=== PATIENT | female | born 1960 | race Caucasian/White ===

== ENCOUNTER 2016-09-20 06:52 | Emergency (ER) | payer BC ==
[2016-09-20] MEDS ORDERED: Sodium Chloride 0.9% 2.5 ML Syringe FLUSH PRN (07:12)
[2016-09-20] MEDS ORDERED: Sodium Chloride 0.9% 10 ML Syringe FLUSH PRN (07:12)
[2016-09-20] MEDS ORDERED: Diltiazem 25 MG/5 ML SDV IVPUSH ONE (07:13)
--- NOTE | 2016-09-20 07:20 | EDM.PDOC ---
ED HISTORY OF PRESENT ILLNESS - General Chief Complaint: Respiratory Problem Stated Complaint: AMBULANCE Time Seen by Provider: 09/20/16 07:10 Source of Information: Reports: Patient History Limitations: Reports: No limitations - History of Present Illness INITIAL COMMENTS - FREE TEXT/NARRATIVE: History of present illness: [] Patient has a history of atrial fibrillation and was changed from Eliquist to Pradaxa so last week. She started having shortness of breath and palpitations yesterday morning. It progressed throughout the night this morning she called the ambulance and she started feeling numbness around her face and cramping of her hands. Review of systems: As per history of present illness and below otherwise all systems reviewed and negative. Past medical history: As per history of present illness and as reviewed below otherwise noncontributory. Surgical history: As per history of present illness and as reviewed below otherwise noncontributory. Social history: No reported history of drug or alcohol abuse. Family history: As per history of present illness and as reviewed below otherwise noncontributory. Physical exam: General: Well developed, well nourished in NAD HEENT: Atraumatic, normocephalic, pupils reactive, negative for conjunctival pallor or scleral icterus, mucous membranes moist, throat clear, neck supple, nontender, trachea midline. Lungs: Clear to auscultation, breath sounds equal bilaterally no wheezing or rales, no respiratory distress, chest nontender. Heart: S1S2, irregular, tachycardic, negative for clicks, rubs, or JVD. Abdomen: Soft, nondistended, nontender. Negative for masses or hepatosplenomegaly. Negative for costovertebral tenderness. Pelvis: Stable nontender. Genitourinary: Deferred. Rectal: Deferred. Extremities: Atraumatic, negative for cords or calf pain. Neurovascular unremarkable. Neuro: Awake, alert, oriented. Cranial nerves II through XII unremarkable. Cerebellum unremarkable. Motor and sensory unremarkable throughout. Exam nonfocal. Diagnostics: [] EKG, Labs and chest x-ray show A. fib with RVR, mild hypokalemia and interstitial edema Therapeutics: [] Patient was given one dose of diltiazem with control of her rate in the 70s improved blood pressure and symptoms. Impression: [] A. fib with rapid ventricular rate Plan: [] Continue Current medications followup with PMD as needed Definitive disposition and diagnosis as appropriate pending reevaluation and review of above. - Related Data Allergies/ADRs: Allergies Allergy/AdvReac Type Severity Reaction Status Date / Time tetnus vaccination Allergy Hives Uncoded 09/20/16 06:57 Home Meds: Home Meds Dabigatran Etexilate Mesylate [Pradaxa] 150 mg PO DAILY 09/20/16 [History] Famotidine [Pepcid AC] 20 mg PO DAILY 09/20/16 [History] Levothyroxine 25 mcg PO DAILY 09/20/16 [History] Lisinopril 5 mg PO DAILY 09/20/16 [History] Metoprolol Succinate [Toprol XL] 150 mg PO DAILY 09/20/16 [History] Rosuvastatin [Crestor] 20 mg PO DAILY 09/20/16 [History] Past Medical History HEENT History: Reports: Impaired vision Cardiovascular History: Reports: Afib, High cholesterol, Hypertension Other Cardiovascular History: stroke 5 years ago Respiratory History: Reports: Other (see below) Other Respiratory History: lung polyps Gastrointestinal History: Reports: None Genitourinary History: Reports: None SPECIAL PROCEDURE TECH History: Reports: None Musculoskeletal History: Reports: Fracture Neurological History: Reports: Seizure Other Neuro History: last attack 4 years ago Psychiatric History: Reports: None Endocrine/Metabolic History: Reports: Other (see below) Other Endocrine/Metabolic History: "borderline diabetes" Hematologic History: Reports: None Oncologic (Cancer) History: Reports: None Dermatologic History: Reports: None - Infectious Disease History Infectious Disease History: Reports: Chicken pox, Influenza - Past Surgical History Head Surgeries/Procedures: Reports: None HEENT Surgical History: Reports: None Cardiovascular Surgical History: Reports: None Respiratory Surgical History: Reports: None Female Surgical History: Reports: None Endocrine Surgical History: Reports: None Neurological Surgical History: Reports: None Musculoskeletal Surgical History: Reports: None Social & Family History - Family History Family Medical History: Noncontributory HEENT: Reports: Impaired vision Cardiac: Reports: Bypass, Hypertension OBGYN: Reports: Oncologic: Reports: Breast - Tobacco Use Smoking Status *Q: Current Every Day Smoker Years of Tobacco use: 30 Packs/Tins Daily: 1.5 Used Tobacco, but Quit: No Second Hand Smoke Exposure: Yes - Caffeine Use Caffeine Use: Reports: Coffee - Alcohol Use Days Per Week of Alcohol Use: 2 Number of Drinks Per Day: 4 Total Drinks Per Week: 8 - Recreational Drug Use Recreational Drug Use: No Drug Use in Last 12 Months: No ED ROS GENERAL - Review of Systems Review Of Systems: See Below (See history of present illness) ED EXAM, GENERAL - Physical Exam Exam: See Below (See history of present illness) Course - Vital Signs Last Recorded V/S: Last Vital Signs Temp 36.5 C 09/20/16 06:57 Pulse 67 09/20/16 07:52 Resp 16 09/20/16 07:52 BP 114/80 09/20/16 07:52 Pulse Ox 97 09/20/16 07:52 - Orders/Labs/Meds Orders: Active Orders 24 hr Category Date Time Status EKG 12 Lead [EKG Documentation Completion] [RC] STAT Care 09/20/16 07:17 Active Chest 1V Frontal [CR] Stat Exams 09/20/16 07:11 Taken Sodium Chloride 0.9% [Saline Flush] Med 09/20/16 07:12 Active 10 ml FLUSH ASDIRECTED PRN Sodium Chloride 0.9% [Saline Flush] Med 09/20/16 07:12 Active 2.5 ml FLUSH ASDIRECTED PRN Peripheral IV Insertion Adult [OM.PC] Stat Oth 09/20/16 07:11 Ordered Medication Orders Sodium Chloride (Saline Flush) 10 ml FLUSH ASDIRECTED PRN PRN Reason: Keep Vein Open Last Admin: 09/20/16 07:33 Dose: 10 ml Sodium Chloride (Saline Flush) 2.5 ml FLUSH ASDIRECTED PRN PRN Reason: Keep Vein Open Last Admin: 09/20/16 07:33 Dose: 2.5 ml Labs: Laboratory Tests 09/20/16 09/20/16 09/20/16 Range/Units 07:20 07:20 07:20 WBC 6.87 (4.0-11.0) K/uL RBC 4.34 (4.30-5.90) M/uL Hgb 12.6 (12.0-16.0) g/dL Hct 39.2 (36.0-46.0) % MCV 90.3 (80.0-98.0) fL MCH 29.0 (27.0-32.0) pg MCHC 32.1 (31.0-37.0) g/dL RDW Std Deviation 55.2 (28.0-62.0) fl RDW Coeff of Cullen 17 H (11.0-15.0) % Plt Count 226 (150-400) K/uL MPV 10.60 (7.40-12.00) fL Neut % (Auto) 71.7 (48.0-80.0) % Lymph % (Auto) 18.8 (16.0-40.0) % [place] % (Auto) 7.9 (0.0-15.0) % Eos % (Auto) 1.2 (0.0-7.0) % Baso % (Auto) 0.4 (0.0-1.5) % Neut # (Auto) 4.9 (1.4-5.7) K/uL Lymph # (Auto) 1.3 (0.6-2.4) K/uL [place] # (Auto) 0.5 (0.0-0.8) K/uL Eos # (Auto) 0.1 (0.0-0.7) K/uL Baso # (Auto) 0.0 (0.0-0.1) K/uL Nucleated RBC % 0.0 /100WBC Nucleated RBCs # 0 K/uL Sodium 142 (136-146) mmol/L Potassium 3.1 L (3.5-5.1) mmol/L Chloride 106 (98-110) mmol/L Carbon Dioxide 20 L (21-31) mmol/L BUN 18 (6.0-23.0) mg/dL Creatinine 0.9 (0.6-1.5) mg/dL Est Cr Clr Drug Dosing 72.07 mL/min Estimated GFR (MDRD) > 60.0 ml/min Glucose 126 H (60-110) mg/dL Calcium 6.0 L (8.8-10.8) mg/dL Total Bilirubin 0.4 (0.1-1.5) mg/dL AST 16 (5-40) IU/L ALT 11 (8-54) IU/L Alkaline Phosphatase 71 (40-150) Troponin I < 0.10 (0.0-0.29) NG/ML B-Natriuretic Peptide (<100) PG/ML Total Protein 6.8 (6.0-8.0) g/dL Albumin 3.7 (3.5-5.0) g/dL Globulin 3.1 (2.0-3.5) g/dL Albumin/Globulin Ratio 1.2 L (1.3-2.8) 09/20/16 Range/Units 07:20 WBC (4.0-11.0) K/uL RBC (4.30-5.90) M/uL Hgb (12.0-16.0) g/dL Hct (36.0-46.0) % MCV (80.0-98.0) fL MCH (27.0-32.0) pg MCHC (31.0-37.0) g/dL RDW Std Deviation (28.0-62.0) fl RDW Coeff of Cullen (11.0-15.0) % Plt Count (150-400) K/uL MPV (7.40-12.00) fL Neut % (Auto) (48.0-80.0) % Lymph % (Auto) (16.0-40.0) % [place] % (Auto) (0.0-15.0) % Eos % (Auto) (0.0-7.0) % Baso % (Auto) (0.0-1.5) % Neut # (Auto) (1.4-5.7) K/uL Lymph # (Auto) (0.6-2.4) K/uL [place] # (Auto) (0.0-0.8) K/uL Eos # (Auto) (0.0-0.7) K/uL Baso # (Auto) (0.0-0.1) K/uL Nucleated RBC % /100WBC Nucleated RBCs # K/uL Sodium (136-146) mmol/L Potassium (3.5-5.1) mmol/L Chloride (98-110) mmol/L Carbon Dioxide (21-31) mmol/L BUN (6.0-23.0) mg/dL Creatinine (0.6-1.5) mg/dL Est Cr Clr Drug Dosing mL/min Estimated GFR (MDRD) ml/min Glucose (60-110) mg/dL Calcium (8.8-10.8) mg/dL Total Bilirubin (0.1-1.5) mg/dL AST (5-40) IU/L ALT (8-54) IU/L Alkaline Phosphatase (40-150) Troponin I (0.0-0.29) NG/ML B-Natriuretic Peptide 2840 H (<100) PG/ML Total Protein (6.0-8.0) g/dL Albumin (3.5-5.0) g/dL Globulin (2.0-3.5) g/dL Albumin/Globulin Ratio (1.3-2.8) Meds: Medications Generic Name Dose Route Start Last Admin Trade Name Freq PRN Reason Stop Dose Admin Sodium Chloride 10 ml 09/20/16 07:12 09/20/16 07:33 Saline Flush FLUSH 10 ml ASDIRECTED PRN Administration Keep Vein Open Sodium Chloride 2.5 ml 09/20/16 07:12 09/20/16 07:33 Saline Flush FLUSH 2.5 ml ASDIRECTED PRN Administration Keep Vein Open Discontinued Medications Generic Name Dose Route Start Last Admin Trade Name Freq PRN Reason Stop Dose Admin Diltiazem HCl 20 mg 09/20/16 07:13 09/20/16 07:33 Diltiazem IVPUSH 09/20/16 07:14 20 mg ONETIME ONE Administration Potassium Chloride 40 meq 09/20/16 08:05 09/20/16 08:12 Klor-Con M20 PO 09/20/16 08:06 40 meq ONETIME ONE Administration Departure - Departure Time of Disposition: 08:37 Disposition: Home, Self-Care 01 Condition: good Clinical Impression: Atrial fibrillation with rapid ventricular response Forms: ED Department Discharge Additional Instructions: The following information is given to patients seen in the emergency department who are being discharged to home. This information is to outline your options for follow-up care. We provide all patients seen in our emergency department with a follow-up referral. The need for follow-up, as well as the timing and circumstances, are variable depending upon the specifics of your emergency department visit. If you don't have a primary care physician on staff, we will provide you with a referral. We always advise you to contact your personal physician following an emergency department visit to inform them of the circumstance of the visit and for follow-up with them and/or the need for any referrals to a consulting specialist. The emergency department will also refer you to a specialist when appropriate. This referral assures that you have the opportunity for follow-up care with a specialist. All of these measure are taken in an effort to provide you with optimal care, which includes your follow-up. Under all circumstances we always encourage you to contact your private physician who remains a resource for coordinating your care. When calling for follow-up care, please make the office aware that this follow-up is from your recent emergency room visit. If for any reason you are refused follow-up, please contact the [facility] Emergency Department at and asked to speak to the emergency department charge nurse. Continue regular medications [facility] [address] [place] [address] - My Orders Last 24 Hours: My Active Orders 09/20/16 07:11 Chest 1V Frontal [CR] Stat Peripheral IV Insertion Adult [OM.PC] Stat 09/20/16 07:12 Sodium Chloride 0.9% [Saline Flush] 10 ml FLUSH ASDIRECTED PRN Sodium Chloride 0.9% [Saline Flush] 2.5 ml FLUSH ASDIRECTED PRN 09/20/16 07:17 EKG 12 Lead [EKG Documentation Completion] [RC] STAT - Assessment/Plan Last 24 Hours: My Active Orders 09/20/16 07:11 Chest 1V Frontal [CR] Stat Peripheral IV Insertion Adult [OM.PC] Stat 09/20/16 07:12 Sodium Chloride 0.9% [Saline Flush] 10 ml FLUSH ASDIRECTED PRN Sodium Chloride 0.9% [Saline Flush] 2.5 ml FLUSH ASDIRECTED PRN 09/20/16 07:17 EKG 12 Lead [EKG Documentation Completion] [RC] STAT
[2016-09-20 07:58] LABS: CHLORIDE,CL 106 mmol/L (98-110); SODIUM,NA 142 mmol/L (136-146)
[2016-09-20] MEDS ORDERED: Potassium Chloride 20 MEQ Tab.ER PO ONE (08:05)
[2016-09-20 09:06] VITALS: BP 116/85
--- NOTE | 2016-09-20 10:41 | CR ---
EXAM DATE: 09/20/16 PATIENT'S AGE: 56 Patient: [place] Facility: [place], [place] Site . Site : 1960 Study: XRay Chest [id number]/12/2017 7:40:40 AM Ordering Physician: Doctor Galan Final Report: INDICATION: Shortness of breath, and chest pain. COMPARISON: Portable chest dated 03/01/2016. TECHNIQUE: Portable AP erect chest performed at 7:33 a.m. FINDINGS: There is no evidence of pneumothorax. There is mild cardiac enlargement. Pulmonary vessels show mild central congestion and within the periphery of the right lung there are few septal lines which may indicate early interstitial edema. However I see no significant pleural fluid accumulation. There are no suspicious masses or focal infiltrate. IMPRESSION: Enlarging cardiac silhouette and pulmonary vascular changes suggesting early interstitial edema Dictated by Jani Starks MD @ Sep 20 2016 7:43AM (Electronic Signature) Report Signed by Proxy and Original Signed Document filed in the Medical Record. MTDD
== END 2016-09-20 09:07 | disposition home or self-care (01) ==
LOC: MW.ED 06:52
DX: I48.91 Unspecified atrial fibrillation (principal); E78.00 Pure hypercholesterolemia, unspecified; I10 Essential (primary) hypertension; F17.210 Nicotine dependence, cigarettes, uncomplicated; Z79.899 Other long term (current) drug therapy; Z88.7 Allergy status to serum and vaccine
CPT/HCPCS: 36415; 71010; 80053; 83880; 84484; 85025; 93005; 96374; 99285; A9270; 99284; J3490

== ENCOUNTER 2016-09-24 12:45 | Inpatient (IN) | payer BC ==
[~2016-09-24 12:45] MED LIST: Diltiazem 25 MG/5 ML SDV IVPUSH ONE; Sodium Chloride 0.9% 1,000 ML IV ONE; Sodium Chloride 0.9% 10 ML Syringe FLUSH PRN; Sodium Chloride 0.9% 2.5 ML Syringe FLUSH PRN
[2016-09-24] MEDS ORDERED: Diltiazem 100 MG AdvVial ONE (13:07)
--- NOTE | 2016-09-24 13:08 | EDM.PDOC ---
[id number]: AMBULANCE Time Seen by Provider: 09/24/16 12:55 Source of Information: Reports: Patient History Limitations: Reports: No limitations - History of Present Illness INITIAL COMMENTS - FREE TEXT/NARRATIVE: History of present illness: [] Patient has a history of A. fib treated with Pradaxa who has been having increasing intermittent episodes of shortness of breath. Patient denies feeling any chest pain she says at times chest is tight. She was seen in the ER last week for similar symptoms and was discharged home stable. She returns in A. fib with RVR on scene she had a low blood pressure of 80 systolic. On arrival she was hypertensive. Review of systems: As per history of present illness and below otherwise all systems reviewed and negative. Past medical history: As per history of present illness and as reviewed below otherwise noncontributory. Surgical history: As per history of present illness and as reviewed below otherwise noncontributory. Social history: No reported history of drug or alcohol abuse. Family history: As per history of present illness and as reviewed below otherwise noncontributory. Physical exam: General: Well developed, well nourished in NAD HEENT: Atraumatic, normocephalic, pupils reactive, negative for conjunctival pallor or scleral icterus, mucous membranes moist, throat clear, neck supple, nontender, trachea midline. Lungs: Clear to auscultation, breath sounds equal bilaterally, chest nontender. Heart: S1S2, regular, negative for clicks, rubs, or JVD. Abdomen: Soft, nondistended, nontender. Negative for masses or hepatosplenomegaly. Negative for costovertebral tenderness. Pelvis: Stable nontender. Genitourinary: Deferred. Rectal: Deferred. Extremities: Atraumatic, negative for cords or calf pain. Neurovascular unremarkable. Neuro: Awake, alert, oriented. Cranial nerves II through XII unremarkable. Cerebellum unremarkable. Motor and sensory unremarkable throughout. Exam nonfocal. Diagnostics: [] Labs and x-ray done Therapeutics: [] Patient was given diltiazem was and put on a diltiazem drip, electrolyte replacement was begun in the ED Impression: [] A. fib with RVR, hypokalemia, hypocalcemia Plan: [] Admit for further treatment and workup to Dr. Willett Definitive disposition and diagnosis as appropriate pending reevaluation and review of above. - Related Data Allergies/ADRs: Allergies Allergy/AdvReac Type Severity Reaction Status Date / Time tetnus vaccination Allergy Hives Uncoded 09/24/16 12:46 Home Meds: Home Meds Dabigatran Etexilate Mesylate [Pradaxa] 150 mg PO DAILY 09/20/16 [History] Famotidine [Pepcid AC] 20 mg PO DAILY 09/20/16 [History] Levothyroxine 25 mcg PO DAILY 09/20/16 [History] Lisinopril 5 mg PO DAILY 09/20/16 [History] Metoprolol Succinate [Toprol XL] 150 mg PO DAILY 09/20/16 [History] Rosuvastatin [Crestor] 20 mg PO DAILY 09/20/16 [History] Past Medical History HEENT History: Reports: Impaired vision Cardiovascular History: Reports: Afib, High cholesterol, Hypertension Other Cardiovascular History: stroke 5 years ago Respiratory History: Reports: Other (see below) Other Respiratory History: lung polyps Gastrointestinal History: Reports: None Genitourinary History: Reports: None 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 Musculoskeletal History: Reports: Fracture Neurological History: Reports: Seizure Other Neuro History: last attack 4 years ago Psychiatric History: Reports: None Endocrine/Metabolic History: Reports: Other (see below) Other Endocrine/Metabolic History: "borderline diabetes" Hematologic History: Reports: None Oncologic (Cancer) History: Reports: None Dermatologic History: Reports: None - Infectious Disease History Infectious Disease History: Reports: Chicken pox, Influenza - Past Surgical History Head Surgeries/Procedures: Reports: None HEENT Surgical History: Reports: None Cardiovascular Surgical History: Reports: None Respiratory Surgical History: Reports: None Female Surgical History: Reports: None Endocrine Surgical History: Reports: None Neurological Surgical History: Reports: None Musculoskeletal Surgical History: Reports: None Social & Family History - Family History Family Medical History: Noncontributory HEENT: Reports: Impaired vision Cardiac: Reports: Bypass, Hypertension OBGYN: Reports: Oncologic: Reports: Breast - Tobacco Use Smoking Status *Q: Current Every Day Smoker Years of Tobacco use: 30 Packs/Tins Daily: 0.5 Used Tobacco, but Quit: No Second Hand Smoke Exposure: Yes - Caffeine Use Caffeine Use: Reports: Coffee Caffeine Use Comment: 4 cups/day - Alcohol Use Days Per Week of Alcohol Use: 2 Number of Drinks Per Day: 4 Total Drinks Per Week: 8 - Recreational Drug Use Recreational Drug Use: No Drug Use in Last 12 Months: No ED ROS GENERAL - Review of Systems Review Of Systems: See Below (See history of present illness) ED EXAM, GENERAL - Physical Exam Exam: See Below (See history of present illness) Course - Vital Signs Last Recorded V/S: Last Vital Signs Temp 36.9 C 09/25/16 00:00 Pulse 130 H 09/25/16 07:00 Resp 27 H 09/25/16 07:00 BP 122/98 H 09/25/16 07:00 Pulse Ox 95 09/25/16 07:00 - Orders/Labs/Meds Orders: Active Orders 24 hr Category Date Time Status Chest 1V Frontal [CR] Stat Exams 09/24/16 12:39 Taken Diltiazem [Cardizem] 100 mg Med 09/24/16 13:15 Active Sodium Chloride 0.9% [Normal Saline] 100 ml IV TITRATE Sodium Chloride 0.9% [Saline Flush] Med 09/24/16 12:39 Active 10 ml FLUSH ASDIRECTED PRN Sodium Chloride 0.9% [Saline Flush] Med 09/24/16 12:39 Active 2.5 ml FLUSH ASDIRECTED PRN Peripheral IV Insertion Adult [OM.PC] Stat Oth 09/24/16 12:38 Ordered Medication Orders Acetaminophen (Tylenol) 650 mg PO Q4H PRN PRN Reason: Pain (Mild 1-3)/fever Dabigatran (Pradaxa) 150 mg PO BID BONITA Diltiazem HCl 100 mg/ Sodium (Chloride) 100 mls @ 5 mls/hr IV TITRATE BONITA; 5 MG /HR PRN Reason: Protocol Last Titration: 09/25/16 06:49 Dose: 10 mg/hr, 10 mls/hr Admin: 09/25/16 02:38 Dose: 5 mg/hr, 5 mls/hr Titration: 09/25/16 02:38 Dose: 5 mg/hr, 5 mls/hr Admin: 09/24/16 13:12 Dose: 5 mg/hr, 5 mls/hr Levothyroxine Sodium (Levothyroxine) 25 mcg PO DAILY BONITA Ondansetron HCl (Zofran) 4 mg IVPUSH Q4H PRN PRN Reason: Nausea Sodium Chloride (Saline Flush) 10 ml FLUSH ASDIRECTED PRN PRN Reason: Keep Vein Open Last Admin: 09/24/16 12:47 Dose: 10 ml Sodium Chloride (Saline Flush) 2.5 ml FLUSH ASDIRECTED PRN PRN Reason: Keep Vein Open Last Admin: 09/24/16 12:47 Dose: 2.5 ml Labs: Laboratory Tests 09/24/16 09/24/16 09/24/16 Range/Units 12:43 12:43 12:43 WBC 10.05 (4.0-11.0) K/uL RBC 4.57 (4.30-5.90) M/uL Hgb 13.6 (12.0-16.0) g/dL Hct 41.2 (36.0-46.0) % MCV 90.2 (80.0-98.0) fL MCH 29.8 (27.0-32.0) pg MCHC 33.0 (31.0-37.0) g/dL RDW Std Deviation 53.9 (28.0-62.0) fl RDW Coeff of Cullen 16 H (11.0-15.0) % Plt Count 280 (150-400) K/uL MPV 11.40 (7.40-12.00) fL Neut % (Auto) 74.3 (48.0-80.0) % Lymph % (Auto) 12.4 L (16.0-40.0) % [place] % (Auto) 12.7 (0.0-15.0) % Eos % (Auto) 0.3 (0.0-7.0) % Baso % (Auto) 0.3 (0.0-1.5) % Neut # (Auto) 7.5 H (1.4-5.7) K/uL Lymph # (Auto) 1.3 (0.6-2.4) K/uL [place] # (Auto) 1.3 H (0.0-0.8) K/uL Eos # (Auto) 0.0 (0.0-0.7) K/uL Baso # (Auto) 0.0 (0.0-0.1) K/uL Nucleated RBC % 0.0 /100WBC Nucleated RBCs # 0 K/uL INR (0.86-1.11) APTT (18.6-31.3) SEC Sodium 142 (136-146) mmol/L Potassium 3.1 L (3.5-5.1) mmol/L Chloride 104 (98-110) mmol/L Carbon Dioxide 17 L (21-31) mmol/L BUN 18 (6.0-23.0) mg/dL Creatinine 1.0 (0.6-1.5) mg/dL Est Cr Clr Drug Dosing 64.87 mL/min Estimated GFR (MDRD) 57.1 ml/min Glucose 113 H (60-110) mg/dL Calcium 5.7 L (8.8-10.8) mg/dL Magnesium (1.5-2.3) mEq/L Total Bilirubin 0.7 (0.1-1.5) mg/dL AST 16 (5-40) IU/L ALT 16 (8-54) IU/L Alkaline Phosphatase 72 (40-150) Troponin I < 0.10 (0.0-0.29) NG/ML B-Natriuretic Peptide (<100) PG/ML Total Protein 7.1 (6.0-8.0) g/dL Albumin 3.9 (3.5-5.0) g/dL Globulin 3.2 (2.0-3.5) g/dL Albumin/Globulin Ratio 1.2 L (1.3-2.8) 09/24/16 09/24/16 09/24/16 Range/Units 12:43 12:43 12:43 WBC (4.0-11.0) K/uL RBC (4.30-5.90) M/uL Hgb (12.0-16.0) g/dL Hct (36.0-46.0) % MCV (80.0-98.0) fL MCH (27.0-32.0) pg MCHC (31.0-37.0) g/dL RDW Std Deviation (28.0-62.0) fl RDW Coeff of Cullen (11.0-15.0) % Plt Count (150-400) K/uL MPV (7.40-12.00) fL Neut % (Auto) (48.0-80.0) % Lymph % (Auto) (16.0-40.0) % [place] % (Auto) (0.0-15.0) % Eos % (Auto) (0.0-7.0) % Baso % (Auto) (0.0-1.5) % Neut # (Auto) (1.4-5.7) K/uL Lymph # (Auto) (0.6-2.4) K/uL [place] # (Auto) (0.0-0.8) K/uL Eos # (Auto) (0.0-0.7) K/uL Baso # (Auto) (0.0-0.1) K/uL Nucleated RBC % /100WBC Nucleated RBCs # K/uL INR 1.63 H (0.86-1.11) APTT 50.7 H (18.6-31.3) SEC Sodium (136-146) mmol/L Potassium (3.5-5.1) mmol/L Chloride (98-110) mmol/L Carbon Dioxide (21-31) mmol/L BUN (6.0-23.0) mg/dL Creatinine (0.6-1.5) mg/dL Est Cr Clr Drug Dosing mL/min Estimated GFR (MDRD) ml/min Glucose (60-110) mg/dL Calcium (8.8-10.8) mg/dL Magnesium 0.6 L (1.5-2.3) mEq/L Total Bilirubin (0.1-1.5) mg/dL AST (5-40) IU/L ALT (8-54) IU/L Alkaline Phosphatase (40-150) Troponin I (0.0-0.29) NG/ML B-Natriuretic Peptide > 3306 H (<100) PG/ML Total Protein (6.0-8.0) g/dL Albumin (3.5-5.0) g/dL Globulin (2.0-3.5) g/dL Albumin/Globulin Ratio (1.3-2.8) Meds: Medications Generic Name Dose Route Start Last Admin Trade Name Freq PRN Reason Stop Dose Admin Acetaminophen 650 mg 09/24/16 13:52 Tylenol PO Q4H PRN Pain (Mild 1-3)/fever Dabigatran 150 mg 09/25/16 09:00 Pradaxa PO BID BONITA Diltiazem HCl 100 mg/ Sodium 100 mls @ 5 mls/hr 09/24/16 13:15 04/17/17 06:49 Chloride IV 10 mg/hr TITRATE BONITA 10 mls/hr Protocol Titration 5 MG/HR Levothyroxine Sodium 25 mcg 09/25/16 09:00 Levothyroxine PO DAILY BONITA Ondansetron HCl 4 mg 09/24/16 13:52 Zofran IVPUSH Q4H PRN Nausea Sodium Chloride 10 ml 09/24/16 12:39 09/24/16 12:47 Saline Flush FLUSH 10 ml ASDIRECTED PRN Administration Keep Vein Open Sodium Chloride 2.5 ml 09/24/16 12:39 09/24/16 12:47 Saline Flush FLUSH 2.5 ml ASDIRECTED PRN Administration Keep Vein Open Discontinued Medications Generic Name Dose Route Start Last Admin Trade Name Freq PRN Reason Stop Dose Admin Calcium Gluconate 1 gm 09/24/16 13:25 09/24/16 13:55 Calcium Gluconate IV 09/24/16 13:26 Not Given ONETIME ONE Calcium Gluconate 1 gm 09/24/16 13:49 09/24/16 14:17 Calcium Gluconate IVPUSH 09/24/16 13:50 Not Given ONETIME ONE Calcium Gluconate 1 gm 09/25/16 00:51 09/25/16 01:27 Calcium Gluconate IVPUSH 09/25/16 00:52 Not Given ONETIME ONE Diltiazem HCl 20 mg 09/24/16 12:39 09/24/16 12:46 Diltiazem IVPUSH 09/24/16 12:40 20 mg ONETIME ONE Administration Diltiazem HCl Confirm 09/24/16 13:07 09/24/16 13:30 Cardizem Administered 09/24/16 13:08 Not Given Dose 100 mg .ROUTE .STK-MED ONE Sodium Chloride 1,000 mls @ 999 mls/hr 09/24/16 12:39 09/24/16 12:46 Normal Saline IV 09/24/16 13:39 999 mls/hr .Bolus ONE Administration Sodium Chloride Confirm 09/24/16 13:09 09/24/16 13:31 Normal Saline Administered 09/24/16 13:10 Not Given Dose 100 mls @ as directed .ROUTE .STK-MED ONE Potassium Chloride/Sodium Chloride 1,000 mls @ 150 mls/hr 09/24/16 13:30 Normal Saline With 40 Meq Kcl IV 09/24/16 20:09 ASDIRECTED BONITA Calcium Gluconate 1 gm/ Sodium 60 mls @ 60 mls/hr 09/24/16 14:00 Chloride IV 09/24/16 14:59 ONETIME ONE Calcium Gluconate 2 gm/ Sodium 120 mls @ 60 mls/hr 09/24/16 14:00 09/24/16 14 :16 Chloride IV 09/24/16 15:59 60 mls/hr ONETIME ONE Administration Magnesium Sulfate 4 gm/ Premix 100 mls @ 50 mls/hr 09/24/16 14:39 09/24/16 15 :25 IV 09/24/16 16:38 50 mls/hr ONETIME ONE Administration Calcium Gluconate 1 gm/ Sodium 60 mls @ 60 mls/hr 09/24/16 17:45 09/24/16 17: 58 Chloride IV 09/24/16 18:44 60 mls/hr ONETIME ONE Administration Magnesium Sulfate 4 gm/ Premix 100 mls @ 50 mls/hr 09/25/16 00:47 09/25/16 02 :29 IV 09/25/16 02:46 50 mls/hr ONETIME ONE Administration Calcium Gluconate 1 gm/ Sodium 60 mls @ 60 mls/hr 09/25/16 01:30 09/25/16 01: 28 Chloride IV 09/25/16 02:29 60 mls/hr ONETIME ONE Administration Ondansetron HCl 4 mg 09/24/16 13:29 09/24/16 13:44 Zofran IVPUSH 09/24/16 13:30 4 mg ONETIME ONE Administration Potassium Chloride 40 meq 09/24/16 13:17 09/24/16 13:24 Klor-Con M20 PO 09/24/16 13:18 40 meq ONETIME ONE Administration Potassium Chloride 20 meq 09/24/16 13:21 09/24/16 13:45 Klor-Con M20 PO 09/24/16 13:22 20 meq ONETIME ONE Administration Potassium Chloride 60 meq 09/24/16 17:17 09/24/16 18:00 Klor-Con M20 PO 09/24/16 17:18 60 meq ONETIME ONE Administration Departure - Departure Time of Disposition: 08:18 Disposition: Admitted As Inpatient 65 Clinical Impression: Atrial fibrillation with rapid ventricular response - My Orders Last 24 Hours: My Active Orders 09/24/16 12:38 Peripheral IV Insertion Adult [OM.PC] Stat 09/24/16 12:39 Chest 1V Frontal [CR] Stat Sodium Chloride 0.9% [Saline Flush] 10 ml FLUSH ASDIRECTED PRN Sodium Chloride 0.9% [Saline Flush] 2.5 ml FLUSH ASDIRECTED PRN 09/24/16 13:15 Diltiazem [Cardizem] 100 mg Sodium Chloride 0.9% [Normal Saline] 100 ml IV TITRATE - Assessment/Plan Last 24 Hours: My Active Orders 09/24/16 12:38 Peripheral IV Insertion Adult [OM.PC] Stat 09/24/16 12:39 Chest 1V Frontal [CR] Stat Sodium Chloride 0.9% [Saline Flush] 10 ml FLUSH ASDIRECTED PRN Sodium Chloride 0.9% [Saline Flush] 2.5 ml FLUSH ASDIRECTED PRN 09/24/16 13:15 Diltiazem [Cardizem] 100 mg Sodium Chloride 0.9% [Normal Saline] 100 ml IV TITRATE
[2016-09-24] MEDS ORDERED: Sodium Chloride 0.9% 100 ML ONE (13:09)
[2016-09-24] MEDS: Diltiazem 100 MG in Sodium Chloride 0.9% 100 ML IV SCH (13:12)
[2016-09-24] MEDS ORDERED: Potassium Chloride 20 MEQ Tab.ER PO ONE ×3 (13:17→17:17)
[2016-09-24] MEDS ORDERED: Ondansetron 4 MG/2 ML SDV IVPUSH ONE (13:29)
[2016-09-24] MEDS ORDERED: Sodium Chloride 0.9% with KCl 1,000 ML IV SCH (13:30)
[2016-09-24] MEDS: Calcium Gluconate 10% 1 GM/10 ML SDV IV ONE ×2 (13:45→13:55)
[2016-09-24] MEDS ORDERED: Calcium Gluconate 10% 1 GM/10 ML SDV IVPUSH ONE (13:49)
[2016-09-24] MEDS ORDERED: Acetaminophen 325 MG Tab PO PRN (13:52)
[2016-09-24] MEDS ORDERED: Ondansetron 4 MG/2 ML SDV IVPUSH PRN (13:52)
[2016-09-24] MEDS ORDERED: Calcium Gluconate 2 GM in Sodium Chloride 0.9% 100 ML IV ONE (14:00)
--- NOTE | 2016-09-24 14:05 | PCM.HP ---
H&P History of Present Illness - History of Present Illness Initial Comments - Free Text/Narative: 56 yo female with pmh of atrial fibrillation, cardiomyopathy with EF of 20%, and hypocalcemia. She was admitted last february for atrial fibrillation with severe hypocalcemia, hypomagnesia. The plan was to follow up with endocrinology but she denies this every happening. She reports she has been compliant with her calcium supplementation. She presents today with one day history of shortness of breath and palpiations. She was seen in the ED and noted to be in atrial fibrillation with RVR and to have a heart rate of 150s. She was placed on a diltiazem drip which has lowered her heart rate and improved her dyspnea. She was noted to have a potassium of 3.1 and calcium of 5.7. - Related Data Allergies/Adverse Reactions: Allergies Allergy/AdvReac Type Severity Reaction Status Date / Time tetnus vaccination Allergy Hives Uncoded 09/24/16 12:46 Home Medications: Home Meds Dabigatran Etexilate Mesylate [Pradaxa] 150 mg PO BID 09/20/16 [History] Levothyroxine 25 mcg PO ACBREAKFAST 09/20/16 [History] Lisinopril 5 mg PO DAILY 09/20/16 [History] Metoprolol Succinate [Toprol XL] 100 mg PO QAM 09/20/16 [History] Rosuvastatin [Crestor] 20 mg PO DAILY 09/20/16 [History] Aspirin [Halfprin] 81 mg PO DAILY 09/25/16 [History] Calcium Carbonate/Vitamin D3 [Caltrate 600 Plus D3 Tablet] 600 mg PO BID [History] Magnesium Oxide 400 mg PO DAILY 09/25/16 [History] Metoprolol Succinate [Toprol XL] 50 mg PO BEDTIME 09/25/16 [History] Omeprazole 20 mg PO BID 09/25/16 [History] Past Medical History HEENT History: Reports: Impaired vision Cardiovascular History: Reports: Afib, High cholesterol, Hypertension Other Cardiovascular History: stroke 5 years ago Respiratory History: Reports: Other (see below) Other Respiratory History: lung polyps Gastrointestinal History: Reports: None Genitourinary History: Reports: None [employer]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 Musculoskeletal History: Reports: Fracture Neurological History: Reports: Seizure Other Neuro History: last attack 4 years ago Psychiatric History: Reports: None Endocrine/Metabolic History: Reports: Other (see below) Other Endocrine/Metabolic History: "borderline diabetes" Hematologic History: Reports: None Oncologic (Cancer) History: Reports: None Dermatologic History: Reports: None - Infectious Disease History Infectious Disease History: Reports: Chicken pox, Influenza - Past Surgical History Head Surgeries/Procedures: Reports: None HEENT Surgical History: Reports: None Cardiovascular Surgical History: Reports: None Respiratory Surgical History: Reports: None Female Surgical History: Reports: None Endocrine Surgical History: Reports: None Neurological Surgical History: Reports: None Musculoskeletal Surgical History: Reports: None Social & Family History - Family History Family Medical History: Noncontributory HEENT: Reports: Impaired vision Cardiac: Reports: Bypass, Hypertension OBGYN: Reports: Oncologic: Reports: Breast - Tobacco Use Smoking Status *Q: Current Every Day Smoker Years of Tobacco use: 30 Packs/Tins Daily: 0.5 Used Tobacco, but Quit: No Second Hand Smoke Exposure: Yes - Caffeine Use Caffeine Use: Reports: Coffee Caffeine Use Comment: 4 cups/day - Alcohol Use Days Per Week of Alcohol Use: 2 Number of Drinks Per Day: 4 Total Drinks Per Week: 8 - Recreational Drug Use Recreational Drug Use: No Drug Use in Last 12 Months: No H&P Review of Systems - Review of Systems: Review Of Systems: See Below General: Reports: no symptoms HEENT: Reports: no symptoms Pulmonary: Reports: No Symptoms Cardiovascular: Reports: palpitations, dyspnea on exertion. Denies: chest pain Gastrointestinal: Reports: No symptoms Genitourinary: Reports: no symptoms Musculoskeletal: Reports: no symptoms Skin: Reports: no symptoms Psychiatric: Reports: no symptoms Neurological: Reports: No Symptoms Hematologic/Lymphatic: Reports: no symptoms Immunologic: Reports: no symptoms Exam - Exam Exam: See Below - Vital Signs Vital Signs: Last Vital Signs Temp 37.2 C 09/24/16 12:46 Pulse 145 H 09/24/16 13:12 Resp 16 09/24/16 12:49 BP 126/91 H 09/24/16 13:12 Pulse Ox 99 09/24/16 12:49 Weight: 80.7 kg - Exam General: alert, oriented, 4 HEENT: Other (facial twitching) Lungs: Clear to auscultation, Normal respiratory effort Cardiovascular: irregular rhythm, tachycardia. No: systolic murmur, diastolic murmur Abdomen: normal bowel sounds, soft Extremities: normal inspection Skin: warm, dry, intact - Patient Data Result Diagrams: 09/25/16 05:10 09/25/16 05:10 *Q Meaningful Use (ADM) - VTE *Q VTE Criteria *Q: - Stroke *Q Stroke Criteria *Q: - AMI *Q AMI Criteria *Q: Problem List Initiated/Reviewed/Updated: Yes Orders Last 24hrs: Active Orders 24 hr Category Date Time Status Antiembolic Devices [RC] PER UNIT ROUTINE Care 09/24/16 13:54 Ordered EKG Documentation Completion [RC] ROUTINE Care 09/24/16 18:30 Active Intake and Output [RC] QSHIFT Care 09/24/16 13:53 Ordered Oxygen Therapy [RC] PRN Care 09/24/16 13:52 Ordered Up With Assistance [RC] ASDIRECTED Care 09/24/16 13:52 Ordered VTE/DVT Education [RC] PER UNIT ROUTINE Care 09/24/16 13:52 Ordered Vital Signs [RC] Q4H Care 09/24/16 13:52 Ordered Regular Diet [DIET] Diet 09/24/16 Breakfast Ordered BASIC METABOLIC PANEL,BMP [CHEM] AM Lab 09/25/16 05:11 Ordered BASIC METABOLIC PANEL,BMP [CHEM] AM Lab 09/26/16 05:11 Ordered BASIC METABOLIC PANEL,BMP [CHEM] AM Lab 09/27/16 05:11 Ordered BASIC METABOLIC PANEL,BMP [CHEM] Routine Lab 09/24/16 16:30 Ordered CBC WITH AUTO DIFF [HEME] AM Lab 09/25/16 05:11 Ordered TROPONIN I [CHEM] Routine Lab 09/24/16 16:30 Ordered TROPONIN I [CHEM] Routine Lab 09/24/16 18:30 Stop Req Acetaminophen [Tylenol] Med 09/24/16 13:52 Ordered 650 mg PO Q4H PRN Calcium Gluconate 2 gm Med 09/24/16 14:00 Active Sodium Chloride 0.9% [Normal Saline] 100 ml IV ONETIME Dabigatran [Pradaxa] Med 09/25/16 09:00 Ordered 150 mg PO DAILY Levothyroxine Med 09/25/16 09:00 Ordered 25 mcg PO DAILY Ondansetron [Zofran] Med 09/24/16 13:52 Ordered 4 mg IVPUSH Q4H PRN Sequential Compression Device [OM.PC] Per Unit Routine Oth 09/24/16 13:53 Ordered Resuscitation Status Routine Resus Stat 09/24/16 13:52 Ordered Medication Orders Acetaminophen (Tylenol) 650 mg PO Q4H PRN PRN Reason: Pain (Mild 1-3)/fever Dabigatran (Pradaxa) 150 mg PO DAILY BONITA Diltiazem HCl 100 mg/ Sodium (Chloride) 100 mls @ 5 mls/hr IV TITRATE BONITA; 5 MG /HR PRN Reason: Protocol Last Admin: 09/24/16 13:12 Dose: 5 mg/hr, 5 mls/hr Calcium Gluconate 2 gm/ Sodium (Chloride) 120 mls @ 60 mls/hr IV ONETIME ONE Stop: 09/24/16 15:59 Levothyroxine Sodium (Levothyroxine) 25 mcg PO DAILY BONITA Ondansetron HCl (Zofran) 4 mg IVPUSH Q4H PRN PRN Reason: Nausea Sodium Chloride (Saline Flush) 10 ml FLUSH ASDIRECTED PRN PRN Reason: Keep Vein Open Last Admin: 09/24/16 12:47 Dose: 10 ml Sodium Chloride (Saline Flush) 2.5 ml FLUSH ASDIRECTED PRN PRN Reason: Keep Vein Open Last Admin: 09/24/16 12:47 Dose: 2.5 ml Assessment/Plan Comment:: 56 yo female admitted with severe symptomatic hypocalcemia. Hypocalcemia: giving 2 grams of calcium gluconate and recheck. I spoke with eICU physician. Atrial fibrillation: continue diltiazem drip Hypokalemia: replacing Magnesium level pending.
[2016-09-24] MEDS ORDERED: Magnesium Sulfate/Water 4 GM in Premix Bag 1 BAG IV ONE (14:39)
[2016-09-24 16:57] LABS: CHLORIDE,CL 107 mmol/L (98-110); SODIUM,NA 141 mmol/L (136-146)
[2016-09-24 23:30] LABS: CHLORIDE,CL 107 mmol/L (98-110); SODIUM,NA 138 mmol/L (136-146)
[2016-09-25] MEDS ORDERED: Magnesium Sulfate/Water 4 GM in Premix Bag 1 BAG IV ONE (00:47)
[2016-09-25] MEDS ORDERED: Calcium Gluconate 10% 1 GM/10 ML SDV IVPUSH ONE ×2 (00:51→09:43)
[2016-09-25] MEDS: Diltiazem 100 MG in Sodium Chloride 0.9% 100 ML IV SCH ×3 (02:38→23:00)
[2016-09-25 06:06] LABS: CHLORIDE,CL 107 mmol/L (98-110); SODIUM,NA 139 mmol/L (136-146)
[2016-09-25] MEDS: Levothyroxine 25 MCG Tab PO SCH (08:20)
[2016-09-25] MEDS ORDERED: Potassium Chloride 20 MEQ Tab.ER PO ONE (09:43)
[2016-09-25] MEDS ORDERED: Calcium Gluconate 2 GM in Sodium Chloride 0.9% 100 ML IV ONE (10:15)
[2016-09-25] MEDS: Metoprolol Tartrate 25 MG Tab PO SCH ×2 (10:17→21:18)
[2016-09-25] MEDS: Magnesium Oxide 400 MG Tab PO SCH (10:17)
[2016-09-25] MEDS: Omeprazole 20 MG Cap.CR PO SCH ×2 (10:17→21:19)
[2016-09-25] MEDS: Cholecalciferol (Vitamin D3) 400 Unit Tab PO SCH (10:18)
--- NOTE | 2016-09-25 11:30 | CR ---
EXAM DATE: 09/24/16 PATIENT'S AGE: 56 Patient: [place] Facility: [place], [place] Site . Site : 1960 Study: XRay Chest [id number] 1:05:47 PM Ordering Physician: Michael Wilcox Final Report: INDICATION: Pain. Shortness breath. Chest tightness. Atrial fibrillation. Technique: AP portable chest x-ray. Comparison: Chest x-ray 09/20/2016. Findings: The adenopathy in the chest and pulmonary nodules noted on previous CT from the past cannot be identified on this study. The heart is globular in shape and moderately enlarged but stable. Small amount of patchy opacity in the right mid and lower lung may be inflammatory or related atelectasis and is fairly stable. Left lung is clear except for a small amount of nodular atelectasis in the left lung base laterally. Small nodular opacity or density in the right lower chest medially overlying the heart could be a bronchovascular marking on end or a vague nodule could be reassessed with a followup chest imaging. Chest otherwise unremarkable. Dictated by Tyrese Greer MD @ Sep 24 2016 1:09PM (Electronic Signature) Report Signed by Proxy and Original Signed Document filed in the Medical Record. MTDD
--- NOTE | 2016-09-25 11:30 | PCM.PN ---
- General Info Date of Service: 09/25/16 Admission Dx/Problem (Free Text): hypocalcemia, hypomagnesemia, a-fib with rvr Subjective Update: Patient reports that with better HR control that her breathing is improved since admission. She is still requiring supplemental O2 to maintain O2 >90% but her work of breathing is better. She has some cramping in her hand. She is tolerating oral intake, voiding appropriately. She denies any pain at this time. Functional Status: Reports: pain controlled, tolerating diet, ambulating, urinating - Review of Systems General: Reports: No Symptoms HEENT: Reports: no symptoms Pulmonary: Reports: shortness of breath (improving) Cardiovascular: Reports: No Symptoms Gastrointestinal: Reports: No symptoms Genitourinary: Reports: no symptoms Musculoskeletal: Reports: other (cramping in hands) Skin: Reports: no symptoms Neurological: Reports: No Symptoms Psychiatric: Reports: no symptoms - Patient Data Vitals - most recent: Last Vital Signs Temp 98 F 09/25/16 08:00 Pulse 120 H 09/25/16 10:17 Resp 17 09/25/16 10:00 BP 112/84 09/25/16 10:17 Pulse Ox 97 09/25/16 10:00 Weight - most recent: 177 lb 14.609 oz I&O - last 24 hours: Intake & Output 09/24/16 09/25/16 09/25/16 22:59 06:59 14:59 Intake Total 610 Output Total 800 Balance -190 Lab Results last 24 hrs: Laboratory Results - last 24 hr 09/24/16 09/24/16 09/24/16 Range/Units 16:31 16:31 23:05 WBC (4.0-11.0) K/uL RBC (4.30-5.90) M/uL Hgb (12.0-16.0) g/dL Hct (36.0-46.0) % MCV (80.0-98.0) fL MCH (27.0-32.0) pg MCHC (31.0-37.0) g/dL RDW Std Deviation (28.0-62.0) fl RDW Coeff of Cullen (11.0-15.0) % Plt Count (150-400) K/uL MPV (7.40-12.00) fL Neut % (Auto) (48.0-80.0) % Lymph % (Auto) (16.0-40.0) % Phillips % (Auto) (0.0-15.0) % Eos % (Auto) (0.0-7.0) % Baso % (Auto) (0.0-1.5) % Neut # (Auto) (1.4-5.7) K/uL Lymph # (Auto) (0.6-2.4) K/uL Phillips # (Auto) (0.0-0.8) K/uL Eos # (Auto) (0.0-0.7) K/uL Baso # (Auto) (0.0-0.1) K/uL Nucleated RBC % /100WBC Nucleated RBCs # K/uL Sodium 141 138 (136-146) mmol/L Potassium 2.9 L 3.9 (3.5-5.1) mmol/L Chloride 107 107 (98-110) mmol/L Carbon Dioxide 20 L 19 L (21-31) mmol/L BUN 17 20 (6.0-23.0) mg/dL Creatinine 0.9 0.9 (0.6-1.5) mg/dL Est Cr Clr Drug Dosing 72.07 72.07 mL/min Estimated GFR (MDRD) > 60.0 > 60.0 ml/min Glucose 101 107 (60-110) mg/dL Calcium 5.7 L 6.2 L (8.8-10.8) mg/dL Magnesium 1.0 L (1.5-2.3) mEq/L Troponin I 0.18 (0.0-0.29) NG/ML Free T4 (0.7-1.48) ng/dL TSH 3rd Generation (0.47-5.0) uIU/mL 09/25/16 09/25/16 09/25/16 Range/Units 05:10 05:10 05:10 WBC 7.47 (4.0-11.0) K/uL RBC 4.09 L (4.30-5.90) M/uL Hgb 12.0 (12.0-16.0) g/dL Hct 36.8 (36.0-46.0) % MCV 90.0 (80.0-98.0) fL MCH 29.3 (27.0-32.0) pg MCHC 32.6 (31.0-37.0) g/dL RDW Std Deviation 53.7 (28.0-62.0) fl RDW Coeff of Cullen 16 H (11.0-15.0) % Plt Count 224 (150-400) K/uL MPV 11.20 (7.40-12.00) fL Neut % (Auto) 68.8 (48.0-80.0) % Lymph % (Auto) 16.6 (16.0-40.0) % Phillips % (Auto) 13.8 (0.0-15.0) % Eos % (Auto) 0.7 (0.0-7.0) % Baso % (Auto) 0.1 (0.0-1.5) % Neut # (Auto) 5.1 (1.4-5.7) K/uL Lymph # (Auto) 1.2 (0.6-2.4) K/uL Phillips # (Auto) 1.0 H (0.0-0.8) K/uL Eos # (Auto) 0.1 (0.0-0.7) K/uL Baso # (Auto) 0.0 (0.0-0.1) K/uL Nucleated RBC % 0.0 /100WBC Nucleated RBCs # 0 K/uL Sodium 139 (136-146) mmol/L Potassium 3.7 (3.5-5.1) mmol/L Chloride 107 (98-110) mmol/L Carbon Dioxide 19 L (21-31) mmol/L BUN 18 (6.0-23.0) mg/dL Creatinine 0.8 (0.6-1.5) mg/dL Est Cr Clr Drug Dosing 80.79 mL/min Estimated GFR (MDRD) > 60.0 ml/min Glucose 102 (60-110) mg/dL Calcium 6.5 L (8.8-10.8) mg/dL Magnesium 2.3 (1.5-2.3) mEq/L Troponin I (0.0-0.29) NG/ML Free T4 (0.7-1.48) ng/dL TSH 3rd Generation (0.47-5.0) uIU/mL 09/25/16 Range/Units 05:10 WBC (4.0-11.0) K/uL RBC (4.30-5.90) M/uL Hgb (12.0-16.0) g/dL Hct (36.0-46.0) % MCV (80.0-98.0) fL MCH (27.0-32.0) pg MCHC (31.0-37.0) g/dL RDW Std Deviation (28.0-62.0) fl RDW Coeff of Cullen (11.0-15.0) % Plt Count (150-400) K/uL MPV (7.40-12.00) fL Neut % (Auto) (48.0-80.0) % Lymph % (Auto) (16.0-40.0) % Phillips % (Auto) (0.0-15.0) % Eos % (Auto) (0.0-7.0) % Baso % (Auto) (0.0-1.5) % Neut # (Auto) (1.4-5.7) K/uL Lymph # (Auto) (0.6-2.4) K/uL Phillips # (Auto) (0.0-0.8) K/uL Eos # (Auto) (0.0-0.7) K/uL Baso # (Auto) (0.0-0.1) K/uL Nucleated RBC % /100WBC Nucleated RBCs # K/uL Sodium (136-146) mmol/L Potassium (3.5-5.1) mmol/L Chloride (98-110) mmol/L Carbon Dioxide (21-31) mmol/L BUN (6.0-23.0) mg/dL Creatinine (0.6-1.5) mg/dL Est Cr Clr Drug Dosing mL/min Estimated GFR (MDRD) ml/min Glucose (60-110) mg/dL Calcium (8.8-10.8) mg/dL Magnesium (1.5-2.3) mEq/L Troponin I (0.0-0.29) NG/ML Free T4 1.28 (0.7-1.48) ng/dL TSH 3rd Generation 0.70 (0.47-5.0) uIU/mL Med Orders - Current: Current Medications Acetaminophen (Tylenol) 650 mg PO Q4H PRN PRN Reason: Pain (Mild 1-3)/fever Calcium Citrate (Calcitrate) 950 mg PO BID [facility] Cholecalciferol (Vitamin D3) 400 units PO DAILY [facility] Last Admin: 09/25/16 10:18 Dose: 400 units Dabigatran (Pradaxa) 150 mg PO BID [facility] Last Admin: 09/25/16 08:20 Dose: 150 mg Diltiazem HCl 100 mg/ Sodium (Chloride) 100 mls @ 5 mls/hr IV TITRATE BONITA; 5 MG /HR PRN Reason: Protocol Last Titration: 09/25/16 08:25 Dose: 15 mg/hr, 15 mls/hr Calcium Gluconate 2 gm/ Sodium (Chloride) 120 mls @ 60 mls/hr IV ONETIME ONE Stop: 09/25/16 12:14 Last Admin: 09/25/16 10:31 Dose: 60 mls/hr Levothyroxine Sodium (Levothyroxine) 25 mcg PO DAILY [facility] Last Admin: 09/25/16 08:20 Dose: 25 mcg Magnesium Oxide (Magnesium Oxide) 400 mg PO DAILY [facility] Last Admin: 09/25/16 10:17 Dose: 400 mg Metoprolol Tartrate (Lopressor) 25 mg PO Q12HR [facility] Last Admin: 09/25/16 10:17 Dose: 25 mg Omeprazole (Omeprazole) 20 mg PO BID [facility] Last Admin: 09/25/16 10:17 Dose: 20 mg Ondansetron HCl (Zofran) 4 mg IVPUSH Q4H PRN PRN Reason: Nausea Sodium Chloride (Saline Flush) 10 ml FLUSH ASDIRECTED PRN PRN Reason: Keep Vein Open Last Admin: 09/24/16 12:47 Dose: 10 ml Sodium Chloride (Saline Flush) 2.5 ml FLUSH ASDIRECTED PRN PRN Reason: Keep Vein Open Last Admin: 09/24/16 12:47 Dose: 2.5 ml Discontinued Medications Calcium Gluconate (Calcium Gluconate) 1 gm IV ONETIME ONE Stop: 09/24/16 13:26 Last Admin: 09/24/16 13:55 Dose: Not Given Calcium Gluconate (Calcium Gluconate) 1 gm IVPUSH ONETIME ONE Stop: 09/24/16 13:50 Last Admin: 09/24/16 14:17 Dose: Not Given Calcium Gluconate (Calcium Gluconate) 1 gm IVPUSH ONETIME ONE Stop: 09/25/16 00:52 Last Admin: 09/25/16 01:27 Dose: Not Given Calcium Gluconate (Calcium Gluconate) 2 gm IVPUSH ONETIME ONE Stop: 09/25/16 09:44 Last Admin: 09/25/16 10:33 Dose: Not Given Diltiazem HCl (Diltiazem) 20 mg IVPUSH ONETIME ONE Stop: 09/24/16 12:40 Last Admin: 09/24/16 12:46 Dose: 20 mg Diltiazem HCl (Cardizem) Confirm Administered Dose 100 mg .ROUTE .STK-MED ONE Stop: 09/24/16 13:08 Last Admin: 09/24/16 13:30 Dose: Not Given Sodium Chloride (Normal Saline) 1,000 mls @ 999 mls/hr IV .Bolus ONE Stop: 09/24/16 13:39 Last Admin: 09/24/16 12:46 Dose: 999 mls/hr Sodium Chloride (Normal Saline) Confirm Administered Dose 100 mls @ as directed .ROUTE .STK-MED ONE Stop: 09/24/16 13:10 Last Admin: 09/24/16 13:31 Dose: Not Given Potassium Chloride/Sodium Chloride (Normal Saline With 40 Meq Kcl) 1,000 mls @ 150 mls/hr IV ASDIRECTED [facility]ONITA Stop: 09/24/16 20:09 Calcium Gluconate 1 gm/ Sodium (Chloride) 60 mls @ 60 mls/hr IV ONETIME ONE Stop: 09/24/16 14:59 Calcium Gluconate 2 gm/ Sodium (Chloride) 120 mls @ 60 mls/hr IV ONETIME ONE Stop: 09/24/16 15:59 Last Admin: 09/24/16 14:16 Dose: 60 mls/hr Magnesium Sulfate 4 gm/ Premix 100 mls @ 50 mls/hr IV ONETIME ONE Stop: 09/24/16 16:38 Last Admin: 09/24/16 15:25 Dose: 50 mls/hr Calcium Gluconate 1 gm/ Sodium (Chloride) 60 mls @ 60 mls/hr IV ONETIME ONE Stop: 09/24/16 18:44 Last Admin: 09/24/16 17:58 Dose: 60 mls/hr Magnesium Sulfate 4 gm/ Premix 100 mls @ 50 mls/hr IV ONETIME ONE Stop: 09/25/16 02:46 Last Admin: 09/25/16 02:29 Dose: 50 mls/hr Calcium Gluconate 1 gm/ Sodium (Chloride) 60 mls @ 60 mls/hr IV ONETIME ONE Stop: 09/25/16 02:29 Last Admin: 09/25/16 01:28 Dose: 60 mls/hr Ondansetron HCl (Zofran) 4 mg IVPUSH ONETIME ONE Stop: 09/24/16 13:30 Last Admin: 09/24/16 13:44 Dose: 4 mg Potassium Chloride (Klor-Con M20) 40 meq PO ONETIME ONE Stop: 09/24/16 13:18 Last Admin: 09/24/16 13:24 Dose: 40 meq Potassium Chloride (Klor-Con M20) 20 meq PO ONETIME ONE Stop: 09/24/16 13:22 Last Admin: 09/24/16 13:45 Dose: 20 meq Potassium Chloride (Klor-Con M20) 60 meq PO ONETIME ONE Stop: 09/24/16 17:18 Last Admin: 09/24/16 18:00 Dose: 60 meq Potassium Chloride (Klor-Con M20) 40 meq PO ONETIME ONE Stop: 09/25/16 09:44 Last Admin: 09/25/16 10:17 Dose: 40 meq - Exam Quality Assessment: supplemental oxygen (2L NC), DVT prophylaxis (SCD's) General: alert, oriented, cooperative, no acute distress Neck: supple Lungs: Clear to auscultation, Normal respiratory effort Cardiovascular: Irregular Rhythm, Tachycardia (111) Abdomen: bowel sounds present, soft, no tenderness, no distension Extremities: no edema, no calf tenderness Peripheral Pulses: 2+: radial (L), radial (R) Skin: warm, dry, intact Neurological: no new focal deficit Psy/Mental Status: alert, normal affect, normal mood - Problem List & Annotations (1) Atrial fibrillation with RVR SNOMED Code(s): 150791631105790 Code(s): I48.91 - UNSPECIFIED ATRIAL FIBRILLATION Status: Acute Current Visit: No (2) Electrolyte abnormality SNOMED Code(s): 668664538 Code(s): E87.8 - OTH DISORDERS OF ELECTROLYTE AND FLUID BALANCE, NEC Status : Acute Current Visit: No (3) Hypocalcemia SNOMED Code(s): 7765223 Code(s): E83.51 - HYPOCALCEMIA Status: Acute Current Visit: No - Problem List Review Problem List Initiated/Reviewed/Updated: Yes - Plan Plan:: 56 yo female admitted with severe symptomatic hypocalcemia. 1. Hypocalcemia: calcium this am was 6.5. Continues to improve. Given 2gm IV Calcium gluconate this morning. Started on Calcium citrate 950mg BID. Continue to follow with daily BMP. 2. Atrial fibrillation: continue diltiazem drip. Restarted on home medication of metoprolol 25mg BID. Will titrate dose as necessary. HR is 110's 3. Hypokalemia: replaced with 40mEq OF KCl this morning. Will continue to follow with daily BMP. 4. Hypomagnesium: Magnesium this am was 2.3. Will monitor with daily magnesium levels. Restarted on home med of Magnesium oxide 400mg daily. Given patients multiple electrolyte abnormalities, I have contacted Dr. Curtis, [facility], in [facility] to get recommendations of more work up that can be done. TSH and T4 ordered this morning are WNL. Patient had a PTH drawn in February 2016 which was 88, which is the higher end of normal. Will wait for him recommendations. Disposition: 1-2 days pending improvement.
[2016-09-25] MEDS: Calcium Citrate 950 MG Tab PO SCH (21:38)
[2016-09-26 04:53] LABS: CHLORIDE,CL 107 mmol/L (98-110); SODIUM,NA 139 mmol/L (136-146)
[2016-09-26] MEDS ORDERED: Magnesium Sulfate/Water 2 GM in Premix Bag 1 BAG IV ONE ×2 (07:01→08:15)
[2016-09-26] MEDS ORDERED: Calcium Gluconate 10% 1 GM/10 ML SDV IVPUSH ONE (07:01)
[2016-09-26] MEDS: Levothyroxine 25 MCG Tab PO SCH (08:39)
[2016-09-26] MEDS: Metoprolol Tartrate 25 MG Tab PO SCH (08:40)
[2016-09-26] MEDS: Omeprazole 20 MG Cap.CR PO SCH ×2 (08:41→20:10)
[2016-09-26] MEDS: Magnesium Oxide 400 MG Tab PO SCH (08:41)
[2016-09-26] MEDS: Cholecalciferol (Vitamin D3) 400 Unit Tab PO SCH (08:41)
[2016-09-26] MEDS: Metoprolol Succinate 100 MG Tab.ER PO SCH (08:47)
[2016-09-26] MEDS: Calcium Citrate 950 MG Tab PO SCH ×2 (08:53→20:12)
--- NOTE | 2016-09-26 09:39 | PCM.PN ---
- General Info Date of Service: 09/26/16 Admission Dx/Problem (Free Text): hypocalcemia, hypomagnesemia, a-fib with rvr Subjective Update: No concerns this morning. She is tolerating oral intake and voiding appropriately. No respiratory distress. HR is mid 70's this am. Functional Status: Reports: tolerating diet, ambulating, urinating - Review of Systems General: Reports: No Symptoms HEENT: Reports: no symptoms Pulmonary: Reports: no symptoms Cardiovascular: Reports: No Symptoms Gastrointestinal: Reports: No symptoms Genitourinary: Reports: no symptoms Musculoskeletal: Reports: no symptoms Skin: Reports: no symptoms Neurological: Reports: No Symptoms Psychiatric: Reports: no symptoms - Patient Data Vitals - most recent: Last Vital Signs Temp 97.1 F 09/26/16 04:00 Pulse 82 09/26/16 08:47 Resp 20 09/26/16 06:00 BP 103/77 09/26/16 08:47 Pulse Ox 93 L 09/26/16 06:00 Weight - most recent: 177 lb 7.554 oz I&O - last 24 hours: Intake & Output 09/25/16 09/26/16 09/26/16 22:59 06:59 14:59 Intake Total 800 450 Output Total 600 550 Balance 200 -100 Lab Results last 24 hrs: Laboratory Results - last 24 hr 09/25/16 09/26/16 09/26/16 Range/Units 05:10 04:14 04:14 WBC 8.10 (4.0-11.0) K/uL RBC 3.83 L (4.30-5.90) M/uL Hgb 11.4 L (12.0-16.0) g/dL Hct 35.1 L (36.0-46.0) % MCV 91.6 (80.0-98.0) fL MCH 29.8 (27.0-32.0) pg MCHC 32.5 (31.0-37.0) g/dL RDW Std Deviation 53.8 (28.0-62.0) fl RDW Coeff of Cullen 16 H (11.0-15.0) % Plt Count 254 (150-400) K/uL MPV 11.30 (7.40-12.00) fL Neut % (Auto) 66.8 (48.0-80.0) % Lymph % (Auto) 20.1 (16.0-40.0) % Canadian % (Auto) 11.6 (0.0-15.0) % Eos % (Auto) 1.1 (0.0-7.0) % Baso % (Auto) 0.4 (0.0-1.5) % Neut # (Auto) 5.4 (1.4-5.7) K/uL Lymph # (Auto) 1.6 (0.6-2.4) K/uL [place] # (Auto) 0.9 H (0.0-0.8) K/uL Eos # (Auto) 0.1 (0.0-0.7) K/uL Baso # (Auto) 0.0 (0.0-0.1) K/uL Nucleated RBC % 0.0 /100WBC Nucleated RBCs # 0 K/uL Sodium 139 (136-146) mmol/L Potassium 4.4 (3.5-5.1) mmol/L Chloride 107 (98-110) mmol/L Carbon Dioxide 22 (21-31) mmol/L BUN 18 (6.0-23.0) mg/dL Creatinine 0.8 (0.6-1.5) mg/dL Est Cr Clr Drug Dosing 80.79 mL/min Estimated GFR (MDRD) > 60.0 ml/min Glucose 109 (60-110) mg/dL Calcium 7.0 L (8.8-10.8) mg/dL Magnesium 1.7 (1.5-2.3) mEq/L Free T4 1.28 (0.7-1.48) ng/dL TSH 3rd Generation 0.70 (0.47-5.0) uIU/mL Med Orders - Current: Current Medications Acetaminophen (Tylenol) 650 mg PO Q4H PRN PRN Reason: Pain (Mild 1-3)/fever Calcium Citrate (Calcitrate) 950 mg PO BID [facility] Last Admin: 09/26/16 08:53 Dose: 950 mg Cholecalciferol (Vitamin D3) 400 units PO DAILY [facility] Last Admin: 09/26/16 08:41 Dose: 400 units Dabigatran (Pradaxa) 150 mg PO BID [facility] Last Admin: 09/26/16 08:39 Dose: 150 mg Levothyroxine Sodium (Levothyroxine) 25 mcg PO DAILY [facility] Last Admin: 09/26/16 08:39 Dose: 25 mcg Magnesium Oxide (Magnesium Oxide) 400 mg PO DAILY [facility] Last Admin: 09/26/16 08:41 Dose: 400 mg Metoprolol Succinate (Toprol Xl) 50 mg PO BEDTIME [facility] Metoprolol Succinate (Toprol Xl) 100 mg PO QAM [facility] Last Admin: 09/26/16 08:47 Dose: 100 mg Omeprazole (Omeprazole) 20 mg PO BID [facility] Last Admin: 09/26/16 08:41 Dose: 20 mg Ondansetron HCl (Zofran) 4 mg IVPUSH Q4H PRN PRN Reason: Nausea Sodium Chloride (Saline Flush) 10 ml FLUSH ASDIRECTED PRN PRN Reason: Keep Vein Open Last Admin: 09/24/16 12:47 Dose: 10 ml Sodium Chloride (Saline Flush) 2.5 ml FLUSH ASDIRECTED PRN PRN Reason: Keep Vein Open Last Admin: 09/24/16 12:47 Dose: 2.5 ml Discontinued Medications Calcium Gluconate (Calcium Gluconate) 1 gm IV ONETIME ONE Stop: 09/24/16 13:26 Last Admin: 09/24/16 13:55 Dose: Not Given Calcium Gluconate (Calcium Gluconate) 1 gm IVPUSH ONETIME ONE Stop: 09/24/16 13:50 Last Admin: 09/24/16 14:17 Dose: Not Given Calcium Gluconate (Calcium Gluconate) 1 gm IVPUSH ONETIME ONE Stop: 09/25/16 00:52 Last Admin: 09/25/16 01:27 Dose: Not Given Calcium Gluconate (Calcium Gluconate) 2 gm IVPUSH ONETIME ONE Stop: 09/25/16 09:44 Last Admin: 09/25/16 10:33 Dose: Not Given Calcium Gluconate (Calcium Gluconate) 2 gm IVPUSH ONETIME ONE Stop: 09/26/16 07:02 Last Admin: 09/26/16 07:40 Dose: 2 gm Diltiazem HCl (Diltiazem) 20 mg IVPUSH ONETIME ONE Stop: 09/24/16 12:40 Last Admin: 09/24/16 12:46 Dose: 20 mg Diltiazem HCl (Cardizem) Confirm Administered Dose 100 mg .ROUTE .STK-MED ONE Stop: 09/24/16 13:08 Last Admin: 09/24/16 13:30 Dose: Not Given Sodium Chloride (Normal Saline) 1,000 mls @ 999 mls/hr IV .Bolus ONE Stop: 09/24/16 13:39 Last Admin: 09/24/16 12:46 Dose: 999 mls/hr Diltiazem HCl 100 mg/ Sodium (Chloride) 100 mls @ 5 mls/hr IV TITRATE BONITA; 5 MG /HR PRN Reason: Protocol Last Admin: 09/25/16 23:00 Dose: 10 mg/hr, 10 mls/hr Sodium Chloride (Normal Saline) Confirm Administered Dose 100 mls @ as directed .ROUTE .STK-MED ONE Stop: 09/24/16 13:10 Last Admin: 09/24/16 13:31 Dose: Not Given Potassium Chloride/Sodium Chloride (Normal Saline With 40 Meq Kcl) 1,000 mls @ 150 mls/hr IV ASDIRECTED BONITA Stop: 09/24/16 20:09 Calcium Gluconate 1 gm/ Sodium (Chloride) 60 mls @ 60 mls/hr IV ONETIME ONE Stop: 09/24/16 14:59 Calcium Gluconate 2 gm/ Sodium (Chloride) 120 mls @ 60 mls/hr IV ONETIME ONE Stop: 09/24/16 15:59 Last Admin: 09/24/16 14:16 Dose: 60 mls/hr Magnesium Sulfate 4 gm/ Premix 100 mls @ 50 mls/hr IV ONETIME ONE Stop: 09/24/16 16:38 Last Admin: 09/24/16 15:25 Dose: 50 mls/hr Calcium Gluconate 1 gm/ Sodium (Chloride) 60 mls @ 60 mls/hr IV ONETIME ONE Stop: 09/24/16 18:44 Last Admin: 09/24/16 17:58 Dose: 60 mls/hr Magnesium Sulfate 4 gm/ Premix 100 mls @ 50 mls/hr IV ONETIME ONE Stop: 09/25/16 02:46 Last Admin: 09/25/16 02:29 Dose: 50 mls/hr Calcium Gluconate 1 gm/ Sodium (Chloride) 60 mls @ 60 mls/hr IV ONETIME ONE Stop: 09/25/16 02:29 Last Admin: 09/25/16 01:28 Dose: 60 mls/hr Calcium Gluconate 2 gm/ Sodium (Chloride) 120 mls @ 60 mls/hr IV ONETIME ONE Stop: 09/25/16 12:14 Last Admin: 09/25/16 10:31 Dose: 60 mls/hr Magnesium Sulfate 2 gm/ Premix 50 mls @ 25 mls/hr IV ONETIME ONE Stop: 09/26/16 09:00 Last Admin: 09/26/16 08:31 Dose: Not Given Magnesium Sulfate 2 gm/ Premix 50 mls @ 50 mls/hr IV ONETIME ONE Stop: 09/26/16 09:14 Last Admin: 09/26/16 08:37 Dose: 50 mls/hr Metoprolol Tartrate (Lopressor) 25 mg PO Q12HR [facility] Last Admin: 09/25/16 21:18 Dose: 25 mg Ondansetron HCl (Zofran) 4 mg IVPUSH ONETIME ONE Stop: 09/24/16 13:30 Last Admin: 09/24/16 13:44 Dose: 4 mg Potassium Chloride (Klor-Con M20) 40 meq PO ONETIME ONE Stop: 09/24/16 13:18 Last Admin: 09/24/16 13:24 Dose: 40 meq Potassium Chloride (Klor-Con M20) 20 meq PO ONETIME ONE Stop: 09/24/16 13:22 Last Admin: 09/24/16 13:45 Dose: 20 meq Potassium Chloride (Klor-Con M20) 60 meq PO ONETIME ONE Stop: 09/24/16 17:18 Last Admin: 09/24/16 18:00 Dose: 60 meq Potassium Chloride (Klor-Con M20) 40 meq PO ONETIME ONE Stop: 09/25/16 09:44 Last Admin: 09/25/16 10:17 Dose: 40 meq - Exam Quality Assessment: DVT prophylaxis (SCD's) General: alert, oriented, cooperative, no acute distress Neck: supple Lungs: Clear to auscultation, Normal respiratory effort Cardiovascular: Regular Rate, Irregular Rhythm Abdomen: bowel sounds present, soft, no tenderness, no distension Extremities: no edema, no calf tenderness Peripheral Pulses: 2+: radial (L), radial (R) Skin: warm, dry, intact Neurological: no new focal deficit Psy/Mental Status: alert, normal affect, normal mood - Problem List & Annotations (1) Atrial fibrillation with RVR SNOMED Code(s): 960068578692979 Code(s): I48.91 - UNSPECIFIED ATRIAL FIBRILLATION Status: Acute Current Visit: No (2) Electrolyte abnormality SNOMED Code(s): 772533404 Code(s): E87.8 - OTH DISORDERS OF ELECTROLYTE AND FLUID BALANCE, NEC Status : Acute Current Visit: No (3) Hypocalcemia SNOMED Code(s): 2672913 Code(s): E83.51 - HYPOCALCEMIA Status: Acute Current Visit: No - Problem List Review Problem List Initiated/Reviewed/Updated: Yes - My Orders Last 24 Hours: My Active Orders 09/27/16 05:11 CBC WITH AUTO DIFF [HEME] AM MAGNESIUM [CHEM] AM - Plan Plan:: 56 yo female admitted with severe symptomatic hypocalcemia. 1. Hypocalcemia: calcium this am was 7. Continues to improve. Given 2gm IV Calcium gluconate this morning. Continue Calcium citrate 950mg BID. Continue to follow with daily BMP. 2. Atrial fibrillation: d/c diltiazem drip and restarted on home medication of metoprolol. will monitor HR with transition from drip to PO med. 3. Hypokalemia: WNL. 4. Hypomagnesium: Magnesium this am was 1.7. Will monitor with daily magnesium levels. Restarted on home med of Magnesium oxide 400mg daily. Given 2gm IV Magnesium. Patient has an appointment setup with Dr. Curtis, [employer], on October 09, 2016. Disposition: 1-2 days pending improvement.
[2016-09-26] MEDS ORDERED: Bisacodyl 5 MG Tab PO ONE (15:12)
[2016-09-26] MEDS ORDERED: Metoprolol Succinate 50 MG Tab.ER PO SCH (21:00)
[2016-09-27 05:11] LABS: CHLORIDE,CL 105 mmol/L (98-110); SODIUM,NA 137 mmol/L (136-146)
[2016-09-27] MEDS ORDERED: Metoprolol Succinate 50 MG Tab.ER PO SCH ×2 (07:00→21:00)
[2016-09-27] MEDS ORDERED: Magnesium Sulfate/Water 2 GM in Premix Bag 1 BAG IV ONE (07:02)
[2016-09-27] MEDS: Metoprolol Succinate 100 MG Tab.ER PO SCH (08:11)
[2016-09-27] MEDS: Omeprazole 20 MG Cap.CR PO SCH (08:12)
[2016-09-27] MEDS: Levothyroxine 25 MCG Tab PO SCH (08:12)
[2016-09-27] MEDS: Cholecalciferol (Vitamin D3) 400 Unit Tab PO SCH (08:12)
[2016-09-27] MEDS ORDERED: Magnesium Oxide 400 MG Tab PO SCH (09:00)
[2016-09-27] MEDS: Calcium Citrate 950 MG Tab PO SCH (09:31)
[2016-09-27 11:50] VITALS: BP 109/81
--- NOTE | 2016-09-29 14:11 | PCM.DCSUM1 ---
Discharge Summary - Hospital Course Free Text/Narrative:: Admission diagnosis: #1. Atrial fibrillation with RVR #2. Shortness of breath #3. Electrolyte abnormalities (potassium, calcium, magnesium) Discharge diagnoses: #1. Atrial fibrillation with RVR, improved #2. Shortness of breath, improved next a #3. Electrolyte abnormalities (potassium, calcium, magnesium), improved 56-year-old female that was admitted with atrial fibrillation with rapid ventricular rate with subsequent shortness of breath. While in the emergency room the patient was started on a diltiazem drip and throughout admission was transitioned from the drip back to her home medications of metoprolol succinate 100 mg in the morning and 50 mg in the evening. With returning back to her home medications, her heart rate returned to the 110's so she was subsequently given a dose of diltiazem 120 mg one time. Her heart rate dropped to the mid-40s but the patient was asymptomatic while being bradycardic. She was initially prescribed 240 mg of diltiazem at discharge but secondary to her low heart rate with only 120 mg prior to discharge, she was told not to warehouse picker the prescription for diltiazem. Secondary to her shortness of breath, chest x-ray was done which was stable from previous chest x-rays. No acute processes were seen. She had multiple electrolyte abnormalities including potassium, calcium and magnesium. These electrolytes were replaced and were within normal limits at time of discharge. At the time of discharge the patient was saturating above 90% on room air, tolerating oral intake, voiding appropriately and had no complaints of pain. - Discharge Data Discharge Date: 09/27/16 Discharge Disposition: Home, Self-Care 01 Condition: Good - Discharge Diagnosis/Problem(s) (1) Atrial fibrillation with RVR SNOMED Code(s): 123197324615730 ICD Code: I48.91 - UNSPECIFIED ATRIAL FIBRILLATION Status: Acute (2) Electrolyte abnormality SNOMED Code(s): 426216600 ICD Code: E87.8 - OTH DISORDERS OF ELECTROLYTE AND FLUID BALANCE, NEC Status: Acute (3) Hypocalcemia SNOMED Code(s): 8930031 ICD Code: E83.51 - HYPOCALCEMIA Status: Acute - Patient Instructions Diet: Heart Healthy Diet Activity: As Tolerated Driving: May Drive Today Showering/Bathing: May Shower Notify Provider of: Fever, Increased Pain, Nausea and/or Vomiting - Discharge Plan Prescriptions/Med Rec: Calcium Citrate [Calcitrate (190 MG Calcium)] 950 mg PO BID #60 tablet Cholecalciferol (Vitamin D3) [Vitamin D3] 400 units PO DAILY #30 tablet Diltiazem HCl [Cardizem] 120 mg PO BID #60 tablet Magnesium Oxide 400 mg PO BID #60 tablet Potassium Chloride 20 meq PO DAILY #30 tab Home Medications: Home Meds Dabigatran Etexilate Mesylate [Pradaxa] 150 mg PO BID 09/20/16 [History] Levothyroxine 25 mcg PO ACBREAKFAST 09/20/16 [History] Lisinopril 5 mg PO DAILY 09/20/16 [History] Metoprolol Succinate [Toprol XL] 100 mg PO QAM 09/20/16 [History] Rosuvastatin [Crestor] 20 mg PO DAILY 09/20/16 [History] Aspirin [Halfprin] 81 mg PO DAILY 09/25/16 [History] Metoprolol Succinate [Toprol XL] 50 mg PO BEDTIME 09/25/16 [History] Omeprazole 20 mg PO BID 09/25/16 [History] Calcium Citrate [Calcitrate (190 MG Calcium)] 950 mg PO BID #60 tablet 09/27/16 [Rx] Cholecalciferol (Vitamin D3) [Vitamin D3] 400 units PO DAILY #30 tablet [Rx] Diltiazem HCl [Cardizem] 120 mg PO BID #60 tablet 09/27/16 [Rx] Magnesium Oxide 400 mg PO BID #60 tablet 09/27/16 [Rx] Potassium Chloride 20 meq PO DAILY #30 tab 09/27/16 [Rx] Patient Handouts: Hypomagnesemia, Hypokalemia, Hypocalcemia, Adult Referrals: Bharat Swift MD [Physician] - Sundar Curtis MD [Ordering Only Provider] - 10/09/16 9:15 am - Discharge Summary/Plan Comment DC Time >30 min.: No Discharge Summary/Plan Comment: Admission diagnosis: #1. Atrial fibrillation with RVR #2. Shortness of breath #3. Electrolyte abnormalities (potassium, calcium, magnesium) Discharge diagnoses: #1. Atrial fibrillation with RVR, improved #2. Shortness of breath, improved next a #3. Electrolyte abnormalities (potassium, calcium, magnesium), improved 56-year-old female that was admitted with atrial fibrillation with rapid ventricular rate with subsequent shortness of breath. While in the emergency room the patient was started on a diltiazem drip and throughout admission was transitioned from the drip back to her home medications of metoprolol succinate 100 mg in the morning and 50 mg in the evening. With returning back to her home medications, her heart rate returned to the 110's so she was subsequently given a dose of diltiazem 120 mg one time. Her heart rate dropped to the mid-40s but the patient was asymptomatic while being bradycardic. She was initially prescribed 240 mg of diltiazem at discharge but secondary to her low heart rate with only 120 mg prior to discharge, she was told not to warehouse picker the prescription for diltiazem. Secondary to her shortness of breath, chest x-ray was done which was stable from previous chest x-rays. No acute processes were seen. She had multiple electrolyte abnormalities including potassium, calcium and magnesium. These electrolytes were replaced and were within normal limits at time of discharge. TSH and T4 within normal limits. Patient did have a PTH drawn in February 2016 which was 88 which is the higher end of normal. I did try to contact Dr. Curtis, paste worker, in [place], [place] but was unable to reach him. At the time of discharge the patient was saturating above 90% on room air, tolerating oral intake, voiding appropriately and had no complaints of pain. Discharge plan: #1. Patient was initially prescribed 240 mg of diltiazem at discharge but the patient was told not to warehouse picker his prescription as she became bradycardic with only 120 mg of diltiazem prior to discharge. Her PCP will manage her atrial fibrillation medications. #2. Prescribe calcium citrate 950 mg twice a day, vitamin D 3 400 units daily, magnesium oxide 400 mg twice a day and potassium chloride 20 mEq daily. #3. Patient will followup with her primary care provider, Dr. Swift, on Thursday, September 29, 2016. #4. Patient does have an appointment with paste worker, Dr. Curtis on October 09, 2016. #5. All of the patient's home medications were resumed with medication changes noted as above. - Patient Data Vitals - Most Recent: Last Vital Signs Temp 98.1 F 09/27/16 08:00 Pulse 99 09/27/16 08:11 Resp 20 09/27/16 11:00 BP 109/81 09/27/16 11:00 Pulse Ox 100 09/27/16 09:00 Weight - Most Recent: 176 lb 5.917 oz Med Orders - Current: Current Medications Discontinued Medications Acetaminophen (Tylenol) 650 mg PO Q4H PRN PRN Reason: Pain (Mild 1-3)/fever Bisacodyl (Dulcolax) 10 mg PO ONETIME ONE Stop: 09/26/16 15:13 Last Admin: 09/26/16 15:21 Dose: 10 mg Calcium Citrate (Calcitrate) 950 mg PO BID [facility] Last Admin: 09/27/16 09:31 Dose: 950 mg Calcium Gluconate (Calcium Gluconate) 1 gm IV ONETIME ONE Stop: 09/24/16 13:26 Last Admin: 09/24/16 13:55 Dose: Not Given Calcium Gluconate (Calcium Gluconate) 1 gm IVPUSH ONETIME ONE Stop: 09/24/16 13:50 Last Admin: 09/24/16 14:17 Dose: Not Given Calcium Gluconate (Calcium Gluconate) 1 gm IVPUSH ONETIME ONE Stop: 09/25/16 00:52 Last Admin: 09/25/16 01:27 Dose: Not Given Calcium Gluconate (Calcium Gluconate) 2 gm IVPUSH ONETIME ONE Stop: 09/25/16 09:44 Last Admin: 09/25/16 10:33 Dose: Not Given Calcium Gluconate (Calcium Gluconate) 2 gm IVPUSH ONETIME ONE Stop: 09/26/16 07:02 Last Admin: 09/26/16 07:40 Dose: 2 gm Cholecalciferol (Vitamin D3) 400 units PO DAILY [facility] Last Admin: 09/27/16 08:12 Dose: 400 units Dabigatran (Pradaxa) 150 mg PO BID [facility] Last Admin: 09/27/16 08:11 Dose: 150 mg Diltiazem HCl (Diltiazem) 20 mg IVPUSH ONETIME ONE Stop: 09/24/16 12:40 Last Admin: 09/24/16 12:46 Dose: 20 mg Diltiazem HCl (Cardizem) Confirm Administered Dose 100 mg .ROUTE .STK-MED ONE Stop: 09/24/16 13:08 Last Admin: 09/24/16 13:30 Dose: Not Given Diltiazem HCl (Cardizem) 120 mg PO ONETIME ONE Stop: 09/27/16 08:46 Last Admin: 09/27/16 09:22 Dose: 120 mg Sodium Chloride (Normal Saline) 1,000 mls @ 999 mls/hr IV .Bolus ONE Stop: 09/24/16 13:39 Last Admin: 09/24/16 12:46 Dose: 999 mls/hr Diltiazem HCl 100 mg/ Sodium (Chloride) 100 mls @ 5 mls/hr IV TITRATE BONITA; 5 MG /HR PRN Reason: Protocol Last Admin: 09/25/16 23:00 Dose: 10 mg/hr, 10 mls/hr Sodium Chloride (Normal Saline) Confirm Administered Dose 100 mls @ as directed .ROUTE .STK-MED ONE Stop: 09/24/16 13:10 Last Admin: 09/24/16 13:31 Dose: Not Given Potassium Chloride/Sodium Chloride (Normal Saline With 40 Meq Kcl) 1,000 mls @ 150 mls/hr IV ASDIRECTED BONITA Stop: 09/24/16 20:09 Calcium Gluconate 1 gm/ Sodium (Chloride) 60 mls @ 60 mls/hr IV ONETIME ONE Stop: 09/24/16 14:59 Calcium Gluconate 2 gm/ Sodium (Chloride) 120 mls @ 60 mls/hr IV ONETIME ONE Stop: 09/24/16 15:59 Last Admin: 09/24/16 14:16 Dose: 60 mls/hr Magnesium Sulfate 4 gm/ Premix 100 mls @ 50 mls/hr IV ONETIME ONE Stop: 09/24/16 16:38 Last Admin: 09/24/16 15:25 Dose: 50 mls/hr Calcium Gluconate 1 gm/ Sodium (Chloride) 60 mls @ 60 mls/hr IV ONETIME ONE Stop: 09/24/16 18:44 Last Admin: 09/24/16 17:58 Dose: 60 mls/hr Magnesium Sulfate 4 gm/ Premix 100 mls @ 50 mls/hr IV ONETIME ONE Stop: 09/25/16 02:46 Last Admin: 09/25/16 02:29 Dose: 50 mls/hr Calcium Gluconate 1 gm/ Sodium (Chloride) 60 mls @ 60 mls/hr IV ONETIME ONE Stop: 09/25/16 02:29 Last Admin: 09/25/16 01:28 Dose: 60 mls/hr Calcium Gluconate 2 gm/ Sodium (Chloride) 120 mls @ 60 mls/hr IV ONETIME ONE Stop: 09/25/16 12:14 Last Admin: 09/25/16 10:31 Dose: 60 mls/hr Magnesium Sulfate 2 gm/ Premix 50 mls @ 25 mls/hr IV ONETIME ONE Stop: 09/26/16 09:00 Last Admin: 09/26/16 08:31 Dose: Not Given Magnesium Sulfate 2 gm/ Premix 50 mls @ 50 mls/hr IV ONETIME ONE Stop: 09/26/16 09:14 Last Admin: 09/26/16 08:37 Dose: 50 mls/hr Magnesium Sulfate 2 gm/ Premix 50 mls @ 50 mls/hr IV ONETIME ONE Stop: 09/27/16 08:01 Last Admin: 09/27/16 08:11 Dose: 50 mls/hr Levothyroxine Sodium (Levothyroxine) 25 mcg PO DAILY [facility] Last Admin: 09/27/16 08:12 Dose: 25 mcg Magnesium Oxide (Magnesium Oxide) 400 mg PO DAILY [facility] Last Admin: 09/26/16 08:41 Dose: 400 mg Magnesium Oxide (Magnesium Oxide) 400 mg PO BID [facility] Last Admin: 09/27/16 08:11 Dose: 400 mg Metoprolol Succinate (Toprol Xl) 50 mg PO BEDTIME [facility] Last Admin: 09/26/16 20:10 Dose: 50 mg Metoprolol Succinate (Toprol Xl) 100 mg PO QAM [facility] Last Admin: 09/27/16 08:11 Dose: 100 mg Metoprolol Succinate (Toprol Xl) 100 mg PO BEDTIME [facility] Metoprolol Succinate (Toprol Xl) 50 mg PO BEDTIME [facility] Metoprolol Tartrate (Lopressor) 25 mg PO Q12HR [facility] Last Admin: 09/25/16 21:18 Dose: 25 mg Omeprazole (Omeprazole) 20 mg PO BID [facility] Last Admin: 09/27/16 08:12 Dose: 20 mg Ondansetron HCl (Zofran) 4 mg IVPUSH ONETIME ONE Stop: 09/24/16 13:30 Last Admin: 09/24/16 13:44 Dose: 4 mg Ondansetron HCl (Zofran) 4 mg IVPUSH Q4H PRN PRN Reason: Nausea Potassium Chloride (Klor-Con M20) 40 meq PO ONETIME ONE Stop: 09/24/16 13:18 Last Admin: 09/24/16 13:24 Dose: 40 meq Potassium Chloride (Klor-Con M20) 20 meq PO ONETIME ONE Stop: 09/24/16 13:22 Last Admin: 09/24/16 13:45 Dose: 20 meq Potassium Chloride (Klor-Con M20) 60 meq PO ONETIME ONE Stop: 09/24/16 17:18 Last Admin: 09/24/16 18:00 Dose: 60 meq Potassium Chloride (Klor-Con M20) 40 meq PO ONETIME ONE Stop: 09/25/16 09:44 Last Admin: 09/25/16 10:17 Dose: 40 meq Sodium Chloride (Saline Flush) 10 ml FLUSH ASDIRECTED PRN PRN Reason: Keep Vein Open Last Admin: 09/24/16 12:47 Dose: 10 ml Sodium Chloride (Saline Flush) 2.5 ml FLUSH ASDIRECTED PRN PRN Reason: Keep Vein Open Last Admin: 09/24/16 12:47 Dose: 2.5 ml *Q Meaningful Use (DIS) - VTE *Q VTE Criteria *Q: - Stroke *Q Stroke Criteria *Q: - AMI *Q AMI Criteria *Q:
== END 2016-09-27 12:58 | disposition home or self-care (01) | DRG 425 ==
LOC: MW.ED 12:45 → MW.ICU 13:34
PROVIDERS: ADMIT Internal Medicine; ATTEND Internal Medicine
DX: E83.51 Hypocalcemia (principal); I48.91 Unspecified atrial fibrillation; Z79.01 Long term (current) use of anticoagulants; I10 Essential (primary) hypertension; E87.6 Hypokalemia; Z86.73 Personal history of transient ischemic attack (TIA), and cerebral infarction without residual deficits; F17.210 Nicotine dependence, cigarettes, uncomplicated; E78.00 Pure hypercholesterolemia, unspecified; E87.8 Other disorders of electrolyte and fluid balance, not elsewhere classified; E83.42 Hypomagnesemia; I42.9 Cardiomyopathy, unspecified; Z88.7 Allergy status to serum and vaccine
CPT/HCPCS: 36415; 71010; 71010-26; 80048; 80053; 83735; 83880; 84439; 84443; 84484; 85025; 85610; 85730; 93005; 96365; 96375; 99285; 99285-25; A9270-GY; J0610; J2405; J3475; J3490; J7030; J7040; J7050

== ENCOUNTER 2016-10-05 21:08 | Observation (INO) | payer BC ==
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
[2016-10-05] MEDS ORDERED: Metoprolol Tartrate 5 MG/5 ML SDV IVPUSH ONE ×2 (21:23→21:40)
[2016-10-05] MEDS ORDERED: Metoprolol Tartrate 5 MG/5 ML SDV ONE ×2 (21:25→21:35)
[2016-10-05] MEDS ORDERED: Sodium Chloride 0.9% 10 ML Syringe FLUSH PRN (21:30)
[2016-10-05] MEDS ORDERED: Sodium Chloride 0.9% 2.5 ML Syringe FLUSH PRN (21:30)
[2016-10-05] MEDS ORDERED: Nitroglycerin 2% Oint 1 GM UD Packet TOP PRN (23:53)
[2016-10-05] MEDS ORDERED: Benzonatate 100 MG Cap PO PRN (23:54)
[2016-10-06] MEDS ORDERED: Temazepam 15 MG Cap PO PRN (08:04)
[2016-10-06] MEDS ORDERED: Morphine 2 MG/ML Syringe IVPUSH PRN (08:04)
[2016-10-06] MEDS ORDERED: Ondansetron 4 MG Tab.DIS PO PRN (08:04)
[2016-10-06] MEDS ORDERED: oxyCODONE 5 MG Tab PO PRN (08:04)
[2016-10-06] MEDS ORDERED: Sodium Chloride 0.9% 10 ML Syringe FLUSH PRN (08:04)
[2016-10-06] MEDS ORDERED: Sodium Chloride 0.9% 2.5 ML Syringe FLUSH PRN (08:04)
[2016-10-06] MEDS ORDERED: Acetaminophen 325 MG Tab PO PRN (08:04)
[2016-10-06] MEDS ORDERED: Albuterol/Ipratropium 3.0-0.5 MG/3 ML Neb Soln NEB PRN (08:04)
[2016-10-06] MEDS: Azithromycin 500 MG in Sodium Chloride 0.9% 250 ML IV SCH (08:32)
[2016-10-06] MEDS: Omeprazole 20 MG Cap.CR PO SCH ×2 (08:34→20:46)
[2016-10-06] MEDS: Magnesium Oxide 400 MG Tab PO SCH ×2 (08:36→20:47)
[2016-10-06] MEDS: Lisinopril 5 MG Tab PO SCH (08:36)
[2016-10-06] MEDS: Calcium Citrate 950 MG Tab PO SCH ×2 (08:36→20:46)
[2016-10-06] MEDS: Cholecalciferol (Vitamin D3) 400 Unit Tab PO SCH (08:36)
[2016-10-06] MEDS: Aspirin 81 MG Tab.EC PO SCH (08:36)
[2016-10-06] MEDS ORDERED: Metoprolol Succinate 100 MG Tab.ER PO SCH (09:00)
[2016-10-06] MEDS: Furosemide 40 MG Tab PO SCH (09:40)
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
[2016-10-06] MEDS ORDERED: Metoprolol Succinate 50 MG Tab.ER PO ONE (12:45)
[2016-10-06] MEDS: methylPREDNISolone Sodium Succinate 125 MG/2 ML SDV IV SCH ×2 (13:12→21:03)
[2016-10-06] MEDS ORDERED: Metoprolol Succinate 50 MG Tab.ER PO SCH (21:00)
[2016-10-06] MEDS ORDERED: Rosuvastatin 10 MG Tab PO SCH (21:00)
[2016-10-07] MEDS: methylPREDNISolone Sodium Succinate 125 MG/2 ML SDV IV SCH ×2 (06:28→15:03)
[2016-10-07] MEDS ORDERED: Levothyroxine 25 MCG Tab PO SCH (07:30)
[2016-10-07] MEDS: Azithromycin 500 MG in Sodium Chloride 0.9% 250 ML IV SCH (09:15)
[2016-10-07] MEDS: Cholecalciferol (Vitamin D3) 400 Unit Tab PO SCH (09:22)
[2016-10-07] MEDS: Magnesium Oxide 400 MG Tab PO SCH (09:28)
[2016-10-07] MEDS: Lisinopril 5 MG Tab PO SCH (09:29)
[2016-10-07] MEDS: Omeprazole 20 MG Cap.CR PO SCH (09:29)
[2016-10-07] MEDS: Aspirin 81 MG Tab.EC PO SCH (09:29)
[2016-10-07] MEDS: Furosemide 40 MG Tab PO SCH (09:29)
[2016-10-07] MEDS: Calcium Citrate 950 MG Tab PO SCH (09:36)
[2016-10-07] MEDS ORDERED: Magnesium Sulfate/Water 2 GM in Premix Bag 1 BAG IV ONE (10:45)
--- NOTE | 2016-10-07 12:07 | PCM.DCSUM1 ---
Discharge Summary - Discharge Data Discharge Date: 10/07/16 Discharge Disposition: DC/Tfer to Hospice - Home 49 Condition: Good - Discharge Diagnosis/Problem(s) (1) COPD exacerbation SNOMED Code(s): 162721152, 787131940 ICD Code: J44.1 - CHRONIC OBSTRUCTIVE PULMONARY DISEASE W (ACUTE) EXACERBATION Status: Chronic Priority: High Current Visit: Yes (2) Atrial fibrillation with rapid ventricular response SNOMED Code(s): 702550234120432 ICD Code: I48.91 - UNSPECIFIED ATRIAL FIBRILLATION Status: Acute Priority : High Current Visit: Yes (3) Chest pain SNOMED Code(s): 14050426 ICD Code: R07.9 - CHEST PAIN, UNSPECIFIED Status: Acute Current Visit: Yes Qualifiers: Chest pain type: chest pain on breathing Qualified Code(s): R07.1 - Chest pain on breathing (4) Electrolyte abnormality SNOMED Code(s): 693989160 ICD Code: E87.8 - OTH DISORDERS OF ELECTROLYTE AND FLUID BALANCE, NEC Status: Chronic Priority: High Current Visit: Yes (5) Hypocalcemia SNOMED Code(s): 9819617 ICD Code: E83.51 - HYPOCALCEMIA Status: Chronic Priority: High Current Visit: No (6) Smoker SNOMED Code(s): 07739003 ICD Code: F17.200 - NICOTINE DEPENDENCE, UNSPECIFIED, UNCOMPLICATED Status : Chronic Priority: Medium Current Visit: Yes - Patient Summary/Data Hospital Course: The patient is a 56-year-old lady who had been admitted through the emergency department for chest pain and discomfort. Patient also had shortness of breath to accompany this as well as atrial fibrillation with RVR. The patient reports that she does have a chronic history of low calcium and low magnesium. The patient was admitted for workup secondary to her chest pain and testing thus far has been negative. Patient does have a primary care doctor that she follows up with on a normal basis. The patient also had been given 2 g of magnesium sulfate IV x1 dose secondary to her magnesium being low at 0.7 mmol per liter. The patient has been provided information with regards to hypoparathyroidism which shows a symptomology hypocalcemia and hypomagnesemia. The patient has been recommended to continue with her current medications as prescribed. She is also to followup with her primary care physician. The patient will also have activity as tolerated. - Patient Instructions Diet: Heart Healthy Diet Notify Provider of: Fever, Increased Pain, Nausea and/or Vomiting - Discharge Plan Home Medications: Home Meds Dabigatran Etexilate Mesylate [Pradaxa] 150 mg PO BID 09/20/16 [History] Levothyroxine 25 mcg PO ACBREAKFAST 09/20/16 [History] Lisinopril 5 mg PO DAILY 09/20/16 [History] Metoprolol Succinate [Toprol XL] 150 mg PO DAILY 09/20/16 [History] Rosuvastatin [Crestor] 20 mg PO BEDTIME 09/20/16 [History] Aspirin [Halfprin] 81 mg PO DAILY 09/25/16 [History] Omeprazole 20 mg PO BID 09/25/16 [History] Calcium Citrate [Calcitrate (190 MG Calcium)] 950 mg PO BID #60 tablet 09/27/16 [Rx] Cholecalciferol (Vitamin D3) [Vitamin D3] 400 units PO DAILY #30 tablet [Rx] Diltiazem HCl [Cardizem] 120 mg PO BID #60 tablet 09/27/16 [Rx] Magnesium Oxide 400 mg PO BID #60 tablet 09/27/16 [Rx] Potassium Chloride 20 meq PO DAILY #30 tab 09/27/16 [Rx] Furosemide 40 mg PO DAILY 10/06/16 [History] Patient Handouts: Chronic Obstructive Pulmonary Disease Exacerbation, Easy-to- Read, Hypomagnesemia, Chest Wall Pain, [id number], Atrial Fibrillation, Easy- to-Read Referrals: [facility] [Outside] Bharat Swift MD [Physician] - 10/13/16 10:00 am - General Info Date of Service: 10/07/16 Admission Dx/Problem (Free Text: Admission Diagnosis/Problem Admission Diagnosis/Problem Chest pain, shortness of breath, a-fib with RVR Functional Status: Reports: pain controlled - Review of Systems General: Reports: Weakness HEENT: Reports: no symptoms Pulmonary: Reports: no symptoms Cardiovascular: Reports: No Symptoms Gastrointestinal: Reports: No symptoms Genitourinary: Reports: no symptoms Musculoskeletal: Reports: no symptoms Skin: Reports: no symptoms Neurological: Reports: No Symptoms Psychiatric: Reports: no symptoms - Patient Data Vitals - Most Recent: Last Vital Signs Temp 36.8 C 10/07/16 08:00 Pulse 73 10/07/16 09:27 Resp 16 10/07/16 08:00 BP 113/75 10/07/16 09:29 Pulse Ox 92 L 10/07/16 08:04 Weight - Most Recent: 71.169 kg I&O - Last 24 hours: Intake & Output 10/06/16 10/07/16 10/07/16 22:59 06:59 14:59 Intake Total 770 500 50 Output Total 800 500 Balance -30 0 50 Lab Results - Last 24 hrs: Laboratory Results - last 24 hr 10/07/16 10/07/16 Range/Units 05:15 05:15 WBC 3.54 L (4.0-11.0) K/uL RBC 4.47 (4.30-5.90) M/uL Hgb 13.1 (12.0-16.0) g/dL Hct 40.4 (36.0-46.0) % MCV 90.4 (80.0-98.0) fL MCH 29.3 (27.0-32.0) pg MCHC 32.4 (31.0-37.0) g/dL RDW Std Deviation 48.3 (28.0-62.0) fl RDW Coeff of Cullen 15 (11.0-15.0) % Plt Count 293 (150-400) K/uL MPV 10.70 (7.40-12.00) fL Neut % (Auto) 81.7 H (48.0-80.0) % Lymph % (Auto) 16.9 (16.0-40.0) % Dare % (Auto) 1.4 (0.0-15.0) % Eos % (Auto) 0.0 (0.0-7.0) % Baso % (Auto) 0.0 (0.0-1.5) % Neut # (Auto) 2.9 (1.4-5.7) K/uL Lymph # (Auto) 0.6 (0.6-2.4) K/uL Dare # (Auto) 0.1 (0.0-0.8) K/uL Eos # (Auto) 0.0 (0.0-0.7) K/uL Baso # (Auto) 0.0 (0.0-0.1) K/uL Nucleated RBC % 0.0 /100WBC Nucleated RBCs # 0 K/uL Sodium 135 L (136-146) mmol/L Potassium 4.0 (3.5-5.1) mmol/L Chloride 100 (98-110) mmol/L Carbon Dioxide 24 (21-31) mmol/L BUN 29 H (6.0-23.0) mg/dL Creatinine 1.0 (0.6-1.5) mg/dL Est Cr Clr Drug Dosing 64.87 mL/min Estimated GFR (MDRD) 57.1 ml/min Glucose 139 H (60-110) mg/dL Calcium 8.2 L (8.8-10.8) mg/dL Magnesium 0.7 L (1.5-2.3) mEq/L Total Bilirubin 0.4 (0.1-1.5) mg/dL AST 10 (5-40) IU/L ALT 10 (8-54) IU/L Alkaline Phosphatase 63 (40-150) Total Protein 6.8 (6.0-8.0) g/dL Albumin 3.6 (3.5-5.0) g/dL Globulin 3.2 (2.0-3.5) g/dL Albumin/Globulin Ratio 1.1 L (1.3-2.8) Med Orders - Current: Current Medications Acetaminophen (Tylenol) 650 mg PO Q4H PRN PRN Reason: Pain (Mild 1-3)/fever Albuterol/Ipratropium (Duoneb 3.0-0.5 Mg/3 Ml) 3 ml NEB Q4HRRT PRN PRN Reason: Shortness Of Breath/wheezing Aspirin (Halfprin) 81 mg PO DAILY [facility] Last Admin: 10/07/16 09:29 Dose: 81 mg Benzonatate (Tessalon Perles) 100 mg PO TID PRN PRN Reason: Cough Calcium Citrate (Calcitrate) 950 mg PO BID [facility] Last Admin: 10/07/16 09:36 Dose: 950 mg Cholecalciferol (Vitamin D3) 400 units PO DAILY [facility] Last Admin: 10/07/16 09:22 Dose: 400 units Dabigatran (Pradaxa) 150 mg PO BID [facility] Last Admin: 10/07/16 09:28 Dose: 150 mg Furosemide (Lasix) 40 mg PO DAILY [facility] Last Admin: 10/07/16 09:29 Dose: 40 mg Azithromycin 500 mg/ Sodium (Chloride) 250 mls @ 250 mls/hr IV Q24H [facility] Last Admin: 10/07/16 09:15 Dose: 250 mls/hr Levothyroxine Sodium (Levothyroxine) 25 mcg PO ACBREAKFAST [facility] Last Admin: 10/07/16 06:31 Dose: 25 mcg Lisinopril (Prinivil) 5 mg PO DAILY [facility] Last Admin: 10/07/16 09:29 Dose: 5 mg Magnesium Oxide (Magnesium Oxide) 400 mg PO BID [facility] Last Admin: 10/07/16 09:28 Dose: 400 mg Methylprednisolone Sodium Succinate (Solu-Medrol) 125 mg IV Q8HR [facility] Last Admin: 10/07/16 06:28 Dose: 125 mg Metoprolol Succinate 100 mg/ (Metoprolol Succinate 50 mg) 150 mg PO DAILY [facility] Last Admin: 10/07/16 09:27 Dose: 150 mg Nitroglycerin (Nitro-Bid 2%) 1 gm TOP Q6H PRN PRN Reason: Chest Pain Omeprazole (Omeprazole) 20 mg PO BID [facility] Last Admin: 10/07/16 09:29 Dose: 20 mg Ondansetron HCl (Zofran Odt) 4 mg PO Q4H PRN PRN Reason: nausea, able to take PO Last Admin: 10/06/16 09:40 Dose: 4 mg Oxycodone HCl (Oxycodone) 5 mg PO Q4H PRN PRN Reason: Pain (moderate 4-6) Rosuvastatin Calcium (Crestor) 20 mg PO BEDTIME [facility] Last Admin: 10/06/16 20:47 Dose: 20 mg Sodium Chloride (Saline Flush) 10 ml FLUSH ASDIRECTED PRN PRN Reason: Keep Vein Open Sodium Chloride (Saline Flush) 2.5 ml FLUSH ASDIRECTED PRN PRN Reason: Keep Vein Open Sodium Chloride (Saline Flush) 10 ml FLUSH ASDIRECTED PRN PRN Reason: Keep Vein Open Sodium Chloride (Saline Flush) 2.5 ml FLUSH ASDIRECTED PRN PRN Reason: Keep Vein Open Temazepam (Restoril) 15 mg PO BEDTIME PRN PRN Reason: Sleep Discontinued Medications Magnesium Sulfate 2 gm/ Premix 50 mls @ 50 mls/hr IV ONETIME ONE Stop: 10/07/16 11:44 Last Admin: 10/07/16 11:03 Dose: 50 mls/hr Metoprolol Succinate (Toprol Xl) 50 mg PO BEDTIME [facility] Metoprolol Succinate (Toprol Xl) 100 mg PO QAM [facility] Last Admin: 10/06/16 08:36 Dose: 100 mg Metoprolol Succinate (Toprol Xl) 50 mg PO ONETIME ONE Stop: 10/06/16 12:46 Last Admin: 10/06/16 13:13 Dose: 50 mg Metoprolol Tartrate (Lopressor) 5 mg IVPUSH ONETIME ONE Stop: 10/05/16 21:24 Last Admin: 10/05/16 21:26 Dose: 5 mg Metoprolol Tartrate (Lopressor) Confirm Administered Dose 5 mg .ROUTE .STK-MED ONE Stop: 10/05/16 21:26 Last Admin: 10/05/16 21:41 Dose: Not Given Metoprolol Tartrate (Lopressor) Confirm Administered Dose 5 mg .ROUTE .STK-MED ONE Stop: 10/05/16 21:36 Last Admin: 10/05/16 21:41 Dose: Not Given Metoprolol Tartrate (Lopressor) 5 mg IVPUSH ONETIME ONE Stop: 10/05/16 21:41 Last Admin: 10/05/16 21:38 Dose: 5 mg Morphine Sulfate (Morphine) 2 mg IVPUSH Q2H PRN PRN Reason: Pain (severe 7-10) Stop: 10/07/16 08:06 - Exam Quality Assessment: Denies: supplemental oxygen General: Reports: alert, oriented, cooperative HEENT: Reports: Pupils equal, Pupils reactive, EOMI. Denies: Scleral icterus Neck: Reports: supple, trachea midline Lungs: Reports: Clear to auscultation, Normal respiratory effort Cardiovascular: Reports: Irregular Rhythm Abdomen: Reports: bowel sounds present, soft, no tenderness Back Exam: Reports: normal inspection Extremities: Reports: no edema Skin: Reports: warm, dry, intact *Q Meaningful Use (DIS) - VTE *Q VTE Criteria *Q: VTE Pharmacological Contraindications *Q: High INR Value VTE Anticoagulation Contraindications: Med/tx not indicated/need - Stroke *Q Stroke Criteria *Q: - AMI *Q AMI Criteria *Q:
[2016-10-07 13:01] VITALS: BP 120/70
--- NOTE | 2016-10-08 15:46 | CR ---
EXAM DATE: 10/05/16 PATIENT'S AGE: 56 Patient: [place] Facility: [place], [place] Site . Site : 1960 Study: XRay Chest [id number]/27/2017 9:55:46 PM Ordering Physician: Vicki Gunter Final Report: Indication: Chest tightness and shortness of breath for 2-1/2 weeks Technique: Chest 1 view. Comparison: September 24, 2016 Findings: Cardiovascular and mediastinum: Heart size and vasculature are stable in caliber and appearance. Mediastinum is within normal limits. Lungs and pleural space: There is a vague focus of patchy opacity projecting over the right lower lung field. No sign of pleural effusion. No pneumothorax. Bones and soft tissues: No significant findings. Impression: Vague focus of patchy opacity projecting over the right lung field. This may represent a pulmonary nodular infiltrate. The chest CT would be useful for further evaluation. Dictated by Rowena Pearson MD @ Oct 05 2016 9:56PM (Electronic Signature) Report Signed by Proxy. ZACARIAS
== END 2016-10-07 14:30 | disposition home or self-care (01) ==
LOC: MW.ED 21:08 → MW.MS 22:44
PROVIDERS: ADMIT Internal Medicine; ATTEND Internal Medicine
DX: J44.1 Chronic obstructive pulmonary disease with (acute) exacerbation (principal); R07.9 Chest pain, unspecified; I48.91 Unspecified atrial fibrillation; E83.51 Hypocalcemia; E87.8 Other disorders of electrolyte and fluid balance, not elsewhere classified; I10 Essential (primary) hypertension; E78.00 Pure hypercholesterolemia, unspecified; Z86.73 Personal history of transient ischemic attack (TIA), and cerebral infarction without residual deficits; M19.90 Unspecified osteoarthritis, unspecified site; E03.9 Hypothyroidism, unspecified; R73.03 Prediabetes; Z79.82 Long term (current) use of aspirin; Z79.899 Other long term (current) drug therapy; F17.200 Nicotine dependence, unspecified, uncomplicated
CPT/HCPCS: 36415; 71010; 80048; 80053; 83735; 83880; 84100; 84484; 85025; 85610; 93005; 96374; 99285; A9270; J0456; J2930; J3475; J7050; 96365; 96366; 96367; 96375; 96376; G0378

== ENCOUNTER 2016-11-01 14:24 | Emergency (ER) | payer BC ==
[2016-11-01] MEDS ORDERED: Magnesium Sulfate/Water 4 GM in Premix Bag 1 BAG IV ONE (15:39)
[2016-11-01] MEDS ORDERED: Sodium Chloride 0.9% 250 ML IV SCH (16:15)
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
[2016-11-02 02:27] VITALS: BP 114/73
== END 2016-11-01 19:10 | disposition home or self-care (01) ==
LOC: MW.ED 14:24
DX: E83.42 Hypomagnesemia (principal); I10 Essential (primary) hypertension; I48.91 Unspecified atrial fibrillation; E78.00 Pure hypercholesterolemia, unspecified; Z79.02 Long term (current) use of antithrombotics/antiplatelets; Z79.82 Long term (current) use of aspirin; Z79.899 Other long term (current) drug therapy; Z88.8 Allergy status to other drugs, medicaments and biological substances
CPT/HCPCS: 36415; 83735; 93005; 96365; 96366; 99284; J3475; J7050; 99283

== ENCOUNTER 2017-02-02 07:34 | Emergency (ER) | payer BC ==
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
[2017-02-02] MEDS ORDERED: Sodium Chloride 0.9% 1,000 ML IV ONE (08:29)
[2017-02-02 10:30] VITALS: BP 112/69
== END 2017-02-02 10:15 | disposition home or self-care (01) ==
LOC: MW.ED 07:34
DX: E86.0 Dehydration (principal); I48.91 Unspecified atrial fibrillation; E78.00 Pure hypercholesterolemia, unspecified; I10 Essential (primary) hypertension; E03.9 Hypothyroidism, unspecified; M19.90 Unspecified osteoarthritis, unspecified site; Z79.899 Other long term (current) drug therapy; Z79.82 Long term (current) use of aspirin; Z88.8 Allergy status to other drugs, medicaments and biological substances
CPT/HCPCS: 36415; 80053; 83735; 84484; 85025; 93005; 96360; 99284; J7040; 99283

== ENCOUNTER 2017-03-12 06:23 | Inpatient (IN) | payer BC ==
[2017-03-12] MEDS ORDERED: Sodium Chloride 0.9% 2.5 ML Syringe FLUSH PRN (06:32)
[2017-03-12] MEDS ORDERED: Sodium Chloride 0.9% 10 ML Syringe FLUSH PRN (06:32)
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
[2017-03-12] MEDS ORDERED: Lidocaine 1% 20 ML MDV ONE (06:37)
[2017-03-12] MEDS ORDERED: Lidocaine 1% 20 ML MDV INJECT ONE (06:44)
[2017-03-12] MEDS ORDERED: Diltiazem 25 MG/5 ML SDV IVPUSH ONE (06:49)
[2017-03-12] MEDS ORDERED: Diltiazem 25 MG/5 ML SDV ONE (06:50)
[2017-03-12] MEDS ORDERED: Clindamycin Phosphate in D5W 50 ML IV ONE (06:57)
[2017-03-12] MEDS ORDERED: Sodium Chloride 0.9% 100 ML ONE (06:58)
[2017-03-12] MEDS ORDERED: Diltiazem 100 MG in Sodium Chloride 0.9% 100 ML IV SCH (07:00)
[2017-03-12] MEDS: Diltiazem 100 MG AdvVial ONE ×2 (07:02→07:07)
[2017-03-12 07:04] LABS: CHLORIDE,CL 104 mmol/L (98-110); SODIUM,NA 140 mmol/L (136-146)
[2017-03-12] MEDS ORDERED: Clindamycin Phosphate in D5W 900 MG in Premix Bag 1 BAG IV ONE ×2 (07:09)
[2017-03-12] MEDS ORDERED: Magnesium Sulfate/Water 2 GM in Premix Bag 1 BAG IV ONE ×2 (07:21→11:09)
[2017-03-12] MEDS ORDERED: Sodium Chloride 0.9% 1,000 ML IV ONE (07:39)
[2017-03-12] MEDS ORDERED: ceFAZolin 1,000 MG VIAL IVPUSH SCH (11:15)
[2017-03-12] MEDS: Metoprolol Succinate 100 MG Tab.ER PO SCH (11:34)
[2017-03-12] MEDS ORDERED: Calcium Carbonate 500 MG Tab.Chew PO ONE (11:45)
[2017-03-12] MEDS: ceFAZolin 1 GM in Premix Bag 1 BAG IV SCH ×2 (12:38→19:54)
--- NOTE | 2017-03-12 15:52 | CR ---
EXAM DATE: 03/12/17 PATIENT'S AGE: 57 Patient: [place] Facility: [place], [place] Site . Site : 1960 Study: XRay Chest [id number] 7:04:06 AM Ordering Physician: Doctor Galan Final Report: INDICATION: Chest pain. Technique: AP portable chest x-ray. Comparison: Chest x-ray 10/05/2016. Findings: Heart is mildly enlarged but stable. Asymmetric soft tissue prominence in the right hilar region may be related to prominence of the rete central right pulmonary artery or mild lymph node prominence. Patchy opacity in the right lung base which is slightly nodular but very vague persists. Lungs otherwise clear. Chest otherwise negative. Dictated by Tyrese Greer MD @ Mar 12 2017 7:04AM (Electronic Signature) Report Signed by Proxy. [email or web address]
--- NOTE | 2017-03-12 17:50 | PCM.HP ---
H&P History of Present Illness - General Admit Problem/Dx: Admission Diagnosis/Problem Admission Diagnosis/Problem Atrial fibrillation with rapid ventricular response - History of Present Illness Initial Comments - Free Text/Narative: 57 yo female with pmh of atrial fibrillation who presents with palpitations and shortness of breath. She was seen in the ED and noted to be in atrial fibrillation with heart ratin in the 120-150s. She was started on a diltiazem drip and transfered to the ICU where she was quickly weaned off the drip. She has a history of chronic hypomagnesia. Her magnesium was noted to be 0.6 today. She also was noted to have mild swelling and induration of her olecranon bursa with a small white head which was drain by ED physician. Left Elbow Pain Score (Numeric/FACES): 3 - Related Data Allergies/Adverse Reactions: Allergies Allergy/AdvReac Type Severity Reaction Status Date / Time apixaban [From Eliquis] Allergy Swelling Verified 03/12/17 06:40 atorvastatin [From Lipitor] Allergy Swelling Verified 03/12/17 06:40 Tetanus Vaccines and Toxoid Allergy Hives Verified 03/12/17 10:32 Home Medications: Home Meds Levothyroxine 25 mcg PO ACBREAKFAST 09/20/16 [History] Lisinopril 5 mg PO DAILY 09/20/16 [History] Metoprolol Succinate [Toprol XL] 100 mg PO QAM 09/20/16 [History] Rosuvastatin [Crestor] 20 mg PO BEDTIME 09/20/16 [History] Aspirin [Halfprin] 81 mg PO DAILY 09/25/16 [History] Acetaminophen 650 mg PO DAILY PRN 11/01/16 [History] Famotidine 20 mg PO DAILY 11/01/16 [History] Dabigatran [Pradaxa] 150 mg PO BID 02/02/17 [History] Magnesium Oxide 800 mg PO DAILY 02/02/17 [History] Cholecalciferol (Vitamin D3) [Vitamin D3] 03/12/17 [History] Metoprolol Succinate 50 mg PO BEDTIME 03/12/17 [History] Past Medical History - Past Health History Medical/Surgical History: Denies Medical/Surgical History HEENT History: Reports: Impaired Vision Cardiovascular History: Reports: Afib, High Cholesterol, Hypertension, Stents, Other (See Below) Other Cardiovascular History: TIA 5 years ago; stent placed in September 2016 Respiratory History: Reports: Other (See Below) Other Respiratory History: lung polyps Gastrointestinal History: Reports: Other (See Below) Other Gastrointestinal History: Heartburn Genitourinary History: Reports: None ACCOUNT SUPPORT MANAGER History: Reports: None Musculoskeletal History: Reports: Fracture, Osteoarthritis, Other (See Below) Other Musculoskeletal History: screws to the right wrist Neurological History: Reports: Seizure, TIA Other Neuro History: last seizure 1 year ago Psychiatric History: Reports: None Endocrine/Metabolic History: Reports: Hypothyroidism Other Endocrine/Metabolic History: "borderline diabetes" Hematologic History: Reports: None Oncologic (Cancer) History: Reports: None Dermatologic History: Reports: None - Infectious Disease History Infectious Disease History: Reports: Chicken Pox - Past Surgical History Head Surgeries/Procedures: Reports: None GI Surgical History: Reports: Colonoscopy, EGD Female Surgical History: Reports: None Endocrine Surgical History: Reports: None Neurological Surgical History: Reports: None Social & Family History - Family History Family Medical History: Unobtainable HEENT: Reports: Impaired Vision, Other (See Below) Other HEENT Family History: ear surgery Cardiac: Reports: Bypass, Hypertension OBGYN: Reports: , Other (See Below) Other OBGYN Family History: hysterectomy Endocrine/Metabolic: Reports: Other (See Below) Other Endocrine/Metabolic Family History: DM type unknown Oncologic: Reports: Breast - Tobacco Use Smoking Status *Q: Current Every Day Smoker Years of Tobacco use: 25 Packs/Tins Daily: 0.5 Used Tobacco, but Quit: No Second Hand Smoke Exposure: No - Caffeine Use Caffeine Use: Reports: Coffee, Soda Caffeine Use Comment: 4 cups/day - Alcohol Use Days Per Week of Alcohol Use: 2 Number of Drinks Per Day: 4 Total Drinks Per Week: 8 - Recreational Drug Use Recreational Drug Use: No Drug Use in Last 12 Months: No H&P Review of Systems - Review of Systems: Review Of Systems: ROS reveals no pertinent complaints other than HPI. Exam - Exam Exam: See Below - Vital Signs Vital Signs: Last Vital Signs Temp 36.9 C 03/12/17 11:00 Pulse 102 H 03/12/17 11:34 Resp 20 03/12/17 14:00 BP 97/71 03/12/17 14:00 Pulse Ox 95 03/12/17 14:00 Weight: 76.067 kg - Exam General: Alert, Oriented, 4 Lungs: Clear to Auscultation, Normal Respiratory Effort Cardiovascular: Regular Rate, Regular Rhythm GI/Abdominal Exam: Soft, Non-Tender, No Distention Extremities: Other (full range of motion of left elbow with mild induration of olecranon bursa, no effuion of elbow joint) Skin: Warm, Dry, Intact - Patient Data Lab Results Last 24 hrs: Laboratory Results - last 24 hr 03/12/17 Range/Units 14:24 Magnesium 1.4 L (1.5-2.3) mEq/L Result Diagrams: 03/12/17 06:30 03/12/17 06:30 *Q Meaningful Use (ADM) - VTE *Q VTE Criteria *Q: - Stroke *Q Stroke Criteria *Q: - AMI *Q AMI Criteria *Q: Problem List Initiated/Reviewed/Updated: Yes Orders Last 24hrs: Active Orders 24 hr Category Date Time Status Antiembolic Devices [RC] PER UNIT ROUTINE Care 03/12/17 11:23 Active Cardiac Monitoring [RC] Q8H Care 03/12/17 09:34 Active Intake and Output [RC] Q12H Care 03/12/17 11:23 Active Up ad Irene [RC] ASDIRECTED Care 03/12/17 11:18 Active VTE/DVT Education [RC] PER UNIT ROUTINE Care 03/12/17 11:18 Active Vital Signs [RC] Q4H Care 03/12/17 11:18 Active Regular Diet [DIET] Diet 03/12/17 Breakfast Active BASIC METABOLIC PANEL,BMP [CHEM] AM Lab 03/13/17 05:11 Ordered BASIC METABOLIC PANEL,BMP [CHEM] AM Lab 03/14/17 05:11 Ordered CBC WITH AUTO DIFF [HEME] AM Lab 03/13/17 05:11 Ordered CBC WITH AUTO DIFF [HEME] AM Lab 03/14/17 05:11 Ordered Dabigatran [Pradaxa] Med 03/12/17 21:00 Active 150 mg PO BID Levothyroxine Med 03/13/17 07:30 Active 25 mcg PO ACBREAKFAST Metoprolol Succinate [Toprol XL] Med 03/12/17 09:00 Active 100 mg PO QAM Metoprolol Succinate [Toprol XL] Med 03/12/17 21:00 Active 50 mg PO BEDTIME Rosuvastatin [Crestor] Med 03/12/17 21:00 Active 20 mg PO BEDTIME ceFAZolin [Ancef] 1 gm Med 03/12/17 12:00 Active Premix Bag 1 bag IV Q8H Sequential Compression Device [OM.PC] Routine Oth 03/12/17 11:18 Ordered Resuscitation Status Routine Resus Stat 03/12/17 11:18 Ordered Medication Orders Dabigatran (Pradaxa) 150 mg PO BID [facility] Diltiazem HCl 100 mg/ Sodium (Chloride) 100 mls @ 10 mls/hr IV TITRATE [facility]; 10 MG/HR PRN Reason: Protocol Last Titration: 03/12/17 09:55 Dose: 0 mg/hr, 0 mls/hr Titration: 03/12/17 08:45 Dose: 5 mg/hr, 5 mls/hr Admin: 03/12/17 07:06 Dose: 10 mg/hr, 10 mls/hr Cefazolin Sodium/Dextrose 1 gm (/ Premix) 50 mls @ 100 mls/hr IV Q8H [facility] Last Admin: 03/12/17 12:38 Dose: 100 mls/hr Levothyroxine Sodium (Levothyroxine) 25 mcg PO ACBREAKFAST [facility] Metoprolol Succinate (Toprol Xl) 100 mg PO QAM [facility] Last Admin: 03/12/17 11:34 Dose: 100 mg Metoprolol Succinate (Toprol Xl) 50 mg PO BEDTIME [facility] Rosuvastatin Calcium (Crestor) 20 mg PO BEDTIME [facility] Sodium Chloride (Saline Flush) 10 ml FLUSH ASDIRECTED PRN PRN Reason: Keep Vein Open Sodium Chloride (Saline Flush) 2.5 ml FLUSH ASDIRECTED PRN PRN Reason: Keep Vein Open Assessment/Plan Comment:: 57 yo female admitted with atrial fibrillation with RVR Afib with RVR: we have resumed home dose of metoprolol Hypomagnesia: replacing olecranon bursitis: on ancef, wound cultures pending
[2017-03-12] MEDS: Rosuvastatin 10 MG Tab PO SCH (19:59)
[2017-03-12] MEDS: Dabigatran 75 MG Cap PO SCH (19:59)
[2017-03-12] MEDS: Metoprolol Succinate 50 MG Tab.ER PO SCH (19:59)
[2017-03-12] MEDS: Famotidine 20 MG Tab PO SCH ×2 (20:03→20:43)
[2017-03-12] MEDS: Diltiazem 25 MG/5 ML SDV IVPUSH PRN (21:29)
[2017-03-13] MEDS: Diltiazem 25 MG/5 ML SDV IVPUSH PRN ×3 (00:36→06:45)
[2017-03-13] MEDS: ceFAZolin 1 GM in Premix Bag 1 BAG IV SCH ×3 (03:00→20:27)
[2017-03-13 05:41] LABS: CHLORIDE,CL 107 mmol/L (98-110); SODIUM,NA 140 mmol/L (136-146)
[2017-03-13] MEDS: Levothyroxine 25 MCG Tab PO SCH (06:45)
[2017-03-13] MEDS: Dabigatran 75 MG Cap PO SCH ×2 (08:20→20:28)
[2017-03-13] MEDS: Metoprolol Succinate 100 MG Tab.ER PO SCH (08:21)
[2017-03-13] MEDS ORDERED: Magnesium Sulfate/Water 4 GM in Premix Bag 1 BAG IV ONE (08:57)
[2017-03-13] MEDS ORDERED: Digoxin 500 MCG/2 ML Amp IVPUSH ONE (09:46)
[2017-03-13] MEDS ORDERED: Calcium Carbonate 500 MG Tab.Chew PO ONE (09:47)
[2017-03-13] MEDS ORDERED: Potassium Chloride 20 MEQ Tab.ER PO ONE (09:47)
--- NOTE | 2017-03-13 09:49 | PCM.PN ---
- General Info Date of Service: 03/13/17 Subjective Update: Patient still having palpitations and sob. Left elbow pain and swelling improving. - Review of Systems General: Reports: No Symptoms HEENT: Reports: No Symptoms Pulmonary: Reports: Shortness of Breath, Cough Cardiovascular: Reports: Palpitations, Dyspnea on Exertion Gastrointestinal: Reports: No Symptoms Genitourinary: Reports: No Symptoms Musculoskeletal: Reports: Other (left elbow pain and swelling ) Skin: Reports: No Symptoms Neurological: Reports: No Symptoms Psychiatric: Reports: No Symptoms - Patient Data Vitals - Most Recent: Last Vital Signs Temp 36.1 C 03/13/17 08:00 Pulse 124 H 03/13/17 08:21 Resp 22 H 03/13/17 09:00 BP 124/79 03/13/17 09:00 Pulse Ox 97 03/13/17 09:00 Weight - Most Recent: 76.158 kg I&O - Last 24 Hours: Intake & Output 03/12/17 03/13/17 03/13/17 22:59 06:59 14:59 Intake Total 590 350 Output Total 825 650 Balance -235 -300 Lab Results Last 24 Hours: Laboratory Results - last 24 hr 03/12/17 03/13/17 03/13/17 Range/Units 14:24 05:01 05:01 WBC 6.62 (4.0-11.0) K/uL RBC 3.43 L (4.30-5.90) M/uL Hgb 10.1 L (12.0-16.0) g/dL Hct 31.2 L (36.0-46.0) % MCV 91.0 (80.0-98.0) fL MCH 29.4 (27.0-32.0) pg MCHC 32.4 (31.0-37.0) g/dL RDW Std Deviation 49.2 (28.0-62.0) fl RDW Coeff of Cullen 15 (11.0-15.0) % Plt Count 286 (150-400) K/uL MPV 10.10 (7.40-12.00) fL Neut % (Auto) 68.1 (48.0-80.0) % Lymph % (Auto) 16.5 (16.0-40.0) % [place] % (Auto) 13.9 (0.0-15.0) % Eos % (Auto) 1.2 (0.0-7.0) % Baso % (Auto) 0.3 (0.0-1.5) % Neut # (Auto) 4.5 (1.4-5.7) K/uL Lymph # (Auto) 1.1 (0.6-2.4) K/uL [place] # (Auto) 0.9 H (0.0-0.8) K/uL Eos # (Auto) 0.1 (0.0-0.7) K/uL Baso # (Auto) 0.0 (0.0-0.1) K/uL Nucleated RBC % 0.0 /100WBC Nucleated RBCs # 0 K/uL Sodium 140 (136-146) mmol/L Potassium 3.6 (3.5-5.1) mmol/L Chloride 107 (98-110) mmol/L Carbon Dioxide 23 (21-31) mmol/L BUN 14 (6.0-23.0) mg/dL Creatinine 0.8 (0.6-1.5) mg/dL Est Cr Clr Drug Dosing 79.82 mL/min Estimated GFR (MDRD) > 60.0 ml/min Glucose 98 (60-110) mg/dL Calcium 7.5 L (8.8-10.8) mg/dL Magnesium 1.4 L 1.3 L (1.5-2.3) mEq/L Med Orders - Current: Current Medications Dabigatran (Pradaxa) 150 mg PO BID [facility] Last Admin: 03/13/17 08:20 Dose: 150 mg Diltiazem HCl (Diltiazem) 10 mg IVPUSH Q3H PRN PRN Reason: HR above 110 Last Admin: 03/13/17 06:45 Dose: 10 mg Diltiazem HCl (Cardizem) 30 mg PO Q6HR [facility] Famotidine (Pepcid) 20 mg PO BEDTIME [facility] Last Admin: 03/12/17 20:43 Dose: Not Given Diltiazem HCl 100 mg/ Sodium (Chloride) 100 mls @ 10 mls/hr IV TITRATE BONITA; 10 MG/HR PRN Reason: Protocol Last Titration: 03/12/17 09:55 Dose: 0 mg/hr, 0 mls/hr Cefazolin Sodium/Dextrose 1 gm (/ Premix) 50 mls @ 100 mls/hr IV Q8H [facility] Last Admin: 03/13/17 03:00 Dose: 100 mls/hr Magnesium Sulfate 4 gm/ Premix 100 mls @ 50 mls/hr IV ONETIME ONE Stop: 03/13/17 10:56 Levothyroxine Sodium (Levothyroxine) 25 mcg PO ACBREAKFAST [facility] Last Admin: 03/13/17 06:45 Dose: 25 mcg Metoprolol Succinate (Toprol Xl) 100 mg PO QAM [facility] Last Admin: 03/13/17 08:21 Dose: 100 mg Metoprolol Succinate (Toprol Xl) 50 mg PO BEDTIME [facility] Last Admin: 03/12/17 19:59 Dose: 50 mg Rosuvastatin Calcium (Crestor) 20 mg PO BEDTIME [facility] Last Admin: 03/12/17 19:59 Dose: 20 mg Sodium Chloride (Saline Flush) 10 ml FLUSH ASDIRECTED PRN PRN Reason: Keep Vein Open Sodium Chloride (Saline Flush) 2.5 ml FLUSH ASDIRECTED PRN PRN Reason: Keep Vein Open Discontinued Medications Calcium Carbonate/Glycine (Tums) 1,000 mg PO ONETIME ONE Stop: 03/12/17 11:46 Last Admin: 03/12/17 11:33 Dose: 1,000 mg Cefazolin Sodium (Ancef) 1,000 mg IVPUSH Q8H [facility] Last Admin: 03/12/17 11:57 Dose: Not Given Diltiazem HCl (Diltiazem) 10 mg IVPUSH ONETIME ONE Stop: 03/12/17 06:50 Last Admin: 03/12/17 06:51 Dose: 10 mg Diltiazem HCl (Diltiazem) Confirm Administered Dose 25 mg .ROUTE .STK-MED ONE Stop: 03/12/17 06:51 Last Admin: 03/12/17 06:56 Dose: Not Given Diltiazem HCl (Cardizem) Confirm Administered Dose 100 mg .ROUTE .STK-MED ONE Stop: 03/12/17 06:58 Last Admin: 03/12/17 07:07 Dose: Not Given Clindamycin Phosphate 900 mg/ (Sodium Chloride) 56 mls @ 100 mls/hr IV ONETIME ONE Stop: 03/12/17 07:23 Last Admin: 03/12/17 07:10 Dose: Not Given Clindamycin Phosphate (Cleocin In D5w) Confirm Administered Dose 50 mls @ as directed IV .STK-MED ONE Stop: 03/12/17 06:58 Last Admin: 03/12/17 07:07 Dose: Not Given Sodium Chloride (Normal Saline) Confirm Administered Dose 100 mls @ as directed .ROUTE .STK-MED ONE Stop: 03/12/17 06:59 Last Admin: 03/12/17 07:08 Dose: Not Given Clindamycin Phosphate 900 mg/ (Premix) 50 mls @ 100 mls/hr IV ONETIME ONE Stop: 03/12/17 07:38 Last Admin: 03/12/17 07:09 Dose: 100 mls/hr Magnesium Sulfate 2 gm/ Premix 50 mls @ 25 mls/hr IV ONETIME ONE Stop: 03/12/17 09:20 Last Admin: 03/12/17 07:40 Dose: 25 mls/hr Sodium Chloride (Normal Saline) 1,000 mls @ 999 mls/hr IV .Bolus ONE Stop: 03/12/17 08:39 Last Admin: 03/12/17 07:40 Dose: 999 mls/hr Magnesium Sulfate 2 gm/ Premix 50 mls @ 50 mls/hr IV ONETIME ONE Stop: 03/12/17 12:08 Last Admin: 03/12/17 11:33 Dose: 50 mls/hr Lidocaine HCl (Xylocaine 1%) Confirm Administered Dose 20 ml .ROUTE .STK-MED ONE Stop: 03/12/17 06:38 Last Admin: 03/12/17 06:45 Dose: Not Given Lidocaine HCl (Xylocaine 1%) 20 ml INJECT ONETIME ONE Stop: 03/12/17 06:45 Last Admin: 03/12/17 07:01 Dose: 20 ml - Exam General: Alert, Oriented, Cooperative, No Acute Distress HEENT: Pupils Equal, Pupils Reactive Neck: Supple Lungs: Decreased Breath Sounds, Crackles Cardiovascular: Irregular Rhythm, Tachycardia Extremities: Other (Left elbow: Decreased redness and induration. No active drainage. ) Neurological: No New Focal Deficit - Problem List Review Problem List Initiated/Reviewed/Updated: Yes - My Orders Last 24 Hours: My Active Orders 03/13/17 08:57 Magnesium Sulfate/Water [Magnesium Sulfate 4 GM in Water 100 ML] 4 gm Premix Bag 1 bag IV ONETIME 03/13/17 09:46 Digoxin [Lanoxin] 250 mcg IVPUSH ONETIME ONE 03/13/17 09:47 Calcium Carbonate [Tums] 1,000 mg PO ONETIME ONE Potassium Chloride [Klor-Con M20] 40 meq PO ONETIME ONE 03/13/17 12:00 Diltiazem [Cardizem] 30 mg PO Q6HR - Plan Plan:: 57 yo female admitted with atrial fibrillation with RVR. HR presently 100-120. Required Cardizem 10 mg [id number] x3 doses Afib with RVR: continue telemetry. we have resumed home dose of metoprolol. start Cardizem 30 mg PO [id number]. administer Digoxin 250 mcg single dose. Administer Potassium 40 meq PO to reach target K of 4.0 Hypomagnesia: Mg currently 1.3. give Mg 4 g IV. start Calcium supplementation. olecranon bursitis: on ancef, wound cultures pending
[2017-03-13] MEDS: Diltiazem IR 30 MG Tab PO SCH ×2 (11:24→17:49)
[2017-03-13] MEDS: Rosuvastatin 10 MG Tab PO SCH (20:28)
[2017-03-13] MEDS: Famotidine 20 MG Tab PO SCH (20:28)
[2017-03-13] MEDS: Metoprolol Succinate 50 MG Tab.ER PO SCH (20:29)
[2017-03-14] MEDS: Diltiazem IR 30 MG Tab PO SCH ×3 (00:05→11:25)
[2017-03-14] MEDS: ceFAZolin 1 GM in Premix Bag 1 BAG IV SCH ×2 (04:16→11:26)
[2017-03-14 05:27] LABS: CHLORIDE,CL 109 mmol/L (98-110); SODIUM,NA 139 mmol/L (136-146)
[2017-03-14] MEDS: Levothyroxine 25 MCG Tab PO SCH (06:39)
[2017-03-14] MEDS: Dabigatran 75 MG Cap PO SCH (08:40)
[2017-03-14] MEDS: Metoprolol Succinate 100 MG Tab.ER PO SCH (08:41)
--- NOTE | 2017-03-14 11:41 | PCM.DCSUM1 ---
<Clarice,Shayan - Last Filed: 03/14/17 11:57> Discharge Summary - Hospital Course Free Text/Narrative:: 57 yo fm with history of AF and chronic hypomagnasemia was admitted for palpitations, AF with RVR and left elbow olecranon bursitis. AF was treated initially with Cardizem drip then she was transitioned onto her home Metoprolol once HR became controlled. Her HR began to accelerate again. Cardizem 30 mg PO [id number] was added which helped decrease hr to 80-120. At discharge Cardizem CD 120 mg daily was added to her medications. Her Mg at discharge was 1.5. She was instructed to resume her home daily magnesium tabs. At admission she was found to hae left elbow Olecranon Bursitis. It was drained in the ED. She was treated with Ancef for 2 days. Cultures grew Staph Aureus sensitive to Augmentin. She was then discharged on Augmentin for 12 days to total 14 days of therapy. F/u appointments were arranged with director of catering sales. - Discharge Data Discharge Date: 03/14/17 Discharge Disposition: Home, Self-Care 01 Condition: Good - Patient Instructions Diet: Heart Healthy Diet Activity: As Tolerated Showering/Bathing: October Shower Notify Provider of: Fever, Increased Pain, Swelling and Redness, Drainage, Nausea and/or Vomiting - Discharge Plan Prescriptions/Med Rec: Amoxicillin/Potassium Clav [Augmentin 875-125 Tablet] 1 each PO BID 12 Days #24 tablet Diltiazem [Cardizem CD] 120 mg PO DAILY 30 Days #30 cap.cd Magnesium Oxide 800 mg PO DAILY 30 Days #30 tablet Home Medications: Home Meds Levothyroxine 25 mcg PO ACBREAKFAST 09/20/16 [History] Lisinopril 5 mg PO DAILY 09/20/16 [History] Metoprolol Succinate [Toprol XL] 100 mg PO QAM 09/20/16 [History] Rosuvastatin [Crestor] 20 mg PO BEDTIME 09/20/16 [History] Aspirin [Halfprin] 81 mg PO DAILY 09/25/16 [History] Acetaminophen 650 mg PO DAILY PRN 11/01/16 [History] Famotidine 20 mg PO DAILY 11/01/16 [History] Dabigatran [Pradaxa] 150 mg PO BID 02/02/17 [History] Cholecalciferol (Vitamin D3) [Vitamin D3] 03/12/17 [History] Metoprolol Succinate 50 mg PO BEDTIME 03/12/17 [History] Amoxicillin/Potassium Clav [Augmentin 875-125 Tablet] 1 each PO BID 12 Days #24 tablet 03/14/17 [Rx] Diltiazem [Cardizem CD] 120 mg PO DAILY 30 Days #30 cap.cd 03/14/17 [Rx] Magnesium Oxide 800 mg PO DAILY 30 Days #30 tablet 03/14/17 [Rx] Patient Handouts: Sodium picosulfate; Magnesium oxide; Anhydrous citric acid oral solution, Amoxicillin capsules or tablets, Diltiazem tablets, Atrial Fibrillation, [id number] Referrals: Erin Emery MD [Ordering Only Provider] - 04/05/17 9:30 am Bharat Swift MD [Physician] - 03/20/17 7:45 am - Discharge Summary/Plan Comment DC Time >30 min.: No - Patient Data Vitals - Most Recent: Last Vital Signs Temp 36.5 C 03/14/17 08:00 Pulse 93 03/14/17 08:41 Resp 20 03/14/17 08:00 BP 112/66 03/14/17 08:41 Pulse Ox 96 03/14/17 08:00 Weight - Most Recent: 75.977 kg I&O - Last 24 hours: Intake & Output 03/13/17 03/14/17 03/14/17 22:59 06:59 14:59 Intake Total 550 750 Output Total 800 900 Balance -250 -150 Lab Results - Last 24 hrs: Laboratory Results - last 24 hr 03/13/17 03/13/17 03/14/17 Range/Units 12:02 12:02 04:38 WBC 4.74 (4.0-11.0) K/uL RBC 3.37 L (4.30-5.90) M/uL Hgb 9.9 L (12.0-16.0) g/dL Hct 30.5 L (36.0-46.0) % MCV 90.5 (80.0-98.0) fL MCH 29.4 (27.0-32.0) pg MCHC 32.5 (31.0-37.0) g/dL RDW Std Deviation 48.6 (28.0-62.0) fl RDW Coeff of Cullen 15 (11.0-15.0) % Plt Count 291 (150-400) K/uL MPV 10.20 (7.40-12.00) fL Add Manual Diff YES Neutrophils % (Manual) 64 (48.0-80.0) % Lymphocytes % (Manual) 19 (16.0-40.0) % Monocytes % (Manual) 14 (0.0-15.0) % Eosinophils % (Manual) 3 (0.0-7.0) % Nucleated RBC % 0.0 /100WBC Absolute Seg Neuts 3.0 Lymphocytes # (Manual) 0.9 Monocytes # (Manual) 0.7 Eosinophils # (Manual) 0.1 Nucleated RBCs # 0 K/uL Sodium (136-146) mmol/L Potassium (3.5-5.1) mmol/L Chloride (98-110) mmol/L Carbon Dioxide (21-31) mmol/L BUN (6.0-23.0) mg/dL Creatinine (0.6-1.5) mg/dL Est Cr Clr Drug Dosing mL/min Estimated GFR (MDRD) ml/min Glucose (60-110) mg/dL Calcium (8.8-10.8) mg/dL Magnesium (1.5-2.3) mEq/L Troponin I < 0.10 (0.0-0.29) NG/ML Free T4 1.13 (0.7-1.48) ng/dL TSH 3rd Generation 1.93 (0.47-5.0) uIU/mL 03/14/17 Range/Units 04:38 WBC (4.0-11.0) K/uL RBC (4.30-5.90) M/uL Hgb (12.0-16.0) g/dL Hct (36.0-46.0) % MCV (80.0-98.0) fL MCH (27.0-32.0) pg MCHC (31.0-37.0) g/dL RDW Std Deviation (28.0-62.0) fl RDW Coeff of Cullen (11.0-15.0) % Plt Count (150-400) K/uL MPV (7.40-12.00) fL Add Manual Diff Neutrophils % (Manual) (48.0-80.0) % Lymphocytes % (Manual) (16.0-40.0) % Monocytes % (Manual) (0.0-15.0) % Eosinophils % (Manual) (0.0-7.0) % Nucleated RBC % /100WBC Absolute Seg Neuts Lymphocytes # (Manual) Monocytes # (Manual) Eosinophils # (Manual) Nucleated RBCs # K/uL Sodium 139 (136-146) mmol/L Potassium 4.5 (3.5-5.1) mmol/L Chloride 109 (98-110) mmol/L Carbon Dioxide 22 (21-31) mmol/L BUN 12 (6.0-23.0) mg/dL Creatinine 0.7 (0.6-1.5) mg/dL Est Cr Clr Drug Dosing 91.22 mL/min Estimated GFR (MDRD) > 60.0 ml/min Glucose 102 (60-110) mg/dL Calcium 8.4 L (8.8-10.8) mg/dL Magnesium 1.5 (1.5-2.3) mEq/L Troponin I (0.0-0.29) NG/ML Free T4 (0.7-1.48) ng/dL TSH 3rd Generation (0.47-5.0) uIU/mL Med Orders - Current: Current Medications Dabigatran (Pradaxa) 150 mg PO BID [facility] Last Admin: 03/14/17 08:40 Dose: 150 mg Diltiazem HCl (Diltiazem) 10 mg IVPUSH Q3H PRN PRN Reason: HR above 110 Last Admin: 03/13/17 06:45 Dose: 10 mg Diltiazem HCl (Cardizem) 30 mg PO Q6HR [facility] Last Admin: 03/14/17 11:25 Dose: 30 mg Famotidine (Pepcid) 20 mg PO BEDTIME [facility] Last Admin: 03/13/17 20:28 Dose: 20 mg Diltiazem HCl 100 mg/ Sodium (Chloride) 100 mls @ 10 mls/hr IV TITRATE [facility]; 10 MG/HR PRN Reason: Protocol Last Titration: 03/12/17 09:55 Dose: 0 mg/hr, 0 mls/hr Cefazolin Sodium/Dextrose 1 gm (/ Premix) 50 mls @ 100 mls/hr IV Q8H [facility] Last Admin: 03/14/17 11:26 Dose: 100 mls/hr Levothyroxine Sodium (Levothyroxine) 25 mcg PO ACBREAKFAST [facility] Last Admin: 03/14/17 06:39 Dose: 25 mcg Metoprolol Succinate (Toprol Xl) 100 mg PO QAM [facility] Last Admin: 03/14/17 08:41 Dose: 100 mg Metoprolol Succinate (Toprol Xl) 50 mg PO BEDTIME [facility] Last Admin: 03/13/17 20:29 Dose: 50 mg Rosuvastatin Calcium (Crestor) 20 mg PO BEDTIME [facility] Last Admin: 03/13/17 20:28 Dose: 20 mg Sodium Chloride (Saline Flush) 10 ml FLUSH ASDIRECTED PRN PRN Reason: Keep Vein Open Sodium Chloride (Saline Flush) 2.5 ml FLUSH ASDIRECTED PRN PRN Reason: Keep Vein Open Discontinued Medications Calcium Carbonate/Glycine (Tums) 1,000 mg PO ONETIME ONE Stop: 03/12/17 11:46 Last Admin: 03/12/17 11:33 Dose: 1,000 mg Calcium Carbonate/Glycine (Tums) 1,000 mg PO ONETIME ONE Stop: 03/13/17 09:48 Last Admin: 03/13/17 10:46 Dose: 1,000 mg Cefazolin Sodium (Ancef) 1,000 mg IVPUSH Q8H [facility] Last Admin: 03/12/17 11:57 Dose: Not Given Digoxin (Lanoxin) 250 mcg IVPUSH ONETIME ONE Stop: 03/13/17 09:47 Last Admin: 03/13/17 10:44 Dose: 250 mcg Diltiazem HCl (Diltiazem) 10 mg IVPUSH ONETIME ONE Stop: 03/12/17 06:50 Last Admin: 03/12/17 06:51 Dose: 10 mg Diltiazem HCl (Diltiazem) Confirm Administered Dose 25 mg .ROUTE .STK-MED ONE Stop: 03/12/17 06:51 Last Admin: 03/12/17 06:56 Dose: Not Given Diltiazem HCl (Cardizem) Confirm Administered Dose 100 mg .ROUTE .STK-MED ONE Stop: 03/12/17 06:58 Last Admin: 03/12/17 07:07 Dose: Not Given Clindamycin Phosphate 900 mg/ (Sodium Chloride) 56 mls @ 100 mls/hr IV ONETIME ONE Stop: 03/12/17 07:23 Last Admin: 03/12/17 07:10 Dose: Not Given Clindamycin Phosphate (Cleocin In D5w) Confirm Administered Dose 50 mls @ as directed IV .STK-MED ONE Stop: 03/12/17 06:58 Last Admin: 03/12/17 07:07 Dose: Not Given Sodium Chloride (Normal Saline) Confirm Administered Dose 100 mls @ as directed .ROUTE .STK-MED ONE Stop: 03/12/17 06:59 Last Admin: 03/12/17 07:08 Dose: Not Given Clindamycin Phosphate 900 mg/ (Premix) 50 mls @ 100 mls/hr IV ONETIME ONE Stop: 03/12/17 07:38 Last Admin: 03/12/17 07:09 Dose: 100 mls/hr Magnesium Sulfate 2 gm/ Premix 50 mls @ 25 mls/hr IV ONETIME ONE Stop: 03/12/17 09:20 Last Admin: 03/12/17 07:40 Dose: 25 mls/hr Sodium Chloride (Normal Saline) 1,000 mls @ 999 mls/hr IV .Bolus ONE Stop: 03/12/17 08:39 Last Admin: 03/12/17 07:40 Dose: 999 mls/hr Magnesium Sulfate 2 gm/ Premix 50 mls @ 50 mls/hr IV ONETIME ONE Stop: 03/12/17 12:08 Last Admin: 03/12/17 11:33 Dose: 50 mls/hr Magnesium Sulfate 4 gm/ Premix 100 mls @ 50 mls/hr IV ONETIME ONE Stop: 03/13/17 10:56 Last Admin: 03/13/17 10:38 Dose: 50 mls/hr Lidocaine HCl (Xylocaine 1%) Confirm Administered Dose 20 ml .ROUTE .STK-MED ONE Stop: 03/12/17 06:38 Last Admin: 03/12/17 06:45 Dose: Not Given Lidocaine HCl (Xylocaine 1%) 20 ml INJECT ONETIME ONE Stop: 03/12/17 06:45 Last Admin: 03/12/17 07:01 Dose: 20 ml Potassium Chloride (Klor-Con M20) 40 meq PO ONETIME ONE Stop: 03/13/17 09:48 Last Admin: 03/13/17 10:45 Dose: 40 meq *Q Meaningful Use (DIS) - VTE *Q VTE Criteria *Q: - Stroke *Q Stroke Criteria *Q: - AMI *Q AMI Criteria *Q: <Mitchell Willett - Last Filed: 03/14/17 15:40> - Patient Data Vitals - Most Recent: Last Vital Signs Temp 37.2 C 03/14/17 12:00 Pulse 88 03/14/17 12:00 Resp 16 03/14/17 12:00 BP 123/76 03/14/17 12:00 Pulse Ox 97 03/14/17 12:00 I&O - Last 24 hours: Intake & Output 03/14/17 03/14/17 03/14/17 06:59 14:59 22:59 Intake Total 750 750 Output Total 900 350 Balance -150 400 Lab Results - Last 24 hrs: Laboratory Results - last 24 hr 03/14/17 03/14/17 Range/Units 04:38 04:38 WBC 4.74 (4.0-11.0) K/uL RBC 3.37 L (4.30-5.90) M/uL Hgb 9.9 L (12.0-16.0) g/dL Hct 30.5 L (36.0-46.0) % MCV 90.5 (80.0-98.0) fL MCH 29.4 (27.0-32.0) pg MCHC 32.5 (31.0-37.0) g/dL RDW Std Deviation 48.6 (28.0-62.0) fl RDW Coeff of Cullen 15 (11.0-15.0) % Plt Count 291 (150-400) K/uL MPV 10.20 (7.40-12.00) fL Add Manual Diff YES Neutrophils % (Manual) 64 (48.0-80.0) % Lymphocytes % (Manual) 19 (16.0-40.0) % Monocytes % (Manual) 14 (0.0-15.0) % Eosinophils % (Manual) 3 (0.0-7.0) % Nucleated RBC % 0.0 /100WBC Absolute Seg Neuts 3.0 Lymphocytes # (Manual) 0.9 Monocytes # (Manual) 0.7 Eosinophils # (Manual) 0.1 Nucleated RBCs # 0 K/uL Sodium 139 (136-146) mmol/L Potassium 4.5 (3.5-5.1) mmol/L Chloride 109 (98-110) mmol/L Carbon Dioxide 22 (21-31) mmol/L BUN 12 (6.0-23.0) mg/dL Creatinine 0.7 (0.6-1.5) mg/dL Est Cr Clr Drug Dosing 91.22 mL/min Estimated GFR (MDRD) > 60.0 ml/min Glucose 102 (60-110) mg/dL Calcium 8.4 L (8.8-10.8) mg/dL Magnesium 1.5 (1.5-2.3) mEq/L Med Orders - Current: Current Medications Discontinued Medications Calcium Carbonate/Glycine (Tums) 1,000 mg PO ONETIME ONE Stop: 03/12/17 11:46 Last Admin: 03/12/17 11:33 Dose: 1,000 mg Calcium Carbonate/Glycine (Tums) 1,000 mg PO ONETIME ONE Stop: 03/13/17 09:48 Last Admin: 03/13/17 10:46 Dose: 1,000 mg Cefazolin Sodium (Ancef) 1,000 mg IVPUSH Q8H [facility] Last Admin: 03/12/17 11:57 Dose: Not Given Dabigatran (Pradaxa) 150 mg PO BID [facility] Last Admin: 03/14/17 08:40 Dose: 150 mg Digoxin (Lanoxin) 250 mcg IVPUSH ONETIME ONE Stop: 03/13/17 09:47 Last Admin: 03/13/17 10:44 Dose: 250 mcg Diltiazem HCl (Diltiazem) 10 mg IVPUSH ONETIME ONE Stop: 03/12/17 06:50 Last Admin: 03/12/17 06:51 Dose: 10 mg Diltiazem HCl (Diltiazem) Confirm Administered Dose 25 mg .ROUTE .STK-MED ONE Stop: 03/12/17 06:51 Last Admin: 03/12/17 06:56 Dose: Not Given Diltiazem HCl (Cardizem) Confirm Administered Dose 100 mg .ROUTE .STK-MED ONE Stop: 03/12/17 06:58 Last Admin: 03/12/17 07:07 Dose: Not Given Diltiazem HCl (Diltiazem) 10 mg IVPUSH Q3H PRN PRN Reason: HR above 110 Last Admin: 03/13/17 06:45 Dose: 10 mg Diltiazem HCl (Cardizem) 30 mg PO Q6HR [facility] Last Admin: 03/14/17 11:25 Dose: 30 mg Famotidine (Pepcid) 20 mg PO BEDTIME [facility] Last Admin: 03/13/17 20:28 Dose: 20 mg Diltiazem HCl 100 mg/ Sodium (Chloride) 100 mls @ 10 mls/hr IV TITRATE [facility]; 10 MG/HR PRN Reason: Protocol Last Titration: 03/12/17 09:55 Dose: 0 mg/hr, 0 mls/hr Clindamycin Phosphate 900 mg/ (Sodium Chloride) 56 mls @ 100 mls/hr IV ONETIME ONE Stop: 03/12/17 07:23 Last Admin: 03/12/17 07:10 Dose: Not Given Clindamycin Phosphate (Cleocin In D5w) Confirm Administered Dose 50 mls @ as directed IV .STK-MED ONE Stop: 03/12/17 06:58 Last Admin: 03/12/17 07:07 Dose: Not Given Sodium Chloride (Normal Saline) Confirm Administered Dose 100 mls @ as directed .ROUTE .STK-MED ONE Stop: 03/12/17 06:59 Last Admin: 03/12/17 07:08 Dose: Not Given Clindamycin Phosphate 900 mg/ (Premix) 50 mls @ 100 mls/hr IV ONETIME ONE Stop: 03/12/17 07:38 Last Admin: 03/12/17 07:09 Dose: 100 mls/hr Magnesium Sulfate 2 gm/ Premix 50 mls @ 25 mls/hr IV ONETIME ONE Stop: 03/12/17 09:20 Last Admin: 03/12/17 07:40 Dose: 25 mls/hr Sodium Chloride (Normal Saline) 1,000 mls @ 999 mls/hr IV .Bolus ONE Stop: 03/12/17 08:39 Last Admin: 03/12/17 07:40 Dose: 999 mls/hr Magnesium Sulfate 2 gm/ Premix 50 mls @ 50 mls/hr IV ONETIME ONE Stop: 03/12/17 12:08 Last Admin: 03/12/17 11:33 Dose: 50 mls/hr Cefazolin Sodium/Dextrose 1 gm (/ Premix) 50 mls @ 100 mls/hr IV Q8H [facility] Last Admin: 03/14/17 11:26 Dose: 100 mls/hr Magnesium Sulfate 4 gm/ Premix 100 mls @ 50 mls/hr IV ONETIME ONE Stop: 03/13/17 10:56 Last Admin: 03/13/17 10:38 Dose: 50 mls/hr Levothyroxine Sodium (Levothyroxine) 25 mcg PO ACBREAKFAST [facility] Last Admin: 03/14/17 06:39 Dose: 25 mcg Lidocaine HCl (Xylocaine 1%) Confirm Administered Dose 20 ml .ROUTE .STK-MED ONE Stop: 03/12/17 06:38 Last Admin: 03/12/17 06:45 Dose: Not Given Lidocaine HCl (Xylocaine 1%) 20 ml INJECT ONETIME ONE Stop: 03/12/17 06:45 Last Admin: 03/12/17 07:01 Dose: 20 ml Metoprolol Succinate (Toprol Xl) 100 mg PO QAM [facility] Last Admin: 03/14/17 08:41 Dose: 100 mg Metoprolol Succinate (Toprol Xl) 50 mg PO BEDTIME [facility] Last Admin: 03/13/17 20:29 Dose: 50 mg Potassium Chloride (Klor-Con M20) 40 meq PO ONETIME ONE Stop: 03/13/17 09:48 Last Admin: 03/13/17 10:45 Dose: 40 meq Rosuvastatin Calcium (Crestor) 20 mg PO BEDTIME [facility] Last Admin: 03/13/17 20:28 Dose: 20 mg Sodium Chloride (Saline Flush) 10 ml FLUSH ASDIRECTED PRN PRN Reason: Keep Vein Open Sodium Chloride (Saline Flush) 2.5 ml FLUSH ASDIRECTED PRN PRN Reason: Keep Vein Open *Q Meaningful Use (DIS) - VTE *Q VTE Criteria *Q: - Stroke *Q Stroke Criteria *Q: - AMI *Q AMI Criteria *Q: - Free Text/Narrative Note: I have examined the patient. I have discussed findings and treatment plan with resident. I agree with the assessment and plan outlined in the following resident's note.
[2017-03-14 12:47] VITALS: BP 123/76
--- NOTE | 2017-03-16 14:56 | ECHO ---
EXAM DATE: 03/12/17 PATIENT'S AGE: 57 The echocardiogram report can be seen in this patient's EMR (Electronic Medical Record) in the Reports section. The report has also been scanned into PACs. [email or web address]
== END 2017-03-14 13:55 | disposition home or self-care (01) | DRG 201 ==
LOC: MW.ED 06:23 → MW.ICU 07:05 → MW.MS 03-13 16:20 → UNDODISIN 03-14 13:55
PROVIDERS: ADMIT Internal Medicine; ATTEND Internal Medicine
DX: I48.91 Unspecified atrial fibrillation (principal); E83.42 Hypomagnesemia; M70.22 Olecranon bursitis, left elbow; E78.00 Pure hypercholesterolemia, unspecified; I10 Essential (primary) hypertension; E03.9 Hypothyroidism, unspecified; F17.200 Nicotine dependence, unspecified, uncomplicated; J44.9 Chronic obstructive pulmonary disease, unspecified; Z79.899 Other long term (current) drug therapy; Z88.8 Allergy status to other drugs, medicaments and biological substances; Z86.73 Personal history of transient ischemic attack (TIA), and cerebral infarction without residual deficits
CPT/HCPCS: 36415; 71010; 71010-26; 80048; 80053; 83735; 84439; 84443; 84484; 85025; 87070; 87077; 87186; 93005; 93306; 96365; 96368; 96376; 99284; 99285-25; A9270-GY; J0690; J1160; J3475; J3490; J7030; J7040

== ENCOUNTER 2019-03-02 01:33 | Emergency (ER) | payer BC ==
[2019-03-02] MEDS ORDERED: Ketorolac 30 MG/ML SDV IVPUSH ONE (01:51)
[2019-03-02] MEDS ORDERED: Ondansetron 4 MG/2 ML SDV IVPUSH ONE (01:51)
[2019-03-02] MEDS ORDERED: Sodium Chloride 0.9% 2.5 ML Syringe FLUSH PRN (01:51)
[2019-03-02] MEDS ORDERED: Sodium Chloride 0.9% 10 ML Syringe FLUSH PRN (01:51)
--- NOTE | 2019-03-02 01:56 | EDM.PDOC ---
ED HPI GENERAL MEDICAL PROBLEM - General Chief Complaint: Upper Extremity Injury/Pain Stated Complaint: RT SHOULDER HURTS Time Seen by Provider: 03/02/19 01:44 - History of Present Illness INITIAL COMMENTS - FREE TEXT/NARRATIVE: HISTORY AND PHYSICAL: History of present illness: The patient is a 59-year-old female with a history of A. fib who is currently taking Xarelto as anticoagulation, and also has a history of COPD hypertension hypercholesterolemia and hypothyroidism who presents with complaints to her right shoulder. She said that approximately 2 hours ago she went to throw her garbage out and had to lift her arm up and throw it into the dumpster and she felt pain at her shoulder without motion. She says she has never had issues with her right shoulder and she did not fall on it or have any direct trauma. She stated home trying to deal with the pain on her own and did take an old hydrocodone but nothing was helping so she came here. Prior to these events she was in her usual state of good health and had no systemic complaints. Currently she is not having chest pain shortness of breath neurosensory changes in her extremities and only complains of pain at her right shoulder but no specific elbow forearm wrist or hand pain. She has no chest wall pain and no midline back or neck pain. Review of systems: As per history of present illness and below otherwise all systems reviewed and negative. Past medical history: As per history of present illness and as reviewed below otherwise noncontributory. Surgical history: As per history of present illness and as reviewed below otherwise noncontributory. Social history: No reported history of drug or alcohol abuse. Family history: As per history of present illness and as reviewed below otherwise noncontributory. Physical exam: General: Well-developed well-nourished female who is nontoxic and looks a bit clammy and pale on arrival and she says she is in significant pain at her right shoulder. A sling was placed in triage. She is speaking clearly and easily in the ED HEENT: Atraumatic, normocephalic,, negative for conjunctival pallor or scleral icterus, mucous membranes moist, throat clear, neck supple, nontender, trachea midline. Lungs: Clear to auscultation with some diminished breath sounds in the bases, breath sounds equal bilaterally, chest nontender. Heart: S1S2, irregular rhythm consistent with her A. fib history and slightly tachycardic rate in the low 100s of my evaluation, no overt murmurs Abdomen: Soft, nondistended, nontender. Negative for masses or hepatosplenomegaly. Negative for costovertebral tenderness. Pelvis: Stable nontender. Genitourinary: Deferred. Rectal: Deferred. Extremities: Atraumatic and full range of motion of all extremities with the exception of the right shoulder. At the right shoulder the patient resists range of motion saying that there is exquisite tenderness and there is no palpable bony deformity at the clavicle humerus elbow forearm wrist or hand and no tenderness distally from the shoulder. There appears to not be an AC step- offs but there is specific trigger point/ bursa tenderness but there is no joint effusion, I can also passively range of motion the shoulder and touch the contralateral shoulder without deficits, legs are negative for cords or calf pain. Neurovascular unremarkable. Neuro: Awake, alert, oriented. Cranial nerves II through XII unremarkable. Cerebellum unremarkable. Motor and sensory unremarkable throughout. Exam nonfocal. Diagnostics: EKG, right shoulder x-ray Therapeutics: IV placement Toradol Zofran sling for comfort [place] 5/325 is aware that there is no fracture or dislocation but that she has injured this and it does need orthopedics follow-up. We will give her ortho referrals in our area and I have advised ice to the area anti-inflammatories and I will give her tramadol for home. Impression: Right shoulder injury Definitive disposition and diagnosis as appropriate pending reevaluation and review of above. right shoulder Pain Score (Numeric/FACES): 10 - Related Data Allergies Allergy/AdvReac Type Severity Reaction Status Date / Time apixaban [From Eliquis] Allergy Swelling Verified 03/02/19 01:50 atorvastatin [From Lipitor] Allergy Swelling Verified 03/02/19 01:50 Tetanus Vaccines and Toxoid Allergy Hives Verified 03/02/19 01:50 Home Meds: Home Meds Lisinopril 20 mg PO BID 09/20/16 [History] Rosuvastatin [Crestor] 20 mg PO BEDTIME 09/20/16 [History] Aspirin [Halfprin] 81 mg PO DAILY 09/25/16 [History] Diltiazem [Cardizem CD] 120 mg PO DAILY 30 Days #30 cap.cd 03/14/17 [Rx] Eplerenone [Inspra] 25 mg PO BID 03/02/19 [History] Esomeprazole Magnesium [Nexium] 0 g PO DAILY 03/02/19 [History] Magnesium Oxide 400 mg PO DAILY 03/02/19 [History] Metoprolol Tartrate 100 mg PO BID 03/02/19 [History] Rivaroxaban [Xarelto] 15 mg PO DAILY 03/02/19 [History] Past Medical History - Past Health History Medical/Surgical History: Denies Medical/Surgical History HEENT History: Reports: Impaired Vision Cardiovascular History: Reports: Afib, High Cholesterol, Hypertension, Stents, Other (See Below) Other Cardiovascular History: TIA 5 years ago; stent placed in September 2016 Respiratory History: Reports: Other (See Below) Other Respiratory History: lung polyps Gastrointestinal History: Reports: Other (See Below) Other Gastrointestinal History: Heartburn Genitourinary History: Reports: None 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 Musculoskeletal History: Reports: Fracture, Osteoarthritis, Other (See Below) Other Musculoskeletal History: screws to the right wrist Neurological History: Reports: Seizure, TIA Other Neuro History: last seizure 1 year ago Psychiatric History: Reports: None Endocrine/Metabolic History: Reports: Hypothyroidism Other Endocrine/Metabolic History: "borderline diabetes" Hematologic History: Reports: None Oncologic (Cancer) History: Reports: None Dermatologic History: Reports: None - Infectious Disease History Infectious Disease History: Reports: Chicken Pox - Past Surgical History Head Surgeries/Procedures: Reports: None GI Surgical History: Reports: Colonoscopy, EGD Female Surgical History: Reports: None Endocrine Surgical History: Reports: None Neurological Surgical History: Reports: None Social & Family History - Family History Family Medical History: Unobtainable HEENT: Reports: Impaired Vision, Other (See Below) Other HEENT Family History: ear surgery Cardiac: Reports: Bypass, Hypertension OBGYN: Reports: , Other (See Below) Other OBGYN Family History: hysterectomy Endocrine/Metabolic: Reports: Other (See Below) Other Endocrine/Metabolic Family History: DM type unknown Oncologic: Reports: Breast - Caffeine Use Caffeine Use: Reports: Coffee, Soda Caffeine Use Comment: 4 cups/day Review of Systems - Review of Systems Review Of Systems: ROS reveals no pertinent complaints other than HPI. ED EXAM, GENERAL - Physical Exam Exam: See Below (See dictation) Course - Vital Signs Last Recorded V/S: Last Vital Signs Temp 35.8 C 03/02/19 02:59 Pulse 84 03/02/19 02:24 Resp 21 H 03/02/19 02:24 BP 134/82 03/02/19 02:24 Pulse Ox 94 L 03/02/19 02:24 - Orders/Labs/Meds Orders: Active Orders 24 hr Category Date Time Status EKG Documentation Completion [RC] STAT Care 03/02/19 01:45 Active Sodium Chloride 0.9% [Saline Flush] Med 03/02/19 01:51 Active 10 ml FLUSH ASDIRECTED PRN Sodium Chloride 0.9% [Saline Flush] Med 03/02/19 01:51 Active 2.5 ml FLUSH ASDIRECTED PRN DME for Discharge [COMM] Stat Oth 03/02/19 03:07 Ordered Saline Lock Insert [OM.PC] Stat Oth 03/02/19 01:51 Ordered Medication Orders Sodium Chloride (Saline Flush) 10 ml FLUSH ASDIRECTED PRN PRN Reason: Keep Vein Open Sodium Chloride (Saline Flush) 2.5 ml FLUSH ASDIRECTED PRN PRN Reason: Keep Vein Open Meds: Medications Generic Name Dose Route Start Last Admin Trade Name Freq PRN Reason Stop Dose Admin Sodium Chloride 10 ml 03/02/19 01:51 Saline Flush FLUSH ASDIRECTED PRN Keep Vein Open Sodium Chloride 2.5 ml 03/02/19 01:51 Saline Flush FLUSH ASDIRECTED PRN Keep Vein Open Discontinued Medications Generic Name Dose Route Start Last Admin Trade Name Freq PRN Reason Stop Dose Admin Hydrocodone Bitart/Acetaminophen 1 tab 03/02/19 03:07 [place] 325-5 Mg PO 03/02/19 03:08 ONETIME ONE Ketorolac Tromethamine 30 mg 03/02/19 01:51 03/02/19 02:16 Toradol IVPUSH 03/02/19 01:52 30 mg ONETIME ONE Administration Ondansetron HCl 4 mg 03/02/19 01:51 03/02/19 02:15 Zofran IVPUSH 03/02/19 01:52 4 mg ONETIME ONE Administration Departure - Departure Time of Disposition: 03:09 Disposition: Home, Self-Care 01 Condition: Good Clinical Impression: Right shoulder injury Qualifiers: Encounter type: initial encounter Qualified Code(s): S49.91XA - Unspecified injury of right shoulder and upper arm, initial encounter - Discharge Information Referrals: PCP,None [Primary Care Provider] - Forms: ED Department Discharge Additional Instructions: The following information is given to patients seen in the emergency department who are being discharged to home. This information is to outline your options for follow-up care. We provide all patients seen in our emergency department with a follow-up referral. The need for follow-up, as well as the timing and circumstances, are variable depending upon the specifics of your emergency department visit. If you don't have a primary care physician on staff, we will provide you with a referral. We always advise you to contact your personal physician following an emergency department visit to inform them of the circumstance of the visit and for follow-up with them and/or the need for any referrals to a consulting specialist. The emergency department will also refer you to a specialist when appropriate. This referral assures that you have the opportunity for followup care with a specialist. All of these measure are taken in an effort to provide you with optimal care, which includes your followup. Under all circumstances we always encourage you to contact your private physician who remains a resource for coordinating your care. When calling for followup care, please make the office aware that this follow-up is from your recent emergency room visit. If for any reason you are refused follow-up, please contact the [facility] emergency department at and ask to speak to the emergency department charge nurse. Dr Carbajal, Orthopedist [facility] [address] [place] [address] Dr Mckoy - Dr Mosher - Dr Danielle [facility] [address] [place] [address] [facility] [address] [place] [address] Ice to area of swelling and discomfort and wear sling for the next 1-2 days but remove every couple of hours and passively move your arm with the left hand. Use [id number] medications for pain as you choose and add the tramadol you have been prescribed this evening but only take that at home. Please connect with one of our local orthopedic surgeons for follow-up care and further evaluation as you may need further imaging and/or physical therapy. We no longer have a orthopedics here so the resources and numbers have been given to above. Return to ER as needed and as discussed. You have been given tramadol/Ultram from [facility] - My Orders Last 24 Hours: My Active Orders 03/02/19 01:45 EKG Documentation Completion [RC] STAT 03/02/19 01:51 Sodium Chloride 0.9% [Saline Flush] 10 ml FLUSH ASDIRECTED PRN Sodium Chloride 0.9% [Saline Flush] 2.5 ml FLUSH ASDIRECTED PRN Saline Lock Insert [OM.PC] Stat 03/02/19 03:07 DME for Discharge [COMM] Stat - Assessment/Plan Last 24 Hours: My Active Orders 03/02/19 01:45 EKG Documentation Completion [RC] STAT 03/02/19 01:51 Sodium Chloride 0.9% [Saline Flush] 10 ml FLUSH ASDIRECTED PRN Sodium Chloride 0.9% [Saline Flush] 2.5 ml FLUSH ASDIRECTED PRN Saline Lock Insert [OM.PC] Stat 03/02/19 03:07 DME for Discharge [COMM] Stat
--- NOTE | 2019-03-02 03:03 | CR ---
INDICATION: pain RIGHT SHOULDER, TWO VIEWS No fracture, dislocation, or destructive lesion of bone is seen. No arthritic changes or soft tissue abnormalities are identified. IMPRESSION: Negative right shoulder radiographs. ROSEANN LOWRY MD [facility] Dictated by: Melvin Lowry MD @ 03/02/2019 03:01:47 (Electronically Signed)
[2019-03-02] MEDS ORDERED: Acetaminophen/HYDROcodone 325-5 MG Tab PO ONE (03:07)
[2019-03-02 03:16] VITALS: BP 138/99; PULSE 75
== END 2019-03-02 03:24 | disposition home or self-care (01) ==
LOC: MW.ED 01:33
DX: S49.91XA Unspecified injury of right shoulder and upper arm, initial encounter (principal); I10 Essential (primary) hypertension; M19.90 Unspecified osteoarthritis, unspecified site; E78.00 Pure hypercholesterolemia, unspecified; Z90.710 Acquired absence of both cervix and uterus; Z79.82 Long term (current) use of aspirin; Z88.8 Allergy status to other drugs, medicaments and biological substances; Z86.73 Personal history of transient ischemic attack (TIA), and cerebral infarction without residual deficits; Z79.899 Other long term (current) drug therapy; X58.XXXA Exposure to other specified factors, initial encounter
CPT/HCPCS: 73030; 93005; 96374; 96375; 99283; A9270; J1885; J2405

== ENCOUNTER 2019-03-13 17:24 | Observation (INO) | payer BC ==
[2019-03-13] MEDS ORDERED: Sodium Chloride 0.9% 10 ML Syringe FLUSH PRN (17:32)
[2019-03-13] MEDS ORDERED: Ondansetron 4 MG/2 ML SDV IVPUSH ONE (17:32)
[2019-03-13] MEDS ORDERED: Sodium Chloride 0.9% 1,000 ML IV ONE (17:32)
[2019-03-13] MEDS ORDERED: Sodium Chloride 0.9% 2.5 ML Syringe FLUSH PRN (17:32)
--- NOTE | 2019-03-13 17:33 | EDM.PDOC ---
ED HPI GENERAL MEDICAL PROBLEM - General Chief Complaint: Gastrointestinal Problem Stated Complaint: VOMITING Time Seen by Provider: 03/13/19 17:33 Source of Information: Reports: Patient History Limitations: Reports: No Limitations - History of Present Illness INITIAL COMMENTS - FREE TEXT/NARRATIVE: HISTORY AND PHYSICAL: History of present illness: Patient is a 59-year-old female presents to the ED with complaint of vomiting. She states she has been throwing up for the past 2 days. Denies abdominal pain, fevers, chills, chest pain, shortness of breath. She has history of atrial fibrillation. Review of systems: As per history of present illness and below otherwise all systems reviewed and negative. Past medical history: As per history of present illness and as reviewed below otherwise noncontributory. Surgical history: As per history of present illness and as reviewed below otherwise noncontributory. Social history: No reported history of drug or alcohol abuse. Family history: As per history of present illness and as reviewed below otherwise noncontributory. Physical exam: General: Patient sitting comfortably in no acute distress and nontoxic appearing HEENT: Atraumatic, normocephalic, pupils reactive, negative for conjunctival pallor or scleral icterus, mucous membranes dry, throat clear, neck supple, nontender, trachea midline. No meningeal signs. Lungs: Clear to auscultation, breath sounds equal bilaterally, chest nontender. Heart: S1S2, regular, negative for clicks, rubs, or overt murmur. Abdomen: Soft, nondistended, nontender. Negative for masses or hepatosplenomegaly. Negative for costovertebral tenderness. No rigidity, rebound , guarding. Pelvis: Stable nontender. Genitourinary: Deferred. Rectal: Deferred. Extremities: Atraumatic, negative for cords or calf pain. Neurovascular unremarkable. Neuro: Awake, alert, oriented. Cranial nerves II through XII unremarkable. Cerebellum unremarkable. Motor and sensory unremarkable throughout. Exam nonfocal. Notes: Diagnostics: CBC, CMP, magnesium Therapeutics: 1L NS IV 4mg Zofran IV 20mg Diltiazem IV Prescriptions: Impression: Atrial fibrillation with RVR, vomiting, dehydration Plan: Discussed with Dr. Willett, patient admitted to observation Definitive disposition and diagnosis as appropriate pending reevaluation and review of above. - Related Data Allergies Allergy/AdvReac Type Severity Reaction Status Date / Time apixaban [From Eliquis] Allergy Swelling Verified 03/13/19 17:28 atorvastatin [From Lipitor] Allergy Swelling Verified 03/13/19 17:28 Tetanus Vaccines and Toxoid Allergy Hives Verified 03/13/19 17:28 Home Meds: Home Meds Lisinopril 20 mg PO BID 09/20/16 [History] Rosuvastatin [Crestor] 20 mg PO BEDTIME 09/20/16 [History] Aspirin [Halfprin] 81 mg PO DAILY 09/25/16 [History] Diltiazem [Cardizem CD] 120 mg PO DAILY 30 Days #30 cap.cd 03/14/17 [Rx] Eplerenone [Inspra] 25 mg PO BID 03/02/19 [History] Esomeprazole Magnesium [Nexium] 20 mg PO DAILY 03/02/19 [History] Magnesium Oxide 400 mg PO DAILY 03/02/19 [History] Metoprolol Tartrate 100 mg PO BID 03/02/19 [History] Rivaroxaban [Xarelto] 15 mg PO DAILY 03/02/19 [History] Past Medical History - Past Health History Medical/Surgical History: Denies Medical/Surgical History HEENT History: Reports: Impaired Vision Cardiovascular History: Reports: Afib, High Cholesterol, Hypertension, Stents, Other (See Below) Other Cardiovascular History: TIA 5 years ago; stent placed in September 2016 Respiratory History: Reports: Other (See Below) Other Respiratory History: lung polyps Gastrointestinal History: Reports: Other (See Below) Other Gastrointestinal History: Heartburn Genitourinary History: Reports: None 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: 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 Musculoskeletal History: Reports: Fracture, Osteoarthritis, Other (See Below) Other Musculoskeletal History: screws to the right wrist Neurological History: Reports: Seizure, TIA Other Neuro History: last seizure 1 year ago Psychiatric History: Reports: None Endocrine/Metabolic History: Reports: Hypothyroidism Other Endocrine/Metabolic History: "borderline diabetes" Hematologic History: Reports: None Oncologic (Cancer) History: Reports: None Dermatologic History: Reports: None - Infectious Disease History Infectious Disease History: Reports: Chicken Pox - Past Surgical History Head Surgeries/Procedures: Reports: None GI Surgical History: Reports: Colonoscopy, EGD Female Surgical History: Reports: None Endocrine Surgical History: Reports: None Neurological Surgical History: Reports: None Social & Family History - Family History Family Medical History: Unobtainable HEENT: Reports: Impaired Vision, Other (See Below) Other HEENT Family History: ear surgery Cardiac: Reports: Bypass, Hypertension OBGYN: Reports: , Other (See Below) Other OBGYN Family History: hysterectomy Endocrine/Metabolic: Reports: Other (See Below) Other Endocrine/Metabolic Family History: DM type unknown Oncologic: Reports: Breast - Caffeine Use Caffeine Use: Reports: Coffee, Soda Caffeine Use Comment: 4 cups/day ED ROS GENERAL - Review of Systems Review Of Systems: ROS reveals no pertinent complaints other than HPI. ED EXAM, GI/ABD - Physical Exam Exam: See Below (see dictation) Course - Vital Signs Last Recorded V/S: Last Vital Signs Temp 97 F 03/13/19 17:29 Pulse 93 03/13/19 19:04 Resp 16 03/13/19 19:04 BP 127/86 03/13/19 19:04 Pulse Ox 99 03/13/19 19:04 - Orders/Labs/Meds Orders: Active Orders 24 hr Category Date Time Status Admission Status [Patient Status] [ADT] Stat ADT 03/13/19 18:51 Ordered EKG Documentation Completion [RC] STAT Care 03/13/19 18:11 Active Sodium Chloride 0.9% [Saline Flush] Med 03/13/19 17:32 Active 10 ml FLUSH ASDIRECTED PRN Sodium Chloride 0.9% [Saline Flush] Med 03/13/19 17:32 Active 2.5 ml FLUSH ASDIRECTED PRN Saline Lock Insert [OM.PC] Stat Oth 03/13/19 17:32 Ordered Medication Orders Sodium Chloride (Saline Flush) 10 ml FLUSH ASDIRECTED PRN PRN Reason: Keep Vein Open Last Admin: 03/13/19 17:58 Dose: 10 ml Sodium Chloride (Saline Flush) 2.5 ml FLUSH ASDIRECTED PRN PRN Reason: Keep Vein Open Last Admin: 03/13/19 17:58 Dose: 2.5 ml Labs: Laboratory Tests 03/13/19 03/13/19 03/13/19 Range/Units 18:05 18:05 18:05 WBC 8.98 (4.0-11.0) K/uL RBC 4.18 L (4.30-5.90) M/uL Hgb 12.5 (12.0-16.0) g/dL Hct 38.2 (36.0-46.0) % MCV 91.4 (80.0-98.0) fL MCH 29.9 (27.0-32.0) pg MCHC 32.7 (31.0-37.0) g/dL RDW Std Deviation 44.9 (28.0-62.0) fl RDW Coeff of [place] 14 (11.0-15.0) % Plt Count 319 (150-400) K/uL MPV 10.40 (7.40-12.00) fL Neut % (Auto) 73.1 (48.0-80.0) % Lymph % (Auto) 15.0 L (16.0-40.0) % [place] % (Auto) 10.6 (0.0-15.0) % Eos % (Auto) 1.0 (0.0-7.0) % Baso % (Auto) 0.3 (0.0-1.5) % Neut # (Auto) 6.6 H (1.4-5.7) K/uL Lymph # (Auto) 1.4 (0.6-2.4) K/uL [place] # (Auto) 1.0 H (0.0-0.8) K/uL Eos # (Auto) 0.1 (0.0-0.7) K/uL Baso # (Auto) 0.0 (0.0-0.1) K/uL Nucleated RBC % 0.0 /100WBC Nucleated RBCs # 0 K/uL Sodium 141 (136-145) mmol/L Potassium 3.4 L (3.5-5.1) mmol/L Chloride 103 (98-107) mmol/L Carbon Dioxide 20.6 L (21.0-32.0) mmol/L BUN 21 H (7.0-18.0) mg/dL Creatinine 1.0 (0.6-1.0) mg/dL Est Cr Clr Drug Dosing 62.52 mL/min Estimated GFR (MDRD) 56.6 ml/min Glucose 100 (74-106) mg/dL Calcium 6.4 L (8.5-10.1) mg/dL Magnesium 0.2 L (1.8-2.4) mg/dL Total Bilirubin 0.4 (0.2-1.0) mg/dL AST 12 L (15-37) IU/L ALT 12 L (14-63) IU/L Alkaline Phosphatase 86 (46-116) U/L Total Protein 7.7 (6.4-8.2) g/dL Albumin 3.2 L (3.4-5.0) g/dL Globulin 4.5 H (2.6-4.0) g/dL Albumin/Globulin Ratio 0.7 L (0.9-1.6) Lipase 217 (73-393) U/L Meds: Medications Generic Name Dose Route Start Last Admin Trade Name Freq PRN Reason Stop Dose Admin Sodium Chloride 10 ml 03/13/19 17:32 03/13/19 17:58 Saline Flush FLUSH 10 ml ASDIRECTED PRN Administration Keep Vein Open Sodium Chloride 2.5 ml 03/13/19 17:32 03/13/19 17:58 Saline Flush FLUSH 2.5 ml ASDIRECTED PRN Administration Keep Vein Open Discontinued Medications Generic Name Dose Route Start Last Admin Trade Name Freq PRN Reason Stop Dose Admin Diltiazem HCl 20 mg 03/13/19 17:39 03/13/19 17:57 Diltiazem IVPUSH 03/13/19 17:40 20 mg ONETIME ONE Administration Sodium Chloride 1,000 mls @ 999 mls/hr 03/13/19 17:32 03/13/19 17:57 Normal Saline IV 03/13/19 18:32 999 mls/hr STAT ONE Administration Ondansetron HCl 4 mg 03/13/19 17:32 03/13/19 17:48 Zofran IVPUSH 03/13/19 17:33 4 mg ONETIME ONE Administration Departure - Departure Time of Disposition: 18:50 Disposition: Refer to Observation Condition: Good Clinical Impression: Dehydration, Atrial fibrillation with RVR - Discharge Information Referrals: PCP,Unknown [Primary Care Provider] - Forms: ED Department Discharge - My Orders Last 24 Hours: My Active Orders 03/13/19 17:32 Sodium Chloride 0.9% [Saline Flush] 10 ml FLUSH ASDIRECTED PRN Sodium Chloride 0.9% [Saline Flush] 2.5 ml FLUSH ASDIRECTED PRN Saline Lock Insert [OM.PC] Stat 03/13/19 18:11 EKG Documentation Completion [RC] STAT 03/13/19 18:51 Admission Status [Patient Status] [ADT] Stat - Assessment/Plan Last 24 Hours: My Active Orders 03/13/19 17:32 Sodium Chloride 0.9% [Saline Flush] 10 ml FLUSH ASDIRECTED PRN Sodium Chloride 0.9% [Saline Flush] 2.5 ml FLUSH ASDIRECTED PRN Saline Lock Insert [OM.PC] Stat 03/13/19 18:11 EKG Documentation Completion [RC] STAT 03/13/19 18:51 Admission Status [Patient Status] [ADT] Stat
[2019-03-13] MEDS ORDERED: Diltiazem 25 MG/5 ML SDV IVPUSH ONE (17:39)
[2019-03-13 18:31] LABS: CARBON DIOXIDE,CO2 20.6 mmol/L (21.0-32.0); POTASSIUM,K 3.4 mmol/L (3.5-5.1)
[2019-03-13] MEDS ORDERED: Potassium Chloride 20 MEQ Tab.ER PO ONE (21:11)
[2019-03-13] MEDS ORDERED: Magnesium Sulfate/Water 4 GM in Premix Bag 1 BAG IV ONE (21:14)
[2019-03-13] MEDS: Lisinopril 5 MG Tab PO SCH (21:25)
[2019-03-13] MEDS: Metoprolol Tartrate 50 MG Tab PO SCH (21:26)
--- NOTE | 2019-03-13 22:42 | PCM.HP.2 ---
H&P History of Present Illness - General Date of Service: 03/13/19 Admit Problem/Dx: Admission Diagnosis/Problem Admission Diagnosis/Problem Atrial fibrillation with rapid ventricular response - History of Present Illness Initial Comments - Free Text/Narative: 59 yo female with pmh of atrial fibrillation, chronic hypomagnesia, and hypocalcemia who presents with two day history of nausea, vomiting and diarrhea. Patient reports today she has had spasms/cramping of her hands. In the ED she was noted to have a heart rate of 120s-140s with rhythm of atrial fibrillation. She was given IV diltiazem which brought her heart rate down to the 80s. Patient states that she has been taking her magnesium supplementation but not any calcium supplementation. - Related Data Allergies/Adverse Reactions: Allergies Allergy/AdvReac Type Severity Reaction Status Date / Time apixaban [From Eliquis] Allergy Swelling Verified 03/13/19 21:05 atorvastatin [From Lipitor] Allergy Swelling Verified 03/13/19 21:05 Tetanus Vaccines and Toxoid Allergy Hives Verified 03/13/19 21:05 Home Medications: Home Meds RX: Lisinopril 20 mg PO BID 09/20/16 [History] RX: Rosuvastatin [Crestor] 20 mg PO BEDTIME 09/20/16 [History] RX: Aspirin [Halfprin] 81 mg PO DAILY 09/25/16 [History] Diltiazem [Cardizem CD] 120 mg PO DAILY 30 Days #30 cap.cd 03/14/17 [Rx] Esomeprazole Magnesium [Nexium] 20 mg PO DAILY 03/02/19 [History] RX: Eplerenone [Inspra] 25 mg PO BID 03/02/19 [History] RX: Magnesium Oxide 400 mg PO DAILY 03/02/19 [History] RX: Metoprolol Tartrate 100 mg PO BID 03/02/19 [History] Rivaroxaban [Xarelto] 15 mg PO DAILY 03/02/19 [History] Past Medical History - Past Health History Medical/Surgical History: Denies Medical/Surgical History HEENT History: Reports: Impaired Vision Cardiovascular History: Reports: Afib, High Cholesterol, Hypertension, Stents, Other (See Below) Other Cardiovascular History: TIA 5 years ago; stent placed in September 2016 Respiratory History: Reports: Other (See Below) Other Respiratory History: lung polyps Gastrointestinal History: Reports: Other (See Below) Other Gastrointestinal History: Heartburn Genitourinary History: Reports: None E LEARNING COORDINATOR History: Reports: None Musculoskeletal History: Reports: Fracture, Osteoarthritis, Other (See Below) Other Musculoskeletal History: screws to the right wrist Neurological History: Reports: Seizure, TIA Other Neuro History: last seizure 1 year ago Psychiatric History: Reports: None Endocrine/Metabolic History: Reports: Hypothyroidism Other Endocrine/Metabolic History: "borderline diabetes" Hematologic History: Reports: None Oncologic (Cancer) History: Reports: None Dermatologic History: Reports: None - Infectious Disease History Infectious Disease History: Reports: Chicken Pox - Past Surgical History Head Surgeries/Procedures: Reports: None GI Surgical History: Reports: Colonoscopy, EGD Female Surgical History: Reports: None Endocrine Surgical History: Reports: None Neurological Surgical History: Reports: None Social & Family History - Family History Family Medical History: Unobtainable HEENT: Reports: Impaired Vision, Other (See Below) Other HEENT Family History: ear surgery Cardiac: Reports: Bypass, Hypertension OBGYN: Reports: , Other (See Below) Other OBGYN Family History: hysterectomy Endocrine/Metabolic: Reports: Other (See Below) Other Endocrine/Metabolic Family History: DM type unknown Oncologic: Reports: Breast - Tobacco Use Smoking Status *Q: Current Every Day Smoker Years of Tobacco use: 30 Packs/Tins Daily: 1.5 - Caffeine Use Caffeine Use: Reports: Coffee Caffeine Use Comment: 4 cups/day - Recreational Drug Use Recreational Drug Use: No H&P Review of Systems - Review of Systems: Review Of Systems: ROS reveals no pertinent complaints other than HPI. Exam - Exam Exam: See Below - Vital Signs Vital Signs: Last Vital Signs Temp 36.1 C 03/13/19 20:12 Pulse 80 03/13/19 21:26 Resp 17 03/13/19 20:12 BP 121/89 03/13/19 21:26 Pulse Ox 100 03/13/19 20:12 Weight: 77.7 kg - Exam General: Alert, Oriented HEENT: Posterior Pharynx Clear Lungs: Clear to Auscultation, Normal Respiratory Effort Cardiovascular: Regular Rate, Regular Rhythm GI/Abdominal Exam: Normal Bowel Sounds, Soft, Non-Tender Skin: Warm, Dry, Intact Neurological: Cranial Nerves Intact, Normal Tone, Sensation Intact. No: Focal Deficit - Patient Data Lab Results Last 24 hrs: Laboratory Results - last 24 hr 03/13/19 03/13/19 03/13/19 Range/Units 18:05 18:05 18:05 WBC 8.98 (4.0-11.0) K/uL RBC 4.18 L (4.30-5.90) M/uL Hgb 12.5 (12.0-16.0) g/dL Hct 38.2 (36.0-46.0) % MCV 91.4 (80.0-98.0) fL MCH 29.9 (27.0-32.0) pg MCHC 32.7 (31.0-37.0) g/dL RDW Std Deviation 44.9 (28.0-62.0) fl RDW Coeff of [place]ullen 14 (11.0-15.0) % Plt Count 319 (150-400) K/uL MPV 10.40 (7.40-12.00) fL Neut % (Auto) 73.1 (48.0-80.0) % Lymph % (Auto) 15.0 L (16.0-40.0) % [place] % (Auto) 10.6 (0.0-15.0) % Eos % (Auto) 1.0 (0.0-7.0) % Baso % (Auto) 0.3 (0.0-1.5) % Neut # (Auto) 6.6 H (1.4-5.7) K/uL Lymph # (Auto) 1.4 (0.6-2.4) K/uL [place] # (Auto) 1.0 H (0.0-0.8) K/uL Eos # (Auto) 0.1 (0.0-0.7) K/uL Baso # (Auto) 0.0 (0.0-0.1) K/uL Nucleated RBC % 0.0 /100WBC Nucleated RBCs # 0 K/uL Sodium 141 (136-145) mmol/L Potassium 3.4 L (3.5-5.1) mmol/L Chloride 103 (98-107) mmol/L Carbon Dioxide 20.6 L (21.0-32.0) mmol/L BUN 21 H (7.0-18.0) mg/dL Creatinine 1.0 (0.6-1.0) mg/dL Est Cr Clr Drug Dosing 62.52 mL/min Estimated GFR (MDRD) 56.6 ml/min Glucose 100 (74-106) mg/dL Calcium 6.4 L (8.5-10.1) mg/dL Magnesium 0.2 L (1.8-2.4) mg/dL Total Bilirubin 0.4 (0.2-1.0) mg/dL AST 12 L (15-37) IU/L ALT 12 L (14-63) IU/L Alkaline Phosphatase 86 (46-116) U/L Total Protein 7.7 (6.4-8.2) g/dL Albumin 3.2 L (3.4-5.0) g/dL Globulin 4.5 H (2.6-4.0) g/dL Albumin/Globulin Ratio 0.7 L (0.9-1.6) Lipase 217 (73-393) U/L Result Diagrams: 03/14/19 06:03 03/14/19 06:03 Problem List Initiated/Reviewed/Updated: Yes Orders Last 24hrs: Active Orders 24 hr Category Date Time Status Admission Status [Patient Status] [ADT] Stat ADT 03/13/19 18:51 Active Communication Order [RC] ROUTINE Care 03/13/19 21:15 Active EKG Documentation Completion [RC] STAT Care 03/13/19 18:11 Active Telemetry Monitoring [Cardiac Monitoring] [RC] Q8H Care 03/13/19 19:50 Active Heart Healthy Diet [DIET] Diet 03/13/19 Dinner Active BASIC METABOLIC PANEL,BMP [CHEM] Routine Lab 03/14/19 05:15 Ordered CBC WITH AUTO DIFF [HEME] Routine Lab 03/14/19 05:15 Ordered Aspirin [Halfprin] Med 03/14/19 09:00 Active 81 mg PO DAILY Calcium Gluconate 1 gm Med 03/13/19 22:34 Ordered Sodium Chloride 0.9% [Normal Saline] 50 ml IV NOW Diltiazem [Cardizem CD] Med 03/14/19 09:00 Active 120 mg PO DAILY Eplerenone [Inspra] Med 03/13/19 21:15 Active 25 mg PO BID Lisinopril [Prinivil] Med 03/13/19 21:15 Active 20 mg PO BID Magnesium Oxide Med 03/14/19 09:00 Active 400 mg PO DAILY Magnesium Sulfate/Water [Magnesium Sulfate in Water Med 03/13/19 21:14 Active Premix] 4 gm Premix Bag 1 bag IV ONETIME Metoprolol Tartrate [Lopressor] Med 03/13/19 21:15 Active 100 mg PO BID Pantoprazole [ProTONIX] Med 03/14/19 07:30 Active 40 mg PO ACBREAKFAST Rivaroxaban [Xarelto] Med 03/14/19 09:00 Active 15 mg PO DAILY Rosuvastatin [Crestor] Med 03/14/19 21:00 Active 20 mg PO BEDTIME Sodium Chloride 0.9% [Saline Flush] Med 03/13/19 17:32 Active 10 ml FLUSH ASDIRECTED PRN Sodium Chloride 0.9% [Saline Flush] Med 03/13/19 17:32 Active 2.5 ml FLUSH ASDIRECTED PRN Saline Lock Insert [OM.PC] Stat Oth 03/13/19 17:32 Ordered Medication Orders Aspirin (Halfprin) 81 mg PO DAILY [facility] Diltiazem HCl (Cardizem Cd) 120 mg PO DAILY [facility] Magnesium Sulfate 4 gm/ Premix 100 mls @ 50 mls/hr IV ONETIME ONE Stop: 03/13/19 23:13 Last Admin: 03/13/19 21:40 Dose: 50 mls/hr Calcium Gluconate 1 gm/ Sodium (Chloride) 60 mls @ 120 mls/hr IV NOW ONE Stop: 03/13/19 23:03 Lisinopril (Prinivil) 20 mg PO BID [facility] Last Admin: 03/13/19 21:25 Dose: 20 mg Magnesium Oxide (Magnesium Oxide) 400 mg PO DAILY [facility] Metoprolol Tartrate (Lopressor) 100 mg PO BID [facility] Last Admin: 03/13/19 21:26 Dose: 100 mg Non-Formulary Medication (Eplerenone [Inspra]) 25 mg PO BID [facility] Pantoprazole Sodium (Protonix) 40 mg PO ACBREAKFAST [facility] Rivaroxaban (Xarelto) 15 mg PO DAILY [facility] Rosuvastatin Calcium (Crestor) 20 mg PO BEDTIME [facility] Sodium Chloride (Saline Flush) 10 ml FLUSH ASDIRECTED PRN PRN Reason: Keep Vein Open Last Admin: 03/13/19 17:58 Dose: 10 ml Sodium Chloride (Saline Flush) 2.5 ml FLUSH ASDIRECTED PRN PRN Reason: Keep Vein Open Last Admin: 03/13/19 17:58 Dose: 2.5 ml Assessment/Plan Comment:: 59 yo female admitted with gastroenteritis resulting in severe hypomagnesia, hypocalcemia and hypokalemia. We will replace her multiple electrolyte deficiencies. Gently hydrate and monitor on telemetry.
[2019-03-13] MEDS: Sodium Chloride 0.9% 1,000 ML IV SCH (23:23)
[2019-03-14] MEDS: Pantoprazole 40 MG Tab.CR PO SCH (06:44)
[2019-03-14] MEDS: Sodium Chloride 0.9% 1,000 ML IV SCH ×2 (06:45→18:14)
[2019-03-14 07:02] LABS: CARBON DIOXIDE,CO2 22.3 mmol/L (21.0-32.0)
[2019-03-14] MEDS: Rivaroxaban 15 MG Tab PO SCH (08:16)
[2019-03-14] MEDS: Magnesium Oxide 400 MG Tab PO SCH (08:16)
[2019-03-14] MEDS: Diltiazem 120 MG Cap.CD PO SCH (08:17)
[2019-03-14] MEDS: Aspirin 81 MG Tab.EC PO SCH (08:17)
[2019-03-14] MEDS: Metoprolol Tartrate 50 MG Tab PO SCH ×2 (08:17→21:04)
[2019-03-14] MEDS: Lisinopril 5 MG Tab PO SCH ×2 (08:18→21:09)
[2019-03-14] MEDS: Ondansetron 4 MG/2 ML SDV IVPUSH PRN ×2 (08:38→15:22)
[2019-03-14] MEDS ORDERED: Calcium Gluconate 10% 1 GM/10 ML SDV IV ONE (10:20)
[2019-03-14] MEDS ORDERED: Magnesium Sulfate/Water 2 GM in Premix Bag 1 BAG IV ONE (10:21)
--- NOTE | 2019-03-14 11:04 | PCM.PN ---
- General Info Date of Service: 03/14/19 - Review of Systems Systems Review Comment:: felt better last night but then this morning reports diarrhea as well as nausea and vomiting. but now feels better again. - Patient Data Vitals - Most Recent: Last Vital Signs Temp 36.6 C 03/14/19 07:15 Pulse 110 H 03/14/19 08:17 Resp 18 03/14/19 07:15 BP 125/82 03/14/19 08:18 Pulse Ox 98 03/14/19 07:15 Weight - Most Recent: 77.7 kg I&O - Last 24 Hours: Intake & Output 03/13/19 03/14/19 03/14/19 22:59 06:59 14:59 Intake Total 1271 Output Total 300 Balance 971 Lab Results Last 24 Hours: Laboratory Results - last 24 hr 03/13/19 03/13/19 03/13/19 Range/Units 18:05 18:05 18:05 WBC 8.98 (4.0-11.0) K/uL RBC 4.18 L (4.30-5.90) M/uL Hgb 12.5 (12.0-16.0) g/dL Hct 38.2 (36.0-46.0) % MCV 91.4 (80.0-98.0) fL MCH 29.9 (27.0-32.0) pg MCHC 32.7 (31.0-37.0) g/dL RDW Std Deviation 44.9 (28.0-62.0) fl RDW Coeff of [place] 14 (11.0-15.0) % Plt Count 319 (150-400) K/uL MPV 10.40 (7.40-12.00) fL Neut % (Auto) 73.1 (48.0-80.0) % Lymph % (Auto) 15.0 L (16.0-40.0) % [place] % (Auto) 10.6 (0.0-15.0) % Eos % (Auto) 1.0 (0.0-7.0) % Baso % (Auto) 0.3 (0.0-1.5) % Neut # (Auto) 6.6 H (1.4-5.7) K/uL Lymph # (Auto) 1.4 (0.6-2.4) K/uL [place] # (Auto) 1.0 H (0.0-0.8) K/uL Eos # (Auto) 0.1 (0.0-0.7) K/uL Baso # (Auto) 0.0 (0.0-0.1) K/uL Nucleated RBC % 0.0 /100WBC Nucleated RBCs # 0 K/uL Sodium 141 (136-145) mmol/L Potassium 3.4 L (3.5-5.1) mmol/L Chloride 103 (98-107) mmol/L Carbon Dioxide 20.6 L (21.0-32.0) mmol/L BUN 21 H (7.0-18.0) mg/dL Creatinine 1.0 (0.6-1.0) mg/dL Est Cr Clr Drug Dosing 62.52 mL/min Estimated GFR (MDRD) 56.6 ml/min Glucose 100 (74-106) mg/dL Calcium 6.4 L (8.5-10.1) mg/dL Phosphorus (2.6-4.7) mg/dL Magnesium 0.2 L (1.8-2.4) mg/dL Total Bilirubin 0.4 (0.2-1.0) mg/dL AST 12 L (15-37) IU/L ALT 12 L (14-63) IU/L Alkaline Phosphatase 86 (46-116) U/L Total Protein 7.7 (6.4-8.2) g/dL Albumin 3.2 L (3.4-5.0) g/dL Globulin 4.5 H (2.6-4.0) g/dL Albumin/Globulin Ratio 0.7 L (0.9-1.6) Lipase 217 (73-393) U/L 03/14/19 03/14/19 Range/Units 06:03 06:03 WBC 6.70 (4.0-11.0) K/uL RBC 3.91 L (4.30-5.90) M/uL Hgb 11.6 L (12.0-16.0) g/dL Hct 36.2 (36.0-46.0) % MCV 92.6 (80.0-98.0) fL MCH 29.7 (27.0-32.0) pg MCHC 32.0 (31.0-37.0) g/dL RDW Std Deviation 46.4 (28.0-62.0) fl RDW Coeff of [place] 14 (11.0-15.0) % Plt Count 308 (150-400) K/uL MPV 10.70 (7.40-12.00) fL Neut % (Auto) 67.8 (48.0-80.0) % Lymph % (Auto) 22.2 (16.0-40.0) % [place] % (Auto) 8.5 (0.0-15.0) % Eos % (Auto) 1.2 (0.0-7.0) % Baso % (Auto) 0.3 (0.0-1.5) % Neut # (Auto) 4.5 (1.4-5.7) K/uL Lymph # (Auto) 1.5 (0.6-2.4) K/uL [place] # (Auto) 0.6 (0.0-0.8) K/uL Eos # (Auto) 0.1 (0.0-0.7) K/uL Baso # (Auto) 0.0 (0.0-0.1) K/uL Nucleated RBC % 0.0 /100WBC Nucleated RBCs # 0 K/uL Sodium 142 (136-145) mmol/L Potassium 4.0 (3.5-5.1) mmol/L Chloride 106 (98-107) mmol/L Carbon Dioxide 22.3 (21.0-32.0) mmol/L BUN 19 H (7.0-18.0) mg/dL Creatinine 1.0 (0.6-1.0) mg/dL Est Cr Clr Drug Dosing 62.52 mL/min Estimated GFR (MDRD) 56.6 ml/min Glucose 75 (74-106) mg/dL Calcium 6.4 L (8.5-10.1) mg/dL Phosphorus 4.1 (2.6-4.7) mg/dL Magnesium 1.7 L (1.8-2.4) mg/dL Total Bilirubin (0.2-1.0) mg/dL AST (15-37) IU/L ALT (14-63) IU/L Alkaline Phosphatase (46-116) U/L Total Protein (6.4-8.2) g/dL Albumin (3.4-5.0) g/dL Globulin (2.6-4.0) g/dL Albumin/Globulin Ratio (0.9-1.6) Lipase (73-393) U/L Med Orders - Current: Current Medications Aspirin (Halfprin) 81 mg PO DAILY COUNTS INCLUDE 234 BEDS AT [facility] Last Admin: 03/14/19 08:17 Dose: 81 mg Diltiazem HCl (Cardizem Cd) 120 mg PO DAILY COUNTS INCLUDE 234 BEDS AT THE [facility] Last Admin: 03/14/19 08:17 Dose: 120 mg Sodium Chloride (Normal Saline) 1,000 mls @ 125 mls/hr IV ASDIRECTED COUNTS INCLUDE 234 BEDS AT THE [facility] Last Admin: 03/14/19 06:45 Dose: 125 mls/hr Magnesium Sulfate 2 gm/ Premix 50 mls @ 50 mls/hr IV ONETIME ONE Stop: 03/14/19 11:20 Last Admin: 03/14/19 10:58 Dose: 50 mls/hr Lisinopril (Prinivil) 20 mg PO BID COUNTS INCLUDE 234 BEDS AT THE [facility] Last Admin: 03/14/19 08:18 Dose: 20 mg Magnesium Oxide (Magnesium Oxide) 400 mg PO DAILY COUNTS INCLUDE 234 BEDS AT THE [facility] Last Admin: 03/14/19 08:16 Dose: 400 mg Metoprolol Tartrate (Lopressor) 100 mg PO BID COUNTS INCLUDE 234 BEDS AT THE [facility] Last Admin: 03/14/19 08:17 Dose: 100 mg Non-Formulary Medication (Eplerenone [Inspra]) 25 mg PO BID COUNTS INCLUDE 234 BEDS AT THE [facility] Last Admin: 03/14/19 09:51 Dose: 25 mg Ondansetron HCl (Zofran) 4 mg IVPUSH Q4H PRN PRN Reason: Nausea Last Admin: 03/14/19 08:38 Dose: 4 mg Pantoprazole Sodium (Protonix) 40 mg PO ACBREAKFAST COUNTS INCLUDE 234 BEDS AT THE [facility] Last Admin: 03/14/19 06:44 Dose: 40 mg Rivaroxaban (Xarelto) 15 mg PO DAILY COUNTS INCLUDE 234 BEDS AT THE [facility] Last Admin: 03/14/19 08:16 Dose: 15 mg Rosuvastatin Calcium (Crestor) 20 mg PO BEDTIME COUNTS INCLUDE 234 BEDS AT THE [facility] Sodium Chloride (Saline Flush) 10 ml FLUSH ASDIRECTED PRN PRN Reason: Keep Vein Open Last Admin: 03/13/19 17:58 Dose: 10 ml Sodium Chloride (Saline Flush) 2.5 ml FLUSH ASDIRECTED PRN PRN Reason: Keep Vein Open Last Admin: 03/13/19 17:58 Dose: 2.5 ml Discontinued Medications Calcium Gluconate (Calcium Gluconate) 1 gm IV ONETIME ONE Stop: 03/14/19 10:21 Last Admin: 03/14/19 10:54 Dose: 1 gm Diltiazem HCl (Diltiazem) 20 mg IVPUSH ONETIME ONE Stop: 03/13/19 17:40 Last Admin: 03/13/19 17:57 Dose: 20 mg Sodium Chloride (Normal Saline) 1,000 mls @ 999 mls/hr IV STAT ONE Stop: 03/13/19 18:32 Last Admin: 03/13/19 17:57 Dose: 999 mls/hr Magnesium Sulfate 4 gm/ Premix 100 mls @ 50 mls/hr IV ONETIME ONE Stop: 03/13/19 23:13 Last Admin: 03/13/19 21:40 Dose: 50 mls/hr Calcium Gluconate 1 gm/ Sodium (Chloride) 60 mls @ 120 mls/hr IV NOW ONE Stop: 03/13/19 23:03 Last Admin: 03/13/19 23:21 Dose: 120 mls/hr Ondansetron HCl (Zofran) 4 mg IVPUSH ONETIME ONE Stop: 03/13/19 17:33 Last Admin: 03/13/19 17:48 Dose: 4 mg Potassium Chloride (Klor-Con M20) 40 meq PO ONETIME ONE Stop: 03/13/19 21:12 Last Admin: 03/13/19 21:26 Dose: 40 meq - Exam General: Alert, Oriented Neck: Supple Lungs: Clear to Auscultation, Normal Respiratory Effort Cardiovascular: Regular Rate, Regular Rhythm Extremities: Non-Tender, No Pedal Edema Skin: Warm, Dry, Intact Neurological: No New Focal Deficit - Problem List Review Problem List Initiated/Reviewed/Updated: Yes - My Orders Last 24 Hours: My Active Orders 03/13/19 19:50 Telemetry Monitoring [Cardiac Monitoring] [RC] Q8H 03/13/19 21:15 Communication Order [RC] ROUTINE Eplerenone [Inspra] 25 mg PO BID Lisinopril [Prinivil] 20 mg PO BID Metoprolol Tartrate [Lopressor] 100 mg PO BID 03/13/19 22:45 Oxygen Therapy [RC] PRN Up ad Irene [RC] ASDIRECTED VTE/DVT Education [RC] PER UNIT ROUTINE Vital Signs [RC] Q4H Ondansetron [Zofran] 4 mg IVPUSH Q4H PRN Sodium Chloride 0.9% [Normal Saline] 1,000 ml IV ASDIRECTED Sequential Compression Device [OM.PC] Per Unit Routine Resuscitation Status Routine 03/13/19 22:46 Antiembolic Devices [RC] PER UNIT ROUTINE 03/13/19 Dinner Heart Healthy Diet [DIET] 03/14/19 07:30 Pantoprazole [ProTONIX] 40 mg PO ACBREAKFAST 03/14/19 09:00 Aspirin [Halfprin] 81 mg PO DAILY Diltiazem [Cardizem CD] 120 mg PO DAILY Magnesium Oxide 400 mg PO DAILY Rivaroxaban [Xarelto] 15 mg PO DAILY 03/14/19 17:00 BASIC METABOLIC PANEL,BMP [CHEM] Routine MAGNESIUM [CHEM] Routine 03/14/19 21:00 Rosuvastatin [Crestor] 20 mg PO BEDTIME 03/15/19 05:11 BASIC METABOLIC PANEL,BMP [CHEM] AM CBC WITH AUTO DIFF [HEME] AM MAGNESIUM [CHEM] AM PHOSPHORUS [CHEM] AM 03/16/19 05:11 BASIC METABOLIC PANEL,BMP [CHEM] AM CBC WITH AUTO DIFF [HEME] AM MAGNESIUM [CHEM] AM PHOSPHORUS [CHEM] AM - Plan Plan:: 59 yo female admitted with gastroenteritis resulting in severe hypomagnesia, hypocalcemia and hypokalemia. We will continue to replace her multiple electrolyte deficiencies. We will continue IV fluids. Stool studies have been ordered.
[2019-03-14 17:33] LABS: BLOOD UREA NITROGEN,BUN 19 mg/dL (7.0-18.0); CARBON DIOXIDE,CO2 20.6 mmol/L (21.0-32.0); CHLORIDE,CL 107 mmol/L (98-107); GLUCOSE RANDOM 107 mg/dL (74-106); POTASSIUM,K 4.4 mmol/L (3.5-5.1); SODIUM,NA 140 mmol/L (136-145)
[2019-03-14] MEDS ORDERED: Rosuvastatin 10 MG Tab PO SCH (21:00)
[2019-03-15] MEDS: Sodium Chloride 0.9% 1,000 ML IV SCH (02:39)
[2019-03-15] MEDS: Pantoprazole 40 MG Tab.CR PO SCH (06:32)
[2019-03-15 06:57] LABS: BLOOD UREA NITROGEN,BUN 19 mg/dL (7.0-18.0); CARBON DIOXIDE,CO2 19.8 mmol/L (21.0-32.0); CHLORIDE,CL 109 mmol/L (98-107); GLUCOSE RANDOM 91 mg/dL (74-106); POTASSIUM,K 4.2 mmol/L (3.5-5.1); SODIUM,NA 141 mmol/L (136-145)
[2019-03-15] MEDS: Magnesium Oxide 400 MG Tab PO SCH (08:30)
[2019-03-15] MEDS: Lisinopril 5 MG Tab PO SCH (08:30)
[2019-03-15] MEDS: Aspirin 81 MG Tab.EC PO SCH (08:31)
[2019-03-15] MEDS: Metoprolol Tartrate 50 MG Tab PO SCH (08:31)
[2019-03-15] MEDS: Diltiazem 120 MG Cap.CD PO SCH (08:31)
[2019-03-15] MEDS: Rivaroxaban 15 MG Tab PO SCH (08:32)
[2019-03-15] MEDS ORDERED: Magnesium Sulfate/Water 2 GM in Premix Bag 1 BAG IV ONE (10:44)
--- NOTE | 2019-03-15 10:50 | PCM.DCSUM1 ---
Discharge Summary - Discharge Data Discharge Date: 03/15/19 Discharge Disposition: Home, Self-Care 01 Condition: Stable - Referral to Home Health Primary Care Physician: PCP None - Patient Summary/Data Hospital Course: 59 yo female with pmh of atrial fibrillation, chronic hypomagnesia, and hypocalcemia who was admitted for gastroenteritis with severe hypomagnesia and hypocalcemia. She presents with two day history of nausea, vomiting, diarrhea and spams of her hands. In the ED she was noted to have a heart rate of 120s- 140s with rhythm of atrial fibrillation. She was given IV diltiazem which brought her heart rate down to the 80s. She was noted to have a potassium of 3.4, magnesium level of 0.2 and calcium of 6.4. She was treated with antiemetics and IV fluids along with IV electrolyte supplementation. Her heart rate remained well controlled while she was admitted. Her nausea and diarrhea resolved and today patient is requesting discharge home. She is to follow up with Dr. Lee. - Patient Instructions Diet: Regular Diet as Tolerated - Discharge Plan Home Medications: Home Meds Lisinopril 20 mg PO BID 09/20/16 [History] Rosuvastatin [Crestor] 20 mg PO BEDTIME 09/20/16 [History] Aspirin [Halfprin] 81 mg PO DAILY 09/25/16 [History] Diltiazem [Cardizem CD] 120 mg PO DAILY 30 Days #30 cap.cd 03/14/17 [Rx] Eplerenone [Inspra] 25 mg PO BID 03/02/19 [History] Esomeprazole Magnesium [Nexium] 20 mg PO DAILY 03/02/19 [History] Magnesium Oxide 400 mg PO DAILY 03/02/19 [History] Metoprolol Tartrate 100 mg PO BID 03/02/19 [History] Rivaroxaban [Xarelto] 15 mg PO DAILY 03/02/19 [History] Referrals: [facility] [Outside] Bharat Swift MD [Physician] - 03/26/19 2:15 pm - Discharge Summary/Plan Comment DC Time >30 min.: No - Patient Data Vitals - Most Recent: Last Vital Signs Temp 36.8 C 03/15/19 07:23 Pulse 69 03/15/19 08:31 Resp 16 03/15/19 07:23 BP 117/83 03/15/19 08:31 Pulse Ox 98 03/15/19 07:23 Weight - Most Recent: 77.7 kg I&O - Last 24 hours: Intake & Output 03/14/19 03/15/19 03/15/19 22:59 06:59 14:59 Intake Total 2457 1299 Output Total 1025 400 Balance 1432 959 Lab Results - Last 24 hrs: Laboratory Results - last 24 hr 03/14/19 03/15/19 03/15/19 Range/Units 17:08 06:05 06:05 WBC 5.79 (4.0-11.0) K/uL RBC 3.43 L (4.30-5.90) M/uL Hgb 10.2 L (12.0-16.0) g/dL Hct 32.2 L (36.0-46.0) % MCV 93.9 (80.0-98.0) fL MCH 29.7 (27.0-32.0) pg MCHC 31.7 (31.0-37.0) g/dL RDW Std Deviation 47.3 (28.0-62.0) fl RDW Coeff of [place] 14 (11.0-15.0) % Plt Count 270 (150-400) K/uL MPV 10.70 (7.40-12.00) fL Neut % (Auto) 67.3 (48.0-80.0) % Lymph % (Auto) 20.2 (16.0-40.0) % [place] % (Auto) 10.5 (0.0-15.0) % Eos % (Auto) 1.7 (0.0-7.0) % Baso % (Auto) 0.3 (0.0-1.5) % Neut # (Auto) 3.9 (1.4-5.7) K/uL Lymph # (Auto) 1.2 (0.6-2.4) K/uL [place] # (Auto) 0.6 (0.0-0.8) K/uL Eos # (Auto) 0.1 (0.0-0.7) K/uL Baso # (Auto) 0.0 (0.0-0.1) K/uL Nucleated RBC % 0.0 /100WBC Nucleated RBCs # 0 K/uL Sodium 140 141 (136-145) mmol/L Potassium 4.4 4.2 (3.5-5.1) mmol/L Chloride 107 109 H (98-107) mmol/L Carbon Dioxide 20.6 L 19.8 L (21.0-32.0) mmol/L BUN 19 H 19 H (7.0-18.0) mg/dL Creatinine 0.9 0.9 (0.6-1.0) mg/dL Est Cr Clr Drug Dosing 69.47 69.47 mL/min Estimated GFR (MDRD) > 60.0 > 60.0 ml/min Glucose 107 H 91 (74-106) mg/dL Calcium 6.9 L 6.8 L (8.5-10.1) mg/dL Phosphorus 2.3 L (2.6-4.7) mg/dL Magnesium 2.2 1.6 L (1.8-2.4) mg/dL AMI Results - Last 24 hrs: Microbiology 03/14/19 13:35 Campylobacter Antigen Assay - Final Stool / Feces NEGATIVE CAMPYLOBACTER AG REFERENCE RANGE: NEGATIVE Shiga Toxin I - Final NEGATIVE FOR SHIGA TOXIN 1 REFERENCE RANGE: NEGATIVE Shiga Toxin II - Final NEGATIVE FOR SHIGA TOXIN 2 REFERENCE RANGE: NEGATIVE 03/14/19 13:35 Clostridium difficile Toxin A & B - Final Stool / Feces Negative for C.Diff Toxin/AG REFERENCE RANGE: NEGATIVE Med Orders - Current: Current Medications Aspirin (Halfprin) 81 mg PO DAILY [facility] Last Admin: 03/15/19 08:31 Dose: 81 mg Diltiazem HCl (Cardizem Cd) 120 mg PO DAILY [facility] Last Admin: 03/15/19 08:31 Dose: 120 mg Sodium Chloride (Normal Saline) 1,000 mls @ 125 mls/hr IV ASDIRECTED [facility] Last Admin: 03/15/19 02:39 Dose: 125 mls/hr Magnesium Sulfate 2 gm/ Premix 50 mls @ 50 mls/hr IV ONETIME ONE Stop: 03/15/19 11:43 Lisinopril (Prinivil) 20 mg PO BID [facility] Last Admin: 03/15/19 08:30 Dose: 20 mg Magnesium Oxide (Magnesium Oxide) 400 mg PO DAILY [facility] Last Admin: 03/15/19 08:30 Dose: 400 mg Metoprolol Tartrate (Lopressor) 100 mg PO BID [facility] Last Admin: 03/15/19 08:31 Dose: 100 mg Non-Formulary Medication (Eplerenone [Inspra]) 25 mg PO BID [facility] Last Admin: 03/15/19 08:32 Dose: 25 mg Ondansetron HCl (Zofran) 4 mg IVPUSH Q4H PRN PRN Reason: Nausea Last Admin: 03/14/19 15:22 Dose: 4 mg Pantoprazole Sodium (Protonix) 40 mg PO ACBREAKFAST [facility] Last Admin: 03/15/19 06:32 Dose: 40 mg Rivaroxaban (Xarelto) 15 mg PO DAILY [facility] Last Admin: 03/15/19 08:32 Dose: 15 mg Rosuvastatin Calcium (Crestor) 20 mg PO BEDTIME [facility] Last Admin: 03/14/19 21:04 Dose: 20 mg Sodium Chloride (Saline Flush) 10 ml FLUSH ASDIRECTED PRN PRN Reason: Keep Vein Open Last Admin: 03/13/19 17:58 Dose: 10 ml Sodium Chloride (Saline Flush) 2.5 ml FLUSH ASDIRECTED PRN PRN Reason: Keep Vein Open Last Admin: 03/13/19 17:58 Dose: 2.5 ml Discontinued Medications Calcium Gluconate (Calcium Gluconate) 1 gm IV ONETIME ONE Stop: 03/14/19 10:21 Last Admin: 03/14/19 10:54 Dose: 1 gm Diltiazem HCl (Diltiazem) 20 mg IVPUSH ONETIME ONE Stop: 03/13/19 17:40 Last Admin: 03/13/19 17:57 Dose: 20 mg Sodium Chloride (Normal Saline) 1,000 mls @ 999 mls/hr IV STAT ONE Stop: 03/13/19 18:32 Last Admin: 03/13/19 17:57 Dose: 999 mls/hr Magnesium Sulfate 4 gm/ Premix 100 mls @ 50 mls/hr IV ONETIME ONE Stop: 03/13/19 23:13 Last Admin: 03/13/19 21:40 Dose: 50 mls/hr Calcium Gluconate 1 gm/ Sodium (Chloride) 60 mls @ 120 mls/hr IV NOW ONE Stop: 03/13/19 23:03 Last Admin: 03/13/19 23:21 Dose: 120 mls/hr Magnesium Sulfate 2 gm/ Premix 50 mls @ 50 mls/hr IV ONETIME ONE Stop: 03/14/19 11:20 Last Admin: 03/14/19 10:58 Dose: 50 mls/hr Ondansetron HCl (Zofran) 4 mg IVPUSH ONETIME ONE Stop: 03/13/19 17:33 Last Admin: 03/13/19 17:48 Dose: 4 mg Potassium Chloride (Klor-Con M20) 40 meq PO ONETIME ONE Stop: 03/13/19 21:12 Last Admin: 03/13/19 21:26 Dose: 40 meq
[2019-03-15 13:14] VITALS: BP 106/74; PULSE 71
== END 2019-03-15 13:20 | disposition home or self-care (01) ==
LOC: MW.ED 17:24 → MW.MS 18:51
PROVIDERS: ADMIT Internal Medicine; ATTEND Internal Medicine
DX: K52.9 Noninfective gastroenteritis and colitis, unspecified (principal); E83.42 Hypomagnesemia; E83.51 Hypocalcemia; E87.6 Hypokalemia; I48.91 Unspecified atrial fibrillation; I10 Essential (primary) hypertension; E78.00 Pure hypercholesterolemia, unspecified; E03.9 Hypothyroidism, unspecified; F17.200 Nicotine dependence, unspecified, uncomplicated; Z88.8 Allergy status to other drugs, medicaments and biological substances; Z88.7 Allergy status to serum and vaccine; Z95.5 Presence of coronary angioplasty implant and graft; Z79.82 Long term (current) use of aspirin; Z79.01 Long term (current) use of anticoagulants; Z79.899 Other long term (current) drug therapy
CPT/HCPCS: 36415; 80048; 80053; 83690; 83735; 84100; 85025; 87046; 87324; 87899; 93005; 96361; 96374; 96375; 99285; A9270; J0610; J2405; J3475; J3490; J7040; J7050; 96365; 96366; 96368; 96376; G0378

== ENCOUNTER 2020-10-22 15:29 | Emergency (ER) | payer BC ==
[2020-10-22] MEDS ORDERED: Sodium Chloride 0.9% 1,000 ML IV ONE ×2 (15:31→17:05)
[2020-10-22] MEDS ORDERED: Sodium Chloride 0.9% 2.5 ML Syringe FLUSH PRN (15:31)
[2020-10-22] MEDS ORDERED: Sodium Chloride 0.9% 10 ML Syringe FLUSH PRN (15:31)
[2020-10-22] MEDS ORDERED: Metoprolol Tartrate 50 MG Tab PO ONE (15:37)
--- NOTE | 2020-10-22 15:39 | PCM.EKG ---
#1 Interpretation EKG Date: 10/22/20 Time: 15:25 Rhythm: A-Fib Rate (Beats/Min): 169 [place]: Normal P-Wave: Absent QRS: Normal (There are Q waves in leads V1, V2, V3 which are unchanged from prior) ST-T: Normal QT: Normal Comparison: Change From Previous EKG (Prior EKG was atrial fibrillation without RVR) EKG Interpretation Comments: Atrial fibrillation with rapid ventricular response
--- NOTE | 2020-10-22 15:58 | EDM.PDOC ---
ED HPI GENERAL MEDICAL PROBLEM - General Chief Complaint: General Stated Complaint: Weakness Time Seen by Provider: 10/22/20 15:32 Source of Information: Reports: Patient History Limitations: Reports: No Limitations - History of Present Illness INITIAL COMMENTS - FREE TEXT/NARRATIVE: HISTORY AND PHYSICAL: History of present illness: Patient is a 60-year-old female who presents to the emergency room with complaints of weakness, back pain and laying on the ground for the past 5 days. She states on Sunday she felt so weak that she laid herself on the ground. Since then she has been too weak to get up and perform her routine ADL's. States she has been able to scoot herself on the floor to do minimal activities, take some of her medications and grab a few things from the fridge. She states she has generalized back pain due to laying on her floors. She did not take her medications today, unsure if she took them yesterday. Patient denies any fever, chills, headache, change in vision, syncope or near syncope. Denies any chest pain, shortness of breath or cough. Denies any abdominal pain, nausea, vomiting, diarrhea, constipation or dysuria. Has not noted any blood in urine or stool. She has not been eating or drinking appropriately. Review of systems: As per history of present illness and below otherwise all systems reviewed and negative. Past medical history: As per history of present illness and as reviewed below otherwise noncontributory. Surgical history: As per history of present illness and as reviewed below otherwise noncontributory. Social history: See social history for further information Family history: As per history of present illness and as reviewed below otherwise noncontributory. Physical exam: General: Well developed and well nourished 60 year old female. Alert and orientated x 3. Nontoxic in appearance but appears uncomfortable with movement. Vital signs have been reviewed by me, she is tacycardic with a history of afib. Nursing notes were reviewed. HEENT: Atraumatic, nontender to palpation, normocephalic, pupils equal and reactive bilaterally, negative for conjunctival pallor or scleral icterus, mucous membranes dry/tacky, TMs normal bilaterally, throat clear, neck supple, nontender, trachea midline. No drooling or trismus noted. No meningeal signs. No hot potato voice noted. Lungs: Slightly diminished to auscultation bilaterally. No wheezes, rales, or rhonchi. Anterior chest nontender. Normal work of breathing, no accessory muscles used. Heart: S1S2, regular rate and rhythm without overt murmur, gallops, or rubs. No JVD. No peripheral edema Abdomen: Soft, nondistended, nontender. Normoactive bowel sounds. Negative for masses or costovertebral tenderness. Pelvis: Stable nontender. C-spine/Back: No c-spine tenderness. Thoracic pinpoint vertebral tenderness upon palpation. No crepitus, step-offs or obvious deformities. Bilateral paraspinous thoracic muscular tenderness. Good rectal tone. Denies any numbness, tingling or saddle paresthesia. No concerns of serious infection, fracture or cord compression, or cauda equina syndrome. Deep tendon reflexes brisk bilaterally. Skin: Bruising to buttocks/tailbone area. Intact, warm, dry. No lesions or rashes noted. Hematologic: No petechiae or purpra. Mucosa appropriate color and normal nail bed color and refill. Extremities: Slowly moves all extremities per self without difficulty or deficits. Neurovascular unremarkable. Neuro: Awake, alert, oriented. Cranial nerves II through XII unremarkable. Cerebellum unremarkable. Motor and sensory unremarkable throughout. Exam nonfocal. Psychiatric: Mood and affect are appropriate. Normal thought process. Answering questions appropriately. Notes: *This patient was seen and evaluated during the 2019 SARS-CoV-2 novel coronavirus pandemic period. Community viral transmission is ongoing at time of this encounter and the emergency department is operating under pandemic response procedures. Patient is incontinent of urine and stool, although she states this was due to her not being able to make it to the bathroom rather than not being able to hold it. Patient's heart rate fluctuates 100-165. She states she has not taken her medication in 1 to 2 days. We will give her her medications orally first and continue to monitor. Patient was changed out of her soiled close, cosmo-care was provided. Negative Hemoccult stool with + rectal tone. She does have some bruising to her buttocks. Patient's potassium is 2.9 with a CPK of 819. Chest x-ray shows a new mild patchy density along the left lateral lower chest with mild pleural density, possible pulmonary contusion with pleural effusion or pleural hematoma. Stable mild cardiomegaly. Head CT shows no acute findings. Bony erosion along the inner cortex of the right frontal bone with adjacent extra-axial ill-defined soft tissue density. C-spine no sign of acute injury. Multilevel degenerative spondylosis. Dilated esophagus with air-fluid level may be due to achalasia or gastroesophageal reflux disease. CT of thoracic spine shows lytic lesions in the T12 vertebrae causing disruption of the posterior cortex. There is also a mixed density lesion in the T10 vertebrae. Dilatation of the ascending aorta. Coronary artery disease. Pretracheal adenopathy. CT lumbar spine shows no lumbar spine fracture or subluxation I have talked with the patient about today's findings, in addition to providing specific details for plan of care. Reassessment at the time of disposition demonstrates that the patient continues to have significant thoracic tenderness/pain. Spoke with Dr Nguyen about this patient, due to the CT findings, she would like this patient to be transferred for a more urgent MRI, we are unable to get further imaging until Sunday. Patient does not have any neurological deficits at this time. VSS. Dr Gill at [facility] was consulted and she is agreeable to seeing this patient for further care and management. Pt is aware, hesitant, but agreeable to plan of care. Heart rate is down to 100-110's, BP stable. Pain has improved with the Morphine. Will continue to monitor. Diagnostics: CBC, CMP, Troponin, EKG, CXR, Head CT, Neck/Thoracic/Lumbar CT, CPK Therapeutics: IV fluids, Metoprolol, K-Elder, Diltiazem Impression: Weakness Hypokalemia Rhabdomyolysis Vertebral lesions Bony erosion of frontal bone Thoracic back pain Plan: Transfer to [facility] via ALS for MRI capabilities Definitive disposition and diagnosis as appropriate pending reevaluation and review of above. Duration: Day(s): Location: Reports: Back - Related Data Allergies Allergy/AdvReac Type Severity Reaction Status Date / Time apixaban [From Eliquis] Allergy Swelling Verified 10/22/20 15:36 atorvastatin [From Lipitor] Allergy Swelling Verified 10/22/20 15:36 Tetanus Vaccines and Toxoid Allergy Hives Verified 10/22/20 15:36 Home Meds: Home Meds Lisinopril 20 mg PO BID 09/20/16 [History] Rosuvastatin [Crestor] 20 mg PO BEDTIME 09/20/16 [History] Aspirin [Halfprin] 81 mg PO DAILY 09/25/16 [History] Diltiazem [Cardizem CD] 120 mg PO DAILY 30 Days #30 cap.cd 03/14/17 [Rx] Eplerenone [Inspra] 25 mg PO BID 03/02/19 [History] Esomeprazole Magnesium [Nexium] 20 mg PO DAILY 03/02/19 [History] Magnesium Oxide 400 mg PO DAILY 03/02/19 [History] Metoprolol Tartrate 100 mg PO BID 03/02/19 [History] Rivaroxaban [Xarelto] 15 mg PO DAILY 03/02/19 [History] Past Medical History - Past Health History Medical/Surgical History: Denies Medical/Surgical History HEENT History: Reports: Impaired Vision Cardiovascular History: Reports: Afib, High Cholesterol, Hypertension, Stents, Other (See Below) Other Cardiovascular History: TIA 5 years ago; stent placed in September 2016 Respiratory History: Reports: Other (See Below) Other Respiratory History: lung polyps Gastrointestinal History: Reports: Other (See Below) Other Gastrointestinal History: Heartburn Genitourinary History: Reports: None CASE ADVOCATE History: Reports: None Musculoskeletal History: Reports: Fracture, Osteoarthritis, Other (See Below) Other Musculoskeletal History: screws to the right wrist Neurological History: Reports: Seizure, TIA Other Neuro History: last seizure 1 year ago Psychiatric History: Reports: None Endocrine/Metabolic History: Reports: Hypothyroidism Other Endocrine/Metabolic History: "borderline diabetes" Hematologic History: Reports: None Oncologic (Cancer) History: Reports: None Dermatologic History: Reports: None - Infectious Disease History Infectious Disease History: Reports: Chicken Pox - Past Surgical History Head Surgeries/Procedures: Reports: None GI Surgical History: Reports: Colonoscopy, EGD Female Surgical History: Reports: None Endocrine Surgical History: Reports: None Neurological Surgical History: Reports: None Social & Family History - Family History Family Medical History: Unobtainable HEENT: Reports: Impaired Vision, Other (See Below) Other HEENT Family History: ear surgery Cardiac: Reports: Bypass, Hypertension OBGYN: Reports: , Other (See Below) Other OBGYN Family History: hysterectomy Endocrine/Metabolic: Reports: Other (See Below) Other Endocrine/Metabolic Family History: DM type unknown Oncologic: Reports: Breast - Caffeine Use Caffeine Use: Reports: Coffee Caffeine Use Comment: 4 cups/day ED ROS GENERAL - Review of Systems Review Of Systems: Comprehensive ROS is negative, except as noted in HPI. ED EXAM, GENERAL - Physical Exam Exam: See Below (See dictation) Course - Vital Signs Last Recorded V/S: Last Vital Signs Temp 99.2 F 10/22/20 18:15 Pulse 123 H 10/22/20 18:45 Resp 19 10/22/20 18:45 BP 135/97 H 10/22/20 18:45 Pulse Ox 94 L 10/22/20 18:45 - Orders/Labs/Meds Orders: Active Orders 24 hr Category Date Time Status EKG Documentation Completion [RC] STAT Care 10/22/20 15:31 Active Potassium Chloride Riders [KCL in Water 40 MEQ/100 ML] Med 10/22/20 17:05 Active 40 meq Premix Bag 1 bag IV ONETIME Sodium Chloride 0.9% [Saline Flush] Med 10/22/20 15:31 Active 10 ml FLUSH ASDIRECTED PRN Sodium Chloride 0.9% [Saline Flush] Med 10/22/20 15:31 Active 2.5 ml FLUSH ASDIRECTED PRN Saline Lock Insert [OM.PC] Stat Oth 10/22/20 15:31 Ordered Medication Orders Potassium Chloride 40 meq/ (Premix) 100 mls @ 25 mls/hr IV ONETIME ONE Stop: 10/22/20 21:04 Last Admin: 10/22/20 17:32 Dose: 25 mls/hr Documented by: VINNY Sodium Chloride (Sodium Chloride 0.9% 10 Ml Syringe) 10 ml FLUSH ASDIRECTED PRN PRN Reason: Keep Vein Open Last Admin: 10/22/20 16:09 Dose: 10 ml Documented by: VINNY Sodium Chloride (Sodium Chloride 0.9% 2.5 Ml Syringe) 2.5 ml FLUSH ASDIRECTED PRN PRN Reason: Keep Vein Open Last Admin: 10/22/20 16:09 Dose: 2.5 ml Documented by: VINNY Labs: Laboratory Tests 10/22/20 10/22/20 10/22/20 Range/Units 15:51 15:51 15:51 WBC 12.54 H (4.0-11.0) K/uL RBC 3.97 L (4.30-5.90) M/uL Hgb 11.1 L (12.0-16.0) g/dL Hct 33.5 L (36.0-46.0) % MCV 84.4 (80.0-98.0) fL MCH 28.0 (27.0-32.0) pg MCHC 33.1 (31.0-37.0) g/dL RDW Std Deviation 50.2 (28.0-62.0) fl RDW Coeff of Cullen 16 H (11.0-15.0) % Plt Count 347 (150-400) K/uL MPV 10.50 (7.40-12.00) fL Neut % (Auto) 83.5 H (48.0-80.0) % Lymph % (Auto) 6.7 L (16.0-40.0) % [place] % (Auto) 9.5 (0.0-15.0) % Eos % (Auto) 0.1 (0.0-7.0) % Baso % (Auto) 0.2 (0.0-1.5) % Neut # (Auto) 10.5 H (1.4-5.7) K/uL Lymph # (Auto) 0.8 (0.6-2.4) K/uL [place] # (Auto) 1.2 H (0.0-0.8) K/uL Eos # (Auto) 0.0 (0.0-0.7) K/uL Baso # (Auto) 0.0 (0.0-0.1) K/uL Nucleated RBC % 0.0 /100WBC Nucleated RBCs # 0 K/uL INR 1.46 Lactate (0.20-2.00) mmol/L Sodium 142 (136-145) mmol/L Potassium 2.9 L (3.5-5.1) mmol/L Chloride 101 (98-107) mmol/L Carbon Dioxide 18.7 L (21.0-32.0) mmol/L BUN 40 H (7.0-18.0) mg/dL Creatinine 1.7 H (0.6-1.0) mg/dL Est Cr Clr Drug Dosing 36.32 mL/min Estimated GFR (MDRD) 30.6 ml/min Glucose 91 (74-106) mg/dL Calcium 5.4 L (8.5-10.1) mg/dL Total Bilirubin 0.6 (0.2-1.0) mg/dL AST 31 (15-37) IU/L ALT 23 (14-63) IU/L Alkaline Phosphatase 88 (46-116) U/L Creatine Kinase 819 H (26-308) U/L Troponin I < 0.050 (0.000-0.056) ng/mL Total Protein 7.9 (6.4-8.2) g/dL Albumin 2.8 L (3.4-5.0) g/dL Globulin 5.1 H (2.6-4.0) g/dL Albumin/Globulin Ratio 0.6 L (0.9-1.6) Urine Color Urine Appearance Urine pH (5.0-8.0) Ur Specific [place] (1.001-1.035) Urine Protein (NEGATIVE) mg/dL Urine Glucose (UA) (NEGATIVE) mg/dL Urine Ketones (NEGATIVE) mg/dL Urine Occult Blood (NEGATIVE) Urine Nitrite (NEGATIVE) Urine Bilirubin (NEGATIVE) Urine Ictotest Urine Urobilinogen (<2.0) EU/dL Ur Leukocyte Esterase (NEGATIVE) Urine RBC (0-2/HPF) Urine WBC (0-5/HPF) Ur Epithelial Cells (NONE-FEW) Urine Bacteria (NEGATIVE) SARS-CoV-2 RNA (ARISTIDES) (NEGATIVE) 10/22/20 10/22/20 10/22/20 Range/Units 16:44 16:48 17:33 WBC (4.0-11.0) K/uL RBC (4.30-5.90) M/uL Hgb (12.0-16.0) g/dL Hct (36.0-46.0) % MCV (80.0-98.0) fL MCH (27.0-32.0) pg MCHC (31.0-37.0) g/dL RDW Std Deviation (28.0-62.0) fl RDW Coeff of [place]ullen (11.0-15.0) % Plt Count (150-400) K/uL MPV (7.40-12.00) fL Neut % (Auto) (48.0-80.0) % Lymph % (Auto) (16.0-40.0) % [place] % (Auto) (0.0-15.0) % Eos % (Auto) (0.0-7.0) % Baso % (Auto) (0.0-1.5) % Neut # (Auto) (1.4-5.7) K/uL Lymph # (Auto) (0.6-2.4) K/uL [place] # (Auto) (0.0-0.8) K/uL Eos # (Auto) (0.0-0.7) K/uL Baso # (Auto) (0.0-0.1) K/uL Nucleated RBC % /100WBC Nucleated RBCs # K/uL INR Lactate 1.1 (0.20-2.00) mmol/L Sodium (136-145) mmol/L Potassium (3.5-5.1) mmol/L Chloride (98-107) mmol/L Carbon Dioxide (21.0-32.0) mmol/L BUN (7.0-18.0) mg/dL Creatinine (0.6-1.0) mg/dL Est Cr Clr Drug Dosing mL/min Estimated GFR (MDRD) ml/min Glucose (74-106) mg/dL Calcium (8.5-10.1) mg/dL Total Bilirubin (0.2-1.0) mg/dL AST (15-37) IU/L ALT (14-63) IU/L Alkaline Phosphatase (46-116) U/L Creatine Kinase (26-308) U/L Troponin I (0.000-0.056) ng/mL Total Protein (6.4-8.2) g/dL Albumin (3.4-5.0) g/dL Globulin (2.6-4.0) g/dL Albumin/Globulin Ratio (0.9-1.6) Urine Color YELLOW Urine Appearance CLEAR Urine pH 6.0 (5.0-8.0) Ur Specific [place] >= 1.030 (1.001-1.035) Urine Protein >=300 H (NEGATIVE) mg/dL Urine Glucose (UA) NEGATIVE (NEGATIVE) mg/dL Urine Ketones TRACE H (NEGATIVE) mg/dL Urine Occult Blood MODERATE H (NEGATIVE) Urine Nitrite NEGATIVE (NEGATIVE) Urine Bilirubin MODERATE H (NEGATIVE) Urine Ictotest NEGATIVE Urine Urobilinogen 1.0 (<2.0) EU/dL Ur Leukocyte Esterase NEGATIVE (NEGATIVE) Urine RBC 0-3 (0-2/HPF) Urine WBC 0-1 (0-5/HPF) Ur Epithelial Cells RARE (NONE-FEW) Urine Bacteria 1+ H (NEGATIVE) SARS-CoV-2 RNA (ARISTIDES) NEGATIVE (NEGATIVE) Meds: Medications Generic Name Dose Route Start Last Admin Trade Name Freq PRN Reason Stop Dose Admin Potassium Chloride 40 meq/ 100 mls @ 25 mls/hr 10/22/20 17:05 10/22/20 17:32 Premix IV 10/22/20 21:04 25 mls/hr ONETIME ONE Administration Sodium Chloride 10 ml 10/22/20 15:31 10/22/20 16:09 Sodium Chloride 0.9% 10 Ml Syringe FLUSH 10 ml ASDIRECTED PRN Administration Keep Vein Open Sodium Chloride 2.5 ml 10/22/20 15:31 10/22/20 16:09 Sodium Chloride 0.9% 2.5 Ml Syringe FLUSH 2.5 ml ASDIRECTED PRN Administration Keep Vein Open Discontinued Medications Generic Name Dose Route Start Last Admin Trade Name Schuylerq PRN Reason Stop Dose Admin Diltiazem HCl 15 mg 10/22/20 17:23 10/22/20 17:28 Diltiazem 25 Mg/5 Ml Sdv IVPUSH 10/22/20 17:24 15 mg ONETIME ONE Administration Diltiazem HCl Confirm 10/22/20 17:24 10/22/20 17:36 Diltiazem 25 Mg/5 Ml Sdv Administered 10/22/20 17:25 Not Given Dose 25 mg .ROUTE .STK-MED ONE Sodium Chloride 1,000 mls @ 999 mls/hr 10/22/20 15:31 10/22/20 16:02 Normal Saline IV 10/22/20 16:31 999 mls/hr STAT ONE Administration Sodium Chloride 1,000 mls @ 999 mls/hr 10/22/20 17:05 10/22/20 18:00 Normal Saline IV 10/22/20 18:05 999 mls/hr STAT ONE Administration Metoprolol Tartrate 100 mg 10/22/20 15:37 10/22/20 16:02 Metoprolol Tartrate 50 Mg Tab PO 10/22/20 15:38 100 mg ONETIME ONE Administration Morphine Sulfate 2 mg 10/22/20 18:15 10/22/20 18:43 Morphine 2 Mg/Ml Syringe IVPUSH 10/22/20 18:16 2 mg ONETIME ONE Administration Departure - Departure Time of Disposition: 19:26 Disposition: DC/Tfer to Acute Hospital 02 Clinical Impression: Weakness, Lesion of thoracic vertebra, Abnormal head CT, Hypokalemia Rhabdomyolysis Qualifiers: Rhabdomyolysis type: traumatic Encounter type: initial encounter Qualified Code(s): T79.6XXA - Traumatic ischemia of muscle, initial encounter Thoracic back pain Qualifiers: Chronicity: acute Back pain laterality: bilateral Qualified Code(s): M54.6 - Pain in thoracic spine - Discharge Information Referrals: Bharat Swift MD [Primary Care Provider] - Forms: ED Department Discharge Sepsis Event Note (ED) - Evaluation Sepsis Screening Result: No Definite Risk - Focused Exam Vital Signs: Vital Signs Temp Pulse Pulse Resp BP BP Pulse Ox 10/22/20 18:45 123 H 19 135/97 H 94 L 10/22/20 18:15 99.2 F 119 H 20 137/99 H 94 L 10/22/20 17:40 135 H 18 123/94 H 98 10/22/20 17:15 144 H 18 127/98 H 97 10/22/20 16:02 126 H 117/92 H 10/22/20 15:36 98.2 F 129 H 126/91 H 97 - My Orders Last 24 Hours: My Active Orders 10/22/20 15:31 EKG Documentation Completion [RC] STAT Sodium Chloride 0.9% [Saline Flush] 10 ml FLUSH ASDIRECTED PRN Sodium Chloride 0.9% [Saline Flush] 2.5 ml FLUSH ASDIRECTED PRN Saline Lock Insert [OM.PC] Stat 10/22/20 17:05 Potassium Chloride Riders [KCL in Water 40 MEQ/100 ML] 40 meq Premix Bag 1 bag IV ONETIME - Assessment/Plan Last 24 Hours: My Active Orders 10/22/20 15:31 EKG Documentation Completion [RC] STAT Sodium Chloride 0.9% [Saline Flush] 10 ml FLUSH ASDIRECTED PRN Sodium Chloride 0.9% [Saline Flush] 2.5 ml FLUSH ASDIRECTED PRN Saline Lock Insert [OM.PC] Stat 10/22/20 17:05 Potassium Chloride Riders [KCL in Water 40 MEQ/100 ML] 40 meq Premix Bag 1 bag IV ONETIME
--- NOTE | 2020-10-22 16:57 | CR ---
HISTORY: Pain after fall. COMPARISON: 03/12/2017 FINDINGS: A portable semi-erect AP view of the chest was obtained at 1601 hours. There is mild rotation of the patient towards the right. There is new mild patchy density located along the left lateral lower chest associated with mild pleural density. This could represent a pulmonary contusion with associated pleural hematoma or pleural effusion. I do not see a definite rib fracture in this region. The rest of the chest is clear. There is no sign of pneumothorax. The heart remains mildly enlarged. The mediastinum is otherwise normal in appearance. The osseous structures are normal in appearance for the patient`s age. IMPRESSION: New mild patchy density along the left lateral lower chest with mild pleural density, possible pulmonary contusion with pleural effusion or pleural hematoma. Stable mild cardiomegaly. Dictated by Rubin Cunningham MD @ 10/22/2020 4:57:[address] Rubin Cunningham @ Oct 22 2020 4:57PM
[2020-10-22 16:59] LABS: BLOOD UREA NITROGEN,BUN 40 mg/dL (7.0-18.0); CARBON DIOXIDE,CO2 18.7 mmol/L (21.0-32.0); CHLORIDE,CL 101 mmol/L (98-107); GLUCOSE RANDOM 91 mg/dL (74-106); POTASSIUM,K 2.9 mmol/L (3.5-5.1); SODIUM,NA 142 mmol/L (136-145)
[2020-10-22] MEDS ORDERED: Potassium Chloride Riders 40 MEQ in Premix Bag 1 BAG IV ONE (17:05)
--- NOTE | 2020-10-22 17:12 | CT ---
INDICATION: Fall TECHNIQUE: CT cervical spine without contrast. COMPARISON: None FINDINGS: Vertebral alignment: Alignment is normal. Vertebrae: There are no fractures or suspicious bony lesions. Discs and facet joints: There are mild multilevel degenerative disc and facet changes. Extraspinal findings: Mildly dilated esophagus with air-fluid level. IMPRESSION: 1. No sign of acute injury. 2. Multilevel degenerative spondylosis. 2. Dilated esophagus with air-fluid level may be due to achalasia or gastroesophageal reflux disease. Please note that all CT scans at this facility use dose modulation, iterative reconstruction, and/or weight-based dosing when appropriate to reduce radiation dose to as low as reasonably achievable. Dictated by Rowena Pearson MD @ 10/22/2020 5:11:[address] Rowena Pearson @ Oct 22 2020 5:11PM
[2020-10-22] MEDS ORDERED: Diltiazem 25 MG/5 ML SDV IVPUSH ONE (17:23)
[2020-10-22] MEDS ORDERED: Diltiazem 25 MG/5 ML SDV ONE (17:24)
--- NOTE | 2020-10-22 17:45 | CT ---
INDICATION: Fall TECHNIQUE: CT thoracic spine without contrast. COMPARISON: Chest CT September 05, 2014 FINDINGS: Vertebral alignment: Mild S-shape scoliosis of the spine. Vertebrae: There are no fractures. Lytic lesions in the T12 vertebrae measuring up to 1.8 cm in size, causing disruption of the posterior cortex. 1.2 cm mixed density lesion in the T10 vertebrae. Chronic appearing superior endplate fractures the T4-T6 vertebrae. Discs and facet joints: Disc spaces and facets are within normal limits. Extraspinal findings: Dilatation of the ascending aorta measuring 3.8 cm. Fluid-filled esophagus. Coronary artery calcifications. 1.2 cm pretracheal lymph node. IMPRESSION: Lytic lesions in the T12 vertebrae causing disruption of the posterior cortex. There is also a mixed density lesion in the T10 vertebrae. Recommend MRI with and without contrast for further evaluation. Dilatation of the ascending aorta. Fluid-filled esophagus may be secondary to gastroesophageal reflux disease or achalasia. Coronary artery disease. Pretracheal adenopathy. Findings discussed with Dr. Cisneros at 5:42 p.m. on October 22, 2020. Please note that all CT scans at this facility use dose modulation, iterative reconstruction, and/or weight-based dosing when appropriate to reduce radiation dose to as low as reasonably achievable. Dictated by Rowena Pearson MD @ 10/22/2020 5:27:16 PM (Electronically Signed)
--- NOTE | 2020-10-22 17:45 | CT ---
INDICATION: Fall TECHNIQUE: CT lumbar spine without contrast. COMPARISON: Chest CT September 05, 2014 FINDINGS: Vertebral alignment: Alignment is normal. Vertebrae: There are no fractures. There are lytic lesions in the T12 vertebrae measuring to 1.4 cm with disruption of the posterior cortex. Discs and facet joints: Mild multilevel degenerative changes. Extraspinal findings: Distended urinary bladder. Calcified uterine fibroids. Colonic diverticulosis. Moderate atherosclerotic disease. IMPRESSION: No lumbar spine fracture or subluxation. Lytic lesions in the T12 vertebrae with disruption of the posterior cortex. Recommend MRI with and without IV contrast for further evaluation. These findings were discussed with Dr. Cisneros at 5:45 p.m. on October 22, 2020. Please note that all CT scans at this facility use dose modulation, iterative reconstruction, and/or weight-based dosing when appropriate to reduce radiation dose to as low as reasonably achievable. Dictated by Rowena Pearson MD @ 10/22/2020 5:19:40 PM (Electronically Signed)
--- NOTE | 2020-10-22 17:45 | CT ---
INDICATION: Fall TECHNIQUE: Head CT without contrast. COMPARISON: None FINDINGS: CSF spaces: Within normal limits for age. Brain parenchyma: There are nonspecific low attenuation white matter changes consistent with chronic microvascular disease. No sign of hemorrhage or midline shift. Skull base and calvarium: The visualized paranasal sinuses and mastoid air cells demonstrate no acute or significant findings. The visualized orbits are grossly unremarkable. No skull fractures. Bone erosion along the inner cortex of the right frontal bone with adjacent ill-defined extra-axial soft tissue density. There is intracranial atherosclerosis. IMPRESSION: 1. No acute findings. 2. Bony erosion along the inner cortex of the right frontal bone with adjacent extra-axial ill-defined soft tissue density. Recommend MRI with and without contrast for further evaluation. 3. Findings discussed with Dr. Cisneros at 5:45 p.m. on October 22, 2020. Please note that all CT scans at this facility use dose modulation, iterative reconstruction, and/or weight-based dosing when appropriate to reduce radiation dose to as low as reasonably achievable. Dictated by Rowena Pearson MD @ 10/22/2020 5:07:01 PM (Electronically Signed)
[2020-10-22] MEDS ORDERED: Morphine 2 MG/ML SYRINGE IVPUSH ONE (18:15)
[2020-10-22 18:48] VITALS: BP 135/97; PULSE 123
== END 2020-10-22 19:40 ==
LOC: MW.ED 15:29
DX: E87.6 Hypokalemia (principal); M62.82 Rhabdomyolysis; M48.8X9 Other specified spondylopathies, site unspecified; M54.6 Pain in thoracic spine; M85.88 Other specified disorders of bone density and structure, other site; Z20.822 Contact with and (suspected) exposure to COVID-19
CPT/HCPCS: 36415; 70450; 71045; 72125; 72128; 72131; 80053; 81001; 82550; 83605; 84484; 85025; 85610; 87635; 93005; 96374; 96375; 99285; A9270; J2270; J3480; J3490; J7030; U0002

== ENCOUNTER 2020-11-15 14:32 | Inpatient (IN) | payer BC ==
[2020-11-15] MEDS ORDERED: Sodium Chloride 0.9% 10 ML Syringe FLUSH PRN (14:42)
[2020-11-15] MEDS ORDERED: Ondansetron 4 MG/2 ML SDV IVPUSH ONE (14:42)
[2020-11-15] MEDS ORDERED: Sodium Chloride 0.9% 1,000 ML IV ONE (14:42)
[2020-11-15] MEDS ORDERED: Sodium Chloride 0.9% 2.5 ML Syringe FLUSH PRN (14:42)
[2020-11-15 15:26] LABS: POTASSIUM,K 3.2 mmol/L (3.5-5.1)
[2020-11-15] MEDS ORDERED: Magnesium Sulfate/Water 4 GM in Premix Bag 1 BAG IV ONE (16:17)
[2020-11-15] MEDS ORDERED: Calcium Gluconate 10% 1 GM/10 ML SDV IVPUSH ONE (16:17)
--- NOTE | 2020-11-15 16:32 | CT ---
For Patients: As a result of the Century Cures Act, medical imaging exams and procedure reports are released immediately into your electronic medical record. You may view this report before your referring provider. If you have questions, please contact your health care provider. INDICATION: Nausea, vomiting. TECHNIQUE: CT of the abdomen and pelvis without intravenous contrast. Coronal and sagittal reconstructions. COMPARISON: CT chest 10/06/2014. FINDINGS: The unenhanced liver, spleen, pancreas, and right adrenal gland are normal in appearance. Small left adrenal nodule which measures -10 HU compatible with a benign adenoma. Stones or sludge within a decompressed gallbladder. No definite evidence of inflammation. No hydronephrosis or ureteral dilation. No urinary calculi identified. Nonspecific bilateral perinephric stranding. There is a 1.6 cm lesion arising from the midportion of the left kidney laterally which measures above water density and is indeterminate (series 201 image 60). The unenhanced bladder is normal in appearance. Retroverted uterus containing a few partially calcified fibroids. No abnormality in the adnexa. There is diffuse wall thickening of the stomach which could be inflammatory versus infiltrative process such as lymphoma. No small bowel dilation. Distal loops of small bowel and the colon are diffusely fluid-filled. There is focal wall thickening of the distal descending colon with surrounding inflammatory fat stranding which could represent acute diverticulitis (series 201, image 100). No fluid collection to suggest abscess. No intraperitoneal free air. Right ischiorectal fossa hernia containing a knuckle of rectum. Negative appendix. Aortoiliac vascular calcifications. No lymphadenopathy. There is a new lytic and sclerotic lesion within the T12 vertebral body (series 201, image 21). There also appears to be new sclerosis within the T10 vertebral body which is only partially visualized. Calcified granulomas in the lung bases bilaterally. Mild left basilar atelectasis. Coronary artery calcifications. IMPRESSION: 1. Acute uncomplicated diverticulitis of the distal descending colon. No evidence of perforation or abscess. 2. Diffuse wall thickening of the stomach could be inflammatory versus infiltrative process such as lymphoma. This could be further evaluated with endoscopy. 3. Indeterminate 1.6 cm lesion arising from the midportion of the left kidney. Consider further evaluation with renal ultrasound. 4. New lytic and sclerotic lesion within the T12 vertebral body. Please note that all CT scans at this facility use dose modulation, iterative reconstruction, and/or weight-based dosing when appropriate to reduce radiation dose to as low as reasonably achievable. Dictated by Lorie Lawler MD @ 11/15/2020 4:31:[address] Lorie Lawler @ Nov 15 2020 4:31PM
--- NOTE | 2020-11-15 16:43 | EDM.PDOC ---
ED HPI GENERAL MEDICAL PROBLEM - General Chief Complaint: Gastrointestinal Problem Stated Complaint: EMS Time Seen by Provider: 11/15/20 14:36 - History of Present Illness INITIAL COMMENTS - FREE TEXT/NARRATIVE: HISTORY AND PHYSICAL: History of present illness: This is a 60-year-old female with history significant for atrial fibrillation, chronic hypomagnesemia, hypocalcemia, who presents ER today complaining of nausea vomiting and diarrhea for approximately 2 to 3 days. Patient denies any recent fevers, shakes, chills. Patient has any cough cold or rhinorrhea. Patient denies any dysuria, frequency, urgency. Patient reports decreased urinary output. Patient does complain of lower abdominal cramping and discomfort. Patient denies any chest pain. Patient denies any new rashes. Patient denies any headache, sore throat, blurred vision, photophobia. Review of systems: As per history of present illness and below otherwise all systems reviewed and negative. Past medical history: As per history of present illness and as reviewed below otherwise noncontributory. Surgical history: As per history of present illness and as reviewed below otherwise noncontributory. Social history: No reported history of drug abuse. Family history: As per history of present illness and as reviewed below otherwise noncontributory. Physical exam: This patient was seen and evaluated during the 2019 SARS-CoV-2 novel coronavirus pandemic period. Community viral transmission is ongoing at time of this encounter and the emergency department is operating under pandemic response procedures. Constitutional: Patient is oriented to person, place, and time. Appears well- developed and well-nourished. No distress. HEENT: Moist mucous membranes Head: Normocephalic and atraumatic Eyes: Right eye exhibits no discharge. Left eye exhibits no discharge. No scleral icterus Neck: Normal range of motion. No tracheal deviation present. Cardiovascular: Normal rate and regular rhythm. Pulmonary: Effort normal, no respiratory distress. Abd: Soft, nondistended, no rebound/guarding, no psoas or obturator signs, no tenderness at Mcberney's point, no Rawls's sign. Pt does not present with an exam that would be consistent with an acute surgical abdomen at this time, tenderness to palpation in the lower abdomen diffusely. Musculoskeletal: Normal range of motion Neurologic: Alert and oriented to person, place and time. Skin: [place], warm and dry. Psychiatric: Normal mood and affect. Behavior is normal. Judgment and thought content normal. Nursing note and vital signs have been reviewed Diagnostics: Patient has been given patient's labs are significant for severe hypomagnesemia, hypocalcemia and hyperkalemia. EKG: As interpreted by ER physician: [place]: Nonspecific ST-T wave abnormalities Normal axis No evidence of ST elevation [place] Atrial fibrillation rate controlled at [address] scan of the abdomen pelvis reveals acute uncomplicated diverticulitis of the distal descending colon with no evidence of perforation or abscess. There is diffuse wall thickening of the stomach could be inflammatory versus infiltrative process such as lymphoma. There is a new lytic and sclerotic lesion within the T12 vertebral body. Therapeutics: Patient will be given 4 g of magnesium sulfate per hospital protocol. 1 g of calcium gluconate IV, Patient will get started on ciprofloxacin and Flagyl for treatment of diverticulitis. Patient has been given 2 L of NSS wide open Assessment and plan: This is a 60-year-old female with history significant for severe hypomagnesemia, hypokalemia, hypocalcemia who presents ER today with nausea vomiting diarrhea and abdominal pain with CT evidence of acute uncomplicated descending colon diverticulitis. Patient will be admitted for repletion of her electrolytes as well as treatment for her diverticulitis. Definitive disposition and diagnosis as appropriate pending reevaluation and review of above. - Related Data Allergies Allergy/AdvReac Type Severity Reaction Status Date / Time apixaban [From Eliquis] Allergy Swelling Verified 11/15/20 14:33 atorvastatin [From Lipitor] Allergy Swelling Verified 11/15/20 14:33 Tetanus Vaccines and Toxoid Allergy Hives Verified 11/15/20 14:33 Home Meds: Home Meds Lisinopril 20 mg PO BID 09/20/16 [History] Rosuvastatin [Crestor] 20 mg PO BEDTIME 09/20/16 [History] Aspirin [Halfprin] 81 mg PO DAILY 09/25/16 [History] Eplerenone [Inspra] 25 mg PO BID 03/02/19 [History] Magnesium Oxide 400 mg PO DAILY 03/02/19 [History] Metoprolol Tartrate 100 mg PO BID 03/02/19 [History] Rivaroxaban [Xarelto] 15 mg PO DAILY 03/02/19 [History] Furosemide 20 mg PO DAILY 11/15/20 [History] Sildenafil Citrate 1 tab PO DAILY 11/15/20 [History] Past Medical History - Past Health History Medical/Surgical History: Denies Medical/Surgical History HEENT History: Reports: Impaired Vision Cardiovascular History: Reports: Afib, High Cholesterol, Hypertension, Stents, Other (See Below) Other Cardiovascular History: TIA 5 years ago; stent placed in September 2016 Respiratory History: Reports: Other (See Below) Other Respiratory History: lung polyps Gastrointestinal History: Reports: Other (See Below) Other Gastrointestinal History: Heartburn Genitourinary History: Reports: None 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: Reports: 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 Musculoskeletal History: Reports: Fracture, Osteoarthritis, Other (See Below) Other Musculoskeletal History: screws to the right wrist Neurological History: Reports: Seizure, TIA Other Neuro History: last seizure 1 year ago Psychiatric History: Reports: None Endocrine/Metabolic History: Reports: Hypothyroidism Other Endocrine/Metabolic History: "borderline diabetes" Hematologic History: Reports: None Oncologic (Cancer) History: Reports: None Dermatologic History: Reports: None - Infectious Disease History Infectious Disease History: Reports: Chicken Pox - Past Surgical History Head Surgeries/Procedures: Reports: None HEENT Surgical History: Reports: None Cardiovascular Surgical History: Reports: None Respiratory Surgical History: Reports: None GI Surgical History: Reports: Colonoscopy, EGD Female Surgical History: Reports: None Endocrine Surgical History: Reports: None Neurological Surgical History: Reports: None Musculoskeletal Surgical History: Reports: None Social & Family History - Family History Family Medical History: Unobtainable HEENT: Reports: Impaired Vision, Other (See Below) Other HEENT Family History: ear surgery Cardiac: Reports: Bypass, Hypertension OBGYN: Reports: , Other (See Below) Other OBGYN Family History: hysterectomy Endocrine/Metabolic: Reports: Other (See Below) Other Endocrine/Metabolic Family History: DM type unknown Oncologic: Reports: Breast - Tobacco Use Tobacco Use Status *Q: Never Tobacco User - Caffeine Use Caffeine Use: Reports: None Caffeine Use Comment: 4 cups/day - Recreational Drug Use Recreational Drug Use: No ED ROS GENERAL - Review of Systems Review Of Systems: See Below ED EXAM, GENERAL - Physical Exam Exam: See Below Course - Vital Signs Last Recorded V/S: Last Vital Signs Temp 97.6 F 11/15/20 14:37 Pulse 75 11/15/20 14:37 Resp 17 11/15/20 14:37 BP 124/90 11/15/20 14:37 Pulse Ox 97 11/15/20 14:37 - Orders/Labs/Meds Orders: Active Orders 24 hr Category Date Time Status EKG Documentation Completion [RC] AM Care 11/15/20 14:42 Active CORONAVIRUS COVID-19 ARISTIDES [MOLEC] Stat Lab 11/15/20 14:42 Ordered UA W/AMI RFLX IF INDICATED [URIN] Stat Lab 11/15/20 14:44 Ordered Magnesium Sulfate/Water [Magnesium Sulfate in Water 4 Med 11/15/20 16:17 Active GM/100 ML] 4 gm Premix Bag 1 bag IV ONETIME Sodium Chloride 0.9% [Saline Flush] Med 11/15/20 14:42 Active 10 ml FLUSH ASDIRECTED PRN Sodium Chloride 0.9% [Saline Flush] Med 11/15/20 14:42 Active 2.5 ml FLUSH ASDIRECTED PRN Saline Lock Insert [OM.PC] Stat Oth 11/15/20 14:42 Ordered Medication Orders Magnesium Sulfate 4 gm/ Premix 100 mls @ 50 mls/hr IV ONETIME ONE Stop: 11/15/20 18:16 Sodium Chloride (Sodium Chloride 0.9% 10 Ml Syringe) 10 ml FLUSH ASDIRECTED PRN PRN Reason: Keep Vein Open Last Admin: 11/15/20 15:41 Dose: 10 ml Documented by: JASPAL Sodium Chloride (Sodium Chloride 0.9% 2.5 Ml Syringe) 2.5 ml FLUSH ASDIRECTED PRN PRN Reason: Keep Vein Open Last Admin: 11/15/20 15:41 Dose: 2.5 ml Documented by: JASPAL Labs: Laboratory Tests 11/15/20 11/15/20 11/15/20 Range/Units 14:41 14:41 15:12 WBC 4.05 (4.0-11.0) K/uL RBC 3.94 L (4.30-5.90) M/uL Hgb 10.9 L (12.0-16.0) g/dL Hct 33.5 L (36.0-46.0) % MCV 85.0 (80.0-98.0) fL MCH 27.7 (27.0-32.0) pg MCHC 32.5 (31.0-37.0) g/dL RDW Std Deviation 52.6 (28.0-62.0) fl RDW Coeff of Cullen 17 H (11.0-15.0) % Plt Count 331 (150-400) K/uL MPV 10.30 (7.40-12.00) fL Neut % (Auto) 70.7 (48.0-80.0) % Lymph % (Auto) 16.0 (16.0-40.0) % [place] % (Auto) 11.1 (0.0-15.0) % Eos % (Auto) 1.7 (0.0-7.0) % Baso % (Auto) 0.5 (0.0-1.5) % Neut # (Auto) 2.9 (1.4-5.7) K/uL Lymph # (Auto) 0.7 (0.6-2.4) K/uL [place] # (Auto) 0.5 (0.0-0.8) K/uL Eos # (Auto) 0.1 (0.0-0.7) K/uL Baso # (Auto) 0.0 (0.0-0.1) K/uL Nucleated RBC % 0.0 /100WBC Nucleated RBCs # 0 K/uL INR 1.48 Sodium 142 (136-145) mmol/L Potassium 3.2 L (3.5-5.1) mmol/L Chloride 102 (98-107) mmol/L Carbon Dioxide 23.0 (21.0-32.0) mmol/L BUN 11 (7.0-18.0) mg/dL Creatinine 1.1 H (0.6-1.0) mg/dL Est Cr Clr Drug Dosing 56.13 mL/min Estimated GFR (MDRD) 50.5 ml/min Glucose 110 H (74-106) mg/dL Calcium 4.9 L (8.5-10.1) mg/dL Magnesium 0.2 L (1.8-2.4) mg/dL Total Bilirubin 0.4 (0.2-1.0) mg/dL AST 25 (15-37) IU/L ALT 17 (14-63) IU/L Alkaline Phosphatase 134 H (46-116) U/L Total Protein 7.5 (6.4-8.2) g/dL Albumin 2.6 L (3.4-5.0) g/dL Globulin 4.9 H (2.6-4.0) g/dL Albumin/Globulin Ratio 0.5 L (0.9-1.6) Lipase 117 (73-393) U/L Meds: Medications Generic Name Dose Route Start Last Admin Trade Name Freq PRN Reason Stop Dose Admin Magnesium Sulfate 4 gm/ Premix 100 mls @ 50 mls/hr 11/15/20 16:17 IV 11/15/20 18:16 ONETIME ONE Sodium Chloride 10 ml 11/15/20 14:42 11/15/20 15:41 Sodium Chloride 0.9% 10 Ml Syringe FLUSH 10 ml ASDIRECTED PRN Administration Keep Vein Open Sodium Chloride 2.5 ml 11/15/20 14:42 11/15/20 15:41 Sodium Chloride 0.9% 2.5 Ml Syringe FLUSH 2.5 ml ASDIRECTED PRN Administration Keep Vein Open Discontinued Medications Generic Name Dose Route Start Last Admin Trade Name Freq PRN Reason Stop Dose Admin Calcium Gluconate 1 gm 11/15/20 16:17 Calcium Gluconate 10% 1 Gm/10 Ml Sdv IVPUSH 11/15/20 16:18 ONETIME ONE Sodium Chloride 1,000 mls @ 999 mls/hr 11/15/20 14:42 11/15/20 15:40 Normal Saline IV 11/15/20 15:42 999 mls/hr .Bolus ONE Administration Ondansetron HCl 4 mg 11/15/20 14:42 11/15/20 15:41 Ondansetron 4 Mg/2 Ml Sdv IVPUSH 11/15/20 14:43 4 mg ONETIME ONE Administration Departure - Departure Time of Disposition: 16:45 Disposition: Admitted As Inpatient 65 Condition: Good Clinical Impression: Acute diverticulitis, Hypocalcemia, Hypomagnesemia, Hypokalemia, Abdominal pain - Discharge Information Referrals: Bharat Swift MD [Primary Care Provider] - Sepsis Event Note (ED) - Evaluation Sepsis Screening Result: No Definite Risk - Focused Exam Vital Signs: Vital Signs Temp Pulse Resp BP Pulse Ox 11/15/20 14:37 97.6 F 75 17 124/90 97 - My Orders Last 24 Hours: My Active Orders 11/15/20 14:42 EKG Documentation Completion [RC] AM CORONAVIRUS COVID-19 ARISTIDES [MOLEC] Stat Sodium Chloride 0.9% [Saline Flush] 10 ml FLUSH ASDIRECTED PRN Sodium Chloride 0.9% [Saline Flush] 2.5 ml FLUSH ASDIRECTED PRN Saline Lock Insert [OM.PC] Stat 11/15/20 14:44 UA W/AMI RFLX IF INDICATED [URIN] Stat 11/15/20 16:17 Magnesium Sulfate/Water [Magnesium Sulfate in Water 4 GM/100 ML] 4 gm Premix B ag 1 bag IV ONETIME - Assessment/Plan Last 24 Hours: My Active Orders 11/15/20 14:42 EKG Documentation Completion [RC] AM CORONAVIRUS COVID-19 ARISTIDES [MOLEC] Stat Sodium Chloride 0.9% [Saline Flush] 10 ml FLUSH ASDIRECTED PRN Sodium Chloride 0.9% [Saline Flush] 2.5 ml FLUSH ASDIRECTED PRN Saline Lock Insert [OM.PC] Stat 11/15/20 14:44 UA W/AMI RFLX IF INDICATED [URIN] Stat 11/15/20 16:17 Magnesium Sulfate/Water [Magnesium Sulfate in Water 4 GM/100 ML] 4 gm Premix Bag 1 bag IV ONETIME
[2020-11-15] MEDS ORDERED: Piperacillin/Tazobactam 3.375 GM in Sodium Chloride 0.9% 50 ML IV ONE (16:49)
--- NOTE | 2020-11-15 17:08 | PCM.EKG ---
#1 Interpretation EKG Interpretation Comments: EKG: As interpreted by ER physician: [place]: Nonspecific ST-T wave abnormalities Normal axis No evidence of ST elevation [place] Atrial fibrillation with a heart rate of 74.
[2020-11-15] MEDS ORDERED: Potassium Chloride 20 MEQ Tab.ER PO ONE (18:05)
[2020-11-15] MEDS ORDERED: Calcium Gluconate 11 GM in Sodium Chloride 0.9% 1,000 ML IV ONE ×2 (18:14→20:00)
[2020-11-15] MEDS ORDERED: Ondansetron 4 MG/2 ML SDV IVPUSH PRN (20:53)
[2020-11-15] MEDS ORDERED: Metoprolol Tartrate 50 MG Tab PO SCH (21:00)
--- NOTE | 2020-11-15 21:01 | PCM.HP.2 ---
H&P History of Present Illness - General Date of Service: 11/15/20 Admit Problem/Dx: Admission Diagnosis/Problem Admission Diagnosis/Problem Hypomagnesemia - History of Present Illness Initial Comments - Free Text/Narative: 60 yo female with pmh and atrial fibrillation and mutlipel admission for severe hypocalcemia, hypomagnesia. Patient presented to the ED with three day history of nausea, vomting, and diarrhea. She was found to have a magnesium of 0.2, and calcium of 4.9. CT scan of abdomen in ED reported diverticulitis. In the ED she was given Zosyn, 4 grams of IV magnesium and 1 gram of calcium gluconate. - Related Data Allergies/Adverse Reactions: Allergies Allergy/AdvReac Type Severity Reaction Status Date / Time apixaban [From Eliquis] Allergy Swelling Verified 11/15/20 14:33 atorvastatin [From Lipitor] Allergy Swelling Verified 11/15/20 14:33 Tetanus Vaccines and Toxoid Allergy Hives Verified 11/15/20 14:33 Home Medications: Home Meds Lisinopril 20 mg PO BID 09/20/16 [History] Rosuvastatin [Crestor] 20 mg PO BEDTIME 09/20/16 [History] Aspirin [Halfprin] 81 mg PO DAILY 09/25/16 [History] Eplerenone [Inspra] 25 mg PO BID 03/02/19 [History] Magnesium Oxide 400 mg PO DAILY 03/02/19 [History] Metoprolol Tartrate 100 mg PO BID 03/02/19 [History] Rivaroxaban [Xarelto] 15 mg PO DAILY 03/02/19 [History] Furosemide 20 mg PO DAILY 11/15/20 [History] Sildenafil Citrate 1 tab PO DAILY 11/15/20 [History] Past Medical History - Past Health History Medical/Surgical History: Denies Medical/Surgical History HEENT History: Reports: Impaired Vision Cardiovascular History: Reports: Afib, High Cholesterol, Hypertension, Stents, Other (See Below) Other Cardiovascular History: TIA 5 years ago; stent placed in September 2016 Respiratory History: Reports: Other (See Below) Other Respiratory History: lung polyps Gastrointestinal History: Reports: Other (See Below) Other Gastrointestinal History: Heartburn Genitourinary History: Reports: None TECHNICAL ASSISTANCE CONSULTANT History: Reports: None Musculoskeletal History: Reports: Fracture, Osteoarthritis, Other (See Below) Other Musculoskeletal History: screws to the right wrist Neurological History: Reports: Seizure, TIA Other Neuro History: last seizure 1 year ago Psychiatric History: Reports: None Endocrine/Metabolic History: Reports: Hypothyroidism Other Endocrine/Metabolic History: "borderline diabetes" Hematologic History: Reports: None Oncologic (Cancer) History: Reports: None Dermatologic History: Reports: None - Infectious Disease History Infectious Disease History: Reports: Chicken Pox - Past Surgical History Head Surgeries/Procedures: Reports: None HEENT Surgical History: Reports: None Cardiovascular Surgical History: Reports: None Respiratory Surgical History: Reports: None GI Surgical History: Reports: Colonoscopy, EGD Female Surgical History: Reports: None Endocrine Surgical History: Reports: None Neurological Surgical History: Reports: None Musculoskeletal Surgical History: Reports: None Social & Family History - Family History Family Medical History: Unobtainable HEENT: Reports: Impaired Vision, Other (See Below) Other HEENT Family History: ear surgery Cardiac: Reports: Bypass, Hypertension OBGYN: Reports: , Other (See Below) Other OBGYN Family History: hysterectomy Endocrine/Metabolic: Reports: Other (See Below) Other Endocrine/Metabolic Family History: DM type unknown Oncologic: Reports: Breast - Tobacco Use Tobacco Use Status *Q: Never Tobacco User - Caffeine Use Caffeine Use: Reports: None Caffeine Use Comment: 4 cups/day - Recreational Drug Use Recreational Drug Use: No H&P Review of Systems - Review of Systems: Review Of Systems: Comprehensive ROS is negative, except as noted in HPI. Exam - Exam Exam: See Below - Vital Signs Vital Signs: Last Vital Signs Temp 36.4 C 11/15/20 14:37 Pulse 75 11/15/20 14:37 Resp 17 11/15/20 14:37 BP 124/90 11/15/20 14:37 Pulse Ox 97 11/15/20 14:37 Weight: 77.111 kg - Exam General: Alert, Oriented HEENT: Mucosa Moist & [place] Neck: Supple Lungs: Clear to Auscultation, Normal Respiratory Effort Cardiovascular: Regular Rate, Regular Rhythm GI/Abdominal Exam: Normal Bowel Sounds, Soft, Non-Tender Extremities: Non-Tender, No Pedal Edema Skin: Warm, Dry, Intact - Patient Data Lab Results Last 24 hrs: Laboratory Results - last 24 hr 11/15/20 11/15/20 11/15/20 Range/Units 14:41 14:41 15:12 WBC 4.05 (4.0-11.0) K/uL RBC 3.94 L (4.30-5.90) M/uL Hgb 10.9 L (12.0-16.0) g/dL Hct 33.5 L (36.0-46.0) % MCV 85.0 (80.0-98.0) fL MCH 27.7 (27.0-32.0) pg MCHC 32.5 (31.0-37.0) g/dL RDW Std Deviation 52.6 (28.0-62.0) fl RDW Coeff of Cullen 17 H (11.0-15.0) % Plt Count 331 (150-400) K/uL MPV 10.30 (7.40-12.00) fL Neut % (Auto) 70.7 (48.0-80.0) % Lymph % (Auto) 16.0 (16.0-40.0) % [place] % (Auto) 11.1 (0.0-15.0) % Eos % (Auto) 1.7 (0.0-7.0) % Baso % (Auto) 0.5 (0.0-1.5) % Neut # (Auto) 2.9 (1.4-5.7) K/uL Lymph # (Auto) 0.7 (0.6-2.4) K/uL [place] # (Auto) 0.5 (0.0-0.8) K/uL Eos # (Auto) 0.1 (0.0-0.7) K/uL Baso # (Auto) 0.0 (0.0-0.1) K/uL Nucleated RBC % 0.0 /100WBC Nucleated RBCs # 0 K/uL INR 1.48 Sodium 142 (136-145) mmol/L Potassium 3.2 L (3.5-5.1) mmol/L Chloride 102 (98-107) mmol/L Carbon Dioxide 23.0 (21.0-32.0) mmol/L BUN 11 (7.0-18.0) mg/dL Creatinine 1.1 H (0.6-1.0) mg/dL Est Cr Clr Drug Dosing 56.13 mL/min Estimated GFR (MDRD) 50.5 ml/min Glucose 110 H (74-106) mg/dL Calcium 4.9 L (8.5-10.1) mg/dL Magnesium 0.2 L (1.8-2.4) mg/dL Total Bilirubin 0.4 (0.2-1.0) mg/dL AST 25 (15-37) IU/L ALT 17 (14-63) IU/L Alkaline Phosphatase 134 H (46-116) U/L Total Protein 7.5 (6.4-8.2) g/dL Albumin 2.6 L (3.4-5.0) g/dL Globulin 4.9 H (2.6-4.0) g/dL Albumin/Globulin Ratio 0.5 L (0.9-1.6) Lipase 117 (73-393) U/L SARS-CoV-2 RNA (ARISTIDES) (NEGATIVE) 11/15/20 Range/Units 16:46 WBC (4.0-11.0) K/uL RBC (4.30-5.90) M/uL Hgb (12.0-16.0) g/dL Hct (36.0-46.0) % MCV (80.0-98.0) fL MCH (27.0-32.0) pg MCHC (31.0-37.0) g/dL RDW Std Deviation (28.0-62.0) fl RDW Coeff of Cullen (11.0-15.0) % Plt Count (150-400) K/uL MPV (7.40-12.00) fL Neut % (Auto) (48.0-80.0) % Lymph % (Auto) (16.0-40.0) % [place] % (Auto) (0.0-15.0) % Eos % (Auto) (0.0-7.0) % Baso % (Auto) (0.0-1.5) % Neut # (Auto) (1.4-5.7) K/uL Lymph # (Auto) (0.6-2.4) K/uL [place] # (Auto) (0.0-0.8) K/uL Eos # (Auto) (0.0-0.7) K/uL Baso # (Auto) (0.0-0.1) K/uL Nucleated RBC % /100WBC Nucleated RBCs # K/uL INR Sodium (136-145) mmol/L Potassium (3.5-5.1) mmol/L Chloride (98-107) mmol/L Carbon Dioxide (21.0-32.0) mmol/L BUN (7.0-18.0) mg/dL Creatinine (0.6-1.0) mg/dL Est Cr Clr Drug Dosing mL/min Estimated GFR (MDRD) ml/min Glucose (74-106) mg/dL Calcium (8.5-10.1) mg/dL Magnesium (1.8-2.4) mg/dL Total Bilirubin (0.2-1.0) mg/dL AST (15-37) IU/L ALT (14-63) IU/L Alkaline Phosphatase (46-116) U/L Total Protein (6.4-8.2) g/dL Albumin (3.4-5.0) g/dL Globulin (2.6-4.0) g/dL Albumin/Globulin Ratio (0.9-1.6) Lipase (73-393) U/L SARS-CoV-2 RNA (ARISTIDES) NEGATIVE (NEGATIVE) Result Diagrams: 11/15/20 14:41 11/15/20 14:41 Cheo Results Last 24 hrs: Microbiology 11/15/20 17:23 C. difficile Antigen & Toxins A,B - Final Stool / Feces Sepsis Event Note - Evaluation Sepsis Screening Result: No Definite Risk - Focused Exam Vital Signs: Vital Signs Temp Pulse Resp BP Pulse Ox 11/15/20 14:37 36.4 C 75 17 124/90 97 Problem List Initiated/Reviewed/Updated: Yes Orders Last 24hrs: Active Orders 24 hr Category Date Time Status Patient Status [ADT] Routine ADT 11/15/20 16:50 Active Antiembolic Devices [RC] PER UNIT ROUTINE Care 11/15/20 20:55 Ordered Oxygen Therapy [RC] PRN Care 11/15/20 20:53 Ordered Up ad Irene [RC] ASDIRECTED Care 11/15/20 20:53 Ordered VTE/DVT Education [RC] PER UNIT ROUTINE Care 11/15/20 20:53 Ordered Vital Signs [RC] Q4H Care 11/15/20 20:53 Ordered Clear Liquid Diet [DIET] Diet 11/15/20 Breakfast Ordered CBC WITH AUTO DIFF [HEME] AM Lab 11/16/20 05:11 Ordered COMPREHENSIVE METABOLIC PN,CMP [CHEM] AM Lab 11/16/20 05:11 Ordered MAGNESIUM [CHEM] AM Lab 11/16/20 05:11 Ordered PHOSPHORUS [CHEM] AM Lab 11/16/20 05:11 Ordered UA W/CHEO RFLX IF INDICATED [URIN] Stat Lab 11/15/20 14:44 Ordered Calcium Gluconate 11 gm Med 11/15/20 20:00 Active Sodium Chloride 0.9% [Normal Saline] 1,000 ml IV ONETIME Metoprolol Tartrate Med 11/15/20 21:00 Ordered 100 mg PO BID Ondansetron [Zofran] Med 11/15/20 20:53 Ordered 4 mg IVPUSH Q4H PRN Piperacillin/Tazobactam [Piperacil-Tazobact] 3.375 gm Med 11/15/20 22:00 Active Sodium Chloride 0.9% [Normal Saline] 50 ml IV Q6H Rivaroxaban [Xarelto] Med 11/16/20 09:00 Ordered 15 mg PO DAILY Sodium Chloride 0.9% @ 125 MLS/HR (1000ml) Med 11/15/20 21:00 Ordered Sodium Chloride 0.9% [Normal Saline] 1,000 ml IV ASDIRECTED Sodium Chloride 0.9% [Saline Flush] Med 11/15/20 14:42 Active 10 ml FLUSH ASDIRECTED PRN Sodium Chloride 0.9% [Saline Flush] Med 11/15/20 14:42 Active 2.5 ml FLUSH ASDIRECTED PRN Saline Lock Insert [OM.PC] Stat Oth 11/15/20 14:42 Ordered Sequential Compression Device [OM.PC] Per Unit Routine Oth 11/15/20 20:54 Ordered Resuscitation Status Routine Resus Stat 11/15/20 20:53 Ordered Medication Orders Piperacillin Sod/Tazobactam (Sod 3.375 gm/ Sodium Chloride) 50 mls @ 100 mls/hr IV Q6H BONITA Calcium Gluconate 11 gm/ (Sodium Chloride) 1,110 mls @ 50 mls/hr IV ONETIME ONE Stop: 11/16/20 18:11 Last Admin: 11/15/20 20:16 Dose: 50 mls/hr Documented by: GUTIERREZ Metoprolol Tartrate (Metoprolol Tartrate 50 Mg Tab) 100 mg PO BID BONITA Rivaroxaban (Rivaroxaban 15 Mg Tab) 15 mg PO DAILY BONITA Sodium Chloride (Sodium Chloride 0.9% 10 Ml Syringe) 10 ml FLUSH ASDIRECTED PRN PRN Reason: Keep Vein Open Last Admin: 11/15/20 15:41 Dose: 10 ml Documented by: JASPAL Sodium Chloride (Sodium Chloride 0.9% 2.5 Ml Syringe) 2.5 ml FLUSH ASDIRECTED PRN PRN Reason: Keep Vein Open Last Admin: 11/15/20 15:41 Dose: 2.5 ml Documented by: JASPAL Assessment/Plan Comment:: 60 yo female admitted for hypocalcemia, hypomagnesia, and acute diverticulitis. Diverticulitis: treating with IV zosyn Hypocalcemia; will place on calcium drip, will recheck labs tonight Hypomagnesia: was given 4grams of magnesia, will recheck labs A.fib: on metoprolol and Xarelto
[2020-11-15] MEDS: Piperacillin/Tazobactam 3.375 GM in Sodium Chloride 0.9% 50 ML IV SCH (21:55)
[2020-11-15 22:39] LABS: CARBON DIOXIDE,CO2 22.1 mmol/L (21.0-32.0); POTASSIUM,K 2.9 mmol/L (3.5-5.1)
[2020-11-16] MEDS: Sodium Chloride 0.9% 1,000 ML IV SCH ×2 (00:52→12:03)
[2020-11-16] MEDS ORDERED: Magnesium Sulfate/Water 2 GM in Premix Bag 1 BAG IV ONE (00:57)
[2020-11-16] MEDS ORDERED: Potassium Chloride Riders 40 MEQ in Premix Bag 1 BAG IV ONE (00:57)
--- NOTE | 2020-11-16 00:59 | PN ---
THC Physician - Brief Progress OuwnWAMWEYEKS66/08/2021 00:52[facility] Omar Solis, JOSE - ELSIE ([facility]) - ELSIE CABEZASSANTA HERNDONPieterDate of Service 11/16/2020 00:52HPI/Event s of Note Case discussed with RN. 60 year old F with diverticulitis, admitted with N/V/D x 3 days an d was found to have electrolyte disturbance. Has ongoing fluids and lyte replacements as well abx.C T A/P: acute divierticulitis of distal descending colonRecs include: hemodynamic monitoring, fluids, supplemental O2 PRN, GI and DVT prophylaxis, NPO for now, consider GI/surgery eval, abx, follow cultu res, check LA, ongoing lytes replacements, trend Cr and I+Os, glycemic monitoring, pain control, neur o checks.Interventions Minor-Communication with other healthcare providers and/or familyElectronicall y Signed by: ROMAN CASTANON () on 11/16/2020 00:59
[2020-11-16] MEDS ORDERED: Potassium Chloride 20 MEQ Tab.ER PO ONE (05:10)
[2020-11-16] MEDS: Piperacillin/Tazobactam 3.375 GM in Sodium Chloride 0.9% 50 ML IV SCH ×4 (05:22→21:44)
[2020-11-16 05:57] LABS: CARBON DIOXIDE,CO2 20.8 mmol/L (21.0-32.0); POTASSIUM,K 3.9 mmol/L (3.5-5.1)
--- NOTE | 2020-11-16 08:11 | PCM.PN ---
- General Info Date of Service: 11/16/20 Admission Dx/Problem (Free Text): Admission Diagnosis/Problem Admission Diagnosis/Problem Hypomagnesemia Subjective Update: Patient feels significantly improved today. No other neurologic findings today no twitching or numbness are stable. Denies any chest pain or shortness of breath. Denies any abdominal. Patient eager to increase diet and has been tolerating clinical diet. Functional Status: Reports: Pain Controlled, Tolerating Diet, Ambulating, Urinating - Review of Systems General: Reports: No Symptoms. Denies: Weakness, Fatigue, Malaise HEENT: Reports: No Symptoms. Denies: Headaches, Sore Throat, Visual Changes Pulmonary: Reports: No Symptoms. Denies: Shortness of Breath Cardiovascular: Reports: No Symptoms. Denies: Chest Pain Gastrointestinal: Reports: No Symptoms. Denies: Abdominal Pain, Nausea, Vomiting Genitourinary: Reports: No Symptoms. Denies: Dysuria, Frequency Musculoskeletal: Reports: No Symptoms Skin: Reports: No Symptoms Neurological: Reports: No Symptoms Psychiatric: Reports: No Symptoms - Patient Data Vitals - Most Recent: Last Vital Signs Temp 97.4 F 11/16/20 04:00 Pulse 69 11/15/20 21:56 Resp 17 11/16/20 07:00 BP 145/89 H 11/16/20 07:00 Pulse Ox 92 L 11/16/20 07:00 Weight - Most Recent: 74.843 kg I&O - Last 24 Hours: Intake & Output 11/15/20 11/16/20 11/16/20 22:59 06:59 14:59 Intake Total 1092 Output Total 200 Balance 892 Lab Results Last 24 Hours: Laboratory Results - last 24 hr 11/15/20 11/15/20 11/15/20 Range/Units 14:41 14:41 15:12 WBC 4.05 (4.0-11.0) K/uL RBC 3.94 L (4.30-5.90) M/uL Hgb 10.9 L (12.0-16.0) g/dL Hct 33.5 L (36.0-46.0) % MCV 85.0 (80.0-98.0) fL MCH 27.7 (27.0-32.0) pg MCHC 32.5 (31.0-37.0) g/dL RDW Std Deviation 52.6 (28.0-62.0) fl RDW Coeff of Cullen 17 H (11.0-15.0) % Plt Count 331 (150-400) K/uL MPV 10.30 (7.40-12.00) fL Neut % (Auto) 70.7 (48.0-80.0) % Lymph % (Auto) 16.0 (16.0-40.0) % [place] % (Auto) 11.1 (0.0-15.0) % Eos % (Auto) 1.7 (0.0-7.0) % Baso % (Auto) 0.5 (0.0-1.5) % Neut # (Auto) 2.9 (1.4-5.7) K/uL Lymph # (Auto) 0.7 (0.6-2.4) K/uL [place] # (Auto) 0.5 (0.0-0.8) K/uL Eos # (Auto) 0.1 (0.0-0.7) K/uL Baso # (Auto) 0.0 (0.0-0.1) K/uL Nucleated RBC % 0.0 /100WBC Nucleated RBCs # 0 K/uL INR 1.48 Sodium 142 (136-145) mmol/L Potassium 3.2 L (3.5-5.1) mmol/L Chloride 102 (98-107) mmol/L Carbon Dioxide 23.0 (21.0-32.0) mmol/L BUN 11 (7.0-18.0) mg/dL Creatinine 1.1 H (0.6-1.0) mg/dL Est Cr Clr Drug Dosing 56.13 mL/min Estimated GFR (MDRD) 50.5 ml/min Glucose 110 H (74-106) mg/dL Lactic Acid (0.4-2.0) mmol/L Calcium 4.9 L (8.5-10.1) mg/dL Phosphorus (2.6-4.7) mg/dL Magnesium 0.2 L (1.8-2.4) mg/dL Total Bilirubin 0.4 (0.2-1.0) mg/dL AST 25 (15-37) IU/L ALT 17 (14-63) IU/L Alkaline Phosphatase 134 H (46-116) U/L Total Protein 7.5 (6.4-8.2) g/dL Albumin 2.6 L (3.4-5.0) g/dL Globulin 4.9 H (2.6-4.0) g/dL Albumin/Globulin Ratio 0.5 L (0.9-1.6) Lipase 117 (73-393) U/L SARS-CoV-2 RNA (ARISTIDES) (NEGATIVE) 11/15/20 11/15/20 11/16/20 Range/Units 16:46 22:15 01:10 WBC (4.0-11.0) K/uL RBC (4.30-5.90) M/uL Hgb (12.0-16.0) g/dL Hct (36.0-46.0) % MCV (80.0-98.0) fL MCH (27.0-32.0) pg MCHC (31.0-37.0) g/dL RDW Std Deviation (28.0-62.0) fl RDW Coeff of [place] (11.0-15.0) % Plt Count (150-400) K/uL MPV (7.40-12.00) fL Neut % (Auto) (48.0-80.0) % Lymph % (Auto) (16.0-40.0) % [place] % (Auto) (0.0-15.0) % Eos % (Auto) (0.0-7.0) % Baso % (Auto) (0.0-1.5) % Neut # (Auto) (1.4-5.7) K/uL Lymph # (Auto) (0.6-2.4) K/uL [place] # (Auto) (0.0-0.8) K/uL Eos # (Auto) (0.0-0.7) K/uL Baso # (Auto) (0.0-0.1) K/uL Nucleated RBC % /100WBC Nucleated RBCs # K/uL INR Sodium 142 (136-145) mmol/L Potassium 2.9 L (3.5-5.1) mmol/L Chloride 104 (98-107) mmol/L Carbon Dioxide 22.1 (21.0-32.0) mmol/L BUN 10 (7.0-18.0) mg/dL Creatinine 1.1 H (0.6-1.0) mg/dL Est Cr Clr Drug Dosing 56.13 mL/min Estimated GFR (MDRD) 50.5 ml/min Glucose 78 (74-106) mg/dL Lactic Acid 0.9 (0.4-2.0) mmol/L Calcium 5.6 L (8.5-10.1) mg/dL Phosphorus (2.6-4.7) mg/dL Magnesium 1.6 L (1.8-2.4) mg/dL Total Bilirubin (0.2-1.0) mg/dL AST (15-37) IU/L ALT (14-63) IU/L Alkaline Phosphatase (46-116) U/L Total Protein (6.4-8.2) g/dL Albumin (3.4-5.0) g/dL Globulin (2.6-4.0) g/dL Albumin/Globulin Ratio (0.9-1.6) Lipase (73-393) U/L SARS-CoV-2 RNA (ARISTIDES) NEGATIVE (NEGATIVE) 11/16/20 11/16/20 Range/Units 04:49 04:49 WBC 4.59 (4.0-11.0) K/uL RBC 3.58 L (4.30-5.90) M/uL Hgb 9.8 L (12.0-16.0) g/dL Hct 30.9 L (36.0-46.0) % MCV 86.3 (80.0-98.0) fL MCH 27.4 (27.0-32.0) pg MCHC 31.7 (31.0-37.0) g/dL RDW Std Deviation 52.9 (28.0-62.0) fl RDW Coeff of [place] 17 H (11.0-15.0) % Plt Count 361 (150-400) K/uL MPV 9.80 (7.40-12.00) fL Neut % (Auto) 67.1 (48.0-80.0) % Lymph % (Auto) 18.5 (16.0-40.0) % [place] % (Auto) 12.0 (0.0-15.0) % Eos % (Auto) 2.0 (0.0-7.0) % Baso % (Auto) 0.4 (0.0-1.5) % Neut # (Auto) 3.1 (1.4-5.7) K/uL Lymph # (Auto) 0.9 (0.6-2.4) K/uL [place] # (Auto) 0.6 (0.0-0.8) K/uL Eos # (Auto) 0.1 (0.0-0.7) K/uL Baso # (Auto) 0.0 (0.0-0.1) K/uL Nucleated RBC % 0.0 /100WBC Nucleated RBCs # 0 K/uL INR Sodium 144 (136-145) mmol/L Potassium 3.9 (3.5-5.1) mmol/L Chloride 107 (98-107) mmol/L Carbon Dioxide 20.8 L (21.0-32.0) mmol/L BUN 10 (7.0-18.0) mg/dL Creatinine 1.1 H (0.6-1.0) mg/dL Est Cr Clr Drug Dosing 56.13 mL/min Estimated GFR (MDRD) 50.5 ml/min Glucose 83 (74-106) mg/dL Lactic Acid (0.4-2.0) mmol/L Calcium 6.6 L (8.5-10.1) mg/dL Phosphorus 3.9 (2.6-4.7) mg/dL Magnesium 2.1 (1.8-2.4) mg/dL Total Bilirubin 0.4 (0.2-1.0) mg/dL AST 18 (15-37) IU/L ALT 16 (14-63) IU/L Alkaline Phosphatase 132 H (46-116) U/L Total Protein 7.0 (6.4-8.2) g/dL Albumin 2.4 L (3.4-5.0) g/dL Globulin 4.6 H (2.6-4.0) g/dL Albumin/Globulin Ratio 0.5 L (0.9-1.6) Lipase (73-393) U/L SARS-CoV-2 RNA (ARISTIDES) (NEGATIVE) Cheo Results Last 24 Hours: Microbiology 11/15/20 17:23 C. difficile Antigen & Toxins A,B - Final Stool / Feces Med Orders - Current: Current Medications Piperacillin Sod/Tazobactam (Sod 3.375 gm/ Sodium Chloride) 50 mls @ 100 mls/hr IV Q6H [facility] Last Admin: 11/16/20 05:22 Dose: 100 mls/hr Documented by: Calcium Gluconate 11 gm/ (Sodium Chloride) 1,110 mls @ 50 mls/hr IV ONETIME ONE Stop: 11/16/20 18:11 Last Admin: 11/15/20 20:16 Dose: 50 mls/hr Documented by: Sodium Chloride (Normal Saline) 1,000 mls @ 125 mls/hr IV ASDIRECTED BONITA Last Admin: 11/16/20 00:52 Dose: 125 mls/hr Documented by: Metoprolol Succinate (Metoprolol Succinate 100 Mg Tab.Er) 100 mg PO BID BONITA Ondansetron HCl (Ondansetron 4 Mg/2 Ml Sdv) 4 mg IVPUSH Q4H PRN PRN Reason: nasuea Rivaroxaban (Rivaroxaban 15 Mg Tab) [facility] Sodium Chloride (Sodium Chloride 0.9% 10 Ml Syringe) 10 ml FLUSH ASDIRECTED PRN PRN Reason: Keep Vein Open Last Admin: 11/15/20 15:41 Dose: 10 ml Documented by: Sodium Chloride (Sodium Chloride 0.9% 2.5 Ml Syringe) 2.5 ml FLUSH ASDIRECTED PRN PRN Reason: Keep Vein Open Last Admin: 11/15/20 15:41 Dose: 2.5 ml Documented by: Discontinued Medications Calcium Gluconate (Calcium Gluconate 10% 1 Gm/10 Ml Sdv) 1 gm IVPUSH ONETIME ONE Stop: 11/15/20 16:18 Last Admin: 11/15/20 17:28 Dose: 1 gm Documented by: Sodium Chloride (Normal Saline) 1,000 mls @ 999 mls/hr IV .Bolus ONE Stop: 11/15/20 15:42 Last Admin: 11/15/20 15:40 Dose: 999 mls/hr Documented by: Magnesium Sulfate 4 gm/ Premix 100 mls @ 50 mls/hr IV ONETIME ONE Stop: 11/15/20 18:16 Last Admin: 11/15/20 17:29 Dose: 50 mls/hr Documented by: Piperacillin Sod/Tazobactam (Sod 3.375 gm/ Sodium Chloride) 50 mls @ 100 mls/hr IV ONETIME ONE Stop: 11/15/20 17:18 Last Admin: 11/15/20 17:32 Dose: 100 mls/hr Documented by: Calcium Gluconate 11 gm/ (Sodium Chloride) 1,110 mls @ 50 mls/hr IV ONETIME ONE Stop: 11/16/20 16:25 Last Admin: 11/15/20 20:51 Dose: Not Given Documented by: Potassium Chloride 40 meq/ (Premix) 100 mls @ 25 mls/hr IV ONETIME ONE Stop: 11/16/20 04:56 Last Admin: 11/16/20 03:49 Dose: 25 mls/hr Documented by: Magnesium Sulfate 2 gm/ Premix 50 mls @ 25 mls/hr IV ONETIME ONE Stop: 11/16/20 02:56 Last Admin: 11/16/20 01:45 Dose: 25 mls/hr Documented by: Metoprolol Tartrate (Metoprolol Tartrate 50 Mg Tab) 100 mg PO BID BONITA Last Admin: 11/15/20 21:56 Dose: 100 mg Documented by: Ondansetron HCl (Ondansetron 4 Mg/2 Ml Sdv) 4 mg IVPUSH ONETIME ONE Stop: 11/15/20 14:43 Last Admin: 11/15/20 15:41 Dose: 4 mg Documented by: Potassium Chloride (Potassium Chloride 20 Meq Tab.Er) 40 meq PO ONETIME ONE Stop: 11/15/20 18:06 Last Admin: 11/15/20 18:45 Dose: 40 meq Documented by: Potassium Chloride (Potassium Chloride 20 Meq Tab.Er) 40 meq PO ONETIME ONE Stop: 11/16/20 05:11 Last Admin: 11/16/20 05:23 Dose: 40 meq Documented by: - Exam Quality Assessment: DVT Prophylaxis. No: Supplemental Oxygen General: Alert, Oriented, Cooperative, No Acute Distress Lungs: Clear to Auscultation, Normal Respiratory Effort Cardiovascular: Regular Rate, Irregular Rhythm GI/Abdominal Exam: Normal Bowel Sounds, Soft, Non-Tender Extremities: Normal Inspection, Normal Range of Motion, Non-Tender, No Pedal Edema Neurological: No New Focal Deficit Psy/Mental Status: Alert, Normal Affect, Normal Mood - Patient Data Lab Results Last 24 hrs: Laboratory Results - last 24 hr 11/15/20 11/15/20 11/15/20 Range/Units 14:41 14:41 15:12 WBC 4.05 (4.0-11.0) K/uL RBC 3.94 L (4.30-5.90) M/uL Hgb 10.9 L (12.0-16.0) g/dL Hct 33.5 L (36.0-46.0) % MCV 85.0 (80.0-98.0) fL MCH 27.7 (27.0-32.0) pg MCHC 32.5 (31.0-37.0) g/dL RDW Std Deviation 52.6 (28.0-62.0) fl RDW Coeff of Cullen 17 H (11.0-15.0) % Plt Count 331 (150-400) K/uL MPV 10.30 (7.40-12.00) fL Neut % (Auto) 70.7 (48.0-80.0) % Lymph % (Auto) 16.0 (16.0-40.0) % [place] % (Auto) 11.1 (0.0-15.0) % Eos % (Auto) 1.7 (0.0-7.0) % Baso % (Auto) 0.5 (0.0-1.5) % Neut # (Auto) 2.9 (1.4-5.7) K/uL Lymph # (Auto) 0.7 (0.6-2.4) K/uL [place] # (Auto) 0.5 (0.0-0.8) K/uL Eos # (Auto) 0.1 (0.0-0.7) K/uL Baso # (Auto) 0.0 (0.0-0.1) K/uL Nucleated RBC % 0.0 /100WBC Nucleated RBCs # 0 K/uL INR 1.48 Sodium 142 (136-145) mmol/L Potassium 3.2 L (3.5-5.1) mmol/L Chloride 102 (98-107) mmol/L Carbon Dioxide 23.0 (21.0-32.0) mmol/L BUN 11 (7.0-18.0) mg/dL Creatinine 1.1 H (0.6-1.0) mg/dL Est Cr Clr Drug Dosing 56.13 mL/min Estimated GFR (MDRD) 50.5 ml/min Glucose 110 H (74-106) mg/dL Lactic Acid (0.4-2.0) mmol/L Calcium 4.9 L (8.5-10.1) mg/dL Phosphorus (2.6-4.7) mg/dL Magnesium 0.2 L (1.8-2.4) mg/dL Total Bilirubin 0.4 (0.2-1.0) mg/dL AST 25 (15-37) IU/L ALT 17 (14-63) IU/L Alkaline Phosphatase 134 H (46-116) U/L Total Protein 7.5 (6.4-8.2) g/dL Albumin 2.6 L (3.4-5.0) g/dL Globulin 4.9 H (2.6-4.0) g/dL Albumin/Globulin Ratio 0.5 L (0.9-1.6) Lipase 117 (73-393) U/L SARS-CoV-2 RNA (ARISTIDES) (NEGATIVE) 11/15/20 11/15/20 11/16/20 Range/Units 16:46 22:15 01:10 WBC (4.0-11.0) K/uL RBC (4.30-5.90) M/uL Hgb (12.0-16.0) g/dL Hct (36.0-46.0) % MCV (80.0-98.0) fL MCH (27.0-32.0) pg MCHC (31.0-37.0) g/dL RDW Std Deviation (28.0-62.0) fl RDW Coeff of [place] (11.0-15.0) % Plt Count (150-400) K/uL MPV (7.40-12.00) fL Neut % (Auto) (48.0-80.0) % Lymph % (Auto) (16.0-40.0) % [place] % (Auto) (0.0-15.0) % Eos % (Auto) (0.0-7.0) % Baso % (Auto) (0.0-1.5) % Neut # (Auto) (1.4-5.7) K/uL Lymph # (Auto) (0.6-2.4) K/uL [place] # (Auto) (0.0-0.8) K/uL Eos # (Auto) (0.0-0.7) K/uL Baso # (Auto) (0.0-0.1) K/uL Nucleated RBC % /100WBC Nucleated RBCs # K/uL INR Sodium 142 (136-145) mmol/L Potassium 2.9 L (3.5-5.1) mmol/L Chloride 104 (98-107) mmol/L Carbon Dioxide 22.1 (21.0-32.0) mmol/L BUN 10 (7.0-18.0) mg/dL Creatinine 1.1 H (0.6-1.0) mg/dL Est Cr Clr Drug Dosing 56.13 mL/min Estimated GFR (MDRD) 50.5 ml/min Glucose 78 (74-106) mg/dL Lactic Acid 0.9 (0.4-2.0) mmol/L Calcium 5.6 L (8.5-10.1) mg/dL Phosphorus (2.6-4.7) mg/dL Magnesium 1.6 L (1.8-2.4) mg/dL Total Bilirubin (0.2-1.0) mg/dL AST (15-37) IU/L ALT (14-63) IU/L Alkaline Phosphatase (46-116) U/L Total Protein (6.4-8.2) g/dL Albumin (3.4-5.0) g/dL Globulin (2.6-4.0) g/dL Albumin/Globulin Ratio (0.9-1.6) Lipase (73-393) U/L SARS-CoV-2 RNA (ARISTIDES) NEGATIVE (NEGATIVE) 11/16/20 11/16/20 Range/Units 04:49 04:49 WBC 4.59 (4.0-11.0) K/uL RBC 3.58 L (4.30-5.90) M/uL Hgb 9.8 L (12.0-16.0) g/dL Hct 30.9 L (36.0-46.0) % MCV 86.3 (80.0-98.0) fL MCH 27.4 (27.0-32.0) pg MCHC 31.7 (31.0-37.0) g/dL RDW Std Deviation 52.9 (28.0-62.0) fl RDW Coeff of [place]ull[place] 17 H (11.0-15.0) % Plt Count 361 (150-400) K/uL MPV 9.80 (7.40-12.00) fL Neut % (Auto) 67.1 (48.0-80.0) % Lymph % (Auto) 18.5 (16.0-40.0) % [place] % (Auto) 12.0 (0.0-15.0) % Eos % (Auto) 2.0 (0.0-7.0) % Baso % (Auto) 0.4 (0.0-1.5) % Neut # (Auto) 3.1 (1.4-5.7) K/uL Lymph # (Auto) 0.9 (0.6-2.4) K/uL [place] # (Auto) 0.6 (0.0-0.8) K/uL Eos # (Auto) 0.1 (0.0-0.7) K/uL Baso # (Auto) 0.0 (0.0-0.1) K/uL Nucleated RBC % 0.0 /100WBC Nucleated RBCs # 0 K/uL INR Sodium 144 (136-145) mmol/L Potassium 3.9 (3.5-5.1) mmol/L Chloride 107 (98-107) mmol/L Carbon Dioxide 20.8 L (21.0-32.0) mmol/L BUN 10 (7.0-18.0) mg/dL Creatinine 1.1 H (0.6-1.0) mg/dL Est Cr Clr Drug Dosing 56.13 mL/min Estimated GFR (MDRD) 50.5 ml/min Glucose 83 (74-106) mg/dL Lactic Acid (0.4-2.0) mmol/L Calcium 6.6 L (8.5-10.1) mg/dL Phosphorus 3.9 (2.6-4.7) mg/dL Magnesium 2.1 (1.8-2.4) mg/dL Total Bilirubin 0.4 (0.2-1.0) mg/dL AST 18 (15-37) IU/L ALT 16 (14-63) IU/L Alkaline Phosphatase 132 H (46-116) U/L Total Protein 7.0 (6.4-8.2) g/dL Albumin 2.4 L (3.4-5.0) g/dL Globulin 4.6 H (2.6-4.0) g/dL Albumin/Globulin Ratio 0.5 L (0.9-1.6) Lipase (73-393) U/L SARS-CoV-2 RNA (ARISTIDES) (NEGATIVE) Result Diagrams: 11/16/20 04:49 11/16/20 04:49 Cheo Results Last 24 hrs: Microbiology 11/15/20 17:23 C. difficile Antigen & Toxins A,B - Final Stool / Feces Sepsis Event Note - Evaluation Sepsis Screening Result: No Definite Risk - Focused Exam Vital Signs: Vital Signs Temp Pulse Resp BP BP Pulse Ox 11/16/20 07:00 17 145/89 H 92 L 11/16/20 06:00 16 149/86 H 95 11/16/20 05:00 16 153/91 H 95 11/16/20 04:00 97.4 F 18 153/91 H 95 11/16/20 03:00 15 153/89 H 95 11/16/20 02:00 15 148/98 H 94 L 11/16/20 01:00 18 151/88 H 96 11/16/20 00:00 97.4 F 15 144/92 H 98 11/15/20 23:00 17 132/87 95 11/15/20 22:00 17 146/77 H 99 11/15/20 21:56 69 133/74 11/15/20 21:00 98.2 F 14 133/74 98 - Problem List & Annotations (1) Hypocalcemia SNOMED Code(s): 5086663 Code(s): E83.51 - HYPOCALCEMIA Status: Chronic Priority: High Current Visit: Yes (2) Hypomagnesemia SNOMED Code(s): 284681007 Code(s): E83.42 - HYPOMAGNESEMIA Status: Acute Current Visit: Yes (3) Hypokalemia SNOMED Code(s): 42405667 Code(s): E87.6 - HYPOKALEMIA Status: Acute Current Visit: Yes (4) Acute diverticulitis SNOMED Code(s): 455901814 Code(s): K57.92 - DVTRCLI OF INTEST, PART UNSP, W/O PERF OR ABSCESS W/O BLEED Status: Acute Current Visit: Yes (5) Aortic stenosis, moderate SNOMED Code(s): 815396553 Code(s): I35.0 - NONRHEUMATIC AORTIC (VALVE) STENOSIS Status: Chronic Current Visit: Yes (6) Systolic heart failure SNOMED Code(s): 813609198 Code(s): I50.20 - UNSPECIFIED SYSTOLIC (CONGESTIVE) HEART FAILURE Status: Chronic Current Visit: Yes Qualifiers: Heart failure chronicity: chronic Qualified Code(s): I50.22 - Chronic systolic (congestive) heart failure (7) Lytic bone lesions on xray SNOMED Code(s): 206026566 Code(s): M89.9 - DISORDER OF BONE, UNSPECIFIED Status: Chronic Current Visit: Yes (8) Atrial fibrillation SNOMED Code(s): 56640302 Code(s): I48.91 - UNSPECIFIED ATRIAL FIBRILLATION Status: Chronic Current Visit: Yes Qualifiers: Atrial fibrillation type: longstanding persistent Qualified Code(s): I48.11 - Longstanding persistent atrial fibrillation (9) CAD (coronary artery disease) SNOMED Code(s): 49170602 Code(s): I25.10 - ATHSCL HEART DISEASE OF [place] CORONARY ARTERY W/O ANG PCTRS Status: Chronic Current Visit: Yes (10) COPD (chronic obstructive pulmonary disease) SNOMED Code(s): 82405666 Code(s): J44.9 - CHRONIC OBSTRUCTIVE PULMONARY DISEASE, UNSPECIFIED Status: Chronic Current Visit: Yes (11) CKD (chronic kidney disease) SNOMED Code(s): 740902937 Code(s): N18.9 - CHRONIC KIDNEY DISEASE, UNSPECIFIED Status: Chronic Current Visit: Yes (12) Chronic anticoagulation SNOMED Code(s): 830304717 Code(s): Z79.01 - HOUSING DEVELOPMENT SPECIALIST (CURRENT) USE OF ANTICOAGULANTS Status: Chronic Current Visit: Yes (13) Scleroderma SNOMED Code(s): 47382912 Code(s): M34.9 - SYSTEMIC SCLEROSIS, UNSPECIFIED Status: Chronic Current Visit: Yes (14) Hypertension SNOMED Code(s): 98436512 Code(s): I10 - ESSENTIAL (PRIMARY) HYPERTENSION Status: Chronic Current Visit: Yes (15) Dyslipidemia SNOMED Code(s): 573163223 Code(s): E78.5 - HYPERLIPIDEMIA, UNSPECIFIED Status: Chronic Current V isit: Yes (16) TIA (transient ischemic attack) SNOMED Code(s): 721939411 Code(s): G45.9 - TRANSIENT CEREBRAL ISCHEMIC ATTACK, UNSPECIFIED Status: Chronic Current Visit: Yes (17) Acute respiratory failure with hypoxia SNOMED Code(s): 05594110, 165761899 Code(s): J96.01 - ACUTE RESPIRATORY FAILURE WITH HYPOXIA Status: Chronic Current Visit: Yes Annotation/Comment:: Recently intubated on 10/22/2020 status post MRI and right upper lung collapse with episode of aspiration (18) Smoker SNOMED Code(s): 10499846 Code(s): F17.200 - NICOTINE DEPENDENCE, UNSPECIFIED, UNCOMPLICATED Status: Chronic Priority: Medium Current Visit: No - Problem List Review Problem List Initiated/Reviewed/Updated: Yes - Plan Plan:: 60 yo female admitted for hypocalcemia, hypomagnesia, and acute diverticulitis. 1.Diverticulitis: - treating with IV zosyn -We will advance diet as she otherwise is asymptomatic no abdominal pain having mild diarrhea. -C. difficile negative 2. Hypocalcemia -Continue on calcium drip, will recheck labs afternoon -Start Tums 1000 mg twice daily 3. Hypomagnesia: -Appropriately replaced and stable this morning we will recheck this afternoon 4. A.fib/CAD/systolic heart failure/aortic valve stenosis/hypertension -Continue on metoprolol and Xarelto -We will stop IV fluids as patient is drinking appropriately and to the risk of overload -Vital signs stable 5. Lytic bone lesions/gastric wall thickening/renal lesion -Lytic bone lesions noted to T12 on our imaging. Extensive chart review obtained from my not [facility]. Skull thoracic cervical and lumbosacral spine are also noted to have bone lesions -We will obtain retroperitoneal ultrasound due to possible renal lesion. -Gastric wall thickening could be an inflammatory process. Will obtain H. pylori stool sample. Did discuss case with Dr. Ortiz recreational therapy technician surgeon who rec ommends patient have further evaluation such as EGD and colonoscopy as outpatient in a higher level of care due to significant comorbidities. -Upon review of chart patient was sent to Dr. Tavera, oncologist at [facility]. Patient later saw primary care last week and had a re quested referral be sent to oncology at [facility]. I spoke with Alisha MERCHANTsales support coordinator referral nurse she reports that she left a message with Dr. Swift's nurse regarding this patient. For her to be accepted as referral they need tissue sample. I will attempt to reach out to Dr. Swift as I will let him continue with referral process and arranging outpatient biopsy procedures. Further review of chart shows patient had significant aspiration and right lung collapse after MRI of brain and spine at [facility]. She will then admitted to ICU and treated or A. fib RVR which was fairly resistant to all medications as she was on diltiazem, amiodarone digoxin as well as her home metoprolol seen. Patient ultimately did not undergo cardioversion but was then controlled on medications. She will follow-up with Dr. Bernardo, cardiology as outpatient. Patient had extensive work-up regarding oncology. She had serum protein electrophoresis, free light chains and IgM IgA IgG levels also to [facility]. There was not a bone biopsy during her hospitalization but she was unable to be taken off her anticoagulation due to possible pending cardioversion. So this was ultimately deferred for outpatient setting patient was discharged from [place] nearly 1 week stay on 10/29/2020. VTE prophylaxis: Xarelto CODE STATUS: Full code Dispo: We will transition to MedSurg status today as patient has clinically improved. Consider discharge in the next coming days.
[2020-11-16] MEDS: Metoprolol Succinate 100 MG Tab.ER PO SCH ×2 (09:21→21:48)
--- NOTE | 2020-11-16 10:35 | CR ---
For Patients: As a result of the Century Cures Act, medical imaging exams and procedure reports are released immediately into your electronic medical record. You may view this report before your referring provider. If you have questions, please contact your health care provider. indication: Malignancy Comparison: Single-view chest October 22, 2020 Technique: PA and Lateral views chest Findings: There is hyperinflation and chronic interstitial change with basilar atelectasis versus scar. There is no pleural effusion or pneumothorax. There is no dense consolidation. The cardiac silhouette is mildly prominent with a tortuous thoracic aorta. The bony thorax is grossly intact. Impression: Hyperinflation and chronic interstitial change with basilar atelectasis versus scar. Dictated by Migel Smith MD @ 11/16/2020 10:34:[address] Migel Smith @ Nov 16 2020 10:34AM
[2020-11-16] MEDS: Calcium Carbonate 500 MG Tab.Chew PO SCH ×2 (10:42→21:44)
[2020-11-16] MEDS ORDERED: Sodium Chloride 0.9% 2.5 ML Syringe FLUSH PRN (14:00)
[2020-11-16 14:53] LABS: CARBON DIOXIDE,CO2 21.8 mmol/L (21.0-32.0)
--- NOTE | 2020-11-16 15:49 | US ---
For Patients: As a result of the Century Cures Act, medical imaging exams and procedure reports are released immediately into your electronic medical record. You may view this report before your referring provider. If you have questions, please contact your health care provider. INDICATION: Follow-up finding on CT. COMPARISON: CT 11/15/2020. TECHNIQUE: Routine sonographic evaluation of the kidneys. FINDINGS: The kidneys demonstrate normal corticomedullary differentiation. The right kidney measures 10.1 cm long axis. The left kidney measures 11.4 cm long axis. No hydronephrosis. 1.9 cm partially exophytic cyst at the interpolar region of the left kidney. No suspicious or solid renal mass. IMPRESSION: 1. No evidence of hydronephrosis. 2. Partially exophytic benign cyst left kidney. Dictated by Chris Santos MD @ 11/16/2020 3:48:[address] Chris Santos @ Nov 16 2020 3:48PM
[2020-11-16] MEDS ORDERED: Rivaroxaban 15 MG Tab PO SCH (17:30)
[2020-11-17] MEDS: Piperacillin/Tazobactam 3.375 GM in Sodium Chloride 0.9% 50 ML IV SCH ×2 (04:31→11:34)
[2020-11-17 05:58] LABS: CARBON DIOXIDE,CO2 21.3 mmol/L (21.0-32.0); POTASSIUM,K 3.8 mmol/L (3.5-5.1)
[2020-11-17] MEDS ORDERED: Amiodarone 200 MG Tab PO SCH (09:00)
[2020-11-17] MEDS ORDERED: Aspirin 81 MG Tab.EC PO SCH (09:00)
[2020-11-17] MEDS ORDERED: Magnesium Sulfate/Water 4 GM in Premix Bag 1 BAG IV ONE (09:00)
[2020-11-17] MEDS ORDERED: Lisinopril 10 MG Tab PO SCH (09:00)
[2020-11-17] MEDS ORDERED: Digoxin 250 MCG Tab PO SCH (09:00)
[2020-11-17] MEDS ORDERED: Eplerenone [Inspra] 25 MG Tablet PO SCH (09:00)
[2020-11-17] MEDS: Metoprolol Succinate 100 MG Tab.ER PO SCH (09:38)
[2020-11-17] MEDS: Calcium Carbonate 500 MG Tab.Chew PO SCH (09:38)
--- NOTE | 2020-11-17 12:08 | PCM.DCSUM1 ---
Discharge Summary - Hospital Course Brief History: 60 yo female with pmh and atrial fibrillation and multiple admission for severe hypocalcemia, hypomagnesia. Patient presented to the ED with three day history of nausea, vomting, and diarrhea. She was found to have a magnesium of 0.2, and calcium of 4.9. CT scan of abdomen in ED reported diverticulitis. In the ED she was given Zosyn, 4 grams of IV magnesium and 1 gram of calcium gluconate. - Discharge Data Discharge Date: 11/17/20 Discharge Disposition: Home, Self-Care 01 Condition: Stable - Referral to Home Health Primary Care Physician: Bharat Swift MD - Discharge Diagnosis/Problem(s) (1) Hypocalcemia SNOMED Code(s): 6000463 ICD Code: E83.51 - HYPOCALCEMIA Status: Chronic Priority: High (2) Hypomagnesemia SNOMED Code(s): 427670960 ICD Code: E83.42 - HYPOMAGNESEMIA Status: Acute (3) Hypokalemia SNOMED Code(s): 80210440 ICD Code: E87.6 - HYPOKALEMIA Status: Acute (4) Acute diverticulitis SNOMED Code(s): 335629127 ICD Code: K57.92 - DVTRCLI OF INTEST, PART UNSP, W/O PERF OR ABSCESS W/O BLEED Status: Acute (5) Aortic stenosis, moderate SNOMED Code(s): 729081357 ICD Code: I35.0 - NONRHEUMATIC AORTIC (VALVE) STENOSIS Status: Chronic (6) Systolic heart failure SNOMED Code(s): 193407914 ICD Code: I50.20 - UNSPECIFIED SYSTOLIC (CONGESTIVE) HEART FAILURE Status: Chronic Qualifiers: Heart failure chronicity: chronic Qualified Code(s): I50.22 - Chronic systolic (congestive) heart failure (7) Lytic bone lesions on xray SNOMED Code(s): 156815180 ICD Code: M89.9 - DISORDER OF BONE, UNSPECIFIED Status: Chronic (8) Atrial fibrillation SNOMED Code(s): 21053646 ICD Code: I48.91 - UNSPECIFIED ATRIAL FIBRILLATION Status: Chronic Qualifiers: Atrial fibrillation type: longstanding persistent Qualified Code(s): I48.11 - Longstanding persistent atrial fibrillation (9) CAD (coronary artery disease) SNOMED Code(s): 57254223 ICD Code: I25.10 - ATHSCL HEART DISEASE OF THREE AFFILIATED CORONARY ARTERY W/O ANG PCTRS Status: Chronic (10) COPD (chronic obstructive pulmonary disease) SNOMED Code(s): 33487538 ICD Code: J44.9 - CHRONIC OBSTRUCTIVE PULMONARY DISEASE, UNSPECIFIED Status: Chronic (11) CKD (chronic kidney disease) SNOMED Code(s): 533851548 ICD Code: N18.9 - CHRONIC KIDNEY DISEASE, UNSPECIFIED Status: Chronic (12) Chronic anticoagulation SNOMED Code(s): 012948570 ICD Code: Z79.01 - TERMINAL OPERATIONS MANAGER (CURRENT) USE OF ANTICOAGULANTS Status: Chronic (13) Scleroderma SNOMED Code(s): 86203582 ICD Code: M34.9 - SYSTEMIC SCLEROSIS, UNSPECIFIED Status: Chronic (14) Hypertension SNOMED Code(s): 05563106 ICD Code: I10 - ESSENTIAL (PRIMARY) HYPERTENSION Status: Chronic (15) Dyslipidemia SNOMED Code(s): 402421412 ICD Code: E78.5 - HYPERLIPIDEMIA, UNSPECIFIED Status: Chronic (16) TIA (transient ischemic attack) SNOMED Code(s): 461831804 ICD Code: G45.9 - TRANSIENT CEREBRAL ISCHEMIC ATTACK, UNSPECIFIED Status: Chronic (17) Acute respiratory failure with hypoxia SNOMED Code(s): 29565030, 934892081 ICD Code: J96.01 - ACUTE RESPIRATORY FAILURE WITH HYPOXIA Status: Chronic Problem Details: Recently intubated on 10/22/2020 status post MRI and right upper lung collapse with episode of aspiration (18) Smoker SNOMED Code(s): 77957113 ICD Code: F17.200 - NICOTINE DEPENDENCE, UNSPECIFIED, UNCOMPLICATED Status: Chronic Priority: Medium - Patient Summary/Data Hospital Course: Admitting diagnoses Hypocalcemia Hypomagnesemia Hypokalemia Acute diverticulitis Discharge diagnoses Hypocalcemia resolved Hypomagnesemia resolved Hypokalemia resolved Acute diverticulitis Other PMH Aortic stenosis, moderate Systolic heart failure Lytic bone lesions Atrial fibrillation CAD COPD CKD Chronic anticoagulation Scleroderma Hypertension Dyslipidemia Alyson was admitted secondary to hypocalcemia and hypomagnesemia which were quite significant. Patient was treated with calcium gluconate drip along with IV supplementation of magnesium and potassium. Patient reports she had previously seen nephrology as well as going to [place] for evaluation of electrolyte abnormalities they felt this was secondary to PPI use which was stopped but she continues to have issues with electrolyte abnormalities. Patient calcium improved after calcium gluconate drip had finished calcium today 8.5. Patient was started on Tums 1000 mg twice daily. Today magnesium did dip to 1.3 she was supplemented with 4 g IV today. Patient reports she takes Magnesium oxide at home but reports that she misses doses as she has GI intolerance and has a lot of loose diarrhea from this. We will change her to magnesium chloride 2 tabs daily to see if this helps with GI upset she will have lab work with Dr. Swift in 1 week to evaluate magnesium and potassium along with calcium. On admission she was also found to have acute diverticulitis on CT. She was started on Zosyn. Patient was asymptomatic had mild diarrhea which has improved since admission. She had no pain and has been tolerating p.o. diet well. Today she is very eager for discharge home. I did discuss at length patient with her PCP Dr. Swift he is following up on biopsies as well as oncology referrals for her suspected malignancy that is noted on lytic lesions in multiple areas along with gastric inflammation. H. pylori and C. difficile were obtained which were both negative. We did recommend EGD and spoke with general surgeon within our facility but due to her significant comorbidities it was felt she would be best suited to see general surgery at a higher level of care due to his comorbidities. Dr. Swift made aware of this as well as patient they will arrange referral to oncology at this time and consider general surgery in future. She understands that she will need to travel for this and is okay with this when needed. She will be discharged home with Cipro and Flagyl for 10 more days. She is to monitor diarrhea closely if things were to continue or she is unable to take in oral intake she is to return to the ER for further evaluation or PCPs office. She will continue Tums 1000 mg twice daily along with mag 64 2 tabs daily. She is to return to the ER clinic if concerns should arise. - Patient Instructions Diet: Heart Healthy Diet Activity: As Tolerated, No Strenuous Activities Driving: Do Not Drive Showering/Bathing: May Shower Notify Provider of: Fever, Increased Pain, Swelling and Redness, Drainage, Nausea and/or Vomiting - Discharge Plan *PRESCRIPTION DRUG MONITORING PROGRAM REVIEWED*: Not Applicable *COPY OF PRESCRIPTION DRUG MONITORING REPORT IN PATIENT RAMA: Not Applicable Prescriptions/Med Rec: Ciprofloxacin [Ciprofloxacin HCl] 500 mg PO BID #20 tab metroNIDAZOLE [Flagyl] 500 mg PO TID #30 tablet Magnesium Chloride [Mag-64] 2 tab PO DAILY #100 tab.er L.acidoph,Paracasei, B.lactis [Probiotic] 1 each PO DAILY #90 capsule Calcium Carbonate [Tums] 1,000 mg PO BID #60 tab.chew Home Medications: Home Meds Rosuvastatin [Crestor] 20 mg PO BEDTIME 09/20/16 [History] Aspirin [Halfprin] 81 mg PO DAILY 09/25/16 [History] Eplerenone [Inspra] 25 mg PO BID 03/02/19 [History] Rivaroxaban [Xarelto] 15 mg PO DAILY 03/02/19 [History] Sildenafil Citrate 20 mg PO TID 11/15/20 [History] Amiodarone [Cordarone] 200 mg PO DAILY 11/16/20 [History] Digoxin 250 mcg PO DAILY 11/16/20 [History] Furosemide 40 mg PO DAILY 11/16/20 [History] Metoprolol Succinate 100 mg PO BID 11/16/20 [History] allopurinoL [Zyloprim] 50 mg PO DAILY 11/16/20 [History] lisinopriL [Prinivil] 40 mg PO DAILY 11/16/20 [History] Calcium Carbonate [Tums] 1,000 mg PO BID #60 tab.chew 11/17/20 [Rx] Ciprofloxacin [Ciprofloxacin HCl] 500 mg PO BID #20 tab 11/17/20 [Rx] L.acidoph,Paracasei, B.lactis [Probiotic] 1 each PO DAILY #90 capsule 11/17/20 [Rx] Magnesium Chloride [Mag-64] 2 tab PO DAILY #100 tab.er 11/17/20 [Rx] metroNIDAZOLE [Flagyl] 500 mg PO TID #30 tablet 11/17/20 [Rx] Oxygen Therapy Mode: Room Air Patient Handouts: Diverticulitis, [id number], Hypomagnesemia, Hypocalcemia, Adult, Sodium Sulfate; Magnesium Sulfate; Potassium Chloride Oral Tablets, Calcium Carbonate chewable tablets, Ciprofloxacin tablets, Metronidazole tablets or capsules, Probiotics Referrals: Bharat Swift MD [Primary Care Provider] - 11/26/20 11:00 am - Discharge Summary/Plan Comment DC Time >30 min.: No - Patient Data Vitals - Most Recent: Last Vital Signs Temp 97.3 F 11/17/20 07:33 Pulse 71 11/17/20 09:38 Resp 20 11/17/20 04:00 BP 147/95 H 11/17/20 09:40 Pulse Ox 96 11/17/20 07:33 Weight - Most Recent: 74.843 kg I&O - Last 24 hours: Intake & Output 11/16/20 11/17/20 11/17/20 22:59 06:59 14:59 Intake Total 1306 250 Output Total 1200 Balance 106 250 Lab Results - Last 24 hrs: Laboratory Results - last 24 hr 11/16/20 11/17/20 11/17/20 Range/Units 14:05 04:57 04:57 WBC 3.16 L (4.0-11.0) K/uL RBC 3.38 L (4.30-5.90) M/uL Hgb 9.2 L (12.0-16.0) g/dL Hct 29.3 L (36.0-46.0) % MCV 86.7 (80.0-98.0) fL MCH 27.2 (27.0-32.0) pg MCHC 31.4 (31.0-37.0) g/dL RDW Std Deviation 53.8 (28.0-62.0) fl RDW Coeff of Cullen 17 H (11.0-15.0) % Plt Count 331 (150-400) K/uL MPV 10.00 (7.40-12.00) fL Neut % (Auto) 58.2 (48.0-80.0) % Lymph % (Auto) 23.1 (16.0-40.0) % Mchenry % (Auto) 14.6 (0.0-15.0) % Eos % (Auto) 3.8 (0.0-7.0) % Baso % (Auto) 0.3 (0.0-1.5) % Neut # (Auto) 1.8 (1.4-5.7) K/uL Lymph # (Auto) 0.7 (0.6-2.4) K/uL Mchenry # (Auto) 0.5 (0.0-0.8) K/uL Eos # (Auto) 0.1 (0.0-0.7) K/uL Baso # (Auto) 0.0 (0.0-0.1) K/uL Nucleated RBC % 0.7 /100WBC Nucleated RBCs # 0 K/uL Sodium 142 143 (136-145) mmol/L Potassium 4.0 3.8 (3.5-5.1) mmol/L Chloride 106 108 H (98-107) mmol/L Carbon Dioxide 21.8 21.3 (21.0-32.0) mmol/L BUN 9 9 (7.0-18.0) mg/dL Creatinine 1.1 H 1.1 H (0.6-1.0) mg/dL Est Cr Clr Drug Dosing 56.13 56.13 mL/min Estimated GFR (MDRD) 50.5 50.5 ml/min Glucose 114 H 92 (74-106) mg/dL Calcium 8.4 L 8.5 (8.5-10.1) mg/dL Phosphorus 3.7 (2.6-4.7) mg/dL Magnesium 1.8 1.3 L (1.8-2.4) mg/dL Total Bilirubin 0.5 0.4 (0.2-1.0) mg/dL AST 21 16 (15-37) IU/L ALT 14 15 (14-63) IU/L Alkaline Phosphatase 139 H 127 H (46-116) U/L Total Protein 7.2 6.7 (6.4-8.2) g/dL Albumin 2.5 L 2.4 L (3.4-5.0) g/dL Globulin 4.7 H 4.3 H (2.6-4.0) g/dL Albumin/Globulin Ratio 0.5 L 0.6 L (0.9-1.6) AMI Results - Last 24 hrs: Microbiology 11/15/20 17:23 Helicobacter pylori Antigen - Final Stool / Feces Med Orders - Current: Current Medications Amiodarone HCl (Amiodarone 200 Mg Tab) 200 mg PO DAILY [facility] Last Admin: 11/17/20 09:41 Dose: 200 mg Documented by: Aspirin (Aspirin 81 Mg Tab.Ec) 81 mg PO DAILY [facility] Last Admin: 11/17/20 09:42 Dose: 81 mg Documented by: Calcium Carbonate/Glycine (Calcium Carbonate 500 Mg Tab.Chew) 1,000 mg PO BID [facility] Last Admin: 11/17/20 09:38 Dose: 1,000 mg Documented by: Digoxin (Digoxin 250 Mcg Tab) 250 mcg PO DAILY [facility] Last Admin: 11/17/20 09:38 Dose: 250 mcg Documented by: Piperacillin Sod/Tazobactam (Sod 3.375 gm/ Sodium Chloride) 50 mls @ 100 mls/hr IV Q6H [facility] Last Admin: 11/17/20 11:34 Dose: 100 mls/hr Documented by: Lisinopril (Lisinopril 10 Mg Tab) 40 mg PO DAILY [facility] Last Admin: 11/17/20 09:40 Dose: 40 mg Documented by: Metoprolol Succinate (Metoprolol Succinate 100 Mg Tab.Er) 100 mg PO BID [facility] Last Admin: 11/17/20 09:38 Dose: 100 mg Documented by: Ondansetron HCl (Ondansetron 4 Mg/2 Ml Sdv) 4 mg IVPUSH Q4H PRN PRN Reason: nasuea Eplerenone [Inspra] (25 Mg Tablet) 1 each PO BID [facility] Last Admin: 11/17/20 09:43 Dose: Not Given Documented by: Sildenafil Citrate (20 Mg Tab) 1 each PO TID [facility] Last Admin: 11/17/20 09:43 Dose: Not Given Documented by: Rivaroxaban (Rivaroxaban 15 Mg Tab) 15 mg PO WITHDINNER [facility] Last Admin: 11/16/20 16:56 Dose: 15 mg Documented by: Sodium Chloride (Sodium Chloride 0.9% 2.5 Ml Syringe) 2.5 ml FLUSH ASDIRECTED PRN PRN Reason: Keep Vein Open Discontinued Medications Calcium Gluconate (Calcium Gluconate 10% 1 Gm/10 Ml Sdv) 1 gm IVPUSH ONETIME ONE Stop: 11/15/20 16:18 Last Admin: 11/15/20 17:28 Dose: 1 gm Documented by: Sodium Chloride (Normal Saline) 1,000 mls @ 999 mls/hr IV .Bolus ONE Stop: 11/15/20 15:42 Last Admin: 11/15/20 15:40 Dose: 999 mls/hr Documented by: Magnesium Sulfate 4 gm/ Premix 100 mls @ 50 mls/hr IV ONETIME ONE Stop: 11/15/20 18:16 Last Admin: 11/15/20 17:29 Dose: 50 mls/hr Documented by: Piperacillin Sod/Tazobactam (Sod 3.375 gm/ Sodium Chloride) 50 mls @ 100 mls/hr IV ONETIME ONE Stop: 11/15/20 17:18 Last Admin: 11/15/20 17:32 Dose: 100 mls/hr Documented by: Calcium Gluconate 11 gm/ (Sodium Chloride) 1,110 mls @ 50 mls/hr IV ONETIME ONE Stop: 11/16/20 16:25 Last Admin: 11/15/20 20:51 Dose: Not Given Documented by: Calcium Gluconate 11 gm/ (Sodium Chloride) 1,110 mls @ 50 mls/hr IV ONETIME ONE Stop: 11/16/20 18:11 Last Admin: 11/15/20 20:16 Dose: 50 mls/hr Documented by: Sodium Chloride (Normal Saline) 1,000 mls @ 125 [facility]: 11/16/20 12:03 Dose: 125 mls/hr Documented by: Potassium Chloride 40 meq/ (Premix) 100 mls @ 25 mls/hr IV ONETIME ONE Stop: 11/16/20 04:56 Last Admin: 11/16/20 03:49 Dose: 25 mls/hr Documented by: Magnesium Sulfate 2 gm/ Premix 50 mls @ 25 mls/hr IV ONETIME ONE Stop: 11/16/20 02:56 Last Admin: 11/16/20 01:45 Dose: 25 mls/hr Documented by: Magnesium Sulfate 4 gm/ Premix 100 mls @ 50 mls/hr IV ONETIME ONE Stop: 11/17/20 10:59 Last Admin: 11/17/20 09:32 Dose: 50 mls/hr Documented by: Metoprolol Tartrate (Metoprolol Tartrate 50 Mg Tab) 100 mg PO BID [facility] Last Admin: 11/15/20 21:56 Dose: 100 mg Documented by: Ondansetron HCl (Ondansetron 4 Mg/2 Ml Sdv) 4 mg IVPUSH ONETIME ONE Stop: 11/15/20 14:43 Last Admin: 11/15/20 15:41 Dose: 4 mg Documented by: Potassium Chloride (Potassium Chloride 20 Meq Tab.Er) 40 meq PO ONETIME ONE Stop: 11/15/20 18:06 Last Admin: 11/15/20 18:45 Dose: 40 meq Documented by: Potassium Chloride (Potassium Chloride 20 Meq Tab.Er) 40 meq PO ONETIME ONE Stop: 11/16/20 05:11 Last Admin: 11/16/20 05:23 Dose: 40 meq Documented by: Sodium Chloride (Sodium Chloride 0.9% 10 Ml Syringe) 10 ml FLUSH ASDIRECTED PRN PRN Reason: Keep Vein Open Last Admin: 11/15/20 15:41 Dose: 10 ml Documented by: Sodium Chloride (Sodium Chloride 0.9% 2.5 Ml Syringe) 2.5 ml FLUSH ASDIRECTED PRN PRN Reason: Keep Vein Open Last Admin: 11/15/20 15:41 Dose: 2.5 ml Documented by:
[2020-11-17 13:01] VITALS: BP 139/78; PULSE 58
== END 2020-11-17 14:49 | disposition home or self-care (01) | DRG 244 ==
LOC: MW.ED 14:32 → MW.ICU 16:50 → MW.MS 11-16 17:56
PROVIDERS: ADMIT Internal Medicine; ATTEND Internal Medicine
DX: K57.32 Diverticulitis of large intestine without perforation or abscess without bleeding (principal); E83.51 Hypocalcemia; E83.42 Hypomagnesemia; E87.6 Hypokalemia; I48.91 Unspecified atrial fibrillation; I13.0 Hypertensive heart and chronic kidney disease with heart failure and stage 1 through stage 4 chronic kidney disease, or unspecified chronic kidney disease; I35.0 Nonrheumatic aortic (valve) stenosis; I50.22 Chronic systolic (congestive) heart failure; M89.9 Disorder of bone, unspecified; I48.11 Longstanding persistent atrial fibrillation; I25.10 Atherosclerotic heart disease of native coronary artery without angina pectoris; J44.9 Chronic obstructive pulmonary disease, unspecified; N18.9 Chronic kidney disease, unspecified; Z79.01 Long term (current) use of anticoagulants; M34.9 Systemic sclerosis, unspecified; E78.5 Hyperlipidemia, unspecified; G45.9 Transient cerebral ischemic attack, unspecified; F17.210 Nicotine dependence, cigarettes, uncomplicated; Z79.82 Long term (current) use of aspirin; Z79.899 Other long term (current) drug therapy; Z88.8 Allergy status to other drugs, medicaments and biological substances; Z20.822 Contact with and (suspected) exposure to COVID-19; J96.11 Chronic respiratory failure with hypoxia
CPT/HCPCS: 36415; 71046; 71046-26; 74176; 74176-26; 76770; 76770-26; 80048; 80053; 81001; 83605; 83690; 83735; 84100; 85025; 85610; 87324; 87338; 93005; 96374; 99285-25; A9270-GY; J0610; J2405; J2543; J3475; J3480; J7030; U0002

== ENCOUNTER 2020-12-13 17:34 | Inpatient (IN) | payer BC ==
[2020-12-13] MEDS ORDERED: Sodium Chloride 0.9% 10 ML Syringe FLUSH PRN (18:00)
[2020-12-13] MEDS ORDERED: Sodium Chloride 0.9% 2.5 ML Syringe FLUSH PRN (18:00)
--- NOTE | 2020-12-13 18:11 | EDM.PDOC ---
ED HPI GENERAL MEDICAL PROBLEM - General Chief Complaint: Abdominal Pain Stated Complaint: VOMITTING Time Seen by Provider: 12/13/20 17:40 - History of Present Illness INITIAL COMMENTS - FREE TEXT/NARRATIVE: Patient is a 60-year-old female who is presenting with nausea vomiting and diarrhea as well as weakness and inability to make a fist with her hand similar to prior presentations for severe hypocalcemia hypomagnesemia and hypokalemia. Patient states that an underlying diagnosis for these electrolyte problems has never been given. She has been on supplementation in the past. Continues to be. She has no abdominal pain except during the active emesis she also has significant nonbloody diarrhea. No fevers no chest pain or shortness of breath. Her generalized weakness is positive. She was significantly nauseated but this improved with Zofran by EMS. - Related Data Allergies Allergy/AdvReac Type Severity Reaction Status Date / Time apixaban [From Eliquis] Allergy Swelling Verified 11/15/20 14:33 atorvastatin [From Lipitor] Allergy Swelling Verified 11/15/20 14:33 Tetanus Vaccines and Toxoid Allergy Hives Verified 11/15/20 14:33 Home Meds: Home Meds Rosuvastatin [Crestor] 20 mg PO BEDTIME 09/20/16 [History] Aspirin [Halfprin] 81 mg PO DAILY 09/25/16 [History] Eplerenone [Inspra] 25 mg PO BID 03/02/19 [History] Rivaroxaban [Xarelto] 15 mg PO DAILY 03/02/19 [History] Sildenafil Citrate 20 mg PO TID 11/15/20 [History] Amiodarone [Cordarone] 200 mg PO DAILY 11/16/20 [History] Digoxin 250 mcg PO DAILY 11/16/20 [History] Furosemide 40 mg PO DAILY 11/16/20 [History] Metoprolol Succinate 100 mg PO BID 11/16/20 [History] allopurinoL [Zyloprim] 50 mg PO DAILY 11/16/20 [History] lisinopriL [Prinivil] 40 mg PO DAILY 11/16/20 [History] Calcium Carbonate [Tums] 1,000 mg PO BID #60 tab.chew 11/17/20 [Rx] Ciprofloxacin [Ciprofloxacin HCl] 500 mg PO BID #20 tab 11/17/20 [Rx] L.acidoph,Paracasei, B.lactis [Probiotic] 1 each PO DAILY #90 capsule 11/17/20 [Rx] Magnesium Chloride [Mag-64] 2 tab PO DAILY #100 tab.er 11/17/20 [Rx] metroNIDAZOLE [Flagyl] 500 mg PO TID #30 tablet 11/17/20 [Rx] Past Medical History - Past Health History Medical/Surgical History: Denies Medical/Surgical History HEENT History: Reports: Impaired Vision Cardiovascular History: Reports: Afib, High Cholesterol, Hypertension, Stents, Other (See Below) Other Cardiovascular History: TIA 5 years ago; stent placed in September 2016 Respiratory History: Reports: Other (See Below) Other Respiratory History: lung polyps Gastrointestinal History: Reports: Other (See Below) Other Gastrointestinal History: Heartburn Genitourinary History: Reports: None 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 Musculoskeletal History: Reports: Fracture, Osteoarthritis, Other (See Below) Other Musculoskeletal History: screws to the right wrist Neurological History: Reports: Seizure, TIA Other Neuro History: last seizure 1 year ago Psychiatric History: Reports: None Endocrine/Metabolic History: Reports: Hypothyroidism Other Endocrine/Metabolic History: "borderline diabetes" Hematologic History: Reports: None Oncologic (Cancer) History: Reports: None Dermatologic History: Reports: None - Infectious Disease History Infectious Disease History: Reports: Chicken Pox - Past Surgical History Head Surgeries/Procedures: Reports: None HEENT Surgical History: Reports: None Cardiovascular Surgical History: Reports: None Respiratory Surgical History: Reports: None GI Surgical History: Reports: Colonoscopy, EGD Female Surgical History: Reports: None Endocrine Surgical History: Reports: None Neurological Surgical History: Reports: None Musculoskeletal Surgical History: Reports: None Social & Family History - Family History Family Medical History: Unobtainable HEENT: Reports: Impaired Vision, Other (See Below) Other HEENT Family History: ear surgery Cardiac: Reports: Bypass, Hypertension OBGYN: Reports: , Other (See Below) Other OBGYN Family History: hysterectomy Endocrine/Metabolic: Reports: Other (See Below) Other Endocrine/Metabolic Family History: DM type unknown Oncologic: Reports: Breast - Caffeine Use Caffeine Use: Reports: None Caffeine Use Comment: 4 cups/day ED ROS GENERAL - Review of Systems Review Of Systems: See Below Free Text/Narrative/Comment: General: No fever. Skin: No rash. Eyes: No vision problems. ENT: No sore throat. Neck: No neck stiffness. Respiratory: No shortness of breath. Cardiac: No chest pain. Gastrointestinal: Per HPI Urinary: No dysuria. Musculoskeletal: No myalgias/arthralgias. Neurologic: No headache. ED EXAM, GENERAL - Physical Exam Exam: See Below Free Text/Narrative:: General Appearance: No acute distress, appears comfortable Skin: No rash HEENT: Normocephalic/atraumatic, sclera anicteric, mucous membranes dry Neck: Normal range of motion Chest and Lungs: Bilateral breath sounds, clear to auscultation Cardiovascular: Regular rate and rhythm, no murmur Abdomen: Soft, non-tender Back: Normal Musculoskeletal: No edema or tenderness Neurologic: Awake, alert, no obvious deficits, moving all extremities Psychiatric: Appropriate, cooperative #1 Interpretation EKG Date: 12/13/20 Time: 18:00 EKG Interpretation Comments: A. fib with a ventricular rate of 104 some signs of LVH unremarkable intervals. Course - Vital Signs Last Recorded V/S: Last Vital Signs Temp 97.0 F 12/13/20 17:39 Pulse 77 12/13/20 18:34 Resp 18 12/13/20 18:34 BP 100/70 12/13/20 18:34 Pulse Ox 98 12/13/20 18:34 - Orders/Labs/Meds Orders: Active Orders 24 hr Category Date Time Status Patient Status [ADT] Routine ADT 12/13/20 18:48 Active EKG Documentation Completion [RC] STAT Care 12/13/20 18:13 Active CORONAVIRUS COVID-19 ARISTIDES [MOLEC] Stat Lab 12/13/20 18:52 Received Magnesium Sulfate/Water [Magnesium Sulfate in Water 4 Med 12/13/20 18:45 Active GM/100 ML] 4 gm in 100 ml IV ONETIME Sodium Chloride 0.9% [Saline Flush] Med 12/13/20 18:00 Active 10 ml FLUSH ASDIRECTED PRN Sodium Chloride 0.9% [Saline Flush] Med 12/13/20 18:00 Active 2.5 ml FLUSH ASDIRECTED PRN Saline Lock Insert [OM.PC] Stat Oth 12/13/20 18:00 Ordered Medication Orders Magnesium Sulfate (Magnesium Sulfate In Water 4 Gm/100 Ml) 4 gm in 100 mls @ 25 mls/hr IV ONETIME ONE Stop: 12/13/20 22:44 Last Admin: 12/13/20 18:54 Dose: 25 mls/hr Documented by: KATARZYNA Sodium Chloride (Sodium Chloride 0.9% 10 Ml Syringe) 10 ml FLUSH ASDIRECTED PRN PRN Reason: Keep Vein Open Last Admin: 12/13/20 18:54 Dose: 10 ml Documented by: KATARZYNA Sodium Chloride (Sodium Chloride 0.9% 2.5 Ml Syringe) 2.5 ml FLUSH ASDIRECTED PRN PRN Reason: Keep Vein Open Last Admin: 12/13/20 18:54 Dose: 2.5 ml Documented by: KATARZYNA Labs: Laboratory Tests 12/13/20 12/13/20 Range/Units 18:10 18:10 WBC 6.05 (4.0-11.0) K/uL RBC 4.17 L (4.30-5.90) M/uL Hgb 11.6 L (12.0-16.0) g/dL Hct 35.4 L (36.0-46.0) % MCV 84.9 (80.0-98.0) fL MCH 27.8 (27.0-32.0) pg MCHC 32.8 (31.0-37.0) g/dL RDW Std Deviation 53.3 (28.0-62.0) fl RDW Coeff of Cullen 17 H (11.0-15.0) % Plt Count 314 (150-400) K/uL MPV 11.30 (7.40-12.00) fL Neut % (Auto) 77.0 (48.0-80.0) % Lymph % (Auto) 13.6 L (16.0-40.0) % Morton % (Auto) 7.9 (0.0-15.0) % Eos % (Auto) 0.8 (0.0-7.0) % Baso % (Auto) 0.7 (0.0-1.5) % Neut # (Auto) 4.7 (1.4-5.7) K/uL Lymph # (Auto) 0.8 (0.6-2.4) K/uL Morton # (Auto) 0.5 (0.0-0.8) K/uL Eos # (Auto) 0.1 (0.0-0.7) K/uL Baso # (Auto) 0.0 (0.0-0.1) K/uL Nucleated RBC % 0.0 /100WBC Nucleated RBCs # 0 K/uL Sodium 143 (136-145) mmol/L Potassium 3.8 (3.5-5.1) mmol/L Chloride 103 (98-107) mmol/L Carbon Dioxide 21.3 (21.0-32.0) mmol/L BUN 18 (7.0-18.0) mg/dL Creatinine 1.5 H (0.6-1.0) mg/dL Est Cr Clr Drug Dosing 41.16 mL/min Estimated GFR (MDRD) 35.3 ml/min Glucose 95 (74-106) mg/dL Calcium 5.7 L (8.5-10.1) mg/dL Magnesium 0.3 L (1.8-2.4) mg/dL Total Bilirubin 0.3 (0.2-1.0) mg/dL AST 13 L (15-37) IU/L ALT 12 L (14-63) IU/L Alkaline Phosphatase 105 (46-116) U/L Total Protein 7.7 (6.4-8.2) g/dL Albumin 2.9 L (3.4-5.0) g/dL Globulin 4.8 H (2.6-4.0) g/dL Albumin/Globulin Ratio 0.6 L (0.9-1.6) Lipase 185 (73-393) U/L Meds: Medications Generic Name Dose Route Start Last Admin Trade Name Freq PRN Reason Stop Dose Admin Magnesium Sulfate 4 gm in 100 mls @ 25 mls/hr 12/13/20 18:45 12/13/20 18:54 Magnesium Sulfate In Water 4 Gm/100 Ml IV 12/13/20 22:44 25 mls/hr ONETIME ONE Administration Sodium Chloride 10 ml 12/13/20 18:00 12/13/20 18:54 Sodium Chloride 0.9% 10 Ml Syringe FLUSH 10 ml ASDIRECTED PRN Administration Keep Vein Open Sodium Chloride 2.5 ml 12/13/20 18:00 12/13/20 18:54 Sodium Chloride 0.9% 2.5 Ml Syringe FLUSH 2.5 ml ASDIRECTED PRN Administration Keep Vein Open Discontinued Medications Generic Name Dose Route Start Last Admin Trade Name Freq PRN Reason Stop Dose Admin Calcium Gluconate 1 gm 12/13/20 18:38 12/13/20 18:54 Calcium Gluconate 10% 1 Gm/10 Ml Sdv IVPUSH 12/13/20 18:39 1 gm ONETIME ONE Administration Magnesium Sulfate 4 gm 12/13/20 18:38 Magnesium Sulfate (4.06 Meq/Ml) 5 Gm/10 Ml Sdv IV 12/13/20 18:39 NOW STA Departure - Departure Time of Disposition: 19:15 Disposition: Admitted As Inpatient 65 Condition: Fair Clinical Impression: Hypocalcemia, Dehydration, Hypomagnesemia Atrial fibrillation Qualifiers: Atrial fibrillation type: longstanding persistent Qualified Code(s): I48.11 - Longstanding persistent atrial fibrillation - Discharge Information Referrals: Bharat Swift MD [Primary Care Provider] - Forms: ED Department Discharge Sepsis Event Note (ED) - Evaluation Sepsis Screening Result: No Definite Risk - Focused Exam Vital Signs: Vital Signs Temp Pulse Resp BP Pulse Ox 12/13/20 18:34 77 18 100/70 98 12/13/20 17:39 97.0 F 69 18 123/86 99 - My Orders Last 24 Hours: My Active Orders 12/13/20 18:00 Sodium Chloride 0.9% [Saline Flush] 10 ml FLUSH ASDIRECTED PRN Sodium Chloride 0.9% [Saline Flush] 2.5 ml FLUSH ASDIRECTED PRN Saline Lock Insert [OM.PC] Stat 12/13/20 18:13 EKG Documentation Completion [RC] STAT 12/13/20 18:45 Magnesium Sulfate/Water [Magnesium Sulfate in Water 4 GM/100 ML] 4 gm in 100 ml IV ONETIME 12/13/20 18:48 Patient Status [ADT] Routine 12/13/20 18:52 CORONAVIRUS COVID-19 ARISTIDES [MOLEC] Stat - Assessment/Plan Last 24 Hours: My Active Orders 12/13/20 18:00 Sodium Chloride 0.9% [Saline Flush] 10 ml FLUSH ASDIRECTED PRN Sodium Chloride 0.9% [Saline Flush] 2.5 ml FLUSH ASDIRECTED PRN Saline Lock Insert [OM.PC] Stat 12/13/20 18:13 EKG Documentation Completion [RC] STAT 12/13/20 18:45 Magnesium Sulfate/Water [Magnesium Sulfate in Water 4 GM/100 ML] 4 gm in 100 ml IV ONETIME 12/13/20 18:48 Patient Status [ADT] Routine 12/13/20 18:52 CORONAVIRUS COVID-19 ARISTIDES [MOLEC] Stat Assessment:: 60-year-old female presenting with signs and symptoms that are consistent with significant electrolyte disturbance patient is hemodynamically stable her EKG shows no signs of wide complexes no other severe electrolyte disturbances. Labs are pending and will reassess. 1914: Patient's labs show significant hypocalcemia and hypomagnesemia. Patient will be given rapid 2 g of magnesium followed by a gram of calcium gluconate followed by 2 additional grams of magnesium. Patient remains hemodynamically stable. Patient was discussed in full with Dr. Nguyen and will be admitted to telemetry for further care and evaluation.
[2020-12-13 18:32] LABS: CARBON DIOXIDE,CO2 21.3 mmol/L (21.0-32.0); POTASSIUM,K 3.8 mmol/L (3.5-5.1)
[2020-12-13] MEDS ORDERED: Magnesium Sulfate (4.06 MEQ/ML) 5 GM/10 ML SDV IV STA (18:38)
[2020-12-13] MEDS ORDERED: Magnesium Sulfate/Water 4 GM/100 ML BAG IV ONE (18:45)
[2020-12-13] MEDS: Calcium Gluconate 10% 1 GM/10 ML SDV IVPUSH ONE ×2 (18:54→19:42)
[2020-12-13] MEDS ORDERED: Ondansetron 4 MG/2 ML SDV IVPUSH PRN (20:09)
[2020-12-13] MEDS ORDERED: Albuterol/Ipratropium 3.0-0.5 MG/3 ML Neb Soln NEB PRN (20:09)
[2020-12-13] MEDS ORDERED: Acetaminophen 325 MG Tab PO PRN (20:09)
[2020-12-13] MEDS ORDERED: Calcium Gluconate 10% 1 GM/10 ML SDV IV ONE (20:13)
[2020-12-13] MEDS ORDERED: Heparin Sodium 5,000 Units/ML Vial SUBCUT SCH (20:15)
--- NOTE | 2020-12-13 20:16 | PCM.HP.2 ---
H&P History of Present Illness - General Date of Service: 12/13/20 Admit Problem/Dx: Admission Diagnosis/Problem Admission Diagnosis/Problem Hypomagnesemia - History of Present Illness Initial Comments - Free Text/Narative: 60 yo female with pmh and atrial fibrillation, CAD and multiple admission for severe hypocalcemia, hypomagnesia. Patient presented to the ED with nausea, vomiting and diarrhea which has resolved now, as well as weakness, tingling and inability to make a fist with her hand similar to prior presentations for severe hypocalcemia hypomagnesemia and hypokalemia. Patient states underlying di agnosis for these electrolyte problems is still pending. Per Patient, she has a biopsy scheduled next month for her lytic lesions on her spine, followed by possible endoscopy after that. She takes supplements at home. No fevers no chest pain or shortness of breath. Patient was found to be severely hypomagnesemic and hypokalemic in ER. see labs below: Laboratory Tests 12/13/20 18:10 Creatinine 1.5 H Calcium 5.7 L Magnesium 0.3 L Patients EKG showed A. fib with a ventricular rate of 104 some signs of LVH, unremarkable intervals. Patient received IV calcium as per notes IV magnesium and was admitted for further care. - Related Data Allergies/Adverse Reactions: Allergies Allergy/AdvReac Type Severity Reaction Status Date / Time apixaban [From Eliquis] Allergy Swelling Verified 12/13/20 21:44 atorvastatin [From Lipitor] Allergy Swelling Verified 12/13/20 21:44 Tetanus Vaccines and Toxoid Allergy Hives Verified 12/13/20 21:44 Home Medications: Home Meds Rosuvastatin [Crestor] 20 mg PO BEDTIME 09/20/16 [History] Aspirin [Halfprin] 81 mg PO DAILY 09/25/16 [History] Eplerenone [Inspra] 25 mg PO BID 03/02/19 [History] Rivaroxaban [Xarelto] 15 mg PO DAILY 03/02/19 [History] Magnesium Chloride [Mag-64] 2 tab PO DAILY #100 tab.er 11/17/20 [Rx] Aspirin [Meredith Chewable] 81 mg PO DAILY 12/13/20 [History] Calcium Carbonate [Tums] 1,000 mg PO DAILY 12/13/20 [History] Cholecalciferol (Vitamin D3) [Vitamin D3] 125 mcg PO DAILY 12/13/20 [History] Furosemide [Lasix] 20 mg PO DAILY 12/13/20 [History] Metoprolol Tartrate 100 mg PO BID 12/13/20 [History] lisinopriL [Lisinopril] 20 mg PO BID 12/13/20 [History] Past Medical History - Past Health History Medical/Surgical History: Denies Medical/Surgical History HEENT History: Reports: Impaired Vision Cardiovascular History: Reports: Afib, High Cholesterol, Hypertension, Stents, Other (See Below) Other Cardiovascular History: TIA 5 years ago; stent placed in September 2016 Respiratory History: Reports: Other (See Below) Other Respiratory History: lung polyps Gastrointestinal History: Reports: Other (See Below) Other Gastrointestinal History: Heartburn Genitourinary History: Reports: None 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 Musculoskeletal History: Reports: Fracture, Osteoarthritis, Other (See Below) Other Musculoskeletal History: screws to the right wrist Neurological History: Reports: Seizure, TIA Other Neuro History: last seizure 1 year ago Psychiatric History: Reports: None Endocrine/Metabolic History: Reports: Hypothyroidism Other Endocrine/Metabolic History: "borderline diabetes" Hematologic History: Reports: None Oncologic (Cancer) History: Reports: None Dermatologic History: Reports: None - Infectious Disease History Infectious Disease History: Reports: Chicken Pox - Past Surgical History Head Surgeries/Procedures: Reports: None HEENT Surgical History: Reports: None Cardiovascular Surgical History: Reports: None Respiratory Surgical History: Reports: None GI Surgical History: Reports: Colonoscopy, EGD Female Surgical History: Reports: None Endocrine Surgical History: Reports: None Neurological Surgical History: Reports: None Musculoskeletal Surgical History: Reports: None Social & Family History - Family History Family Medical History: Unobtainable HEENT: Reports: Impaired Vision, Other (See Below) Other HEENT Family History: ear surgery Cardiac: Reports: Bypass, Hypertension OBGYN: Reports: , Other (See Below) Other OBGYN Family History: hysterectomy Endocrine/Metabolic: Reports: Other (See Below) Other Endocrine/Metabolic Family History: DM type unknown Oncologic: Reports: Breast - Caffeine Use Caffeine Use: Reports: None Caffeine Use Comment: 4 cups/day H&P Review of Systems - Review of Systems: Review Of Systems: See Below General: Reports: Malaise, Weakness, Fatigue. Denies: Fever, Chills Pulmonary: Denies: Shortness of Breath, Wheezing Cardiovascular: Denies: Chest Pain, Palpitations, Dyspnea on Exertion Gastrointestinal: Reports: Anorexia, Diarrhea, Decreased Appetite, Nausea, Vomiting. Denies: Abdominal Pain, Black Stool, Bloody Stool, Constipation, Distension, Flatus, Hematemesis, Hematochezia Genitourinary: Denies: Dysuria, Frequency, Burning Musculoskeletal: Reports: Muscle Pain, Muscle Stiffness. Denies: Neck Pain, Back Pain Skin: Denies: Cyanosis, Jaundice, Mottled, Pallor Psychiatric: Denies: Confusion, Depression, Mood Lability, Anxiety Neurological: Denies: Confusion, Dizziness, Headache, Numbness Hematologic/Lymphatic: Denies: Anemia, Easy Bleeding, Easy Bruising Exam - Exam Exam: See Below - Vital Signs Vital Signs: Last Vital Signs Temp 36.1 C 12/13/20 17:39 Pulse 77 12/13/20 18:34 Resp 18 12/13/20 18:34 BP 100/70 12/13/20 18:34 Pulse Ox 98 12/13/20 18:34 Weight: 72.575 kg - Exam General: Alert, Oriented Neck: Supple Lungs: Clear to Auscultation, Normal Respiratory Effort Cardiovascular: Regular Rate, Normal S1, Normal S2, Irregular Rhythm GI/Abdominal Exam: Normal Bowel Sounds, Soft, Non-Tender Back Exam: Normal Inspection, Full Range of Motion Extremities: Normal Inspection, Normal Range of Motion - Patient Data Lab Results Last 24 hrs: Laboratory Results - last 24 hr 12/13/20 12/13/20 12/13/20 Range/Units 18:10 18:10 18:52 WBC 6.05 (4.0-11.0) K/uL RBC 4.17 L (4.30-5.90) M/uL Hgb 11.6 L (12.0-16.0) g/dL Hct 35.4 L (36.0-46.0) % MCV 84.9 (80.0-98.0) fL MCH 27.8 (27.0-32.0) pg MCHC 32.8 (31.0-37.0) g/dL RDW Std Deviation 53.3 (28.0-62.0) fl RDW Coeff of Cullen 17 H (11.0-15.0) % Plt Count 314 (150-400) K/uL MPV 11.30 (7.40-12.00) fL Neut % (Auto) 77.0 (48.0-80.0) % Lymph % (Auto) 13.6 L (16.0-40.0) % [place] % (Auto) 7.9 (0.0-15.0) % Eos % (Auto) 0.8 (0.0-7.0) % Baso % (Auto) 0.7 (0.0-1.5) % Neut # (Auto) 4.7 (1.4-5.7) K/uL Lymph # (Auto) 0.8 (0.6-2.4) K/uL [place] # (Auto) 0.5 (0.0-0.8) K/uL Eos # (Auto) 0.1 (0.0-0.7) K/uL Baso # (Auto) 0.0 (0.0-0.1) K/uL Nucleated RBC % 0.0 /100WBC Nucleated RBCs # 0 K/uL Sodium 143 (136-145) mmol/L Potassium 3.8 (3.5-5.1) mmol/L Chloride 103 (98-107) mmol/L Carbon Dioxide 21.3 (21.0-32.0) mmol/L BUN 18 (7.0-18.0) mg/dL Creatinine 1.5 H (0.6-1.0) mg/dL Est Cr Clr Drug Dosing 41.16 mL/min Estimated GFR (MDRD) 35.3 ml/min Glucose 95 (74-106) mg/dL Calcium 5.7 L (8.5-10.1) mg/dL Magnesium 0.3 L (1.8-2.4) mg/dL Total Bilirubin 0.3 (0.2-1.0) mg/dL AST 13 L (15-37) IU/L ALT 12 L (14-63) IU/L Alkaline Phosphatase 105 (46-116) U/L Total Protein 7.7 (6.4-8.2) g/dL Albumin 2.9 L (3.4-5.0) g/dL Globulin 4.8 H (2.6-4.0) g/dL Albumin/Globulin Ratio 0.6 L (0.9-1.6) Lipase 185 (73-393) U/L SARS-CoV-2 RNA (ARISTIDES) NEGATIVE (NEGATIVE) Result Diagrams: 12/13/20 18:10 12/13/20 18:10 Sepsis Event Note - Evaluation Sepsis Screening Result: No Definite Risk - Focused Exam Vital Signs: Vital Signs Temp Pulse Resp BP Pulse Ox 12/13/20 18:34 77 18 100/70 98 12/13/20 17:39 36.1 C 69 18 123/86 99 - Problem List (1) Dehydration SNOMED Code(s): 39423085 ICD Code: E86.0 - DEHYDRATION Status: Acute Current Visit: Yes (2) Hypomagnesemia SNOMED Code(s): 831724009 ICD Code: E83.42 - HYPOMAGNESEMIA Status: Acute Current Visit: Yes (3) Hypocalcemia SNOMED Code(s): 2119686 ICD Code: E83.51 - HYPOCALCEMIA Status: Chronic Priority: High Current Visit: Yes (4) Lesion of thoracic vertebra SNOMED Code(s): 432783245, 355834557 ICD Code: M89.9 - DISORDER OF BONE, UNSPECIFIED Status: Acute Current Visit: No (5) CAD (coronary artery disease) SNOMED Code(s): 22466186 ICD Code: I25.10 - ATHSCL HEART DISEASE OF [place] CORONARY ARTERY W/O ANG PCT RS Status: Chronic Current Visit: No (6) CKD (chronic kidney disease) SNOMED Code(s): 591977070 ICD Code: N18.9 - CHRONIC KIDNEY DISEASE, UNSPECIFIED Status: Chronic Current Visit: No (7) COPD (chronic obstructive pulmonary disease) SNOMED Code(s): 16682962 ICD Code: J44.9 - CHRONIC OBSTRUCTIVE PULMONARY DISEASE, UNSPECIFIED Status: Chronic Current Visit: No (8) TIA (transient ischemic attack) SNOMED Code(s): 199729540 ICD Code: G45.9 - TRANSIENT CEREBRAL ISCHEMIC ATTACK, UNSPECIFIED Status: Chronic Current Visit: No Problem List Initiated/Reviewed/Updated: Yes Orders Last 24hrs: Active Orders 24 hr Category Date Time Status Patient Status [ADT] Routine ADT 12/13/20 18:48 Active Ambulate [RC] ASDIRECTED Care 12/13/20 20:09 Active Antiembolic Devices [RC] PER UNIT ROUTINE Care 12/13/20 20:10 Active EKG Documentation Completion [RC] STAT Care 12/13/20 18:13 Active Oxygen Therapy [RC] PRN Care 12/13/20 20:09 Active RT Aerosol Therapy [RC] ASDIRECTED Care 12/13/20 20:10 Active VTE/DVT Education [RC] PER UNIT ROUTINE Care 12/13/20 20:09 Active Vital Signs [RC] Q4H Care 12/13/20 20:09 Active Heart Healthy Diet [DIET] Diet 12/14/20 Breakfast Active BASIC METABOLIC PANEL,BMP [CHEM] Routine Lab 12/14/20 00:00 Ordered MAGNESIUM [CHEM] Routine Lab 12/14/20 00:00 Ordered PHOSPHORUS [CHEM] Routine Lab 12/14/20 00:00 Ordered Acetaminophen [TylenoL] Med 12/13/20 20:09 Active 650 mg PO Q4H PRN Albuterol/Ipratropium [DuoNeb 3.0-0.5 MG/3 ML] Med 12/13/20 20:09 Active 3 ml NEB Q4HRRT PRN Heparin Sodium Med 12/13/20 20:15 Active 5,000 units SUBCUT Q8H Lactated Ringers [Ringers, Lactated] 1,000 ml Med 12/13/20 20:15 Active IV ASDIRECTED Magnesium Sulfate/Water [Magnesium Sulfate in Water 4 Med 12/13/20 18:45 Active GM/100 ML] 4 gm in 100 ml IV ONETIME Ondansetron [Zofran] Med 12/13/20 20:09 Active 4 mg IVPUSH Q4H PRN Sodium Chloride 0.9% [Saline Flush] Med 12/13/20 18:00 Active 10 ml FLUSH ASDIRECTED PRN Sodium Chloride 0.9% [Saline Flush] Med 12/13/20 18:00 Active 2.5 ml FLUSH ASDIRECTED PRN Saline Lock Insert [OM.PC] Stat Oth 12/13/20 18:00 Ordered Sequential Compression Device [OM.PC] Per Unit Routine Oth 12/13/20 20:09 Ordered Medication Orders Acetaminophen (Acetaminophen 325 Mg Tab) 650 mg PO Q4H PRN PRN Reason: Pain (Mild 1-3)/fever Albuterol/Ipratropium (Albuterol/Ipratropium 3.0-0.5 Mg/3 Ml Neb Soln) 3 ml NEB Q4HRRT PRN PRN Reason: Shortness Of Breath/wheezing Heparin Sodium (Porcine) (Heparin Sodium 5,000 Units/Ml Vial) 5,000 units SUBCUT Q8H BONITA Magnesium Sulfate (Magnesium Sulfate In Water 4 Gm/100 Ml) 4 gm in 100 mls @ 25 mls/hr IV ONETIME ONE Stop: 12/13/20 22:44 Last Admin: 12/13/20 18:54 Dose: 25 mls/hr Documented by: KATARZYNA Lactated Ringer's (Ringers, Lactated) 1,000 mls @ 125 mls/hr IV ASDIRECTED BONITA Ondansetron HCl (Ondansetron 4 Mg/2 Ml Sdv) 4 mg IVPUSH Q4H PRN PRN Reason: Nausea/Vomiting Sodium Chloride (Sodium Chloride 0.9% 10 Ml Syringe) 10 ml FLUSH ASDIRECTED PRN PRN Reason: Keep Vein Open Last Admin: 12/13/20 18:54 Dose: 10 ml Documented by: KATARZYNA Sodium Chloride (Sodium Chloride 0.9% 2.5 Ml Syringe) 2.5 ml FLUSH ASDIRECTED PRN PRN Reason: Keep Vein Open Last Admin: 12/13/20 18:54 Dose: 2.5 ml Documented by: KATARZYNA Assessment/Plan Comment:: Patient is a 60-year-old female admitted for severe hypomagnesemia and hypocalcemia Start aggressive IV repletion of magnesium and calcium Acute kidney injury over chronic CKD Continue IV hydration with lactated Ringer's Continue close monitoring on telemetry Cardiac diet Ambulate as tolerated IV Zofran for nausea vomiting DuoNebs as needed for shortness of breath Monitor and replete electrolytes as needed Resume home meds as appropriate
[2020-12-13] MEDS: Lactated Ringers 1,000 ML IV SCH (22:51)
[2020-12-14 00:45] LABS: CARBON DIOXIDE,CO2 20.6 mmol/L (21.0-32.0); POTASSIUM,K 3.4 mmol/L (3.5-5.1)
[2020-12-14] MEDS ORDERED: Magnesium Sulfate/Water 2 GM in Premix Bag 1 BAG IV ONE ×2 (01:23→08:30)
[2020-12-14] MEDS ORDERED: Potassium Chloride 20 MEQ Tab.ER PO ONE (01:23)
[2020-12-14] MEDS ORDERED: Calcium Gluconate 10% 1 GM/10 ML SDV IV ONE ×2 (01:25→08:23)
[2020-12-14 05:09] LABS: CARBON DIOXIDE,CO2 22.4 mmol/L (21.0-32.0)
[2020-12-14] MEDS ORDERED: Metoprolol Tartrate 50 MG Tab PO SCH (09:00)
[2020-12-14] MEDS: Metoprolol Succinate 100 MG Tab.ER PO SCH ×2 (09:02→21:01)
[2020-12-14] MEDS: Cholecalciferol (Vitamin D3) 25 MCG Tab PO SCH (09:03)
[2020-12-14] MEDS: Rivaroxaban 15 MG Tab PO SCH (09:04)
[2020-12-14] MEDS: Lisinopril 10 MG Tab PO SCH ×2 (09:05→21:02)
[2020-12-14] MEDS: Aspirin 81 MG Tab.Chew PO SCH (09:08)
[2020-12-14] MEDS: Calcium Carbonate 500 MG Tab.Chew PO SCH (09:08)
[2020-12-14] MEDS: Eplerenone [Inspra] 25 MG Tablet PO SCH ×2 (09:10→23:59)
[2020-12-14] MEDS: Lactated Ringers 1,000 ML IV SCH ×2 (13:12→21:03)
--- NOTE | 2020-12-14 14:00 | PCM.PN ---
- General Info Date of Service: 12/14/20 Admission Dx/Problem (Free Text): Admission Diagnosis/Problem Admission Diagnosis/Problem Hypomagnesemia Subjective Update: seen at bedside, feels much better but diarrhea has recurred Functional Status: Reports: Tolerating Diet, Ambulating, Urinating - Review of Systems General: Denies: Fever, Weakness, Fatigue Cardiovascular: Denies: Chest Pain, Palpitations Gastrointestinal: Denies: Abdominal Pain, Constipation, Decreased Appetite Genitourinary: Denies: Dysuria, Frequency, Burning Musculoskeletal: Denies: Neck Pain, Shoulder Pain, Arm Pain, Hand Pain Skin: Denies: Cyanosis, Jaundice, Mottled Neurological: Denies: Confusion, Dizziness, Headache - Patient Data Vitals - Most Recent: Last Vital Signs Temp 36.4 C 12/14/20 13:13 Pulse 69 12/14/20 13:13 Resp 17 12/14/20 13:13 BP 127/85 12/14/20 13:13 Pulse Ox 99 12/14/20 13:13 Weight - Most Recent: 66.95 kg I&O - Last 24 Hours: Intake & Output 12/13/20 12/14/20 12/14/20 22:59 06:59 14:59 Intake Total 100 Output Total 100 Balance 0 Lab Results Last 24 Hours: Laboratory Results - last 24 hr 12/13/20 12/13/20 12/13/20 Range/Units 18:10 18:10 18:52 WBC 6.05 (4.0-11.0) K/uL RBC 4.17 L (4.30-5.90) M/uL Hgb 11.6 L (12.0-16.0) g/dL Hct 35.4 L (36.0-46.0) % MCV 84.9 (80.0-98.0) fL MCH 27.8 (27.0-32.0) pg MCHC 32.8 (31.0-37.0) g/dL RDW Std Deviation 53.3 (28.0-62.0) fl RDW Coeff of Cullen 17 H (11.0-15.0) % Plt Count 314 (150-400) K/uL MPV 11.30 (7.40-12.00) fL Neut % (Auto) 77.0 (48.0-80.0) % Lymph % (Auto) 13.6 L (16.0-40.0) % [place] % (Auto) 7.9 (0.0-15.0) % Eos % (Auto) 0.8 (0.0-7.0) % Baso % (Auto) 0.7 (0.0-1.5) % Neut # (Auto) 4.7 (1.4-5.7) K/uL Lymph # (Auto) 0.8 (0.6-2.4) K/uL [place] # (Auto) 0.5 (0.0-0.8) K/uL Eos # (Auto) 0.1 (0.0-0.7) K/uL Baso # (Auto) 0.0 (0.0-0.1) K/uL Nucleated RBC % 0.0 /100WBC Nucleated RBCs # 0 K/uL Sodium 143 (136-145) mmol/L Potassium 3.8 (3.5-5.1) mmol/L Chloride 103 (98-107) mmol/L Carbon Dioxide 21.3 (21.0-32.0) mmol/L BUN 18 (7.0-18.0) mg/dL Creatinine 1.5 H (0.6-1.0) mg/dL Est Cr Clr Drug Dosing 41.16 mL/min Estimated GFR (MDRD) 35.3 ml/min Glucose 95 (74-106) mg/dL Calcium 5.7 L (8.5-10.1) mg/dL Phosphorus (2.6-4.7) mg/dL Magnesium 0.3 L (1.8-2.4) mg/dL Total Bilirubin 0.3 (0.2-1.0) mg/dL AST 13 L (15-37) IU/L ALT 12 L (14-63) IU/L Alkaline Phosphatase 105 (46-116) U/L Total Protein 7.7 (6.4-8.2) g/dL Albumin 2.9 L (3.4-5.0) g/dL Globulin 4.8 H (2.6-4.0) g/dL Albumin/Globulin Ratio 0.6 L (0.9-1.6) Lipase 185 (73-393) U/L SARS-CoV-2 RNA (ARISTIDES) NEGATIVE (NEGATIVE) 0712/14/20 12/14/20 Range/Units 00:20 04:45 04:45 WBC 5.26 (4.0-11.0) K/uL RBC 3.84 L (4.30-5.90) M/uL Hgb 10.6 L (12.0-16.0) g/dL Hct 32.2 L (36.0-46.0) % MCV 83.9 (80.0-98.0) fL MCH 27.6 (27.0-32.0) pg MCHC 32.9 (31.0-37.0) g/dL RDW Std Deviation 53.0 (28.0-62.0) fl RDW Coeff of Cullen 17 H (11.0-15.0) % Plt Count 277 (150-400) K/uL MPV 11.10 (7.40-12.00) fL Neut % (Auto) 67.1 (48.0-80.0) % Lymph % (Auto) 18.8 (16.0-40.0) % [place] % (Auto) 11.8 (0.0-15.0) % Eos % (Auto) 1.7 (0.0-7.0) % Baso % (Auto) 0.6 (0.0-1.5) % Neut # (Auto) 3.5 (1.4-5.7) K/uL Lymph # (Auto) 1.0 (0.6-2.4) K/uL [place] # (Auto) 0.6 (0.0-0.8) K/uL Eos # (Auto) 0.1 (0.0-0.7) K/uL Baso # (Auto) 0.0 (0.0-0.1) K/uL Nucleated RBC % 0.0 /100WBC Nucleated RBCs # 0 K/uL Sodium 141 140 (136-145) mmol/L Potassium 3.4 L 4.0 (3.5-5.1) mmol/L Chloride 104 104 (98-107) mmol/L Carbon Dioxide 20.6 L 22.4 (21.0-32.0) mmol/L BUN 19 H 20 H (7.0-18.0) mg/dL Creatinine 1.5 H 1.4 H (0.6-1.0) mg/dL Est Cr Clr Drug Dosing 41.16 44.10 mL/min Estimated GFR (MDRD) 35.3 38.2 ml/min Glucose 103 79 (74-106) mg/dL Calcium 6.4 L 6.9 L (8.5-10.1) mg/dL Phosphorus 5.6 H 5.5 H (2.6-4.7) mg/dL Magnesium 1.6 L 1.7 L (1.8-2.4) mg/dL Total Bilirubin (0.2-1.0) mg/dL AST (15-37) IU/L ALT (14-63) IU/L Alkaline Phosphatase (46-116) U/L Total Protein (6.4-8.2) g/dL Albumin (3.4-5.0) g/dL Globulin (2.6-4.0) g/dL Albumin/Globulin Ratio (0.9-1.6) Lipase (73-393) U/L SARS-CoV-2 RNA (ARISTIDES) (NEGATIVE) Cheo Results Last 24 Hours: Microbiology 12/14/20 11:10 C. difficile Antigen & Toxins A,B - Final Stool / Feces Med Orders - Current: Current Medications Acetaminophen (Acetaminophen 325 Mg Tab) 650 mg PO Q4H PRN PRN Reason: Pain (Mild 1-3)/fever Albuterol/Ipratropium (Albuterol/Ipratropium 3.0-0.5 Mg/3 Ml Neb Soln) 3 ml NEB Q4HRRT PRN PRN Reason: Shortness Of Breath/wheezing Aspirin (Aspirin 81 Mg Tab.Chew) 81 mg PO DAILY [facility] Last Admin: 12/14/20 09:08 Dose: 81 mg Documented by: Calcium Carbonate/Glycine (Calcium Carbonate 500 Mg Tab.Chew) 1,000 mg PO DAILY [facility] Last Admin: 12/14/20 09:08 Dose: 1,000 mg Documented by: Cholecalciferol (Cholecalciferol (Vitamin D3) 25 Mcg Tab) 125 mcg PO DAILY [facility] Last Admin: 12/14/20 09:03 Dose: 125 mcg Documented by: Lactated Ringer's (Ringers, Lactated) 1,000 mls @ 125 mls/hr IV ASDIRECTED [facility] Last Admin: 12/14/20 13:12 Dose: 125 mls/hr Documented by: Lisinopril (Lisinopril 10 Mg Tab) 20 mg PO BID [facility] Last Admin: 12/14/20 09:05 Dose: 20 mg Documented by: Metoprolol Succinate (Metoprolol Succinate 100 Mg Tab.Er) 100 mg PO BID [facility] Last Admin: 12/14/20 09:02 Dose: 100 mg Documented by: Ondansetron HCl (Ondansetron 4 Mg/2 Ml Sdv) 4 mg IVPUSH Q4H PRN PRN Reason: Nausea/Vomiting Eplerenone [Inspra] (25 Mg Tablet) 1 each PO BID [facility] Last Admin: 12/14/20 09:10 Dose: Not Given Documented by: Rivaroxaban (Rivaroxaban 15 Mg Tab) 15 mg PO DAILY [facility] Last Admin: 12/14/20 09:04 Dose: 15 mg Documented by: Sodium Chloride (Sodium Chloride 0.9% 10 Ml Syringe) 10 ml FLUSH ASDIRECTED PRN PRN Reason: Keep Vein Open Last Admin: 12/13/20 18:54 Dose: 10 ml Documented by: Sodium Chloride (Sodium Chloride 0.9% 2.5 Ml Syringe) 2.5 ml FLUSH ASDIRECTED PRN PRN Reason: Keep Vein Open Last Admin: 12/13/20 18:54 Dose: 2.5 ml Documented by: Discontinued Medications Calcium Gluconate (Calcium Gluconate 10% 1 Gm/10 Ml Sdv) 1 gm IVPUSH ONETIME ONE Stop: 12/13/20 18:39 Last Admin: 12/13/20 19:42 Dose: 1 gm Documented by: Calcium Gluconate (Calcium Gluconate 10% 1 Gm/10 Ml Sdv) 1 gm IV ONETIME ONE Stop: 12/13/20 20:14 Last Admin: 12/13/20 23:03 Dose: Not Given Documented by: Calcium Gluconate (Calcium Gluconate 10% 1 Gm/10 Ml Sdv) 1 gm IV ONETIME ONE Stop: 12/14/20 01:26 Last Admin: 12/14/20 02:51 Dose: Not Given Documented by: Heparin Sodium (Porcine) (Heparin Sodium 5,000 Units/Ml Vial) 5,000 units SUBCUT Q8H [facility] Last Admin: 12/14/20 01:13 Dose: Not Given Documented by: Magnesium Sulfate (Magnesium Sulfate In Water 4 Gm/100 Ml) 4 gm in 100 mls @ 25 mls/hr IV ONETIME ONE Stop: 12/13/20 22:44 Last Admin: 12/13/20 18:54 Dose: 25 mls/hr Documented by: Calcium Gluconate 1 gm/ Sodium (Chloride) 60 mls @ 60 mls/hr IV ONETIME ONE Stop: 12/13/20 23:29 Last Admin: 12/14/20 01:13 Dose: Not Given Documented by: Calcium Gluconate 1 gm/ Sodium (Chloride) 60 mls @ 60 mls/hr IV ONETIME ONE Stop: 12/13/20 23:59 Last Admin: 12/13/20 23:01 Dose: 60 mls/hr Documented by: Magnesium Sulfate 2 gm/ Premix 50 mls @ 12.5 mls/hr IV ONETIME ONE Stop: 12/14/20 05:22 Last Admin: 12/14/20 03:08 Dose: 12.5 mls/hr Documented by: Calcium Gluconate 1 gm/ Sodium (Chloride) 60 mls @ 60 mls/hr IV NOW ONE Stop: 12/14/20 02:59 Last Admin: 12/14/20 01:58 Dose: 60 mls/hr Documented by: Magnesium Sulfate 2 gm/ Premix 50 mls @ 12.5 mls/hr IV ONETIME ONE Stop: 12/14/20 12:29 Last Admin: 12/14/20 10:38 Dose: 12.5 mls/hr Documented by: Calcium Gluconate 1 gm/ Sodium (Chloride) 60 mls @ 60 mls/hr IV NOW ONE Stop: 12/14/20 09:29 Last Admin: 12/14/20 13:14 Dose: Not Given Documented by: Calcium Gluconate 1 gm/ Sodium (Chloride) 60 mls @ 60 mls/hr IV NOW ONE Stop: 12/14/20 09:29 Last Admin: 12/14/20 09:11 Dose: 60 mls/hr Documented by: Magnesium Sulfate (Magnesium Sulfate (4.06 Meq/Ml) 5 Gm/10 Ml Sdv) 4 gm IV NOW STA Stop: 12/13/20 18:39 Potassium Chloride (Potassium Chloride 20 Meq Tab.Er) 40 meq PO ONETIME ONE Stop: 12/14/20 01:24 Last Admin: 12/14/20 01:59 Dose: 40 meq Documented by: - Exam General: Alert, Oriented, Cooperative Lungs: Clear to Auscultation, Normal Respiratory Effort Cardiovascular: Regular Rate, Regular Rhythm GI/Abdominal Exam: Normal Bowel Sounds, Soft, Non-Tender, No Organomegaly Back Exam: Normal Inspection, Full Range of Motion - Patient Data Lab Results Last 24 hrs: Laboratory Results - last 24 hr 12/13/20 12/13/20 12/13/20 Range/Units 18:10 18:10 18:52 WBC 6.05 (4.0-11.0) K/uL RBC 4.17 L (4.30-5.90) M/uL Hgb 11.6 L (12.0-16.0) g/dL Hct 35.4 L (36.0-46.0) % MCV 84.9 (80.0-98.0) fL MCH 27.8 (27.0-32.0) pg MCHC 32.8 (31.0-37.0) g/dL RDW Std Deviation 53.3 (28.0-62.0) fl RDW Coeff of Cullen 17 H (11.0-15.0) % Plt Count 314 (150-400) K/uL MPV 11.30 (7.40-12.00) fL Neut % (Auto) 77.0 (48.0-80.0) % Lymph % (Auto) 13.6 L (16.0-40.0) % [place] % (Auto) 7.9 (0.0-15.0) % Eos % (Auto) 0.8 (0.0-7.0) % Baso % (Auto) 0.7 (0.0-1.5) % Neut # (Auto) 4.7 (1.4-5.7) K/uL Lymph # (Auto) 0.8 (0.6-2.4) K/uL [place] # (Auto) 0.5 (0.0-0.8) K/uL Eos # (Auto) 0.1 (0.0-0.7) K/uL Baso # (Auto) 0.0 (0.0-0.1) K/uL Nucleated RBC % 0.0 /100WBC Nucleated RBCs # 0 K/uL Sodium 143 (136-145) mmol/L Potassium 3.8 (3.5-5.1) mmol/L Chloride 103 (98-107) mmol/L Carbon Dioxide 21.3 (21.0-32.0) mmol/L BUN 18 (7.0-18.0) mg/dL Creatinine 1.5 H (0.6-1.0) mg/dL Est Cr Clr Drug Dosing 41.16 mL/min Estimated GFR (MDRD) 35.3 ml/min Glucose 95 (74-106) mg/dL Calcium 5.7 L (8.5-10.1) mg/dL Phosphorus (2.6-4.7) mg/dL Magnesium 0.3 L (1.8-2.4) mg/dL Total Bilirubin 0.3 (0.2-1.0) mg/dL AST 13 L (15-37) IU/L ALT 12 L (14-63) IU/L Alkaline Phosphatase 105 (46-116) U/L Total Protein 7.7 (6.4-8.2) g/dL Albumin 2.9 L (3.4-5.0) g/dL Globulin 4.8 H (2.6-4.0) g/dL Albumin/Globulin Ratio 0.6 L (0.9-1.6) Lipase 185 (73-393) U/L SARS-CoV-2 RNA (ARISTIDES) NEGATIVE (NEGATIVE) 12/14/20 12/14/20 12/14/20 Range/Units 00:20 04:45 04:45 WBC 5.26 (4.0-11.0) K/uL RBC 3.84 L (4.30-5.90) M/uL Hgb 10.6 L (12.0-16.0) g/dL Hct 32.2 L (36.0-46.0) % MCV 83.9 (80.0-98.0) fL MCH 27.6 (27.0-32.0) pg MCHC 32.9 (31.0-37.0) g/dL RDW Std Deviation 53.0 (28.0-62.0) fl RDW Coeff of Cullen 17 H (11.0-15.0) % Plt Count 277 (150-400) K/uL MPV 11.10 (7.40-12.00) fL Neut % (Auto) 67.1 (48.0-80.0) % Lymph % (Auto) 18.8 (16.0-40.0) % [place]ann[place] % (Auto) 11.8 (0.0-15.0) % Eos % (Auto) 1.7 (0.0-7.0) % Baso % (Auto) 0.6 (0.0-1.5) % Neut # (Auto) 3.5 (1.4-5.7) K/uL Lymph # (Auto) 1.0 (0.6-2.4) K/uL [place]ann[place] # (Auto) 0.6 (0.0-0.8) K/uL Eos # (Auto) 0.1 (0.0-0.7) K/uL Baso # (Auto) 0.0 (0.0-0.1) K/uL Nucleated RBC % 0.0 /100WBC Nucleated RBCs # 0 K/uL Sodium 141 140 (136-145) mmol/L Potassium 3.4 L 4.0 (3.5-5.1) mmol/L Chloride 104 104 (98-107) mmol/L Carbon Dioxide 20.6 L 22.4 (21.0-32.0) mmol/L BUN 19 H 20 H (7.0-18.0) mg/dL Creatinine 1.5 H 1.4 H (0.6-1.0) mg/dL Est Cr Clr Drug Dosing 41.16 44.10 mL/min Estimated GFR (MDRD) 35.3 38.2 ml/min Glucose 103 79 (74-106) mg/dL Calcium 6.4 L 6.9 L (8.5-10.1) mg/dL Phosphorus 5.6 H 5.5 H (2.6-4.7) mg/dL Magnesium 1.6 L 1.7 L (1.8-2.4) mg/dL Total Bilirubin (0.2-1.0) mg/dL AST (15-37) IU/L ALT (14-63) IU/L Alkaline Phosphatase (46-116) U/L Total Protein (6.4-8.2) g/dL Albumin (3.4-5.0) g/dL Globulin (2.6-4.0) g/dL Albumin/Globulin Ratio (0.9-1.6) Lipase (73-393) U/L SARS-CoV-2 RNA (ARISTIDES) (NEGATIVE) Result Diagrams: 12/14/20 04:45 12/14/20 04:45 Cheo Results Last 24 hrs: Microbiology 12/14/20 11:10 C. difficile Antigen & Toxins A,B - Final Stool / Feces Sepsis Event Note - Evaluation Sepsis Screening Result: No Definite Risk - Focused Exam Vital Signs: Vital Signs Temp Pulse Pulse Resp BP BP Pulse Ox 12/14/20 13:13 36.4 C 69 17 127/85 99 12/14/20 09:41 36.4 C 83 17 116/85 96 12/14/20 09:05 116/85 12/14/20 09:02 83 116/85 12/14/20 04:30 36.3 C 80 14 114/81 97 - Problem List & Annotations (1) Dehydration SNOMED Code(s): 27151773 Code(s): E86.0 - DEHYDRATION Status: Acute Current Visit: Yes (2) Hypomagnesemia SNOMED Code(s): 443400163 Code(s): E83.42 - HYPOMAGNESEMIA Status: Acute Current Visit: Yes (3) Hypocalcemia SNOMED Code(s): 7687542 Code(s): E83.51 - HYPOCALCEMIA Status: Chronic Priority: High Current Visit: Yes (4) Lesion of thoracic vertebra SNOMED Code(s): 977510363, 697434713 Code(s): M89.9 - DISORDER OF BONE, UNSPECIFIED Status: Acute Current Visit: No (5) CAD (coronary artery disease) SNOMED Code(s): 45251619 Code(s): I25.10 - ATHSCL HEART DISEASE OF [place] CORONARY ARTERY W/O ANG PCTRS Status: Chronic Current Visit: No (6) CKD (chronic kidney disease) SNOMED Code(s): 913156201 Code(s): N18.9 - CHRONIC KIDNEY DISEASE, UNSPECIFIED Status: Chronic Current Visit: No (7) COPD (chronic obstructive pulmonary disease) SNOMED Code(s): 05634793 Code(s): J44.9 - CHRONIC OBSTRUCTIVE PULMONARY DISEASE, UNSPECIFIED Status: Chronic Current Visit: No (8) TIA (transient ischemic attack) SNOMED Code(s): 903004562 Code(s): G45.9 - TRANSIENT CEREBRAL ISCHEMIC ATTACK, UNSPECIFIED Status: Chronic Current Visit: No - Problem List Review Problem List Initiated/Reviewed/Updated: Yes - My Orders Last 24 Hours: My Active Orders 12/13/20 20:09 Ambulate [RC] ASDIRECTED Oxygen Therapy [RC] PRN VTE/DVT Education [RC] PER UNIT ROUTINE Vital Signs [RC] Q4H Acetaminophen [TylenoL] 650 mg PO Q4H PRN Albuterol/Ipratropium [DuoNeb 3.0-0.5 MG/3 ML] 3 ml NEB Q4HRRT PRN Ondansetron [Zofran] 4 mg IVPUSH Q4H PRN Sequential Compression Device [OM.PC] Per Unit Routine 12/13/20 20:10 Antiembolic Devices [RC] PER UNIT ROUTINE RT Aerosol Therapy [RC] ASDIRECTED 12/13/20 20:15 Lactated Ringers [Ringers, Lactated] 1,000 ml IV ASDIRECTED 12/13/20 21:00 Telemetry Monitoring [Cardiac Monitoring] [RC] . DIRECTED 12/14/20 Breakfast Heart Healthy Diet [DIET] 12/14/20 09:00 Aspirin 81 mg PO DAILY Calcium Carbonate [Tums] 1,000 mg PO DAILY Cholecalciferol (Vitamin D3) [Vitamin D3] 125 mcg PO DAILY Metoprolol Succinate [Toprol XL] 100 mg PO BID Patient's Own Medication [Ptom] 1 each PO BID Rivaroxaban [Xarelto] 15 mg PO DAILY lisinopriL [Prinivil] 20 mg PO BID - Plan Plan:: Patient is a 60-year-old female admitted for severe hypomagnesemia and hypocalcemia cont IV repletion of magnesium and calcium as needed Acute kidney injury over chronic CKD, improved Continue IV hydration with lactated Ringer's Continue close monitoring on telemetry Cardiac diet Ambulate as tolerated IV Zofran for nausea vomiting DuoNebs as needed for shortness of breath Monitor and replete electrolytes as needed Resume home meds as appropriate Patient follows with nephrology for work up of hypocalcemia, will see if records can be obtained Previously electrolyte imbalance was attributed to usage of PPI Diarrhea, check stool studies including c diff, possibly the culprit for low mag this time
[2020-12-14] MEDS: Vancomycin 125 MG Cap PO SCH ×3 (14:47→23:59)
[2020-12-15] MEDS: Lactated Ringers 1,000 ML IV SCH ×3 (05:45→23:46)
[2020-12-15] MEDS: Vancomycin 125 MG Cap PO SCH ×4 (05:45→23:46)
[2020-12-15 06:42] LABS: CARBON DIOXIDE,CO2 23.6 mmol/L (21.0-32.0); POTASSIUM,K 3.7 mmol/L (3.5-5.1)
[2020-12-15] MEDS: Lisinopril 10 MG Tab PO SCH ×2 (09:38→20:39)
[2020-12-15] MEDS: Calcium Carbonate 500 MG Tab.Chew PO SCH (09:38)
[2020-12-15] MEDS: Rivaroxaban 15 MG Tab PO SCH (09:38)
[2020-12-15] MEDS: Aspirin 81 MG Tab.Chew PO SCH (09:39)
[2020-12-15] MEDS: Metoprolol Succinate 100 MG Tab.ER PO SCH ×2 (09:40→20:39)
[2020-12-15] MEDS: Cholecalciferol (Vitamin D3) 25 MCG Tab PO SCH (09:40)
[2020-12-15] MEDS ORDERED: Magnesium Sulfate/Water 2 GM in Premix Bag 1 BAG IV ONE (10:44)
[2020-12-15] MEDS: Eplerenone [Inspra] 25 MG Tablet PO SCH ×2 (10:48→20:41)
--- NOTE | 2020-12-15 13:53 | PCM.PN ---
- General Info Date of Service: 12/15/20 Admission Dx/Problem (Free Text): Admission Diagnosis/Problem Admission Diagnosis/Problem Hypomagnesemia Subjective Update: Patient seen at bedside, in no acute distress, states she feels better but continues to have diarrhea. Had 2 bowel movements this morning which are still watery - Review of Systems General: Reports: Malaise. Denies: Fever, Weakness, Fatigue, Chills Pulmonary: Denies: Shortness of Breath, Pleuritic Chest Pain Cardiovascular: Denies: Chest Pain, Palpitations Gastrointestinal: Reports: Decreased Appetite, Diarrhea. Denies: Abdominal Pain, Constipation, Difficulty Swallowing, Nausea, Vomiting Genitourinary: Denies: Frequency, Burning, Pain Musculoskeletal: Denies: Shoulder Pain, Arm Pain, Hand Pain Skin: Denies: Jaundice, Mottled, Diaphoresis Neurological: Denies: Confusion, Dizziness, Headache, Numbness Psychiatric: Denies: Confusion, Depression, Mood Lability - Patient Data Vitals - Most Recent: Last Vital Signs Temp 36.6 C 12/15/20 10:46 Pulse 77 12/15/20 10:46 Resp 18 12/15/20 10:46 BP 115/78 12/15/20 10:46 Pulse Ox 97 12/15/20 10:46 Weight - Most Recent: 66.95 kg I&O - Last 24 Hours: Intake & Output 12/14/20 12/15/20 12/15/20 22:59 06:59 14:59 Intake Total 1429 2278 Output Total 300 600 Balance 1129 1678 Lab Results Last 24 Hours: Laboratory Results - last 24 hr 12/15/20 12/15/20 Range/Units 05:38 05:38 WBC 4.40 (4.0-11.0) K/uL RBC 3.53 L (4.30-5.90) M/uL Hgb 9.8 L (12.0-16.0) g/dL Hct 30.0 L (36.0-46.0) % MCV 85.0 (80.0-98.0) fL MCH 27.8 (27.0-32.0) pg MCHC 32.7 (31.0-37.0) g/dL RDW Std Deviation 52.3 (28.0-62.0) fl RDW Coeff of Cullen 17 H (11.0-15.0) % Plt Count 248 (150-400) K/uL MPV 11.80 (7.40-12.00) fL Neut % (Auto) 66.0 (48.0-80.0) % Lymph % (Auto) 19.8 (16.0-40.0) % Woodruff % (Auto) 11.4 (0.0-15.0) % Eos % (Auto) 2.3 (0.0-7.0) % Baso % (Auto) 0.5 (0.0-1.5) % Neut # (Auto) 2.9 (1.4-5.7) K/uL Lymph # (Auto) 0.9 (0.6-2.4) K/uL Woodruff # (Auto) 0.5 (0.0-0.8) K/uL Eos # (Auto) 0.1 (0.0-0.7) K/uL Baso # (Auto) 0.0 (0.0-0.1) K/uL Nucleated RBC % 0.0 /100WBC Nucleated RBCs # 0 K/uL Sodium 139 (136-145) mmol/L Potassium 3.7 (3.5-5.1) mmol/L Chloride 106 (98-107) mmol/L Carbon Dioxide 23.6 (21.0-32.0) mmol/L BUN 17 (7.0-18.0) mg/dL Creatinine 1.0 (0.6-1.0) mg/dL Est Cr Clr Drug Dosing 61.74 mL/min Estimated GFR (MDRD) 56.4 ml/min Glucose 83 (74-106) mg/dL Calcium 8.0 L (8.5-10.1) mg/dL Phosphorus 3.6 (2.6-4.7) mg/dL Magnesium 1.8 (1.8-2.4) mg/dL Cheo Results Last 24 Hours: Microbiology 12/14/20 11:10 Shiga Toxin I & II - Final Stool / Feces 12/14/20 11:10 Clostridioides difficile (PCR) - Final Stool / Feces 12/14/20 11:10 C. difficile Antigen & Toxins A,B - Final Stool / Feces Med Orders - Current: Current Medications Acetaminophen (Acetaminophen 325 Mg Tab) 650 mg PO Q4H PRN PRN Reason: Pain (Mild 1-3)/fever Albuterol/Ipratropium (Albuterol/Ipratropium 3.0-0.5 Mg/3 Ml Neb Soln) 3 ml NEB Q4HRRT PRN PRN Reason: Shortness Of Breath/wheezing Aspirin (Aspirin 81 Mg Tab.Chew) 81 mg PO DAILY [facility] Last Admin: 12/15/20 09:39 Dose: 81 mg Documented by: Calcium Carbonate/Glycine (Calcium Carbonate 500 Mg Tab.Chew) 1,000 mg PO DAILY [facility] Last Admin: 12/15/20 09:38 Dose: 1,000 mg Documented by: Cholecalciferol (Cholecalciferol (Vitamin D3) 25 Mcg Tab) 125 mcg PO DAILY [facility] Last Admin: 12/15/20 09:40 Dose: 125 mcg Documented by: Lactated Ringer's (Ringers, Lactated) 1,000 mls @ 125 mls/hr IV ASDIRECTED [facility] Last Admin: 12/15/20 05:45 Dose: 125 mls/hr Documented by: Lisinopril (Lisinopril 10 Mg Tab) 20 mg PO BID [facility] Last Admin: 12/15/20 09:38 Dose: 20 mg Documented by: Metoprolol Succinate (Metoprolol Succinate 100 Mg Tab.Er) 100 mg PO BID [facility] Last Admin: 12/15/20 09:40 Dose: 100 mg Documented by: Ondansetron HCl (Ondansetron 4 Mg/2 Ml Sdv) 4 mg IVPUSH Q4H PRN PRN Reason: Nausea/Vomiting Last Admin: 12/14/20 18:52 Dose: 4 mg Documented by: Eplerenone [Inspra] (25 Mg Tablet) 1 each PO BID [facility] Last Admin: 12/15/20 10:48 Dose: Not Given Documented by: Rivaroxaban (Rivaroxaban 15 Mg Tab) 15 mg PO DAILY [facility] Last Admin: 12/15/20 09:38 Dose: 15 mg Documented by: Sodium Chloride (Sodium Chloride 0.9% 10 Ml Syringe) 10 ml FLUSH ASDIRECTED PRN PRN Reason: Keep Vein Open Last Admin: 12/13/20 18:54 Dose: 10 ml Documented by: Sodium Chloride (Sodium Chloride 0.9% 2.5 Ml Syringe) 2.5 ml FLUSH ASDIRECTED PRN PRN Reason: Keep Vein Open Last Admin: 12/13/20 18:54 Dose: 2.5 ml Documented by: Vancomycin HCl (Vancomycin 125 Mg Cap) 125 mg PO QID [facility] Last Admin: 12/15/20 05:45 Dose: 125 mg Documented by: Discontinued Medications Calcium Gluconate (Calcium Gluconate 10% 1 Gm/10 Ml Sdv) 1 gm IVPUSH ONETIME ONE Stop: 12/13/20 18:39 Last Admin: 12/13/20 19:42 Dose: 1 gm Documented by: Calcium Gluconate (Calcium Gluconate 10% 1 Gm/10 Ml Sdv) 1 gm IV ONETIME ONE Stop: 12/13/20 20:14 Last Admin: 12/13/20 23:03 Dose: Not Given Documented by: Calcium Gluconate (Calcium Gluconate 10% 1 Gm/10 Ml Sdv) 1 gm IV ONETIME ONE Stop: 12/14/20 01:26 Last Admin: 12/14/20 02:51 Dose: Not Given Documented by: Heparin Sodium (Porcine) (Heparin Sodium 5,000 Units/Ml Vial) 5,000 units SUBCUT Q8H [facility] Last Admin: 12/14/20 01:13 Dose: Not Given Documented by: Magnesium Sulfate (Magnesium Sulfate In Water 4 Gm/100 Ml) 4 gm in 100 mls @ 25 mls/hr IV ONETIME ONE Stop: 12/13/20 22:44 Last Admin: 12/13/20 18:54 Dose: 25 mls/hr Documented by: Calcium Gluconate 1 gm/ Sodium (Chloride) 60 mls @ 60 mls/hr IV ONETIME ONE Stop: 12/13/20 23:29 Last Admin: 12/14/20 01:13 Dose: Not Given Documented by: Calcium Gluconate 1 gm/ Sodium (Chloride) 60 mls @ 60 mls/hr IV ONETIME ONE Stop: 12/13/20 23:59 Last Admin: 12/13/20 23:01 Dose: 60 mls/hr Documented by: Magnesium Sulfate 2 gm/ Premix 50 mls @ 12.5 mls/hr IV ONETIME ONE Stop: 12/14/20 05:22 Last Admin: 12/14/20 03:08 Dose: 12.5 mls/hr Documented by: Calcium Gluconate 1 gm/ Sodium (Chloride) 60 mls @ 60 mls/hr IV NOW ONE Stop: 12/14/20 02:59 Last Admin: 12/14/20 01:58 Dose: 60 mls/hr Documented by: Magnesium Sulfate 2 gm/ Premix 50 mls @ 12.5 mls/hr IV ONETIME ONE Stop: 12/14/20 12:29 Last Admin: 12/14/20 10:38 Dose: 12.5 mls/hr Documented by: Calcium Gluconate 1 gm/ Sodium (Chloride) 60 mls @ 60 mls/hr IV NOW ONE Stop: 12/14/20 09:29 Last Admin: 12/14/20 13:14 Dose: Not Given Documented by: Calcium Gluconate 1 gm/ Sodium (Chloride) 60 mls @ 60 mls/hr IV NOW ONE Stop: 12/14/20 09:29 Last Admin: 12/14/20 09:11 Dose: 60 mls/hr Documented by: Magnesium Sulfate 2 gm/ Premix 50 mls @ 25 mls/hr IV ONETIME ONE Stop: 12/15/20 12:43 Last Admin: 12/15/20 11:00 Dose: 25 mls/hr Documented by: Magnesium Sulfate (Magnesium Sulfate (4.06 Meq/Ml) 5 Gm/10 Ml Sdv) 4 gm IV NOW STA Stop: 12/13/20 18:39 Potassium Chloride (Potassium Chloride 20 Meq Tab.Er) 40 meq PO ONETIME ONE Stop: 12/14/20 01:24 Last Admin: 12/14/20 01:59 Dose: 40 meq Documented by: - Exam General: Alert, Oriented Lungs: Clear to Auscultation, Normal Respiratory Effort Cardiovascular: Regular Rate, Regular Rhythm GI/Abdominal Exam: Normal Bowel Sounds, Soft, Non-Tender Extremities: Normal Inspection, Normal Range of Motion - Patient Data Lab Results Last 24 hrs: Laboratory Results - last 24 hr 12/15/20 12/15/20 Range/Units 05:38 05:38 WBC 4.40 (4.0-11.0) K/uL RBC 3.53 L (4.30-5.90) M/uL Hgb 9.8 L (12.0-16.0) g/dL Hct 30.0 L (36.0-46.0) % MCV 85.0 (80.0-98.0) fL MCH 27.8 (27.0-32.0) pg MCHC 32.7 (31.0-37.0) g/dL RDW Std Deviation 52.3 (28.0-62.0) fl RDW Coeff of Cullen 17 H (11.0-15.0) % Plt Count 248 (150-400) K/uL MPV 11.80 (7.40-12.00) fL Neut % (Auto) 66.0 (48.0-80.0) % Lymph % (Auto) 19.8 (16.0-40.0) % Woodruff % (Auto) 11.4 (0.0-15.0) % Eos % (Auto) 2.3 (0.0-7.0) % Baso % (Auto) 0.5 (0.0-1.5) % Neut # (Auto) 2.9 (1.4-5.7) K/uL Lymph # (Auto) 0.9 (0.6-2.4) K/uL [place] # (Auto) 0.5 (0.0-0.8) K/uL Eos # (Auto) 0.1 (0.0-0.7) K/uL Baso # (Auto) 0.0 (0.0-0.1) K/uL Nucleated RBC % 0.0 /100WBC Nucleated RBCs # 0 K/uL Sodium 139 (136-145) mmol/L Potassium 3.7 (3.5-5.1) mmol/L Chloride 106 (98-107) mmol/L Carbon Dioxide 23.6 (21.0-32.0) mmol/L BUN 17 (7.0-18.0) mg/dL Creatinine 1.0 (0.6-1.0) mg/dL Est Cr Clr Drug Dosing 61.74 mL/min Estimated GFR (MDRD) 56.4 ml/min Glucose 83 (74-106) mg/dL Calcium 8.0 L (8.5-10.1) mg/dL Phosphorus 3.6 (2.6-4.7) mg/dL Magnesium 1.8 (1.8-2.4) mg/dL Result Diagrams: 12/15/20 05:38 12/15/20 05:38 Cheo Results Last 24 hrs: Microbiology 12/14/20 11:10 Shiga Toxin I & II - Final Stool / Feces 12/14/20 11:10 Clostridioides difficile (PCR) - Final Stool / Feces 12/14/20 11:10 C. difficile Antigen & Toxins A,B - Final Stool / Feces Sepsis Event Note - Evaluation Sepsis Screening Result: No Definite Risk - Focused Exam Vital Signs: Vital Signs Temp Pulse Pulse Resp BP BP Pulse Ox 12/15/20 10:46 36.6 C 77 18 115/78 97 12/15/20 09:40 77 115/78 12/15/20 09:38 115/78 12/15/20 05:00 36.4 C 92 16 113/88 95 - Problem List & Annotations (1) Dehydration SNOMED Code(s): 49059729 Code(s): E86.0 - DEHYDRATION Status: Acute Current Visit: Yes (2) Hypomagnesemia SNOMED Code(s): 420596817 Code(s): E83.42 - HYPOMAGNESEMIA Status: Acute Current Visit: Yes (3) Hypocalcemia SNOMED Code(s): 4582506 Code(s): E83.51 - HYPOCALCEMIA Status: Chronic Priority: High Current Visit: Yes (4) Lesion of thoracic vertebra SNOMED Code(s): 932054686, 923000094 Code(s): M89.9 - DISORDER OF BONE, UNSPECIFIED Status: Acute Current Visit: No (5) CAD (coronary artery disease) SNOMED Code(s): 15756446 Code(s): I25.10 - ATHSCL HEART DISEASE OF [place] CORONARY ARTERY W/O ANG PCTRS Status: Chronic Current Visit: No (6) CKD (chronic kidney disease) SNOMED Code(s): 554306681 Code(s): N18.9 - CHRONIC KIDNEY DISEASE, UNSPECIFIED Status: Chronic Current Visit: No (7) COPD (chronic obstructive pulmonary disease) SNOMED Code(s): 69516193 Code(s): J44.9 - CHRONIC OBSTRUCTIVE PULMONARY DISEASE, UNSPECIFIED Status: Chronic Current Visit: No (8) TIA (transient ischemic attack) SNOMED Code(s): 227862837 Code(s): G45.9 - TRANSIENT CEREBRAL ISCHEMIC ATTACK, UNSPECIFIED Status: Chronic Current Visit: No - Problem List Review Problem List Initiated/Reviewed/Updated: Yes - My Orders Last 24 Hours: My Active Orders 12/15/20 14:00 Acidophilus/Pectin, [place] 1 tab PO DAILY - Plan Plan:: Patient is a 60-year-old female admitted for severe hypomagnesemia and hypocalcemia which has mostly resolved cont IV repletion of magnesium and calcium as needed Acute kidney injury over chronic CKD, which has resolved Continue IV hydration with lactated Ringer's Continue close monitoring on telemetry Cardiac diet Ambulate as tolerated IV Zofran for nausea vomiting DuoNebs as needed for shortness of breath Monitor and replete electrolytes as needed Resume home meds as appropriate Patient follows with nephrology for work up of hypocalcemia, 24-hour urine collection was recommended which we have initiated in the hospital, Previously electrolyte imbalance was attributed to usage of PPI Continue oral vancomycin for C. difficile colitis
[2020-12-15] MEDS: Acidophilus with Citrus Pectin Tab PO SCH (14:31)
[2020-12-15] MEDS ORDERED: Rosuvastatin 10 MG Tab PO SCH (21:00)
[2020-12-16] MEDS: Vancomycin 125 MG Cap PO SCH ×2 (05:31→11:26)
[2020-12-16 06:23] LABS: BLOOD UREA NITROGEN,BUN 11 mg/dL (7.0-18.0); CARBON DIOXIDE,CO2 22.8 mmol/L (21.0-32.0); CHLORIDE,CL 107 mmol/L (98-107); GLUCOSE RANDOM 77 mg/dL (74-106); POTASSIUM,K 3.9 mmol/L (3.5-5.1); SODIUM,NA 139 mmol/L (136-145)
[2020-12-16] MEDS ORDERED: Magnesium Sulfate/Water 4 GM in Premix Bag 1 BAG IV ONE (07:54)
[2020-12-16] MEDS: Lactated Ringers 1,000 ML IV SCH (08:15)
[2020-12-16] MEDS: Metoprolol Succinate 100 MG Tab.ER PO SCH (08:38)
[2020-12-16] MEDS: Lisinopril 10 MG Tab PO SCH (08:39)
[2020-12-16] MEDS: Acidophilus with Citrus Pectin Tab PO SCH (08:39)
[2020-12-16] MEDS: Calcium Carbonate 500 MG Tab.Chew PO SCH (08:40)
[2020-12-16] MEDS: Cholecalciferol (Vitamin D3) 25 MCG Tab PO SCH (08:40)
[2020-12-16] MEDS: Aspirin 81 MG Tab.Chew PO SCH (10:09)
[2020-12-16] MEDS: Rivaroxaban 15 MG Tab PO SCH (10:11)
[2020-12-16] MEDS: Eplerenone [Inspra] 25 MG Tablet PO SCH (10:13)
[2020-12-16 12:11] VITALS: BP 106/76; PULSE 73
--- NOTE | 2020-12-16 12:57 | PCM.DCSUM1 ---
Discharge Summary - Hospital Course Diagnosis: Stroke: No - Discharge Data Discharge Date: 12/16/20 Discharge Disposition: Home, Self-Care 01 Condition: Stable - Referral to Home Health Primary Care Physician: Bharat Swift MD - Discharge Diagnosis/Problem(s) (1) Dehydration SNOMED Code(s): 38003813 ICD Code: E86.0 - DEHYDRATION Status: Acute Current Visit: Yes (2) Hypomagnesemia SNOMED Code(s): 194538507 ICD Code: E83.42 - HYPOMAGNESEMIA Status: Acute Current Visit: Yes (3) Hypocalcemia SNOMED Code(s): 9029114 ICD Code: E83.51 - HYPOCALCEMIA Status: Chronic Priority: High Current Visit: Yes (4) Lesion of thoracic vertebra SNOMED Code(s): 021754511, 121087267 ICD Code: M89.9 - DISORDER OF BONE, UNSPECIFIED Status: Acute Current Visit: No (5) CAD (coronary artery disease) SNOMED Code(s): 15312510 ICD Code: I25.10 - ATHSCL HEART DISEASE OF [place] CORONARY ARTERY W/O ANG PCTRS Status: Chronic Current Visit: No (6) CKD (chronic kidney disease) SNOMED Code(s): 924543752 ICD Code: N18.9 - CHRONIC KIDNEY DISEASE, UNSPECIFIED Status: Chronic Current Visit: No (7) COPD (chronic obstructive pulmonary disease) SNOMED Code(s): 13701005 ICD Code: J44.9 - CHRONIC OBSTRUCTIVE PULMONARY DISEASE, UNSPECIFIED Status: Chronic Current Visit: No (8) TIA (transient ischemic attack) SNOMED Code(s): 818488259 ICD Code: G45.9 - TRANSIENT CEREBRAL ISCHEMIC ATTACK, UNSPECIFIED Status: Chronic Current Visit: No - Patient Instructions Diet: Usual Diet as Tolerated Activity: Apply Ice Driving: May Drive Today Showering/Bathing: May Shower Notify Provider of: Fever, Increased Pain, Swelling and Redness, Drainage, Nausea and/or Vomiting - Discharge Plan Prescriptions/Med Rec: Lactobacillus Acidophilus [Acidophilus] 1 each PO DAILY #20 capsule Magnesium Glycinate [Magnesium Bisglycinate Chelate] 500 gm MC DAILY #30 powder Vancomycin [Vancocin 125 MG Capsule] 125 mg PO QID 8 Days #32 cap Home Medications: Home Meds Rosuvastatin [Crestor] 20 mg PO BEDTIME 09/20/16 [History] Aspirin [Halfprin] 81 mg PO DAILY 09/25/16 [History] Eplerenone [Inspra] 25 mg PO BID 03/02/19 [History] Rivaroxaban [Xarelto] 15 mg PO DAILY 03/02/19 [History] Aspirin [Meredith Chewable Aspirin] 81 mg PO DAILY 12/13/20 [History] Calcium Carbonate [Tums] 1,000 mg PO DAILY 12/13/20 [History] Cholecalciferol (Vitamin D3) [Vitamin D3] 125 mcg PO DAILY 12/13/20 [History] Furosemide [Lasix] 20 mg PO DAILY 12/13/20 [History] lisinopriL [Lisinopril] 20 mg PO BID 12/13/20 [History] Metoprolol Succinate 100 mg PO BID 12/14/20 [History] Sildenafil [Revatio] 20 mg PO TID 12/14/20 [History] Lactobacillus Acidophilus [Acidophilus] 1 each PO DAILY #20 capsule 12/16/20 [Rx] Magnesium Glycinate [Magnesium Bisglycinate Chelate] 500 gm MC DAILY #30 powder 12/16/20 [Rx] Vancomycin [Vancocin 125 MG Capsule] 125 mg PO QID 8 Days #32 cap 12/16/20 [Rx] Patient Handouts: Hypomagnesemia, Hypocalcemia, Adult, Dehydration, Adult, [id number] Referrals: Bharat Swift MD [Primary Care Provider] - 12/24/20 10:00 am - Patient Data Vitals - Most Recent: Last Vital Signs Temp 36.4 C 12/16/20 11:00 Pulse 73 12/16/20 11:00 Resp 11 L 12/16/20 11:00 BP 106/76 12/16/20 11:00 Pulse Ox 95 12/16/20 11:00 Weight - Most Recent: 66.95 kg I&O - Last 24 hours: Intake & Output 12/15/20 12/16/20 12/16/20 22:59 06:59 14:59 Intake Total 1800 1671 50 Output Total 300 800 Balance 1500 871 50 Lab Results - Last 24 hrs: Laboratory Results - last 24 hr 12/15/20 12/16/20 12/16/20 Range/Units 15:35 05:13 05:13 WBC 4.43 (4.0-11.0) K/uL RBC 3.32 L (4.30-5.90) M/uL Hgb 9.2 L (12.0-16.0) g/dL Hct 28.6 L (36.0-46.0) % MCV 86.1 (80.0-98.0) fL MCH 27.7 (27.0-32.0) pg MCHC 32.2 (31.0-37.0) g/dL RDW Std Deviation 52.7 (28.0-62.0) fl RDW Coeff of Cullen 17 H (11.0-15.0) % Plt Count 264 (150-400) K/uL MPV 11.30 (7.40-12.00) fL Neut % (Auto) 65.0 (48.0-80.0) % Lymph % (Auto) 20.1 (16.0-40.0) % Randall % (Auto) 12.6 (0.0-15.0) % Eos % (Auto) 1.8 (0.0-7.0) % Baso % (Auto) 0.5 (0.0-1.5) % Neut # (Auto) 2.9 (1.4-5.7) K/uL Lymph # (Auto) 0.9 (0.6-2.4) K/uL Randall # (Auto) 0.6 (0.0-0.8) K/uL Eos # (Auto) 0.1 (0.0-0.7) K/uL Baso # (Auto) 0.0 (0.0-0.1) K/uL Nucleated RBC % 0.0 /100WBC Nucleated RBCs # 0 K/uL Sodium 139 (136-145) mmol/L Potassium 3.9 (3.5-5.1) mmol/L Chloride 107 (98-107) mmol/L Carbon Dioxide 22.8 (21.0-32.0) mmol/L BUN 11 (7.0-18.0) mg/dL Creatinine 0.9 (0.6-1.0) mg/dL Est Cr Clr Drug Dosing 68.60 mL/min Estimated GFR (MDRD) > 60.0 ml/min Glucose 77 (74-106) mg/dL Calcium 8.4 L (8.5-10.1) mg/dL Phosphorus 3.8 (2.6-4.7) mg/dL Magnesium 1.5 L (1.8-2.4) mg/dL Ur Collection Duration 24 Urine Total Volume 775 Ur Creatinine 24 Hour 560.9 L (2021-6550) mg/24HRS Ur Creatinine Concen 72.38 (2.20-135.10) mg/dL AMI Results - Last 24 hrs: Microbiology 12/14/20 11:10 Shiga Toxin I & II - Final Stool / Feces 12/14/20 11:10 Clostridioides difficile (PCR) - Final Stool / Feces Med Orders - Current: Current Medications Acetaminophen (Acetaminophen 325 Mg Tab) 650 mg PO Q4H PRN PRN Reason: Pain (Mild 1-3)/fever Acidophilus/Pectin (Acidophilus With [place] Pectin Tab) 1 tab PO DAILY [facility] Last Admin: 12/16/20 08:39 Dose: 1 tab Documented by: Albuterol/Ipratropium (Albuterol/Ipratropium 3.0-0.5 Mg/3 Ml Neb Soln) 3 ml NEB Q4HRRT PRN PRN Reason: Shortness Of Breath/wheezing Aspirin (Aspirin 81 Mg Tab.Chew) 81 mg PO DAILY [facility] Last Admin: 12/16/20 10:09 Dose: Not Given Documented by: Calcium Carbonate/Glycine (Calcium Carbonate 500 Mg Tab.Chew) 1,000 mg PO DAILY [facility] Last Admin: 12/16/20 08:40 Dose: 1,000 mg Documented by: Cholecalciferol (Cholecalciferol (Vitamin D3) 25 Mcg Tab) 125 mcg PO DAILY [facility] Last Admin: 12/16/20 08:40 Dose: 125 mcg Documented by: Lactated Ringer's (Ringers, Lactated) 1,000 mls @ 125 mls/hr IV ASDIRECTED [facility] Last Admin: 12/16/20 08:15 Dose: 125 mls/hr Documented by: Lisinopril (Lisinopril 10 Mg Tab) 20 mg PO BID [facility] Last Admin: 12/16/20 08:39 Dose: 20 mg Documented by: Metoprolol Succinate (Metoprolol Succinate 100 Mg Tab.Er) 100 mg PO BID [facility] Last Admin: 12/16/20 08:38 Dose: 100 mg Documented by: Ondansetron HCl (Ondansetron 4 Mg/2 Ml Sdv) 4 mg IVPUSH Q4H PRN PRN Reason: Nausea/Vomiting Last Admin: 12/14/20 18:52 Dose: 4 mg Documented by: Eplerenone [Inspra] (25 Mg Tablet) 1 each PO BID [facility] Last Admin: 12/16/20 10:13 Dose: Not Given Documented by: Rivaroxaban (Rivaroxaban 15 Mg Tab) 15 mg PO DAILY [facility] Last Admin: 12/16/20 10:11 Dose: Not Given Documented by: Rosuvastatin Calcium (Rosuvastatin 10 Mg Tab) 20 mg PO BEDTIME [facility] Last Admin: 12/15/20 20:39 Dose: 20 mg Documented by: Sodium Chloride (Sodium Chloride 0.9% 10 Ml Syringe) 10 ml FLUSH ASDIRECTED PRN PRN Reason: Keep Vein Open Last Admin: 12/13/20 18:54 Dose: 10 ml Documented by: Sodium Chloride (Sodium Chloride 0.9% 2.5 Ml Syringe) 2.5 ml FLUSH ASDIRECTED PRN PRN Reason: Keep Vein Open Last Admin: 12/13/20 18:54 Dose: 2.5 ml Documented by: Vancomycin HCl (Vancomycin 125 Mg Cap) 125 mg PO QID [facility] Last Admin: 12/16/20 11:26 Dose: 125 mg Documented by: Discontinued Medications Calcium Gluconate (Calcium Gluconate 10% 1 Gm/10 Ml Sdv) 1 gm IVPUSH ONETIME ONE Stop: 12/13/20 18:39 Last Admin: 12/13/20 19:42 Dose: 1 gm Documented by: Calcium Gluconate (Calcium Gluconate 10% 1 Gm/10 Ml Sdv) 1 gm IV ONETIME ONE Stop: 12/13/20 20:14 Last Admin: 12/13/20 23:03 Dose: Not Given Documented by: Calcium Gluconate (Calcium Gluconate 10% 1 Gm/10 Ml Sdv) 1 gm IV ONETIME ONE Stop: 12/14/20 01:26 Last Admin: 12/14/20 02:51 Dose: Not Given Documented by: Heparin Sodium (Porcine) (Heparin Sodium 5,000 Units/Ml Vial) 5,000 units SUBCUT Q8H [facility] Last Admin: 12/14/20 01:13 Dose: Not Given Documented by: Magnesium Sulfate (Magnesium Sulfate In Water 4 Gm/100 Ml) 4 gm in 100 mls @ 25 mls/hr IV ONETIME ONE Stop: 12/13/20 22:44 Last Admin: 12/13/20 18:54 Dose: 25 mls/hr Documented by: Calcium Gluconate 1 gm/ Sodium (Chloride) 60 mls @ 60 mls/hr IV ONETIME ONE Stop: 12/13/20 23:29 Last Admin: 12/14/20 01:13 Dose: Not Given Documented by: Calcium Gluconate 1 gm/ Sodium (Chloride) 60 mls @ 60 mls/hr IV ONETIME ONE Stop: 12/13/20 23:59 Last Admin: 12/13/20 23:01 Dose: 60 mls/hr Documented by: Magnesium Sulfate 2 gm/ Premix 50 mls @ 12.5 mls/hr IV ONETIME ONE Stop: 12/14/20 05:22 Last Admin: 12/14/20 03:08 Dose: 12.5 mls/hr Documented by: Calcium Gluconate 1 gm/ Sodium (Chloride) 60 mls @ 60 mls/hr IV NOW ONE Stop: 12/14/20 02:59 Last Admin: 12/14/20 01:58 Dose: 60 mls/hr Documented by: Magnesium Sulfate 2 gm/ Premix 50 mls @ 12.5 mls/hr IV ONETIME ONE Stop: 12/14/20 12:29 Last Admin: 12/14/20 10:38 Dose: 12.5 mls/hr Documented by: Calcium Gluconate 1 gm/ Sodium (Chloride) 60 mls @ 60 mls/hr IV NOW ONE Stop: 12/14/20 09:29 Last Admin: 12/14/20 13:14 Dose: Not Given Documented by: Calcium Gluconate 1 gm/ Sodium (Chloride) 60 mls @ 60 mls/hr IV NOW ONE Stop: 12/14/20 09:29 Last Admin: 12/14/20 09:11 Dose: 60 mls/hr Documented by: Magnesium Sulfate 2 gm/ Premix 50 mls @ 25 mls/hr IV ONETIME ONE Stop: 12/15/20 12:43 Last Admin: 12/15/20 11:00 Dose: 25 mls/hr Documented by: Magnesium Sulfate 4 gm/ Premix 100 mls @ 50 mls/hr IV ONETIME ONE Stop: 12/16/20 09:53 Last Admin: 12/16/20 08:48 Dose: 50 mls/hr Documented by: Magnesium Sulfate (Magnesium Sulfate (4.06 Meq/Ml) 5 Gm/10 Ml Sdv) 4 gm IV NOW STA Stop: 12/13/20 18:39 Potassium Chloride (Potassium Chloride 20 Meq Tab.Er) 40 meq PO ONETIME ONE Stop: 12/14/20 01:24 Last Admin: 12/14/20 01:59 Dose: 40 meq Documented by:
== END 2020-12-16 15:00 | disposition home or self-care (01) | DRG 425 ==
LOC: MW.ED 17:34 → MW.MS 18:48
PROVIDERS: ADMIT Student in an Organized Health Care Education/Training Program; ATTEND Student in an Organized Health Care Education/Training Program
DX: E83.42 Hypomagnesemia (principal); E83.51 Hypocalcemia; E86.0 Dehydration; N17.9 Acute kidney failure, unspecified; M89.9 Disorder of bone, unspecified; I25.10 Atherosclerotic heart disease of native coronary artery without angina pectoris; N18.9 Chronic kidney disease, unspecified; J44.9 Chronic obstructive pulmonary disease, unspecified; H54.7 Unspecified visual loss; Z20.822 Contact with and (suspected) exposure to COVID-19; E78.00 Pure hypercholesterolemia, unspecified; I12.9 Hypertensive chronic kidney disease with stage 1 through stage 4 chronic kidney disease, or unspecified chronic kidney disease; M19.90 Unspecified osteoarthritis, unspecified site; E03.9 Hypothyroidism, unspecified; I48.11 Longstanding persistent atrial fibrillation; Z86.73 Personal history of transient ischemic attack (TIA), and cerebral infarction without residual deficits; Z88.7 Allergy status to serum and vaccine; Z88.8 Allergy status to other drugs, medicaments and biological substances; Z79.82 Long term (current) use of aspirin; Z79.899 Other long term (current) drug therapy; Z95.5 Presence of coronary angioplasty implant and graft; Z90.710 Acquired absence of both cervix and uterus
CPT/HCPCS: 36415; 80048; 80053; 82340; 82570; 83690; 83735; 84100; 85025; 87045; 87046; 87324; 87449; 87493; 87899; 93005; 99285-25; A9270-GY; J0610; J2405; J3475; J7120; U0002

== ENCOUNTER 2021-01-05 22:15 | Emergency (ER) | payer BC ==
[2021-01-05] MEDS ORDERED: Sodium Chloride 0.9% 1,000 ML IV ONE (22:22)
[2021-01-05] MEDS ORDERED: Sodium Chloride 0.9% 2.5 ML Syringe FLUSH PRN (22:22)
[2021-01-05] MEDS ORDERED: Sodium Chloride 0.9% 10 ML Syringe FLUSH PRN (22:22)
[2021-01-05] MEDS ORDERED: propofoL 100 ML ONE (22:26)
[2021-01-05] MEDS ORDERED: fentaNYL 50 MCG/ML SDV IVPUSH ONE ×2 (22:27→23:21)
[2021-01-05] MEDS ORDERED: propofoL 100 ML IV SCH (22:30)
[2021-01-05] MEDS: fentaNYL 100 MCG/2 ML SDV ONE ×2 (22:35→22:42)
--- NOTE | 2021-01-05 22:38 | EDM.PDOC ---
ED HPI GENERAL MEDICAL PROBLEM - General Stated Complaint: SEIZURE Time Seen by Provider: 01/05/21 22:22 Source of Information: Reports: EMS - History of Present Illness INITIAL COMMENTS - FREE TEXT/NARRATIVE: History of present illness: 61-year-old female brought by EMS for unresponsive episode with shortness of breath. Apparently the patient herself called EMS for shortness of breath. When they arrived they found her somewhat lethargic and having difficulty breathing. They were unable to get an initial oxygen saturation due to cold temperature of her hands, the initial oxygen saturation they got was 80. While they were getting ready to transport her into the ambulance itself she cried out, and then started to have shaking movements of her extremities, appearing to be tonic-clonic seizure per EMS witnessed report. Prior to that they did notice she appeared to have some carpopedal spasm. Tonic-clonic activity lasted about 45 to 60 seconds and then stopped, however the patient did not regain mental status and was not protecting her airway, therefore they intubated the patient with ketamine, etomidate and rocuronium. Patient had elevated heart rate throughout EMS evaluation and transportation, appeared to be atrial fibrillation on the monitor. During the ?seizure activity her heart rate did increase but appeared to remain the same narrow complex rhythm per medic report. They did give the patient 20 of diltiazem for the elevated heart rate/atrial fibrillation and her heart rate did improve. On arrival here the patient is unresponsive and being bagged by EMS. Review of systems: Unable to obtain due to patient status Past medical history: Per EMS report on computer review, hypocalcemia, coronary artery disease, cardiac stenting, recent diagnosis of breast and bone cancer, hypomagnesemia, at rial fibrillation on Xarelto, chronic kidney disease, and hypertension/hypercholesterolemia as well as TIA and COPD. Surgical history: Patient unable to report. Social history: Unknown, due to patient status Family history: Unknown due to patient status Physical exam: GEN: Distress, unresponsive, intubated, being bagged by bag valve mask HEENT: Atraumatic, normocephalic, mucous membranes dry, ET tube in place, pupils 3 mm and nonreactive, however the patient received rocuronium Neck: trachea midline. Lungs: No respiratory distress. Patient being bagged. With bagged respirations patient has equal breath sounds although coarse sounding, no rales, no wheezes Heart: Tachycardic and irregular, atrial fibrillation on the monitor, rate in the 120s to 140s Abdomen: Soft, nondistended, Back: Deferred extremities: Atraumatic. Normal color, no swelling, atraumatic Neuro: Unresponsive, status post paralytic. Skin: warm, dry, no lesions Diagnostics: Labs, EKG, CT brain, chest x-ray CT HEAD WITHOUT CONTRAST TECHNIQUE: Multiple axial CT images were performed through the head without intravenous contrast administration. COMPARISON: 10/22/[address] and 10/26/2020 head MRI. FINDINGS: No acute intracranial hemorrhage is identified. No extra-axial collections are evident and there is no mass effect or midline shift. There is mild diffuse age-related brain atrophy, as before. Ventricular size and configuration are within normal limits for the patient`s age. Mckoy-white differentiation is within normal limits. There is unchanged very mild patchy hypodensity in the periventricular white matter, a nonspecific finding which most likely reflects chronic small vessel ischemic change. Intracranial atherosclerotic vascular calcifications are noted. There has been no significant change in subtle, ill-defined lytic changes involving the right frontal calvarium with erosions of the inner table, likely representing an osseous metastasis. Osseous structures are otherwise within normal limits and no fractures are seen. Included portions of the paranasal sinuses and mastoid air cells are normally aerated. IMPRESSION: 1. No acute intracranial abnormality identified. 2. No significant change in probable osseous metastasis involving the right frontal calvarium. 3. Mild age-related brain atrophy, white matter hypodensity consistent with chronic small vessel ischemic change, and intracranial atherosclerotic vascular calcifications. CT CHEST WITHOUT CONTRAST TECHNIQUE: Multidetector CT imaging was performed through the chest without intravenous contrast administration. No IV contrast was given because of low GFR. Coronal and sagittal reconstructions were generated. COMPARISON: 12/28/2020 PET-CT. FINDINGS: Lungs and airways: New moderate to severe atelectasis in both lower lobes, left worse than right. No significant change in several small bilateral pulmonary nodules, many of which appear to be calcified consistent with granulomas. Endotracheal tube with its tip 2 centimeters above the bhaskar. Pleura and pleural spaces: No pleural effusions or pneumothorax. Heart and mediastinum: Mild cardiomegaly. Pericardial effusion measuring up to 1 centimeter in thickness, increased compared to the previous exam. No significant change in several mildly enlarged mediastinal lymph nodes. Mild distention of the esophagus with gas and fluid. Vascular structures: Normal caliber thoracic aorta. Moderate atherosclerotic calcifications of the aorta and coronary arteries. Chest wall and axillae: Unchanged poorly defined 3 centimeter soft tissue mass in the medial left breast. Osseous structures: Extensive mixed lytic-sclerotic lesions in the thoracic spine consistent with multiple bone metastases, not significantly changed compared to the prior exam. Upper abdomen: Probable diffuse gastric wall thickening, grossly unchanged from before. Bilateral adrenal thickening without discrete mass. IMPRESSION: 1. Moderate to severe bilateral lower lobe atelectasis, worse on the left. 2. Endotracheal tube in place. 3. Small to moderate-sized pericardial effusion, increased. 4. No significant change in numerous mixed lytic-sclerotic bone metastases in the thoracic spine. 5. Unchanged poorly defined 3 centimeter mass in the medial left breast. 6. Nonacute additional findings as detailed above. EKG performed today, January 05, 2021 at 10:29 PM, atrial fibrillation, rate 148, LVH with secondary repolarization abnormality, inferior lateral ST depressions likely rate related. No STEMI. Interpreted by me. Repeat EKG performed at 11:06 PM January 05, 2021, atrial fibrillation with RVR, rate 170, PVCs, ST/T wave changes, likely rate related. No STEMI. Repeat EKG performed at 12:51 AM on January 06, 2021, sinus bradycardia, rate 42, LVH, no acute ischemia, no STEMI. Interpreted by me. Therapeutics: IV fluids, propofol, fentanyl, diltiazem, IV antibiotics for possible pneumonia (vancomycin/cefepime due to patient's recent hospital admission 3 weeks ago), br ief peripheral dopamine for hypotension. MDM: Respiratory distress/dyspnea and questionable seizure/decreased mental status. Intubated by EMS. ET tube confirmed though was slightly deep and therefore pulled back. No acute intracranial hemorrhage on CT scan and CT chest without contrast to patient is acutely elevated creatinine, shows bilateral lower lobe atelectasis, increased size of pericardial effusion, multiple bony metastasis in the thoracic spine, left breast lesion. The patient had ongoing atrial fibrillation with elevated rates, however had decreasing blood pressure and therefore due to instability the patient was electrically cardioverted and did appear to have improvement in her rhythm and eventually did develop sinus/sinus bradycardia. Blood pressure mental status did improve somewhat at that time. Patient will be flown to nearest available facility, which is [facility] and they have accepted the case. Patient will go directly to the ER there. Impression: Unstable atrial fibrillation, rapid atrial fibrillation with RVR, altered mental status, respiratory failure, dyspnea, pneumonia, hypomagnesemia, hypocalcemia Plan: [] Definitive disposition and diagnosis as appropriate pending reevaluation and review of above. - Related Data Allergies Allergy/AdvReac Type Severity Reaction Status Date / Time apixaban [From Eliquis] Allergy Swelling Verified 01/05/21 22:33 atorvastatin [From Lipitor] Allergy Swelling Verified 01/05/21 22:33 Tetanus Vaccines and Toxoid Allergy Hives Verified 01/05/21 22:33 Home Meds: Home Meds Rosuvastatin [Crestor] 20 mg PO BEDTIME 09/20/16 [History] Aspirin [Halfprin] 81 mg PO DAILY 09/25/16 [History] Eplerenone [Inspra] 25 mg PO BID 03/02/19 [History] Rivaroxaban [Xarelto] 15 mg PO DAILY 03/02/19 [History] Aspirin [Meredith Chewable Aspirin] 81 mg PO DAILY 12/13/20 [History] Calcium Carbonate [Tums] 1,000 mg PO DAILY 12/13/20 [History] Cholecalciferol (Vitamin D3) [Vitamin D3] 125 mcg PO DAILY 12/13/20 [History] Furosemide [Lasix] 20 mg PO DAILY 12/13/20 [History] lisinopriL [Lisinopril] 20 mg PO BID 12/13/20 [History] Metoprolol Succinate 100 mg PO BID 12/14/20 [History] Sildenafil [Revatio] 20 mg PO TID 12/14/20 [History] Lactobacillus Acidophilus [Acidophilus] 1 each PO DAILY #20 capsule 12/16/20 [Rx] Magnesium Glycinate [Magnesium Bisglycinate Chelate] 500 gm MC DAILY #30 powder 12/16/20 [Rx] Vancomycin [Vancocin 125 MG Capsule] 125 mg PO QID 8 Days #32 cap 12/16/20 [Rx] Past Medical History - Past Health History Medical/Surgical History: Denies Medical/Surgical History HEENT History: Reports: Impaired Vision Cardiovascular History: Reports: Afib, High Cholesterol, Hypertension, Stents, Other (See Below) Other Cardiovascular History: TIA 5 years ago; stent placed in September 2016 Respiratory History: Reports: Other (See Below) Other Respiratory History: lung polyps Gastrointestinal History: Reports: Other (See Below) Other Gastrointestinal History: Heartburn Genitourinary History: Reports: None TITLE LAWYER History: Reports: None Musculoskeletal History: Reports: Fracture, Osteoarthritis, Other (See Below) Other Musculoskeletal History: screws to the right wrist Neurological History: Reports: Seizure, TIA Other Neuro History: last seizure 1 year ago Psychiatric History: Reports: None Endocrine/Metabolic History: Reports: Hypothyroidism Other Endocrine/Metabolic History: "borderline diabetes" Hematologic History: Reports: None Oncologic (Cancer) History: Reports: None Dermatologic History: Reports: None - Infectious Disease History Infectious Disease History: Reports: Chicken Pox - Past Surgical History Head Surgeries/Procedures: Reports: None HEENT Surgical History: Reports: None Cardiovascular Surgical History: Reports: None Respiratory Surgical History: Reports: None GI Surgical History: Reports: Colonoscopy, EGD Female Surgical History: Reports: None Endocrine Surgical History: Reports: None Neurological Surgical History: Reports: None Musculoskeletal Surgical History: Reports: None Social & Family History - Family History Family Medical History: Unobtainable HEENT: Reports: Impaired Vision, Other (See Below) Other HEENT Family History: ear surgery Cardiac: Reports: Bypass, Hypertension OBGYN: Reports: , Other (See Below) Other OBGYN Family History: hysterectomy Endocrine/Metabolic: Reports: Other (See Below) Other Endocrine/Metabolic Family History: DM type unknown Oncologic: Reports: Breast - Caffeine Use Caffeine Use: Reports: Coffee Caffeine Use Comment: 4 cups/day ED ROS GENERAL - Review of Systems Review Of Systems: See Below (See dictation) ED EXAM, GENERAL - Physical Exam Exam: See Below (See dictation) ED GENERAL MEDICAL PROCEDURES - Additional/Other Procedure(s) Other (Free Text) Procedure(s): Synchronized cardioversion performed, indication unstable atrial fibrillation with RVR. Pretreated with fentanyl 100 mcg. Patient already intubated and on oxygen via [id number]. Cardioversion performed with biphasic at 200 J at 11:58 PM on January 05, 2021. Initial rhythm rapid atrial fibrillation rate 160s Repeat rhythm atrial fibrillation with occasional sinus beats, rate 80s to 100. Patient tolerated well. No complications. Course - Vital Signs Last Recorded V/S: Last Vital Signs Temp 96.9 F 01/05/21 22:15 Pulse 165 H 01/05/21 22:55 Resp 32 H 01/05/21 22:55 BP 141/81 H 01/05/21 22:55 Pulse Ox 98 01/05/21 22:55 - Orders/Labs/Meds Orders: Active Orders 24 hr Category Date Time Status Insert Bobo Catheter [Insert Urinary Catheter] [OM.PC] Care 01/06/21 00:45 Ordered Q24H CULTURE BLOOD [BC] Stat Lab 01/05/21 22:54 Received CULTURE BLOOD [BC] Stat Lab 01/05/21 22:59 Received Blood Culture x2 Reflex Set [OM.PC] Stat Oth 01/05/21 22:23 Ordered Desired Level of Sedation (RASS) [AST] Click to Edit Oth 01/05/21 22:26 Ordered Saline Lock Insert [OM.PC] Stat Oth 01/05/21 22:22 Ordered Labs: Laboratory Tests 01/05/21 01/05/21 01/05/21 Range/Units 22:20 22:20 22:20 WBC 9.92 (4.0-11.0) K/uL RBC 4.20 L (4.30-5.90) M/uL Hgb 11.8 L (12.0-16.0) g/dL Hct 37.4 (36.0-46.0) % MCV 89.0 (80.0-98.0) fL MCH 28.1 (27.0-32.0) pg MCHC 31.6 (31.0-37.0) g/dL RDW Std Deviation 56.8 (28.0-62.0) fl RDW Coeff of Cullen 17 H (11.0-15.0) % Plt Count 462 H (150-400) K/uL MPV 11.10 (7.40-12.00) fL Neut % (Auto) 58.7 (48.0-80.0) % Lymph % (Auto) 33.4 (16.0-40.0) % [place] % (Auto) 6.4 (0.0-15.0) % Eos % (Auto) 1.1 (0.0-7.0) % Baso % (Auto) 0.4 (0.0-1.5) % Neut # (Auto) 5.8 H (1.4-5.7) K/uL Lymph # (Auto) 3.3 H (0.6-2.4) K/uL [place] # (Auto) 0.6 (0.0-0.8) K/uL Eos # (Auto) 0.1 (0.0-0.7) K/uL Baso # (Auto) 0.0 (0.0-0.1) K/uL Nucleated RBC % 0.0 /100WBC Nucleated RBCs # 0 K/uL Sodium 143 (136-145) mmol/L Potassium 3.5 (3.5-5.1) mmol/L Chloride 102 (98-107) mmol/L Carbon Dioxide 14.8 L (21.0-32.0) mmol/L BUN 21 H (7.0-18.0) mg/dL Creatinine 1.8 H (0.6-1.0) mg/dL Est Cr Clr Drug Dosing TNP Estimated GFR (MDRD) 28.5 ml/min Glucose 162 H (74-106) mg/dL Calcium 5.8 L (8.5-10.1) mg/dL Magnesium 0.6 L (1.8-2.4) mg/dL Total Bilirubin 0.2 (0.2-1.0) mg/dL AST 19 (15-37) IU/L ALT 18 (14-63) IU/L Alkaline Phosphatase 110 (46-116) U/L Troponin I < 0.050 (0.000-0.056) ng/mL B-Natriuretic Peptide 1085 H (<100) PG/ML Total Protein 7.6 (6.4-8.2) g/dL Albumin 3.2 L (3.4-5.0) g/dL Globulin 4.4 H (2.6-4.0) g/dL Albumin/Globulin Ratio 0.7 L (0.9-1.6) SARS-CoV-2 RNA (ARISTIDES) (NEGATIVE) 01/06/21 Range/Units 00:30 WBC (4.0-11.0) K/uL RBC (4.30-5.90) M/uL Hgb (12.0-16.0) g/dL Hct (36.0-46.0) % MCV (80.0-98.0) fL MCH (27.0-32.0) pg MCHC (31.0-37.0) g/dL RDW Std Deviation (28.0-62.0) fl RDW Coeff of Cullen (11.0-15.0) % Plt Count (150-400) K/uL MPV (7.40-12.00) fL Neut % (Auto) (48.0-80.0) % Lymph % (Auto) (16.0-40.0) % [place] % (Auto) (0.0-15.0) % Eos % (Auto) (0.0-7.0) % Baso % (Auto) (0.0-1.5) % Neut # (Auto) (1.4-5.7) K/uL Lymph # (Auto) (0.6-2.4) K/uL [place] # (Auto) (0.0-0.8) K/uL Eos # (Auto) (0.0-0.7) K/uL Baso # (Auto) (0.0-0.1) K/uL Nucleated RBC % /100WBC Nucleated RBCs # K/uL Sodium (136-145) mmol/L Potassium (3.5-5.1) mmol/L Chloride (98-107) mmol/L Carbon Dioxide (21.0-32.0) mmol/L BUN (7.0-18.0) mg/dL Creatinine (0.6-1.0) mg/dL Est Cr Clr Drug Dosing Estimated GFR (MDRD) ml/min Glucose (74-106) mg/dL Calcium (8.5-10.1) mg/dL Magnesium (1.8-2.4) mg/dL Total Bilirubin (0.2-1.0) mg/dL AST (15-37) IU/L ALT (14-63) IU/L Alkaline Phosphatase (46-116) U/L Troponin I (0.000-0.056) ng/mL B-Natriuretic Peptide (<100) PG/ML Total Protein (6.4-8.2) g/dL Albumin (3.4-5.0) g/dL Globulin (2.6-4.0) g/dL Albumin/Globulin Ratio (0.9-1.6) SARS-CoV-2 RNA (ARISTIDES) NEGATIVE (NEGATIVE) Meds: Medications Discontinued Medications Generic Name Dose Route Start Last Admin Trade Name Freq PRN Reason Stop Dose Admin Calcium Gluconate 1 gm 07/28/21 23:35 01/06/21 00:00 Calcium Gluconate 10% 1 Gm/10 Ml Sdv IVPUSH 01/05/21 23:36 1 gm ONETIME ONE Administration Diltiazem HCl 20 mg 01/05/21 22:57 01/05/21 23:00 Diltiazem 25 Mg/5 Ml Sdv IVPUSH 01/05/21 22:58 20 mg ONETIME ONE Administration Diltiazem HCl Confirm 01/05/21 22:56 01/06/21 00:38 Diltiazem 25 Mg/5 Ml Sdv Administered 01/05/21 22:57 Not Given Dose 25 mg .ROUTE .STK-MED ONE Diltiazem HCl Confirm 01/05/21 23:14 01/06/21 00:37 Diltiazem 25 Mg/5 Ml Sdv Administered 01/05/21 23:15 Not Given Dose 25 mg .ROUTE .STK-MED ONE Fentanyl 100 mcg 01/05/21 22:27 01/05/21 22:36 Fentanyl 50 Mcg/Ml Sdv IVPUSH 01/05/21 22:28 100 mcg ONETIME ONE Administration Fentanyl Confirm 01/05/21 22:27 01/05/21 22:42 Fentanyl 100 Mcg/2 Ml Sdv Administered 01/05/21 22:28 Not Given Dose 100 mcg .ROUTE .STK-MED ONE Fentanyl 100 mcg 01/05/21 23:21 01/05/21 23:20 Fentanyl 50 Mcg/Ml Sdv IVPUSH 01/05/21 23:22 100 mcg ONETIME ONE Administration Fentanyl Confirm 01/06/21 00:25 01/06/21 00:38 Fentanyl 100 Mcg/2 Ml Sdv Administered 01/06/21 00:26 Not Given Dose 100 mcg .ROUTE .STK-MED ONE Fentanyl 100 mcg 01/06/21 01:26 01/06/21 00:00 Fentanyl 50 Mcg/Ml Sdv IVPUSH 01/06/21 01:27 100 mcg ONETIME ONE Administration Sodium Chloride 1,000 mls @ 999 mls/hr 01/05/21 22:22 01/05/21 22:36 Normal Saline IV 01/05/21 23:22 999 mls/hr .Bolus ONE Administration Propofol 100 mls @ 2.178 mls/hr 01/05/21 22:30 01/05/21 23:00 Diprivan 100 Ml IV 5 mcg/kg/min TITRATE BONITA 2.178 mls/hr Administration Protocol 5 MCG/KG/MIN Propofol Confirm 01/05/21 22:26 01/05/21 22:41 Diprivan 100 Ml Administered 01/05/21 22:27 Not Given Dose 100 mls @ as directed .ROUTE .STK-MED ONE Diltiazem HCl 100 mg/ Sodium 100 mls @ 5 mls/hr 01/05/21 23:00 01/05/21 23:00 Chloride IV 5 mg/hr NOW BONITA 5 mls/hr Administration Protocol 5 MG/HR Magnesium Sulfate 100 mls @ 100 mls/hr 01/05/21 23:45 01/06/21 00:41 Magnesium Sulfate In Water 2 Gm/50 Ml IV 01/06/21 00:44 100 mls/hr NOW ONE Administration Dopamine HCl/Dextrose 400 mg in 250 mls @ 5.445 mls/hr 01/05/21 23:45 01/05/21 23:40 Dopamine In D5w 400 Mg/250 Ml IV 2 mcg/kg/min ASDIRECTED BONITA 5.445 mls/hr Administration Protocol 2 MCG/KG/MIN Dopamine HCl/Dextrose Confirm 01/05/21 23:38 01/06/21 00:45 Dopamine In D5w 400 Mg/250 Ml Administered 01/05/21 23:39 Not Given Dose 400 mg in 250 mls @ as directed .ROUTE .STK-MED ONE Vancomycin HCl 1 gm/ Sodium 250 mls @ 166 mls/hr 01/06/21 00:09 01/06/21 00:38 Chloride IV 01/06/21 01:39 166 mls/hr ONETIME ONE Administration Cefepime HCl 2 gm/ Premix 50 mls @ 100 mls/hr 01/06/21 00:09 01/06/21 01:15 IV 01/06/21 00:38 100 mls/hr ONETIME ONE Administration Sodium Chloride 1,000 mls @ 999 mls/hr 01/06/21 00:56 01/06/21 00:56 Normal Saline IV 01/06/21 01:56 999 mls/hr .Bolus ONE Administration Levetiracetam 1,000 mg/ 110 mls @ 440 mls/hr 01/06/21 01:19 01/06/21 01:44 Dextrose/Water IV 01/06/21 01:33 Not Given Q12H ONE Magnesium Sulfate 2 gm 01/05/21 23:35 Magnesium Sulfate (4.06 Meq/Ml) 5 Gm/10 Ml Sdv IV 01/05/21 23:36 ONETIME ONE Sodium Chloride 10 ml 01/05/21 22:22 Sodium Chloride 0.9% 10 Ml Syringe FLUSH ASDIRECTED PRN Keep Vein Open Sodium Chloride 2.5 ml 01/05/21 22:22 Sodium Chloride 0.9% 2.5 Ml Syringe FLUSH ASDIRECTED PRN Keep Vein Open - Re-Assessments/Exams Free Text/Narrative Re-Assessment/Exam: 01/05/21 22:47 CXR showed ETT at bhaskar, will pull back and repeat XR. 01/05/21 23:22 I reassessed the patient. Heart rate is still elevated. She does seem to be moving slightly with the ET tube in place therefore propofol will be increased and fentanyl 100 mcg will be given as well as diltiazem bolus for the elevated heart rate. She is already on diltiazem drip. Blood pressure is stable at this time. The patient's brother, Mervin was brought to the bedside and I updated him on all available results and plan of care including need for transfer, likely via air due to her critical nature of her illness. He agrees with this plan. We did discuss CODE STATUS, however he is uncertain of what her CODE STATUS is or was although he thinks she does have a living will, however he does not have access to that. 01/06/21 00:10 The patient's heart rate continued to be elevated here. Therefore additional bolus of diltiazem was given in addition to the diltiazem drip already ongoing. Heart rate was still in the 160s. However blood pressure had started to drop after second bolus dose of diltiazem. Therefore propofol and diltiazem drip were stopped. Blood pressure remained low in the 60s to 80s systolic. Therefore peripheral dopamine was started. Blood pressure began to improve, however was still low and heart rate still elevated. As the patient was unstable with atrial fibrillation at a high rate, decision was made for emergent synchronized cardioversion after discussion with the patient's brother who is her power of apprentice cosmetologist. He did agree to this and give consent. Patient was cardioverted at 11:58 PM. Heart rate and blood pressure both did improve at that time. Still atrial fibrillation but more frequent sinus beats interspersed. At this point the patient is more stable and able to go to CT scan. Brother was updated. 01/06/21 00:[address] Hodge at the [facility] emergency department and accepted for emergent transfer. We will transfer by air due to patient's emergent medical conditions at this time. 01/06/21 00:58 Patient's blood pressures dropped again. In the 60s systolic. Propofol was stopped and IV fluid bolus will be given. Repeat EKG performed, showing sinus bradycardia in the 40s. All medications held other than vancomycin which is currently running. Air ambulance helicopter en route. 01/06/21 01:18 Patient did appear to have some twitching, and as she had a reported seizure prior to arrival here, dose of 1 g of Keppra will also be given prior to EMS transfer. The air ambulance crew is here at this time. Patient did have some improvement in her mental status after the propofol had been held due to low blood pressure. She is now sitting up and able to follow some commands. However will maintain ET tube at this time. EMS air crew here and requesting to give ketamine during transport. Departure - Departure Time of Disposition: 00:41 Disposition: DC/Tfer to [facility] 02 Clinical Impression: Dyspnea, CKD (chronic kidney disease), Atrial fibrillation with RVR, Hypomagnesemia, Seizure disorder, Electrolyte abnormality, Hypocalcemia Atrial fibrillation Qualifiers: Atrial fibrillation type: longstanding persistent Qualified Code(s): I48.11 - Longstanding persistent atrial fibrillation - Discharge Information Referrals: PCP,None [Ordering Only Provider] - Forms: ED Department Discharge Critical Care Note - Critical Care Note Total Time (mins): 55 Sepsis Event Note (ED) - Focused Exam Vital Signs: Vital Signs Temp Pulse Resp BP Pulse Ox 01/05/21 22:55 165 H 32 H 141/81 H 98 01/05/21 22:15 96.9 F 140 H 16 105/51 L 96 - My Orders Last 24 Hours: My Active Orders 01/05/21 22:22 Saline Lock Insert [OM.PC] Stat 01/05/21 22:23 Blood Culture x2 Reflex Set [OM.PC] Stat 01/05/21 22:26 Desired Level of Sedation (RASS) [AST] Click to Edit 01/05/21 22:54 CULTURE BLOOD [BC] Stat 01/05/21 22:59 CULTURE BLOOD [BC] Stat 01/06/21 00:45 Insert Bobo Catheter [Insert Urinary Catheter] [OM.PC] Q24H - Assessment/Plan Last 24 Hours: My Active Orders 01/05/21 22:22 Saline Lock Insert [OM.PC] Stat 01/05/21 22:23 Blood Culture x2 Reflex Set [OM.PC] Stat 01/05/21 22:26 Desired Level of Sedation (RASS) [AST] Click to Edit 01/05/21 22:54 CULTURE BLOOD [BC] Stat 01/05/21 22:59 CULTURE BLOOD [BC] Stat 01/06/21 00:45 Insert Bobo Catheter [Insert Urinary Catheter] [OM.PC] Q24H
[2021-01-05] MEDS ORDERED: Diltiazem 25 MG/5 ML SDV ONE ×2 (22:56→23:14)
[2021-01-05] MEDS ORDERED: Diltiazem 25 MG/5 ML SDV IVPUSH ONE (22:57)
[2021-01-05 22:58] VITALS: BP 141/81; PULSE 165
[2021-01-05] MEDS ORDERED: Diltiazem 100 MG in Sodium Chloride 0.9% 100 ML IV SCH (23:00)
[2021-01-05 23:01] LABS: BLOOD UREA NITROGEN,BUN 21 mg/dL (7.0-18.0); CARBON DIOXIDE,CO2 14.8 mmol/L (21.0-32.0); CHLORIDE,CL 102 mmol/L (98-107); GLUCOSE RANDOM 162 mg/dL (74-106); POTASSIUM,K 3.5 mmol/L (3.5-5.1); SODIUM,NA 143 mmol/L (136-145)
--- NOTE | 2021-01-05 23:12 | CR ---
INDICATION: Dyspnea, intubation TECHNIQUE: Chest radiograph 1 view COMPARISON: 01/05/2021 FINDINGS: Mediastinum: The mediastinum is normal in appearance. Mild cardiomegaly is present without change. The endotracheal tube tip is positioned at the bhaskar and orifice of the right mainstem bronchus. Lung: Consolidation of the left lung base and left pleural effusion are noted without interval change. Most of the right hemithorax is excluded. No pneumothorax is identified. Bone and Soft tissue: Unremarkable for age. IMPRESSION: 1. The endotracheal tube tip is positioned at the bhaskar and orifice of the right mainstem bronchus. Dictated by Taco Rosa MD @ 01/05/2021 11:10:51 PM Dictated by: Taco Rosa MD @ 01/05/2021 23:10:56 (Electronically Signed)
--- NOTE | 2021-01-05 23:12 | CR ---
INDICATION: ETT adjustment TECHNIQUE: Chest radiograph 1 view COMPARISON: 01/05/2021 FINDINGS: Mediastinum: The mediastinum is normal in appearance. The heart silhouette is normal in size and morphology. The endotracheal tube tip has been retracted and is positioned 3 cm from the bhaskar. Lung: Consolidation of the left lung base and small left pleural effusion are present without interval change. Moderate pulmonary vascular congestion is seen. No pneumothorax is identified. Bone and Soft tissue: Unremarkable for age. IMPRESSION: 1. The endotracheal tube tip has been retracted and is positioned 3 cm from the bhaskar. Dictated by Taco Rosa MD @ 01/05/2021 11:11:51 PM Dictated by: Taco Rosa MD @ 01/05/2021 23:11:56 (Electronically Signed)
[2021-01-05] MEDS ORDERED: Magnesium Sulfate (4.06 MEQ/ML) 5 GM/10 ML SDV IV ONE (23:35)
[2021-01-05] MEDS ORDERED: Calcium Gluconate 10% 1 GM/10 ML SDV IVPUSH ONE (23:35)
[2021-01-05] MEDS ORDERED: DOPamine/Dextrose 5%-Water 400 MG/250 ML BAG ONE (23:38)
[2021-01-05] MEDS ORDERED: DOPamine/Dextrose 5%-Water 400 MG/250 ML BAG IV SCH (23:45)
[2021-01-05] MEDS ORDERED: Magnesium Sulfate/Water 100 ML IV ONE (23:45)
[2021-01-06] MEDS ORDERED: Cefepime 2 GM in Premix Bag 1 BAG IV ONE (00:09)
[2021-01-06] MEDS ORDERED: fentaNYL 100 MCG/2 ML SDV ONE (00:25)
--- NOTE | 2021-01-06 00:30 | CT ---
INDICATION: Altered mental status. History of breast cancer. History of multiple bone metastases. CT HEAD WITHOUT CONTRAST TECHNIQUE: Multiple axial CT images were performed through the head without intravenous contrast administration. COMPARISON: 10/22/[address] and 10/26/2020 head MRI. FINDINGS: No acute intracranial hemorrhage is identified. No extra-axial collections are evident and there is no mass effect or midline shift. There is mild diffuse age-related brain atrophy, as before. Ventricular size and configuration are within normal limits for the patient`s age. Mckoy-white differentiation is within normal limits. There is unchanged very mild patchy hypodensity in the periventricular white matter, a nonspecific finding which most likely reflects chronic small vessel ischemic change. Intracranial atherosclerotic vascular calcifications are noted. There has been no significant change in subtle, ill-defined lytic changes involving the right frontal calvarium with erosions of the inner table, likely representing an osseous metastasis. Osseous structures are otherwise within normal limits and no fractures are seen. Included portions of the paranasal sinuses and mastoid air cells are normally aerated. IMPRESSION: 1. No acute intracranial abnormality identified. 2. No significant change in probable osseous metastasis involving the right frontal calvarium. 3. Mild age-related brain atrophy, white matter hypodensity consistent with chronic small vessel ischemic change, and intracranial atherosclerotic vascular calcifications. ROSEANN LOWRY MD [facility] Dictated by Melvin Lowry MD @ 01/06/2021 12:28:40 AM Please note that all CT scans at this facility use dose modulation, iterative reconstruction, and/or weight-based dosing when appropriate to reduce radiation dose to as low as reasonably achievable. Dictated by: Melvin Lowry MD @ 01/06/2021 00:29:26 (Electronically Signed)
--- NOTE | 2021-01-06 00:51 | CT ---
INDICATION: Dyspnea. History of breast cancer. History of bone metastases. CT CHEST WITHOUT CONTRAST TECHNIQUE: Multidetector CT imaging was performed through the chest without intravenous contrast administration. No IV contrast was given because of low GFR. Coronal and sagittal reconstructions were generated. COMPARISON: 12/28/2020 PET-CT. FINDINGS: Lungs and airways: New moderate to severe atelectasis in both lower lobes, left worse than right. No significant change in several small bilateral pulmonary nodules, many of which appear to be calcified consistent with granulomas. Endotracheal tube with its tip 2 centimeters above the bhaskar. Pleura and pleural spaces: No pleural effusions or pneumothorax. Heart and mediastinum: Mild cardiomegaly. Pericardial effusion measuring up to 1 centimeter in thickness, increased compared to the previous exam. No significant change in several mildly enlarged mediastinal lymph nodes. Mild distention of the esophagus with gas and fluid. Vascular structures: Normal caliber thoracic aorta. Moderate atherosclerotic calcifications of the aorta and coronary arteries. Chest wall and axillae: Unchanged poorly defined 3 centimeter soft tissue mass in the medial left breast. Osseous structures: Extensive mixed lytic-sclerotic lesions in the thoracic spine consistent with multiple bone metastases, not significantly changed compared to the prior exam. Upper abdomen: Probable diffuse gastric wall thickening, grossly unchanged from before. Bilateral adrenal thickening without discrete mass. IMPRESSION: 1. Moderate to severe bilateral lower lobe atelectasis, worse on the left. 2. Endotracheal tube in place. 3. Small to moderate-sized pericardial effusion, increased. 4. No significant change in numerous mixed lytic-sclerotic bone metastases in the thoracic spine. 5. Unchanged poorly defined 3 centimeter mass in the medial left breast. 6. Nonacute additional findings as detailed above. ROSEANN LOWRY MD [facility] Dictated by Melvin Lowry MD @ 01/06/2021 12:48:26 AM Please note that all CT scans at this facility use dose modulation, iterative reconstruction, and/or weight-based dosing when appropriate to reduce radiation dose to as low as reasonably achievable. Dictated by: Melvin Lowry MD @ 01/06/2021 00:49:41 (Electronically Signed)
[2021-01-06] MEDS ORDERED: Sodium Chloride 0.9% 1,000 ML IV ONE (00:56)
[2021-01-06] MEDS ORDERED: fentaNYL 50 MCG/ML SDV IVPUSH ONE (01:26)
== END 2021-01-06 01:45 ==
LOC: MW.ED 22:15
DX: I48.11 Longstanding persistent atrial fibrillation (principal); G40.909 Epilepsy, unspecified, not intractable, without status epilepticus; E83.51 Hypocalcemia; E83.42 Hypomagnesemia; I12.9 Hypertensive chronic kidney disease with stage 1 through stage 4 chronic kidney disease, or unspecified chronic kidney disease; N18.9 Chronic kidney disease, unspecified; J98.11 Atelectasis; I31.3 Pericardial effusion (noninflammatory); E78.00 Pure hypercholesterolemia, unspecified; M19.90 Unspecified osteoarthritis, unspecified site; E03.9 Hypothyroidism, unspecified; Z88.8 Allergy status to other drugs, medicaments and biological substances; Z88.7 Allergy status to serum and vaccine; Z79.82 Long term (current) use of aspirin; Z79.01 Long term (current) use of anticoagulants; Z79.899 Other long term (current) drug therapy; Z20.822 Contact with and (suspected) exposure to COVID-19; E87.8 Other disorders of electrolyte and fluid balance, not elsewhere classified
CPT/HCPCS: 36415; 51702; 70450; 71045; 71250; 80053; 83735; 83880; 84484; 85025; 87040; 87635; 92960; 93005; 96365; 96367; 96368; 96375; 96376; 99285; J0610; J0692; J1265; J1953; J2704; J3010; J3370; J3475; J3490; J7030; J7050; U0002

== ENCOUNTER 2021-04-05 06:33 | Day surgery (SDC) | payer BC ==
--- NOTE | 2021-04-05 07:00 | PCM.PREANE ---
Preanesthetic Assessment - Procedure Proposed Procedure: Port-a-cath placement - Anesthesia/Transfusion/Family Hx Anesthesia History: Prior Anesthesia Without Reaction Family History of Anesthesia Reaction: No Transfusion History: No Prior Transfusion(s) - Review of Systems General: No Symptoms Pulmonary: No Symptoms (Lung polyps per chart pt denies, quit smoking x 2 months) Cardiovascular: No Symptoms (Afib, HTN, HLD, Stents 09/25) Gastrointestinal: No Symptoms (GERD well controlled on Nexium) Neurological: No Symptoms (H/o TIA 5 yrs ago no resid, Sz 3-4 months ago no explanation and on no meds) Other: Reports: None (H/O Hypothyroid no longer on meds, Breast CA) - Physical Assessment NPO Status Date: 04/04/21 NPO Status Time: 19:00 Height: 5 ft 9 in Weight: 68.492 kg ASA Class: 3 Mental Status: Alert & Oriented x3 Airway Class: Mallampati = 3 Dentition: Reports: Partial (upper and lower ) Thyro-Mental Finger Breadths: 3 Mouth Opening Finger Breadths: 3 ROM/Head Extension: Full Lungs: Clear to Auscultation, Normal Respiratory Effort Cardiovascular: Irregular Rhythm, Murmurs (4/6 sys murmur) - Allergies Allergies/Adverse Reactions: Allergies Allergy/AdvReac Type Severity Reaction Status Date / Time apixaban [From Eliquis] Allergy Swelling Verified 03/30/21 12:46 atorvastatin [From Lipitor] Allergy Swelling Verified 03/30/21 12:46 Tetanus Vaccines and Toxoid Allergy Hives Verified 03/30/21 12:46 - Anesthesia Plan Beta Vani: Metoprolol Med Last Dose Date: 04/05/21 Med Last Dose Time: 05:45 - Acknowledgements Anesthesia Type Planned: General Anesthesia Pt an Appropriate Candidate for the Planned Anesthesia: Yes Alternatives and Risks of Anesthesia Discussed w Pt/Guardian: Yes Pt/Guardian Understands and Agrees with Anesthesia Plan: Yes PreAnesthesia Questionnaire - Past Health History Medical/Surgical History: Denies Medical/Surgical History HEENT History: Reports: Impaired Vision Other HEENT History: wears glasses, has top and bottom partial Cardiovascular History: Reports: Afib, High Cholesterol, Hypertension, Stents, Other (See Below) Other Cardiovascular History: TIA 5 years ago; stent placed in September 2016 Respiratory History: Reports: Other (See Below) Other Respiratory History: lung polyps Gastrointestinal History: Reports: Other (See Below) Other Gastrointestinal History: Heartburn Genitourinary History: Reports: None HEART SPECIALIST History: Reports: None Musculoskeletal History: Reports: Fracture, Osteoarthritis, Other (See Below) Other Musculoskeletal History: screws to the right wrist Neurological History: Reports: Seizure, TIA Other Neuro History: last seizure 1 year ago Psychiatric History: Reports: None Endocrine/Metabolic History: Reports: Hypothyroidism Other Endocrine/Metabolic History: "borderline diabetes" Hematologic History: Reports: None Immunologic History: Reports: None Oncologic (Cancer) History: Reports: None Dermatologic History: Reports: None - Infectious Disease History Infectious Disease History: Reports: Chicken Pox - Past Surgical History Cardiovascular Surgical History: Reports: None Female Surgical History: Reports: None Musculoskeletal Surgical History: Reports: None - SUBSTANCE USE Tobacco Use Status *Q: Former Tobacco User Tobacco Use Within Last Twelve Months: Cigarettes - HOME MEDS Home Medications: Home Meds Rosuvastatin [Crestor] 20 mg PO BEDTIME 09/20/16 [History] Aspirin [Halfprin] 81 mg PO DAILY 09/25/16 [History] Eplerenone [Inspra] 25 mg PO BID 03/02/19 [History] Rivaroxaban [Xarelto] 15 mg PO DAILY 03/02/19 [History] Cholecalciferol (Vitamin D3) [Vitamin D3] 125 mcg PO DAILY 12/13/20 [History] Furosemide [Lasix] 20 mg PO DAILY 12/13/20 [History] lisinopriL [Lisinopril] 20 mg PO BID 12/13/20 [History] Metoprolol Succinate 100 mg PO BID 12/14/20 [History] Sildenafil [Revatio] 20 mg PO DAILY 12/14/20 [History] Calcium Carbonate [Calcium] 2 tab PO DAILY 03/30/21 [History] Diltiazem [Cardizem CD] 120 mg PO DAILY 03/30/21 [History] Esomeprazole Magnesium [Nexium] 40 mg PO DAILY 03/30/21 [History] Letrozole 2.5 mg PO DAILY 03/30/21 [History] Magnesium Chloride [Mag-64] 1 tab PO TID 03/30/21 [History] NIFEdipine [Nifedipine ER] 30 mg PO DAILY 03/30/21 [History]
[2021-04-05] MEDS ORDERED: Lactated Ringers 1,000 ML IV SCH (07:15)
[2021-04-05] MEDS ORDERED: Heparin Sodium 100 Units/ML 3 ML Syringe ONE ×2 (07:26→07:46)
[2021-04-05] MEDS ORDERED: Bupivacaine 0.5% 10 ML SDV ONE (07:26)
[2021-04-05] MEDS ORDERED: Octyl 2-Cyanoacrylate 1 Tube ONE (07:26)
[2021-04-05] MEDS ORDERED: Iopamidol 408 MG/ML 20 ML SDV ONE (07:27)
[2021-04-05] MEDS ORDERED: fentaNYL 100 MCG/2 ML SDV IVPUSH PRN (07:54)
[2021-04-05] MEDS ORDERED: Albuterol 0.083% 2.5 MG/3 ML Neb Soln NEB PRN (07:54)
[2021-04-05] MEDS ORDERED: Metoclopramide 10 MG/2 ML SDV IVPUSH PRN (07:54)
[2021-04-05] MEDS ORDERED: Morphine 2 MG/ML SYRINGE IVPUSH PRN (07:54)
[2021-04-05] MEDS ORDERED: HYDROmorphone 1 MG/ML Syringe IVPUSH PRN (07:54)
[2021-04-05] MEDS ORDERED: Naloxone 0.4 MG/ML SDV IVPUSH PRN (07:54)
[2021-04-05] MEDS ORDERED: Ondansetron 4 MG/2 ML SDV IVPUSH PRN (07:54)
[2021-04-05] MEDS ORDERED: Lidocaine 2% 5 ML SDV ONE (08:13)
[2021-04-05] MEDS ORDERED: Propofol 200 MG/20 ML SDV ONE (08:16)
[2021-04-05] MEDS ORDERED: fentaNYL 100 MCG/2 ML SDV ONE (08:20)
[2021-04-05] MEDS ORDERED: Dexamethasone 4 MG/ML 5 ML MDV ONE (08:56)
[2021-04-05] MEDS ORDERED: Ondansetron 4 MG/2 ML SDV ONE (08:56)
[2021-04-05] MEDS ORDERED: Ketorolac 30 MG/ML SDV ONE (09:07)
--- NOTE | 2021-04-05 09:32 | PCM.OPNOTE ---
- General Post-Op/Procedure Note Date of Surgery/Procedure: 04/05/21 Operative Procedure(s): Right internal jugular port a cath placement Findings: Port a cath placement Pre Op Diagnosis: Breast cancer Post-Op Diagnosis: same Anesthesia Technique: General LMA Primary Surgeon: Anita Ortiz Fluid Replacement, Intraop: 1,000 EBL in mLs: 5 Condition: Good
--- NOTE | 2021-04-05 09:33 | PCM.POSTAN ---
POST ANESTHESIA ASSESSMENT - MENTAL STATUS Mental Status: Alert, Oriented - VITAL SIGNS Vital Signs: Last Vital Signs Temp 97.2 F 04/05/21 06:55 Pulse 63 04/05/21 06:55 Resp 16 04/05/21 06:55 BP 118/76 04/05/21 06:55 Pulse Ox 99 04/05/21 06:55 - RESPIRATORY Respiratory Status: Respiratory Rate WNL, Airway Patent, O2 Saturation Stable - CARDIOVASCULAR CV Status: Pulse Rate WNL, Blood Pressure Stable - GASTROINTESTINAL GI Status: No Symptoms - PAIN Pain Score: 0 - POST OP HYDRATION Hydration Status: Adequate & Stable
--- NOTE | 2021-04-05 09:38 | PCM48HPAN ---
Post Anesthesia Note - EVALUATION WITHIN 48HRS OF ANESTHETIC Vital Signs in Normal Range: Yes Patient Participated in Evaluation: Yes Respiratory Function Stable: Yes Airway Patent: Yes Cardiovascular Function Stable: Yes Hydration Status Stable: Yes Pain Control Satisfactory: Yes Nausea and Vomiting Control Satisfactory: Yes Mental Status Recovered: Yes Vital Signs: Last Vital Signs Temp 97.7 F 04/05/21 09:22 Pulse 75 04/05/21 09:32 Resp 11 L 04/05/21 09:32 BP 119/79 04/05/21 09:32 Pulse Ox 99 04/05/21 09:32 - COMMENTS/OBSERVATIONS Free Text/Narrative:: Pt doing well post-op. VSS. No apparent anesthetic complications. Dr. Spencer Swift
--- NOTE | 2021-04-05 10:31 | CR ---
Indication: Status post Port-A-Cath placement Comparison: Single-view chest January 05, 2021 Technique: Single AP view chest Findings: There is a right-sided Port-A-Cath in satisfactory position with the tip mid superior vena cava. There is mild interstitial thickening again seen with trace left greater than right basilar pleural thickening. There is no dense consolidation, effusion or pneumothorax. The cardiac silhouette is enlarged with a tortuous thoracic aorta. The bony thorax is grossly intact. Impression: Right-sided Port-A-Cath in satisfactory position with the tip in the mid superior vena cava. Mild interstitial thickening again seen with trace left basilar pleural fluid. No immediate complication. Dictated by Migel Smith MD @ 04/05/2021 10:30:21 AM (Electronically Signed)
[2021-04-05 10:39] VITALS: BP 108/72; PULSE 68
--- NOTE | 2021-04-05 15:24 | OR ---
SURGEON: ANITA ORTIZ MD DATE OF PROCEDURE: 04/05/2021 PREOPERATIVE DIAGNOSIS: Breast cancer. POSTOPERATIVE DIAGNOSIS: Breast cancer. PROCEDURE PERFORMED: Right internal jugular Port-A-Cath placement. PRIMARY SURGEON: Anita Ortiz MD ANESTHESIA: General LMA, local. FLUIDS: 1000 mL crystalloid. ESTIMATED BLOOD LOSS: 5 mL. FINDINGS: Right internal jugular Port-A-Cath placement. COMPLICATIONS: None. INDICATIONS: The patient is a 61-year-old female who presents with breast cancer. She will need chemotherapy and is in need of the port. I explained the Port-A-Cath procedure, expected perioperative course, and the risks. She verbalized understanding and wishes to proceed. PROCEDURE IN DETAIL: The patient was brought in to the OR and placed on the OR table in supine position. A time-out was completed verifying the patient's name, age, date of , allergies, and procedure to be performed. General LMA anesthesia was induced. Using an ultrasound, I identified the vascular anatomy of the right side of the neck. The neck and chest were prepped and draped in usual standard fashion, and the patient's arms were tucked at her sides with a small shoulder roll placed under her shoulders. Using a now sterile ultrasound, I re- identified the vascular anatomy of the neck. I anesthetized the area overlying the right internal jugular vein as well as the catheter tunneling tract and the Port-A-Cath insertion site on the anterior right chest wall using a combination of 5% Marcaine plain and 1% lidocaine plain. The patient was placed into Trendelenburg position. Using ultrasound, I guided a needle into the right internal jugular vein. A good return of venous blood was noted. A guidewire was placed down the needle and passed into the chest without any resistance. C- arm was brought into the field. The guidewire appeared to be in correct position. I secured the guidewire to the drapes. I then turned my attention to the right anterior chest wall. Using a 15-blade, I made a 3 cm incision two fingerbreadths below the right lateral clavicle. Cautery was used to dissect to the subcutaneous fat level. I then created a subcutaneous pocket. The catheter tubing was tunneled from the anterior chest wall site up to the guidewire insertion site on the neck. I then placed a vascular sheath and dilator over the guidewire. Using fluoroscopic guidance, I dilated up my vascular tract through the right internal jugular vein. The vascular dilator and guidewire were removed and the sheath was left in place. The catheter tubing was placed down the sheath into the superior vena cava. The vascular sheath was peeled away. Using fluoroscopic guidance, I guided the tip of the catheter into the distal SVC. I accessed the catheter tubing and a good return of venous blood was noted. The catheter tubing was trimmed to 21 cm and placed on the Port-A- Cath device. The port was placed into the chest wall pocket. I aspirated the Port-A-Cath and had good return of venous blood. The Port-A-Cath was secured with 3 mL of heparinized saline. The port was then secured on either side using 2-0 Prolene sutures. The incision was then closed with interrupted 3-0 Vicryl in the subcutaneous fat layer and the skin was closed with a running 4-0 Monocryl stitch. The insertion site on the neck was closed with an interrupted 4-0 Monocryl suture. Dermabond and sterile dressings were applied. The patient tolerated the procedure well and was taken to PACU and extubated without any complications. A postoperative chest x-ray was taken which showed good placement of the Port-A-Cath with no evidence of any pneumothorax or hemothorax. All counts were complete and correct at the end of the case. JEOVANNY ANDERSON /[id number]
--- NOTE | 2021-04-05 17:14 | CR ---
Indication: Port-A-Cath. Technique: Two spot fluoroscopic views of the chest. Comparison: None. Findings: Port-A-Cath terminates in the superior vena cava. Soft tissues elsewhere as imaged are unremarkable. Fluoroscopy time: 40.8 seconds. Radiation dose: [id number] mGym2. Impression: Intraoperative fluoroscopy for Port-A-Cath placement. Dictated by Sav Byrnes MD @ 04/05/2021 5:11:57 PM (Electronically Signed)
== END 2021-04-05 10:34 | disposition home or self-care (01) ==
LOC: MW.SDS 06:33
PROVIDERS: ATTEND Surgery
DX: C50.919 Malignant neoplasm of unspecified site of unspecified female breast (principal); I35.0 Nonrheumatic aortic (valve) stenosis; I42.9 Cardiomyopathy, unspecified; J44.9 Chronic obstructive pulmonary disease, unspecified; I25.10 Atherosclerotic heart disease of native coronary artery without angina pectoris; K21.9 Gastro-esophageal reflux disease without esophagitis; I10 Essential (primary) hypertension; E78.00 Pure hypercholesterolemia, unspecified; E87.6 Hypokalemia; Z86.73 Personal history of transient ischemic attack (TIA), and cerebral infarction without residual deficits; Z88.7 Allergy status to serum and vaccine; Z88.8 Allergy status to other drugs, medicaments and biological substances; Z79.82 Long term (current) use of aspirin; Z79.899 Other long term (current) drug therapy; Z79.01 Long term (current) use of anticoagulants; Z98.890 Other specified postprocedural states; Z87.891 Personal history of nicotine dependence
CPT/HCPCS: 36561; 71045; 76000; A9270; J1100; J1642; J1885; J2370; J2405; J2704; J3010; J3490; J7120; 00532; Q9966

== ENCOUNTER 2023-08-03 11:46 | Emergency (ER) | payer BC ==
[2023-08-03 13:26] VITALS: BP 109/80; PULSE 79
== END 2023-08-03 13:27 | disposition home or self-care (01) ==
LOC: MW.ED 11:46
DX: K94.22 Gastrostomy infection (principal); I10 Essential (primary) hypertension; E78.00 Pure hypercholesterolemia, unspecified; M19.90 Unspecified osteoarthritis, unspecified site; E03.9 Hypothyroidism, unspecified; Z79.82 Long term (current) use of aspirin; Z79.899 Other long term (current) drug therapy; Z88.7 Allergy status to serum and vaccine; Z88.8 Allergy status to other drugs, medicaments and biological substances
CPT/HCPCS: 99283; J1642

== ENCOUNTER 2023-10-11 13:22 | Emergency (ER) | payer BC ==
[2023-10-11 14:42] LABS: HEMATOCRIT 23.7 % (37.0-47.0); HEMOGLOBIN 7.9 g/dL (12.0-16.0); MEAN CORPUSCULAR HEMOGLOBIN 34.5 pg (28.0-32.0); MEAN CORPUSCULAR HGB CONC 33.3 g/dL (32.0-36.0); MEAN CORPUSCULAR VOLUME 103.5 fL (83.0-99.0); MEAN PLATELET VOLUME 9.2 fL (9.4-12.3); PLATELET COUNT,PLT 127 K/uL (150-400); RED BLOOD CELL COUNT 2.29 M/uL (4.10-5.30); WHITE BLOOD CELL COUNT,WBC 1.94 K/uL (3.9-11.3)
[2023-10-11] MEDS: Famotidine 20 MG/2 ML SDV IVPUSH ONE (15:06)
[2023-10-11] MEDS: Ondansetron 4 MG/2 ML SDV IVPUSH ONE (15:06)
[2023-10-11] MEDS: Sodium Chloride 0.9% 1,000 ML IV ONE (15:06)
[2023-10-11] MEDS: HYDROmorphone 1 MG/ML Syringe IVPUSH ONE (15:06)
[2023-10-11 15:07] LABS: BASOPHILS ABSOLUTE MAN 0.02 K/uL (0.00-0.20); BASOPHILS PERCENT MAN 1 % (0-1); LYMPHOCYTES ABSOLUTE MAN 0.35 K/uL (1.00-4.80); LYMPHOCYTES PERCENT MAN 18 % (24-44); MONOCYTES ABSOLUTE MAN 0.21 K/uL (0.00-0.80); MONOCYTES PERCENT MAN 11 % (0-8); SEG NEUTROPHILS ABSOLUTE MAN 1.36 K/uL (1.80-7.70); SEG NEUTROPHILS PERCENT MAN 70 % (41-71)
[2023-10-11] MEDS: Sodium Chloride 0.9% 10 ML Syringe FLUSH PRN (15:08)
[2023-10-11] MEDS: Sodium Chloride 0.9% 2.5 ML Syringe FLUSH PRN (15:08)
[2023-10-11 15:15] LABS: A/G RATIO 0.6 (0.9-1.6); ALBUMIN 2.7 g/dL (3.4-5.0); BILIRUBIN TOTAL 0.5 mg/dL (0.2-1.0); CALCIUM 8.9 mg/dL (8.5-10.1); CARBON DIOXIDE,CO2 22.5 mmol/L (21.0-32.0); CREATININE 1.4 mg/dL (0.6-1.0); EST CRCL DRUG DOSING (CG) 36.34 mL/min; MAGNESIUM 1.7 mg/dL (1.8-2.4); POTASSIUM,K 3.9 mmol/L (3.5-5.1); PROTEIN TOTAL,TP 7.4 g/dL (6.4-8.2)
[2023-10-11 17:16] VITALS: PULSE 61
[2023-10-11 17:18] VITALS: BP 122/89
== END 2023-10-11 17:17 | disposition home or self-care (01) ==
LOC: MW.ED 13:22
DX: C50.919 Malignant neoplasm of unspecified site of unspecified female breast (principal); D61.818 Other pancytopenia; E86.0 Dehydration; I48.91 Unspecified atrial fibrillation; E78.00 Pure hypercholesterolemia, unspecified; E03.9 Hypothyroidism, unspecified; Z86.73 Personal history of transient ischemic attack (TIA), and cerebral infarction without residual deficits; Z79.01 Long term (current) use of anticoagulants; Z79.899 Other long term (current) drug therapy; Z79.82 Long term (current) use of aspirin; Z88.8 Allergy status to other drugs, medicaments and biological substances; Z88.7 Allergy status to serum and vaccine; Z75.8 Other problems related to medical facilities and other health care
CPT/HCPCS: 36415; 71045; 74176; 80053; 83690; 83735; 83880; 84484; 85025; 93005; 96361; 96374; 96375; 99285; J1170; J2405; J3490; J7030; 93010; 99284

== ENCOUNTER 2023-11-25 20:49 | Inpatient (IN) | payer BC ==
[2023-11-25] MEDS: Sodium Chloride 0.9% 1,000 ML IV ONE (23:03)
[2023-11-25 23:06] LABS: BASOPHILS ABSOLUTE AUTO 0.01 K/uL (0.00-0.20); BASOPHILS PERCENT AUTO 0.1 % (0.0-1.0); HEMOGLOBIN 9.4 g/dL (12.0-16.0); IMMATURE GRAN ABSOLUTE AUTO 0.21 K/uL (0.00-0.05); IMMATURE GRAN PERCENT AUTO 1.4 % (0.0-0.4); LYMPHOCYTES ABSOLUTE AUTO 0.29 K/uL (1.00-4.80); LYMPHOCYTES PERCENT AUTO 1.9 % (24.0-44.0); MEAN CORPUSCULAR HEMOGLOBIN 34.2 pg (28.0-32.0); MEAN CORPUSCULAR HGB CONC 32.4 g/dL (32.0-36.0); MEAN CORPUSCULAR VOLUME 105.5 fL (83.0-99.0); MEAN PLATELET VOLUME 8.4 fL (9.4-12.3); MONOCYTES ABSOLUTE AUTO 0.47 K/uL (0.00-0.80); MONOCYTES PERCENT AUTO 3.1 % (0.0-8.0); NEUTROPHILS ABSOLUTE AUTO 14.12 K/uL (1.80-7.70); NEUTROPHILS PERCENT AUTO 93.5 % (41.0-71.0); PLATELET COUNT,PLT 395 K/uL (150-400); RED BLOOD CELL COUNT 2.75 M/uL (4.10-5.30)
[2023-11-25 23:30] LABS: A/G RATIO 0.5 (0.9-1.6); ALBUMIN 2.3 g/dL (3.4-5.0); BILIRUBIN TOTAL 0.4 mg/dL (0.2-1.0); CARBON DIOXIDE,CO2 15.7 mmol/L (21.0-32.0); CREATININE 1.3 mg/dL (0.6-1.0); EST CRCL DRUG DOSING (CG) 36.03 mL/min; POTASSIUM,K 3.5 mmol/L (3.5-5.1); PROTEIN TOTAL,TP 6.7 g/dL (6.4-8.2)
[2023-11-25] MEDS: Acetaminophen/HYDROcodone 325-5 MG Tab PO ONE (23:52)
[2023-11-25] MEDS: Metoprolol Succinate 100 MG Tab.ER PO ONE (23:53)
[2023-11-26] MEDS: Midazolam 1 MG/ML 2 ML SDV IVPUSH ONE (01:38)
[2023-11-26] MEDS: Diltiazem 25 MG/5 ML SDV IVPUSH ONE (02:12)
[2023-11-26] MEDS: Sodium Chloride 0.9% 500 ML IV ONE (02:14)
[2023-11-26] MEDS ORDERED: Diltiazem 100 MG in Sodium Chloride 0.9% 100 ML IV SCH (02:30)
[2023-11-26] MEDS: Sodium Chloride 0.9% 1,000 ML IV STA (02:38)
[2023-11-26] MEDS: Digoxin 500 MCG/2 ML Amp IVPUSH ONE ×2 (02:38→04:28)
[2023-11-26] MEDS: Diatrizoate Meglumine/Diatrizoate Sodium 37% 30 ML Bottle GTUBE ONE (02:45)
[2023-11-26] MEDS: Diltiazem IR 60 MG Tab PO ONE (02:47)
[2023-11-26 03:46] LABS: CALCIUM 8.9 mg/dL (8.5-10.1); CREATININE 1.3 mg/dL (0.6-1.0); EST CRCL DRUG DOSING (CG) 36.03 mL/min; POTASSIUM,K 3.5 mmol/L (3.5-5.1)
[2023-11-26] MEDS: Acetaminophen/HYDROcodone 325-5 MG Tab PO ONE ×2 (04:09→07:27)
[2023-11-26 07:40] LABS: APPEARANCE,URINE CLEAR; COLOR,URINE YELLOW; GLUCOSE,URINE NEGATIVE (NEGATIVE); KETONES,URINE 40 mg/dL (NEGATIVE); LEUKOCYTE ESTERASE,URINE NEGATIVE (NEGATIVE); NITRITE,URINE NEGATIVE (NEGATIVE); OCCULT BLOOD,URINE TRACE-INTACT (NEGATIVE); PROTEIN,URINE 30 mg/dL (NEGATIVE); UROBILINOGEN,URINE 0.2 EU/dL (<2.0)
[2023-11-26 07:52] LABS: BILIRUBIN,URINE SMALL (NEGATIVE)
[2023-11-26 08:01] LABS: EPITHELIAL CELLS,URINE FEW (NONE-FEW); HYALINE CASTS,URINE 0-2 (0-2/LPF); MUCUS,URINE LIGHT (NONE-MOD); RBC,URINE NONE SEEN (0-2/HPF)
[2023-11-26 08:02] LABS: BACTERIA,URINE FEW (NEGATIVE)
[2023-11-26] MEDS ORDERED: Naloxone 0.4 MG/ML SDV IVPUSH PRN (10:02)
[2023-11-26] MEDS: Morphine 2 MG/ML SYRINGE IVPUSH PRN (10:08)
[2023-11-26 12:22] LABS: BASOPHILS ABSOLUTE AUTO 0.01 K/uL (0.00-0.20); BASOPHILS PERCENT AUTO 0.1 % (0.0-1.0); EOSINOPHILS ABSOLUTE AUTO 0.01 K/uL (0.00-0.45); EOSINOPHILS PERCENT AUTO 0.1 % (0.0-6.0); HEMATOCRIT 26.5 % (37.0-47.0); HEMOGLOBIN 8.6 g/dL (12.0-16.0); IMMATURE GRAN ABSOLUTE AUTO 0.22 K/uL (0.00-0.05); IMMATURE GRAN PERCENT AUTO 1.9 % (0.0-0.4); LYMPHOCYTES ABSOLUTE AUTO 0.29 K/uL (1.00-4.80); LYMPHOCYTES PERCENT AUTO 2.5 % (24.0-44.0); MEAN CORPUSCULAR HEMOGLOBIN 34.4 pg (28.0-32.0); MEAN CORPUSCULAR HGB CONC 32.5 g/dL (32.0-36.0); MEAN PLATELET VOLUME 8.4 fL (9.4-12.3); MONOCYTES ABSOLUTE AUTO 0.71 K/uL (0.00-0.80); NEUTROPHILS ABSOLUTE AUTO 10.56 K/uL (1.80-7.70); NEUTROPHILS PERCENT AUTO 89.4 % (41.0-71.0); PLATELET COUNT,PLT 339 K/uL (150-400)
[2023-11-26] MEDS: Metoprolol Succinate 25 MG Tab.ER PO SCH (14:07)
[2023-11-26] MEDS ORDERED: Ondansetron 4 MG Tab.DIS PO PRN (14:17)
[2023-11-26] MEDS ORDERED: Non-Formulary Medication 1 Each (Fentanyl [Fentanyl] 1 EACH Patch.Td72) TD SCH (14:30)
[2023-11-26] MEDS: Acetaminophen/HYDROcodone 325-5 MG Tab PO PRN (16:12)
[2023-11-26] MEDS: oxyCODONE 5 MG Tab PO PRN (20:43)
[2023-11-26] MEDS: Rosuvastatin 10 MG Tab PO SCH (20:44)
[2023-11-27] MEDS: 50% Dextrose in Water 50 ML Syringe IVPUSH ONE (00:19)
[2023-11-27] MEDS: Metoprolol Succinate 25 MG Tab.ER PO SCH (02:31)
[2023-11-27 05:45] LABS: BASOPHILS ABSOLUTE AUTO 0.03 K/uL (0.00-0.20); BASOPHILS PERCENT AUTO 0.2 % (0.0-1.0); EOSINOPHILS ABSOLUTE AUTO 0.01 K/uL (0.00-0.45); EOSINOPHILS PERCENT AUTO 0.1 % (0.0-6.0); HEMATOCRIT 29.6 % (37.0-47.0); HEMOGLOBIN 9.5 g/dL (12.0-16.0); IMMATURE GRAN ABSOLUTE AUTO 0.23 K/uL (0.00-0.05); IMMATURE GRAN PERCENT AUTO 1.2 % (0.0-0.4); LYMPHOCYTES ABSOLUTE AUTO 0.27 K/uL (1.00-4.80); LYMPHOCYTES PERCENT AUTO 1.5 % (24.0-44.0); MEAN CORPUSCULAR HEMOGLOBIN 33.8 pg (28.0-32.0); MEAN CORPUSCULAR HGB CONC 32.1 g/dL (32.0-36.0); MEAN CORPUSCULAR VOLUME 105.3 fL (83.0-99.0); MEAN PLATELET VOLUME 8.7 fL (9.4-12.3); MONOCYTES ABSOLUTE AUTO 1.06 K/uL (0.00-0.80); MONOCYTES PERCENT AUTO 5.8 % (0.0-8.0); NEUTROPHILS ABSOLUTE AUTO 16.81 K/uL (1.80-7.70); NEUTROPHILS PERCENT AUTO 91.2 % (41.0-71.0); PLATELET COUNT,PLT 316 K/uL (150-400); RED BLOOD CELL COUNT 2.81 M/uL (4.10-5.30); WHITE BLOOD CELL COUNT,WBC 18.41 K/uL (3.9-11.3)
[2023-11-27 06:01] LABS: CALCIUM 8.4 mg/dL (8.5-10.1); CARBON DIOXIDE,CO2 22.3 mmol/L (21.0-32.0); CREATININE 0.9 mg/dL (0.6-1.0); EST CRCL DRUG DOSING (CG) 53.33 mL/min; POTASSIUM,K 3.6 mmol/L (3.5-5.1)
[2023-11-27] MEDS: Sodium Chloride 0.9% 1,000 ML IV ONE ×2 (10:49→13:38)
[2023-11-27] MEDS: Digoxin 500 MCG/2 ML Amp IVPUSH ONE (11:00)
[2023-11-27] MEDS: cefTRIAXone 1 GM in Sodium Chloride 0.9% 50 ML IV SCH (11:02)
[2023-11-27 11:55] LABS: LACTIC ACID 1.1 mmol/L (0.4-2.0)
[2023-11-27] MEDS: Sodium Chloride 0.9% 500 ML IV SCH (12:00)
[2023-11-27] MEDS: Rivaroxaban 15 MG Tab PO SCH (12:39)
[2023-11-27] MEDS: Sodium Chloride 0.9% 1,000 ML IV SCH (12:41)
[2023-11-27] MEDS: Norepinephrine Bit/D5W Premix 250 ML IV SCH (15:13)
[2023-11-27 16:52] LABS: ANION GAP 18.9; CARBON DIOXIDE,CO2 21.8 mmol/L (21.0-32.0); MAGNESIUM 1.6 mg/dL (1.8-2.4); PHOSPHORUS 1.3 mg/dL (2.6-4.7); POTASSIUM,K 2.7 mmol/L (3.5-5.1)
[2023-11-27] MEDS: Potassium Chloride 10% 20 MEQ/15 ML Soln 15 ML UD Cup PO ONE (17:39)
[2023-11-27] MEDS: Phosphorus #1 250 MG Tab PO SCH (17:40)
[2023-11-27] MEDS: Magnesium Oxide 400 MG Tab PO ONE (17:40)
[2023-11-27] MEDS: Ondansetron 4 MG/2 ML SDV IVPUSH PRN (18:03)
[2023-11-27] MEDS: Metoclopramide 10 MG/2 ML SDV IVPUSH PRN (18:53)
[2023-11-27 19:30] LABS: APPEARANCE,URINE CLEAR; COLOR,URINE YELLOW; GLUCOSE,URINE NEGATIVE (NEGATIVE); KETONES,URINE 15 mg/dL (NEGATIVE); LEUKOCYTE ESTERASE,URINE NEGATIVE (NEGATIVE); NITRITE,URINE NEGATIVE (NEGATIVE); OCCULT BLOOD,URINE NEGATIVE (NEGATIVE); PROTEIN,URINE 30 mg/dL (NEGATIVE); UROBILINOGEN,URINE 0.2 EU/dL (<2.0)
[2023-11-27 19:44] LABS: BILIRUBIN,URINE SMALL (NEGATIVE)
[2023-11-27 19:49] LABS: BACTERIA,URINE FEW (NEGATIVE); EPITHELIAL CELLS,URINE RARE (NONE-FEW); RBC,URINE 0-1 (0-2/HPF); WBC,URINE 0-5 (0-5/HPF)
[2023-11-27] MEDS: Metoprolol Tartrate 25 MG Tab GTUBE SCH (20:10)
[2023-11-27 22:59] LABS: ANION GAP 15.8; CARBON DIOXIDE,CO2 24.9 mmol/L (21.0-32.0); MAGNESIUM 1.6 mg/dL (1.8-2.4); PHOSPHORUS 1.1 mg/dL (2.6-4.7); POTASSIUM,K 3.7 mmol/L (3.5-5.1)
[2023-11-27] MEDS ORDERED: Magnesium Sulfate (4.06 MEQ/ML) 5 GM/10 ML SDV IV ONE (23:25)
[2023-11-27] MEDS ORDERED: Potassium Phosphates 3 mMole/ML 15 ML SDV IV ONE (23:30)
[2023-11-28] MEDS: Magnesium Sulfate/Water 4 GM in Premix Bag 1 BAG IV ONE (00:06)
[2023-11-28] MEDS ORDERED: Potassium Phosphates 30 MMOLE in Sodium Chloride 0.9% 250 ML IV SCH (00:15)
[2023-11-28] MEDS: Potassium Phosphates 30 MMOLE in Sodium Chloride 0.9% 500 ML IV ONE (00:53)
[2023-11-28 08:31] LABS: CALCIUM 7.3 mg/dL (8.5-10.1); CARBON DIOXIDE,CO2 21.8 mmol/L (21.0-32.0); CREATININE 0.8 mg/dL (0.6-1.0); PHOSPHORUS 3.1 mg/dL (2.6-4.7); POTASSIUM,K 3.8 mmol/L (3.5-5.1)
[2023-11-28 08:55] LABS: RED BLOOD CELL COUNT 2.42 M/uL (4.10-5.30); WHITE BLOOD CELL COUNT,WBC 15.19 K/uL (3.9-11.3)
[2023-11-28 08:56] LABS: HEMATOCRIT 25.9 % (37.0-47.0); HEMOGLOBIN 8.2 g/dL (12.0-16.0); MEAN CORPUSCULAR HEMOGLOBIN 33.9 pg (28.0-32.0); MEAN CORPUSCULAR HGB CONC 31.7 g/dL (32.0-36.0); MEAN PLATELET VOLUME 8.9 fL (9.4-12.3); NEUTROPHILS PERCENT AUTO 87.4 % (41.0-71.0); PLATELET COUNT,PLT 358 K/uL (150-400)
[2023-11-28 08:57] LABS: BASOPHILS ABSOLUTE AUTO 0.03 K/uL (0.00-0.20); BASOPHILS PERCENT AUTO 0.2 % (0.0-1.0); EOSINOPHILS ABSOLUTE AUTO 0.04 K/uL (0.00-0.45); EOSINOPHILS PERCENT AUTO 0.3 % (0.0-6.0); IMMATURE GRAN ABSOLUTE AUTO 0.22 K/uL (0.00-0.05); IMMATURE GRAN PERCENT AUTO 1.4 % (0.0-0.4); LYMPHOCYTES ABSOLUTE AUTO 0.31 K/uL (1.00-4.80); MONOCYTES ABSOLUTE AUTO 1.32 K/uL (0.00-0.80); MONOCYTES PERCENT AUTO 8.7 % (0.0-8.0); NEUTROPHILS ABSOLUTE AUTO 13.27 K/uL (1.80-7.70)
[2023-11-28] MEDS: Digoxin 125 MCG Tab PO SCH (10:39)
[2023-11-28] MEDS: Pantoprazole 40 MG in Sodium Chloride 0.9% 10 ML IVPUSH SCH (16:23)
[2023-11-28] MEDS: Polyethylene Glycol 3350 Powder 17 GM Packet PEGTUBE SCH (16:23)
[2023-11-28] MEDS ORDERED: Bisacodyl 10 MG Supp RECTAL PRN (17:43)
[2023-11-28] MEDS: Dextrose 5%-0.45% NaCl 1,000 ML IV SCH (17:49)
[2023-11-28] MEDS: Amiodarone 200 MG Tab PO SCH (20:10)
[2023-11-29 09:01] LABS: BASOPHILS ABSOLUTE AUTO 0.02 K/uL (0.00-0.20); BASOPHILS PERCENT AUTO 0.2 % (0.0-1.0); EOSINOPHILS ABSOLUTE AUTO 0.08 K/uL (0.00-0.45); EOSINOPHILS PERCENT AUTO 0.6 % (0.0-6.0); HEMATOCRIT 25.8 % (37.0-47.0); HEMOGLOBIN 8.3 g/dL (12.0-16.0); IMMATURE GRAN ABSOLUTE AUTO 0.25 K/uL (0.00-0.05); LYMPHOCYTES ABSOLUTE AUTO 0.23 K/uL (1.00-4.80); LYMPHOCYTES PERCENT AUTO 1.9 % (24.0-44.0); MEAN CORPUSCULAR HEMOGLOBIN 33.6 pg (28.0-32.0); MEAN CORPUSCULAR HGB CONC 32.2 g/dL (32.0-36.0); MEAN CORPUSCULAR VOLUME 104.5 fL (83.0-99.0); MEAN PLATELET VOLUME 8.8 fL (9.4-12.3); MONOCYTES ABSOLUTE AUTO 0.98 K/uL (0.00-0.80); NEUTROPHILS ABSOLUTE AUTO 10.76 K/uL (1.80-7.70); NEUTROPHILS PERCENT AUTO 87.3 % (41.0-71.0); PLATELET COUNT,PLT 263 K/uL (150-400); RED BLOOD CELL COUNT 2.47 M/uL (4.10-5.30); WHITE BLOOD CELL COUNT,WBC 12.32 K/uL (3.9-11.3)
[2023-11-29 09:32] LABS: CARBON DIOXIDE,CO2 23.7 mmol/L (21.0-32.0); CREATININE 0.7 mg/dL (0.6-1.0); EST CRCL DRUG DOSING (CG) 68.57 mL/min; MAGNESIUM 1.7 mg/dL (1.8-2.4); PHOSPHORUS 1.7 mg/dL (2.6-4.7); POTASSIUM,K 2.9 mmol/L (3.5-5.1)
[2023-11-29] MEDS: Potassium Phosphates 15 MMOLE, Magnesium Sulfate 2 GM in Sodium Chloride 0.9% 500 ML IV STA (10:14)
[2023-11-29] MEDS: Potassium Chloride 20 MEQ in Premix Bag 1 BAG IV SCH (14:23)
[2023-11-29] MEDS: Potassium Chloride 10% 20 MEQ/15 ML Soln 15 ML UD Cup GTUBE ONE (16:00)
[2023-11-29 18:47] LABS: CALCIUM 6.7 mg/dL (8.5-10.1); CARBON DIOXIDE,CO2 23.6 mmol/L (21.0-32.0); CREATININE 0.8 mg/dL (0.6-1.0); POTASSIUM,K 3.4 mmol/L (3.5-5.1)
[2023-11-29] MEDS: Potassium Chloride 20 MEQ in Premix Bag 1 BAG IV ONE (19:02)
[2023-11-29] MEDS: Phosphorus #1 250 MG Tab GTUBE SCH (21:29)
[2023-11-30 06:14] LABS: BASOPHILS ABSOLUTE AUTO 0.01 K/uL (0.00-0.20); BASOPHILS PERCENT AUTO 0.1 % (0.0-1.0); EOSINOPHILS ABSOLUTE AUTO 0.06 K/uL (0.00-0.45); EOSINOPHILS PERCENT AUTO 0.6 % (0.0-6.0); HEMATOCRIT 25.4 % (37.0-47.0); HEMOGLOBIN 8.2 g/dL (12.0-16.0); IMMATURE GRAN ABSOLUTE AUTO 0.21 K/uL (0.00-0.05); LYMPHOCYTES ABSOLUTE AUTO 0.26 K/uL (1.00-4.80); LYMPHOCYTES PERCENT AUTO 2.5 % (24.0-44.0); MEAN CORPUSCULAR HEMOGLOBIN 33.9 pg (28.0-32.0); MEAN CORPUSCULAR HGB CONC 32.3 g/dL (32.0-36.0); MONOCYTES ABSOLUTE AUTO 0.91 K/uL (0.00-0.80); MONOCYTES PERCENT AUTO 8.6 % (0.0-8.0); NEUTROPHILS ABSOLUTE AUTO 9.15 K/uL (1.80-7.70); NEUTROPHILS PERCENT AUTO 86.2 % (41.0-71.0); PLATELET COUNT,PLT 237 K/uL (150-400); RED BLOOD CELL COUNT 2.42 M/uL (4.10-5.30)
[2023-11-30 06:33] LABS: CALCIUM 7.4 mg/dL (8.5-10.1); CARBON DIOXIDE,CO2 25.2 mmol/L (21.0-32.0); CREATININE 0.8 mg/dL (0.6-1.0); POTASSIUM,K 3.8 mmol/L (3.5-5.1)
[2023-12-01 05:58] LABS: BASOPHILS ABSOLUTE AUTO 0.01 K/uL (0.00-0.20); BASOPHILS PERCENT AUTO 0.1 % (0.0-1.0); EOSINOPHILS ABSOLUTE AUTO 0.04 K/uL (0.00-0.45); EOSINOPHILS PERCENT AUTO 0.4 % (0.0-6.0); HEMATOCRIT 23.6 % (37.0-47.0); HEMOGLOBIN 7.7 g/dL (12.0-16.0); IMMATURE GRAN ABSOLUTE AUTO 0.13 K/uL (0.00-0.05); IMMATURE GRAN PERCENT AUTO 1.3 % (0.0-0.4); LYMPHOCYTES ABSOLUTE AUTO 0.23 K/uL (1.00-4.80); LYMPHOCYTES PERCENT AUTO 2.3 % (24.0-44.0); MEAN CORPUSCULAR HEMOGLOBIN 33.9 pg (28.0-32.0); MEAN CORPUSCULAR HGB CONC 32.6 g/dL (32.0-36.0); MEAN PLATELET VOLUME 9.1 fL (9.4-12.3); MONOCYTES ABSOLUTE AUTO 1.04 K/uL (0.00-0.80); MONOCYTES PERCENT AUTO 10.4 % (0.0-8.0); NEUTROPHILS ABSOLUTE AUTO 8.55 K/uL (1.80-7.70); NEUTROPHILS PERCENT AUTO 85.5 % (41.0-71.0); PLATELET COUNT,PLT 213 K/uL (150-400); RED BLOOD CELL COUNT 2.27 M/uL (4.10-5.30)
[2023-12-01 06:28] LABS: CALCIUM 7.1 mg/dL (8.5-10.1); CARBON DIOXIDE,CO2 26.3 mmol/L (21.0-32.0); CREATININE 0.8 mg/dL (0.6-1.0); MAGNESIUM 1.7 mg/dL (1.8-2.4); PHOSPHORUS 2.5 mg/dL (2.6-4.7)
[2023-12-01] MEDS ORDERED: Magnesium Sulfate/Water 2 GM/50 ML Premix Bag IV ONE (10:24)
[2023-12-01] MEDS: Magnesium Sulfate/Water 2 GM in Premix Bag 1 BAG IV ONE (11:13)
[2023-12-02 06:11] LABS: BASOPHILS ABSOLUTE AUTO 0.01 K/uL (0.00-0.20); BASOPHILS PERCENT AUTO 0.1 % (0.0-1.0); EOSINOPHILS ABSOLUTE AUTO 0.03 K/uL (0.00-0.45); EOSINOPHILS PERCENT AUTO 0.3 % (0.0-6.0); HEMATOCRIT 22.8 % (37.0-47.0); HEMOGLOBIN 7.3 g/dL (12.0-16.0); IMMATURE GRAN ABSOLUTE AUTO 0.08 K/uL (0.00-0.05); IMMATURE GRAN PERCENT AUTO 0.8 % (0.0-0.4); LYMPHOCYTES ABSOLUTE AUTO 0.25 K/uL (1.00-4.80); LYMPHOCYTES PERCENT AUTO 2.6 % (24.0-44.0); MEAN CORPUSCULAR HEMOGLOBIN 33.5 pg (28.0-32.0); MEAN CORPUSCULAR VOLUME 104.6 fL (83.0-99.0); MEAN PLATELET VOLUME 9.2 fL (9.4-12.3); MONOCYTES ABSOLUTE AUTO 1.31 K/uL (0.00-0.80); MONOCYTES PERCENT AUTO 13.4 % (0.0-8.0); NEUTROPHILS ABSOLUTE AUTO 8.06 K/uL (1.80-7.70); NEUTROPHILS PERCENT AUTO 82.8 % (41.0-71.0); PLATELET COUNT,PLT 195 K/uL (150-400); RED BLOOD CELL COUNT 2.18 M/uL (4.10-5.30); WHITE BLOOD CELL COUNT,WBC 9.74 K/uL (3.9-11.3)
[2023-12-02 06:35] LABS: A/G RATIO 0.4 (0.9-1.6); ALBUMIN 1.5 g/dL (3.4-5.0); BILIRUBIN TOTAL 0.3 mg/dL (0.2-1.0); CALCIUM 7.1 mg/dL (8.5-10.1); CARBON DIOXIDE,CO2 27.1 mmol/L (21.0-32.0); CREATININE 0.8 mg/dL (0.6-1.0); MAGNESIUM 1.8 mg/dL (1.8-2.4); PHOSPHORUS 2.7 mg/dL (2.6-4.7); POTASSIUM,K 3.5 mmol/L (3.5-5.1)
[2023-12-05] MEDS: fentaNYL 25 MCG/HR Transdermal Patch TRDERM SCH (16:50)
[2023-12-06 10:17] VITALS: BP 102/67; PULSE 81
== END 2023-12-06 10:45 | DRG 201 ==
LOC: MW.ED 20:49 → MW.MS 11-26 04:56 → OBSVTOIN 11-27 10:41 → MW.ICU 11-27 10:41 → MW.MS 11-29 13:24
PROVIDERS: ADMIT Internal Medicine; ATTEND Internal Medicine
DX: I48.11 Longstanding persistent atrial fibrillation (principal); I25.10 Atherosclerotic heart disease of native coronary artery without angina pectoris; E78.00 Pure hypercholesterolemia, unspecified; M19.90 Unspecified osteoarthritis, unspecified site; E03.9 Hypothyroidism, unspecified; D50.8 Other iron deficiency anemias; E87.6 Hypokalemia; Z66 Do not resuscitate; Z51.5 Encounter for palliative care; E83.42 Hypomagnesemia; I35.0 Nonrheumatic aortic (valve) stenosis; N18.9 Chronic kidney disease, unspecified; C15.9 Malignant neoplasm of esophagus, unspecified; D72.829 Elevated white blood cell count, unspecified; E83.39 Other disorders of phosphorus metabolism; I95.9 Hypotension, unspecified; C50.919 Malignant neoplasm of unspecified site of unspecified female breast; Z88.7 Allergy status to serum and vaccine; Z88.8 Allergy status to other drugs, medicaments and biological substances; Z95.1 Presence of aortocoronary bypass graft; Z93.1 Gastrostomy status; Z79.01 Long term (current) use of anticoagulants; Z79.899 Other long term (current) drug therapy; Z87.891 Personal history of nicotine dependence; Z90.710 Acquired absence of both cervix and uterus; Z86.73 Personal history of transient ischemic attack (TIA), and cerebral infarction without residual deficits; Z95.828 Presence of other vascular implants and grafts
CPT/HCPCS: 36415; 43762; 51701; 51702; 71045; 71045-26; 74018; 74018-26; 74019; 74019-26; 74150; 74150-26; 74176; 74176-26; 80048; 80051; 80053; 80162; 81001; 82040; 82330; 82947; 83605; 83735; 83880; 84100; 84484; 85025; 87040; 93005; 93010; 93306; 96361; 96365; 96366; 96368; 96374; 96375; 96376; 97110-GP; 97162-GP; 97530-GP; 99285; 99285-25; A9270-GY; C9113; G0378; J0282; J0696; J1160; J1642; J2250; J2270; J2405; J2765; J3475; J3480; J3490; J7030; J7040; J7042; Q9963